=== PATIENT | female | born 1940 | race Caucasian/White ===

== ENCOUNTER → 2016-02-19 | Outpatient (CLI) | payer BC ==
[~2016-02-19] MED LIST: ALBU1AER9 INH; ATEN-173 PO; CYAN10004 PO; LORA10TA51 PO; MULT1CHW18 PO; OMEG1200 PO; PANT40TA PO; VALA500T39 PO
--- NOTE | 2016-02-19 10:09 | DIAGNOSTIC IMAGING REPORT ---
THYROID ULTRASONOGRAPHY CLINICAL HISTORY: SUBCLINICAL HYPOTHYROIDISM COMPARISON STUDY: 02/08/2011 FINDINGS: The right lobe measures 50 x 12 x 12 mm. The left lobe measures 44 x 14 x 19 mm. There is a septated cystic lower pole right lobe nodule measuring 5 mm in long axis. There is a 3 mm cystic lower pole right lobe nodule. There is a mixed echogenicity 7 x 4 x 4 mm upper pole right lobe nodule. On the left, there is a mixed solid and cystic 23 x 12 x 17 mm mid upper pole nodule. There is a 7 mm spongiform lower pole nodule. There is a 7 mm mid pole mixed echogenicity nodule. IMPRESSION: Multinodular thyroid gland demonstrating slight interval enlargement of the dominant left lobe nodule, currently measuring 23 mm in long axis compared to 17 mm in long axis January 2011. Electronically signed by: Shalom Zapata M.D. 02/19/2016 10:07 AM Dictated Date/Time: 02/19/2016 10:04 AM
== END | disposition home or self-care (01) ==
LOC: C.ULTR 09:32
PROVIDERS: ATTEND Internal Medicine Endocrinology, Diabetes & Metabolism
DX: E03.9 Hypothyroidism, unspecified (principal)

== ENCOUNTER → 2016-03-18 | Outpatient (CLI) | payer BC ==
--- NOTE | 2016-03-18 11:16 | DIAGNOSTIC IMAGING REPORT ---
RENAL ULTRASOUND HISTORY: Hematuria. COMPARISON: Abdominal ultrasound 07/17/2009. FINDINGS: Right kidney: 9.3 cm. No hydronephrosis. Normal corticomedullary differentiation. Mild cortical renal lobulation/thinning. This is likely age-related. Left kidney: 9.1 cm. No hydronephrosis. Normal corticomedullary differentiation. Mild cortical renal lobulation/thinning. This is likely age-related. Bladder: No bladder wall thickening. The bilateral ureteral jets were identified. IMPRESSION: Normal renal ultrasound for age. Electronically signed by: Kong Saravia M.D. 03/18/2016 11:14 AM Dictated Date/Time: 03/18/2016 11:12 AM
== END | disposition home or self-care (01) ==
LOC: C.ULTR 10:10
PROVIDERS: ATTEND Family Medicine
DX: R31.9 Hematuria, unspecified (principal); R79.89 Other specified abnormal findings of blood chemistry

== ENCOUNTER → 2016-11-07 | Outpatient (CLI) | payer BC | END | disposition home or self-care (01) | LOC: C.PAPS 11:32 | PROVIDERS: ATTEND Obstetrics & Gynecology | DX: Z01.419 Encounter for gynecological examination (general) (routine) without abnormal findings (principal) ==

== ENCOUNTER → 2017-04-05 | Day surgery (SDC) | payer BC ==
[2017-03-13 08:28] VITALS: Ht 170.2 cm; Wt 82.7 kg
[~2017-04-05] VITALS: Ht 170.2 cm; Wt 82.7 kg
[~2017-04-05] MED LIST changes: +500ML BSS 0.3ML EPI 1:1000PF IRRIG ONE; +ACETAMINOPHEN 325 MG TAB PO PRN; +ALBU18002 INH; -ALBU1AER9 INH; +AMVISC PLUS 0.8ML SYRINGE INT OCU ONE; +ATROPINE SULFATE 0.1 MG/ML 5ML SYR IV PRN; +BSS FLUSH ONE; +CLR10 PO; -CYAN10004 PO; +CYCLOPENTOLATE HCL 1% OP SOLN PER DROP CHARGE OPL SCH; +DICL50TA3 PO; +ENDOCOAT 0.85ML SYRINGE INT OCU ONE; +EpHEDrine SULFATE INJ 50 MG/ML AMP IV PRN; +EpINEphrine INJ 1MG/ML AMP 1 MG/ML AMP ONE; +FENTANYL CITRATE INJ 50 MCG/1 ML 2 ML VIAL ONE; +LABETALOL HCL IV 5 MG/ML 20ML IV ONE; +LACTATED RINGER'S 1000ML 1,000 ML IV SCH; +LACTATED RINGER'S 1000ML 500 ML IV SCH; +LIDOCAINE 4% OP SOLN DROP CHARGE ONE; +LIDOCAINE 4% OP SOLN DROP CHARGE OPL SCH; +LIDOCAINE HCL 1% MPF 2 ML VIAL ONE; -LORA10TA51 PO; +MIDAZOLAM HCL 1 MG/ML 2ML VIAL ONE; +MIX: 4ML BSS 1ML EPI 1:1000 PF TOP ONE; +MOXIFLOXACIN OPH SOLN PER DROP CHARGE ONE; +MOXIFLOXACIN OPH SOLN PER DROP CHARGE OPL SCH; -MULT1CHW18 PO; +PHENYLEPHRINE HCL 2.5% OP SOLN PER DROP CHARGE OPL SCH; +POVIDONE-IODINE OP SOLN 30 ML BTL ONE; +PROPARACAINE 0.5% OP SOLN PER DROP CHARGE OPL SCH; +TOBRAMYCIN/DEXAMETHASONE OPH OINT PER APPLN CHARGE ONE; +TROPICAMIDE 1% OP SOLN PER DROP CHARGE OPL SCH
[2017-04-05] MEDS: PHENYLEPHRINE HCL 2.5% OP SOLN PER DROP CHARGE OPL SCH ×3 (07:21→07:30)
[2017-04-05] MEDS: TROPICAMIDE 1% OP SOLN PER DROP CHARGE OPL SCH ×3 (07:22→07:31)
[2017-04-05] MEDS: CYCLOPENTOLATE HCL 1% OP SOLN PER DROP CHARGE OPL SCH ×3 (07:23→07:32)
[2017-04-05] MEDS: MOXIFLOXACIN OPH SOLN PER DROP CHARGE OPL SCH ×3 (07:24→07:33)
--- NOTE | 2017-04-05 07:24 | History & Physical Bridge - SC ---
H&P Re-Evaluation Bridge Note: I have examined the patient, reviewed the History & Physical and in the interval since the performance of the History & Physical I have noted the following changes of clinical significance: No changes noted
--- NOTE | 2017-04-05 08:31 | [facility] Post Operative Brief Note ---
Immediate Operative Summary Operative Date Apr 05, 2017. Pre-Operative Diagnosis Left Eye Cataract Post-Operative Diagnosis Same Procedure(s) Performed Left Cataract Phacoemulsification With Intraocular Lens Implant Surgeon Dr. Artemio Munroe Team Sports Sales Associate Surgeon(s) None Estimated Blood Loss 0 Findings Consistent with Post-Op Diagnosis Specimens Trace Anesthesia Type MAC Complication(s) none Disposition Accompanied Pt To Recovery: no Disposition:
--- NOTE | 2017-04-05 08:32 | [facility] Operative Report ---
Operative Report Date of Service Apr 05, 2017. Operative Report DATE OF OPERATION: 04/05/17 PREOPERATIVE DIAGNOSIS: Senile nuclear cataract, left eye POSTOPERATIVE DIAGNOSIS: Senile nuclear cataract, left eye PROCEDURE PERFORMED: Phacoemulsification with intraocular lens implantation, left eye SURGEON: Dr. Isai Munroe ANESTHESIA: Topical with 1% intracameral lidocaine and monitored anesthesia care COMPLICATIONS: None DESCRIPTION OF PROCEDURE: After positively identifying the patient both verbally and by wristband in the preoperative area, the left eye was marked as the operative eye. The patient was then brought back to the operating room by the anesthesia and nursing staff where they were given a drop of Lidocaine and betadine into the operative eye. They were then sterilely prepped and draped in the standard fashion typical for ophthalmic surgery. Steri-strips were placed along the upper eyelids to keep the lashes back, and a lid speculum was placed into the operative eye. At this point, a documented time out was performed with members of the ophthalmology, nursing, and anesthesia staffs all agreeing upon the correct patient, correct location for surgery, correct procedure, and correct type and power of intraocular lens to be implanted. The microscope was then swung into position. First, a paracentesis wound was made using a sideport blade. Then, in sequence, 1% preservative-free lidocaine followed by Endocoat viscoelastic was injected into the anterior chamber. Next , the main incision was made with a keratome blade in triplanar fashion. A sharp cystotome was introduced into the eye and used to create a tear in the anterior capsule, which was directed into a continuous curvilinear capsulorrhexis using Utrata forceps. Hydrodissection was then performed with BSS on a flat-tip cannula. Next, the phacoemulsification handpiece was introduced into the eye and used to remove the nucleus in a [id number] fashion. This was done without complication and then the irrigation-aspiration handpiece was introduced into the eye and used to remove all remaining cortical and epinuclear material. Amvisc was then injected into the anterior chamber as well as into the capsular bag and using the lens injector system, an MX60 19.0 D lens, serial number [id number], and expiration date 08/2019 was injected into the capsular bag and rotated into the correct position. Next, the irrigation- aspiration handpiece was used to remove all remaining Amvisc. BSS was used to hydrate the main wound, and then BSS was injected into the paracentesis site to reach physiologic pressure and then the main wound was checked and found to be watertight. The patient was given drops of Vigamox and Tobradex ointment into the operative eye, and then the surrounding area was cleaned and dried. A clear plastic shield was placed over the eye and the patient was then sat up and taken from the operating room by the anesthesia staff having tolerated the procedure well and suffering no complications. DISPOSITION: The patient was returned to the recovery room in stable condition. I attest to the content of the Intraoperative Record and any orders documented therein. Any exceptions are noted below.
--- NOTE | 2017-04-05 08:33 | Discharge Instructions-SurgCtr ---
Discharge Instructions Date of Service Apr 05, 2017. Visit Reason for Visit: Cataract Left Eye Discharge Discharge Diagnosis / Problem: left cataract Discharge Goals Goal(s): Decrease discomfort, Improve function Activity Recommendations Activity Limitations: as noted below Anesthesia . Post Anesthesia Instructions: If you have had General Anesthesia or IV Sedation: * Do not drive today. * Resume driving when surgeon permits. * Do not make important decisions or sign legal documents today. * Call surgeon for: 1. Temperature elevations greater than 101 degrees F. 2. Uncontrollable pain. 3. Excessive bleeding. 4. Persistent nausea and vomiting. 5. Medication intolerance (nausea, vomiting or rash). * For nausea and vomiting use only clear liquids such as: tea, soda, bouillon until nausea subsides, then gradually increase diet as tolerated. * If you have any concerns or questions, call your surgeon's office. If physician is unavailable and it is an emergency, call 911 or go to the nearest emergency room. . Instructions / Follow-Up Instructions / Follow-Up ACTIVITY RECOMMENDATIONS: * Light activities. * You may walk outside, read, watch television. * You may notice redness on the white part of the eye and some blurry vision - this is normal. MEDICATIONS: Resume previous medications unless instructed otherwise by your surgeon. Start all eye drops at 10:30 am today: * Eye drops (today): Prednisone - one drop in operative eye every 2 hours while awake Ofloxacin - one drop in operative eye every 2 hours while awake SPECIAL CARE INSTRUCTIONS: * Tape plastic shield over eye to sleep at night. Call your doctor at with any concerns or problems. FOLLOW UP VISIT: Follow-up with Dr Munroe at [facility] as scheduled. Diet Recommendations Home Diet: no limitations Procedures Procedures Performed: Left Cataract Phacoemulsification With Intraocular Lens Implant Pending Studies Studies pending at discharge: no Medical Emergencies . Who to Call and When: Medical Emergencies: If at any time you feel your situation is an emergency, please call 911 immediately. . Non-Emergent Contact Non-Emergency issues call your: Surgeon . . "Provider Documentation" section prepared by Isai Munroe. .
--- NOTE | 2017-04-05 09:03 | Anesthesia Progress Nt - [facility] ---
Anesthesia Post Op Note Date & Time Apr 05, 2017 at 09:03 Vital Signs Pain Intensity: 0 Vital Signs Past 12 Hours Date Time Temp Pulse Resp B/P (MAP) Pulse Ox O2 Delivery O2 Flow Rate FiO2 04/05/17 08:31 36.4 62 16 188/92 (124) 97 Room Air 04/05/17 07:14 36.5 58 18 181/99 (126) 98 Room Air Notes Mental Status: alert / awake / arousable, participated in evaluation Pt Amnestic to Procedure: Yes Nausea / Vomiting: adequately controlled Pain: adequately controlled Airway Patency, RR, SpO2: stable & adequate BP & HR: stable & adequate Hydration State: stable & adequate Anesthetic Complications: no major complications apparent
[2017-04-05 09:15] VITALS: BP 182/92; PULSE 61; O2SAT 97
== END | disposition home or self-care (01) ==
LOC: X.SURG 06:49
PROVIDERS: ATTEND Ophthalmology
DX: H25.12 Age-related nuclear cataract, left eye (principal); I10 Essential (primary) hypertension; G40.909 Epilepsy, unspecified, not intractable, without status epilepticus; K21.9 Gastro-esophageal reflux disease without esophagitis; F17.210 Nicotine dependence, cigarettes, uncomplicated; Z79.899 Other long term (current) drug therapy; Z88.6 Allergy status to analgesic agent; Z88.8 Allergy status to other drugs, medicaments and biological substances; Z88.5 Allergy status to narcotic agent

== ENCOUNTER → 2017-04-19 | Day surgery (SDC) | payer BC ==
[2017-04-17 08:41] VITALS: Ht 170.2 cm; Wt 82.7 kg
[~2017-04-19] VITALS: Ht 170.2 cm; Wt 82.7 kg
[~2017-04-19] MED LIST changes: -CYCLOPENTOLATE HCL 1% OP SOLN PER DROP CHARGE OPL SCH; -LABETALOL HCL IV 5 MG/ML 20ML IV ONE; -LACTATED RINGER'S 1000ML 1,000 ML IV SCH; -LIDOCAINE 4% OP SOLN DROP CHARGE OPL SCH; +LIDOCAINE 4% OP SOLN DROP CHARGE OPR SCH; -MOXIFLOXACIN OPH SOLN PER DROP CHARGE OPL SCH; -PHENYLEPHRINE HCL 2.5% OP SOLN PER DROP CHARGE OPL SCH; -PROPARACAINE 0.5% OP SOLN PER DROP CHARGE OPL SCH; +PROPARACAINE 0.5% OP SOLN PER DROP CHARGE OPR SCH; -TROPICAMIDE 1% OP SOLN PER DROP CHARGE OPL SCH
[2017-04-19] MEDS: PHENYLEPHRINE HCL 2.5% OP SOLN PER DROP CHARGE OPR SCH ×3 (06:42→06:52)
[2017-04-19] MEDS: TROPICAMIDE 1% OP SOLN PER DROP CHARGE OPR SCH ×3 (06:43→06:53)
[2017-04-19] MEDS: CYCLOPENTOLATE HCL 1% OP SOLN PER DROP CHARGE OPR SCH ×3 (06:44→06:54)
[2017-04-19] MEDS: MOXIFLOXACIN OPH SOLN PER DROP CHARGE OPR SCH ×3 (06:45→07:05)
--- NOTE | 2017-04-19 07:52 | [facility] Post Operative Brief Note ---
Immediate Operative Summary Operative Date Apr 19, 2017. Pre-Operative Diagnosis Right Eye Cataract Post-Operative Diagnosis same Procedure(s) Performed Right Cataract Phacoemulsification With Intraocular Lens Implant Surgeon Dr. Artemio Munroe Supervisor Air Conditioning Installer Surgeon(s) 0 Estimated Blood Loss 0 Findings Consistent with Post-Op Diagnosis Specimens none Anesthesia Type MAC Complication(s) none Disposition Accompanied Pt To Recovery: no Disposition:
[2017-04-19 07:53] VITALS: TEMP 36.7
--- NOTE | 2017-04-19 07:53 | [facility] Operative Report ---
Operative Report Date of Service Apr 19, 2017. Operative Report DATE OF OPERATION: 04/19/17 PREOPERATIVE DIAGNOSIS: Senile nuclear cataract, right eye POSTOPERATIVE DIAGNOSIS: Senile nuclear cataract, right eye PROCEDURE PERFORMED: Phacoemulsification with intraocular lens implantation, right eye SURGEON: Dr. Isai Munroe ANESTHESIA: Topical with 1% intracameral lidocaine and monitored anesthesia care COMPLICATIONS: None DESCRIPTION OF PROCEDURE: After positively identifying the patient both verbally and by wristband in the preoperative area, the right eye was marked as the operative eye. The patient was then brought back to the operating room by the anesthesia and nursing staff where they were given a drop of Lidocaine and betadine into the operative eye. They were then sterilely prepped and draped in the standard fashion typical for ophthalmic surgery. Steri-strips were placed along the upper eyelids to keep the lashes back, and a lid speculum was placed into the operative eye. At this point, a documented time out was performed with members of the ophthalmology, nursing, and anesthesia staffs all agreeing upon the correct patient, correct location for surgery, correct procedure, and correct type and power of intraocular lens to be implanted. The microscope was then swung into position. First, a paracentesis wound was made using a sideport blade. Then, in sequence, 1% preservative-free lidocaine followed by Endocoat viscoelastic was injected into the anterior chamber. Next , the main incision was made with a keratome blade in triplanar fashion. A sharp cystotome was introduced into the eye and used to create a tear in the anterior capsule, which was directed into a continuous curvilinear capsulorrhexis using Utrata forceps. Hydrodissection was then performed with BSS on a flat-tip cannula. Next, the phacoemulsification handpiece was introduced into the eye and used to remove the nucleus in a [id number] fashion. This was done without complication and then the irrigation-aspiration handpiece was introduced into the eye and used to remove all remaining cortical and epinuclear material. Amvisc was then injected into the anterior chamber as well as into the capsular bag and using the lens injector system, an MX60 20.5 D lens, serial number [id number], and expiration date 10/2019 was injected into the capsular bag and rotated into the correct position. Next, the irrigation- aspiration handpiece was used to remove all remaining Amvisc. BSS was used to hydrate the main wound, and then BSS was injected into the paracentesis site to reach physiologic pressure and then the main wound was checked and found to be watertight. The patient was given drops of Vigamox and Tobradex ointment into the operative eye, and then the surrounding area was cleaned and dried. A clear plastic shield was placed over the eye and the patient was then sat up and taken from the operating room by the anesthesia staff having tolerated the procedure well and suffering no complications. DISPOSITION: The patient was returned to the recovery room in stable condition. I attest to the content of the Intraoperative Record and any orders documented therein. Any exceptions are noted below.
--- NOTE | 2017-04-19 07:54 | Discharge Instructions-SurgCtr ---
Discharge Instructions Date of Service Apr 19, 2017. Visit Reason for Visit: Cataract Right Eye Discharge Discharge Diagnosis / Problem: right cataract Discharge Goals Goal(s): Decrease discomfort, Improve function Activity Recommendations Activity Limitations: as noted below Anesthesia . Post Anesthesia Instructions: If you have had General Anesthesia or IV Sedation: * Do not drive today. * Resume driving when surgeon permits. * Do not make important decisions or sign legal documents today. * Call surgeon for: 1. Temperature elevations greater than 101 degrees F. 2. Uncontrollable pain. 3. Excessive bleeding. 4. Persistent nausea and vomiting. 5. Medication intolerance (nausea, vomiting or rash). * For nausea and vomiting use only clear liquids such as: tea, soda, bouillon until nausea subsides, then gradually increase diet as tolerated. * If you have any concerns or questions, call your surgeon's office. If physician is unavailable and it is an emergency, call 911 or go to the nearest emergency room. . Instructions / Follow-Up Instructions / Follow-Up ACTIVITY RECOMMENDATIONS: * Light activities. * You may walk outside, read, watch television. * You may notice redness on the white part of the eye and some blurry vision - this is normal. MEDICATIONS: Resume previous medications unless instructed otherwise by your surgeon. Start all eye drops at 10 am today: * Eye drops (today): Prednisone - one drop in operative eye every 2 hours while awake Ofloxacin - one drop in operative eye every 2 hours while awake SPECIAL CARE INSTRUCTIONS: * Tape plastic shield over eye to sleep at night. Call your doctor at with any concerns or problems. FOLLOW UP VISIT: Follow-up with Dr Munroe at [place] office as scheduled. Diet Recommendations Home Diet: no limitations Procedures Procedures Performed: Right Cataract Phacoemulsification With Intraocular Lens Implant Pending Studies Studies pending at discharge: no Medical Emergencies . Who to Call and When: Medical Emergencies: If at any time you feel your situation is an emergency, please call 911 immediately. . Non-Emergent Contact Non-Emergency issues call your: Surgeon . . "Provider Documentation" section prepared by Isai Munroe. .
--- NOTE | 2017-04-19 08:03 | Anesthesia Progress Nt - [facility] ---
Anesthesia Post Op Note Date & Time Apr 19, 2017 at 08:03 Vital Signs Pain Intensity: 0 Vital Signs Past 12 Hours Date Time Temp Pulse Resp B/P (MAP) Pulse Ox O2 Delivery O2 Flow Rate FiO2 04/19/17 06:31 36.6 57 16 166/101 (122) 96 Room Air Notes Mental Status: alert / awake / arousable, participated in evaluation Pt Amnestic to Procedure: Yes Nausea / Vomiting: adequately controlled Pain: adequately controlled Airway Patency, RR, SpO2: stable & adequate BP & HR: stable & adequate Hydration State: stable & adequate Anesthetic Complications: no major complications apparent
[2017-04-19 08:35] VITALS: BP 179/87; PULSE 53; O2SAT 97
== END | disposition home or self-care (01) ==
LOC: X.SURG 06:11
PROVIDERS: ATTEND Ophthalmology
DX: H25.11 Age-related nuclear cataract, right eye (principal); I10 Essential (primary) hypertension; Z98.49 Cataract extraction status, unspecified eye; G40.909 Epilepsy, unspecified, not intractable, without status epilepticus; F17.210 Nicotine dependence, cigarettes, uncomplicated; Z88.1 Allergy status to other antibiotic agents; Z88.5 Allergy status to narcotic agent; Z88.6 Allergy status to analgesic agent; Z88.8 Allergy status to other drugs, medicaments and biological substances

== ENCOUNTER 2022-08-27 10:58 | Observation (INO) ==
[2022-08-27] MEDS ORDERED: dexAMETHasone**PF** 10 MG/ML VIAL IV ONE (11:52)
[2022-08-27] MEDS ORDERED: ALBUT/IPRATROP 3MG/0.5MG NEB 3 ML VIAL NEB ONE (11:52)
[2022-08-27] MEDS ORDERED: MAGNESIUM SULFATE / D5W 1 GM/100 ML BAG IV STA (11:53)
[2022-08-27] MEDS ORDERED: MAGNESIUM SULFATE 1GM / D5W BAG IV ONE (11:55)
--- NOTE | 2022-08-27 11:57 | Emergency Department Note ---
Impression & Plan COPD exacerbation ED Provider Note Name: ADAL LEYV Age: 81 Sex: F Arrives Via: Walk-In Informant: Patient ED Provider: West Sears MD Chief Complaint: Shortness of breath Impression: As per impressions above Medical Decision Makin-year-old female arrives for evaluation of difficulty breathing. She has had a few days of worsening breathing and has a history of COPD. She is looks a bit short of breath but is not hypoxic. Her lung sounds are quite tight but no significant wheezing appreciated. Given a long DuoNeb and some IV steroids and her breathing is mildly improved but she still pursed lip breathing. Continues to remain good O2 sats and repeat lung exam is relatively clear with just some faint wheezing noted. Given her level of dyspnea CT of the chest was obtained which is fortunately negative. Labs all look good. There is no clear evidence of infectious etiology. This may just be a COPD exacerbation that is not quite hypoxic at this point. At this point though she is far too short of breath to be considering safe for discharge and thus hospitalist was consulted. Of note on patient's arrival she was having a frequent number of PVCs. Given her tight lung sounds and cardiac instability she was given 1 g IV magnesium which resolved further PVCs. Prior Medical Record and Triage/Nursing Notes reviewed by Me External chart reviewed by me Differentials:Pneumonia, COPD, CHF, cardiac ischemia, pulmonary embolism, musculoskeletal, as well as other pathologies. Vital Signs: reviewed and remarkable for no significant abnormalities Interventions: DuoNeb 1 hour, Decadron 10 mg IV, magnesium 1 g IV Labs:Reviewed and remarkable for no significant abnormalities Imagin view chest x-ray as per my interpretation no infiltrate no effusion no enlarged cardiac border. CT of the chest with IV contrast angio for PE as per my informal interpretation there is no evidence of infiltrate, effusion or PE appreciated. This was confirmed by radiologist. EKG:Per My Interpretation: Indication shob: NSR 80 bpm with 1st av block and multiple pvcs, qtc 449. No Ectopy. No Ischemia. Compared to EKG 04/06/21, no significant changes. Cardiac/Tele Monitoring: Cardiac Monitoring: An Order was placed for continuous cardiac monitoring. The monitor shows a rate of 80 with a normal sinus rhythm. Consults:Dr Lety BALBUENA Hospitalist Plan: Disposition:Hospitalization. Condition: Good History of Present Illness:81-year-old female arrives for evaluation of breathing difficulty. Patient notes 2 to 3 days of worsening breathing diff iculty. She states her entire chest feels tight. She states she cannot get her breath. She feels like she was wheezing a lot though she notes she has not actually noticed the wheezing as much now. Associated with fatigue and exhaustion. Symptoms are much worse with any exertion. There is mildly associated epigastric discomfort. No nausea, vomiting, crushing chest pain, tearing pain, syncope, leg swelling beyond baseline, other concerning signs or symptoms. Using ProAir and Trulicity at home without any improvement. Left no recent travel. No history of PE or DVT. Past History:See Below Home Medications:See Below Allergies:See Below Vitals:Blood Pressure: 137/79, Pulse 69, RR 18, T 36.9C, O2 95% on RA Physical Exam: GENERAL: Patient is uncomfortable appearing and in moderate distress. EYES: No scleral icterus, unremarkable pupils. RESPIRATORY: moderate tachypnea and dyspnea with tight lung sounds throughout and mild wheezing CARDIOVASCULAR: Regular rate and rhythm.No murmurs, rubs, gallops appreciated. GASTROINTESTINAL: Abdomen soft, non-tender, no peritonitis. EXTREMITIES: Normal motion all extremities, no cyanosis, mild bilateral lower leg edema NEUROLOGIC: Alert and oriented, no focal neurologic deficit appreciated SKIN: No rash, no jaundice, no diaphoresis. PSYCH: Appropriate GCS: 15 ED Course: Times/Reassessments: Patient lung sounds have improved but she is still quite dyspneic. She is agreeable to hospitalization. Of note PVCs have improved dramatically following magnesium West Sears MD Past Med/Surg History Medical History Asthma Breathing stable and controlled - COPD (chronic obstructive pulmonary disease) inhaler daily/prn Cystocele, midline Pessary in place Dysrhythmia Probable paroxysmal atrial tachycardia (on ZIO patch in 2019)- controlled with low dose BB- follows with Dr. 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 Brother Prostate cancer Daughter Family history of reaction to anesthesia states she did not receive enough anesthesia and could hear everything during surgery Other Cancer Coronary heart disease Thyroid disease Denies family history of Ovarian cancer Breast cancer Colorectal cancer Social History Smoking Status: Current every day smoker Tobacco Type: Pipe Cigarettes Per Day: PER PATIENT 12/19/2019: LESS THAN 8 BOWLS/DAY; Second Hand Exposure: No; Do You Dip or Chew Tobacco: No; Tobacco Cessation Education Requested by Patient: No Hx Alcohol Use: No Hx Substance Use: No Preferred Language: Niuean Communication Ability: Effective Matchbook Maker Required: No Beliefs That Will Affect Care: None Current Living Situation: Family Current Living Situation Comment: Lives with sister and son Other Information That Helps Us Care for You: No Feels Safe at Home: Yes Safety Concerns: Feels Safe At This Time Assistive Devices: None Allergies Allergies Allergy/AdvReac Type Severity Reaction Status Date / Time bupropion Allergy Intermediate EXTREME Verified 06/28/22 15:52 AGITATION buspirone Allergy Intermediate TINNITUS,HO Verified 06/28/22 15:52 STILITY hydroxyzine Allergy Intermediate AGITATION Verified 06/28/22 15:52 ibuprofen Allergy Intermediate AGITATION Verified 06/28/22 15:52 trazodone Allergy Intermediate TINNITUS, Verified 06/28/22 15:52 INSOMNIA ziprasidone Allergy Intermediate VISUAL Verified 06/28/22 15:52 DISTURBANCE,INSOMNIA aripiprazole Allergy Mild RASH Verified 06/28/22 15:52 aspirin Allergy Mild RINGING IN Verified 06/28/22 15:52 EARS lamotrigine Allergy Mild EYE SORES Verified 06/28/22 15:52 latex Allergy Mild RASH Verified 06/28/22 15:52 morphine Allergy Mild AGITATION Verified 06/28/22 15:52 omeprazole Allergy Mild Hiccups Verified 06/28/22 15:52 risperidone Allergy Mild BREATHING Verified 06/28/22 15:52 PROBLEMS sulfamethoxazole Allergy Mild NAUSEA Verified 06/28/22 15:52 trimethoprim Allergy Mild RASH Verified 06/28/22 15:52 aspartame Allergy Verified 08/28/22 09:40 sucralose Allergy Verified 08/28/22 09:40 citalopram AdvReac Intermediate HEADACHE, Verified 06/28/22 15:52 SLEPT 3 DAYS diazepam AdvReac Intermediate INSOMNIA,AG Verified 06/28/22 15:52 ITATION paroxetine AdvReac Intermediate MIND Verified 06/28/22 15:52 RACED,SLEPT 3 DAYS temazepam AdvReac Intermediate INSOMNIA Verified 06/28/22 15:52 venlafaxine AdvReac Intermediate SLEPT FOR Verified 06/28/22 15:52 3 DAYS doxycycline AdvReac Mild VOMITING Verified 06/28/22 15:52 hydrocodone AdvReac Mild NAUSEA Verified 06/28/22 15:52 lithium AdvReac Mild URINATION Verified 06/28/22 15:52 lorazepam AdvReac Mild INSOMNIA, Verified 06/28/22 15:52 ICTHING tetracycline AdvReac Mild NAUSEA Verified 06/28/22 15:52 Home Meds Home Medications Medication Instructions Recorded Confirmed omega 6-wks-hcy-fish oil 1,000 mg 1 cap PO QAM 02/01/18 08/27/22 (120 mg-180 mg) capsule (Fish Oil) valacyclovir 500 mg tablet 500 mg PO QAM 02/01/18 08/27/22 loratadine 10 mg tablet 5 mg PO QAM 11/12/18 08/27/22 nitroglycerin 0.4 mg sublingual 0.4 mg sublingual UD PRN Angina 11/12/18 08/27/22 tablet vitamin E succinate 268 mg (400 400 unit PO DAILY PRN leg cramps 11/12/18 08/27/22 unit) tablet chlorthalidone 25 mg tablet 12.5 mg PO 3XWK 01/09/21 08/27/22 acetaminophen 650 mg 650 mg PO Q8H PRN Pain 04/01/21 08/27/22 tablet,extended release amlodipine 2.5 mg tablet 2.5 mg PO QAM 04/01/21 06/28/22 pantoprazole 40 mg tablet,delayed 40 mg PO QAM 04/01/21 08/27/22 release metoprolol succinate 50 mg 50 mg PO DAILY 08/27/22 08/27/22 tablet,extended release 24 hr Previous Rx's Medication Instructions Recorded nebulizer accessories #1 ea 10/02/19 albuterol sulfate 90 mcg/actuation 1 - 2 puff inhalation QID PRN 06/29/22 aerosol inhaler Wheezing #18 grams fluticasone fur. 100 mcg-umeclid 1 inh inhalation QAM #60 ea 06/29/22 62.5 mcg-vilant 25 mcg inhalat.powder (Trelegy Ellipta) nicotine 10 mg inhalation 1 inh inhalation Q4H PRN nicotine 08/28/22 cartridge (Nicotrol) cravings #168 ea Results & Data (ED) Vital Signs Vital Signs - 24 hr 08/27/22 11:17 Temperature 36.9 C Temperature Source Temporal Artery Scan Pulse Rate 69 Respiratory Rate 18 Respiratory Effort / Characteristics Non-Labored Spontaneous Respiratory Depth Normal Blood Pressure 137/79 Blood Pressure Mean 98 Blood Pressure Position Sitting Pulse Oximetry 95 Oxygen Delivery Method Room Air Sepsis Recent Fever Within 48 Hours No Sepsis New/Unexplained Change in Mental Status N/A Sepsis Action Taken by Nursing No Action Required Laboratory Data 08/28/22 10:22 08/28/22 08:57 Lab Results 08/27/22 08/27/22 08/27/22 Range/Units 12:00 12:00 14:35 WBC 7.14 (4.8-10.8) K/ul RBC 4.43 (4.20-5.40) M/uL Hgb 14.8 (12.0-16.0) g/dl Hct 42.9 (37.0-47.0) % MCV 96.8 (80.0-100.0) fL MCH 33.4 (25.0-34.0) pg MCHC 34.5 (32.0-36.0) g/dL RDW Std Deviation 52.0 H (36.4-46.3) fL RDW Coeff of Analisa 14.7 H (11.5-14.5) % Plt Count 183 (130-400) K/uL MPV 10.8 (9.4-12.4) fL Immature Gran % (Auto) 0.4 % Neut % (Auto) 65.9 % Lymph % (Auto) 19.7 % [place] % (Auto) 9.0 % Eos % (Auto) 4.3 % Baso % (Auto) 0.7 % Neut # (Auto) 4.70 (1.40-6.50) K/uL Lymph # (Auto) 1.41 (1.2-3.4) K/uL [place] # (Auto) 0.64 H (0.11-0.59) K/uL Eos # (Auto) 0.31 (0-0.50) K/uL Baso # (Auto) 0.05 (0-0.2) K/uL Immature Gran # (Auto) 0.03 (0.01-0.20) K/uL Sodium 139 (136-145) mmol/L Potassium 3.6 (3.5-5.1) mmol/L Chloride 104 (98-107) mmol/L Carbon Dioxide 31 (21-32) mmol/L Anion Gap 4 (3-11) BUN 23 (6-23) mg/dl Creatinine 1.34 H (0.6-1.2) mg/dl Est Cr Clr Drug Dosing Not Reportable Est GFR ( Amer) 43.6 ml/min Est GFR (Non-Af Amer) 37.6 ml/min BUN/Creatinine Ratio 17.2 (10-20) Glucose 99 (70-99(Fasting)) mg/dl Calcium 9.3 (8.6-10.3) mg/dl Magnesium 2.1 (1.7-2.4) mg/dl Total Bilirubin 0.5 (0.2-1.0) mg/dl Direct Bilirubin 0.1 (0-0.2) mg/dl AST 15 (13-39) U/L ALT 16 (7-52) U/L Alkaline Phosphatase 85 (34-104) U/L Troponin I High Sens 3.1 (0-14) pg/ml Total Protein 7.2 (6.0-8.3) gm/dl Albumin 4.2 (3.4-5.0) gm/dl Lipase 61 (11-82) U/L Adenovirus (PCR) (NotDetected) B. pertussis DNA (PCR) (NotDetected) B.parapertussis DNA PCR (NotDetected) C. pneumoniae DNA (PCR) (NotDetected) Coronavirus OC43 (PCR) (NotDetected) Coronavirus HKU1 (PCR) (NotDetected) Coronavirus 229E (PCR) (NotDetected) SARS-CoV-2 (PCR) NEGATIVE (Negative) Coronavirus NL63 (PCR) (NotDetected) Human Metapneumovir PCR (NotDetected) Influenza Type A (PCR) Negative (Neg) Influenza Type B (PCR) Negative (Neg) M. pneumoniae (PCR) (NotDetected) Parainfluenza 1 (PCR) (NotDetected) Parainfluenza 2 (PCR) (NotDetected) Parainfluenza 3 (PCR) (NotDetected) Parainfluenza 4 (PCR) (NotDetected) RSV (RT-PCR) Negative (Neg) RSV (PCR) (NotDetected) Entero/Rhino (PCR) (NotDetected) 08/27/22 Range/Units 14:39 WBC (4.8-10.8) K/ul RBC (4.20-5.40) M/uL Hgb (12.0-16.0) g/dl Hct (37.0-47.0) % MCV (80.0-100.0) fL MCH (25.0-34.0) pg MCHC (32.0-36.0) g/dL RDW Std Deviation (36.4-46.3) fL RDW Coeff of Analisa (11.5-14.5) % Plt Count (130-400) K/uL MPV (9.4-12.4) fL Immature Gran % (Auto) % Neut % (Auto) % Lymph % (Auto) % [place] % (Auto) % Eos % (Auto) % Baso % (Auto) % Neut # (Auto) (1.40-6.50) K/uL Lymph # (Auto) (1.2-3.4) K/uL [place] # (Auto) (0.11-0.59) K/uL Eos # (Auto) (0-0.50) K/uL Baso # (Auto) (0-0.2) K/uL Immature Gran # (Auto) (0.01-0.20) K/uL Sodium (136-145) mmol/L Potassium (3.5-5.1) mmol/L Chloride (98-107) mmol/L Carbon Dioxide (21-32) mmol/L Anion Gap (3-11) BUN (6-23) mg/dl Creatinine (0.6-1.2) mg/dl Est Cr Clr Drug Dosing Est GFR ( Amer) ml/min Est GFR (Non-Af Amer) ml/min BUN/Creatinine Ratio (10-20) Glucose (70-99(Fasting)) mg/dl Calcium (8.6-10.3) mg/dl Magnesium (1.7-2.4) mg/dl Total Bilirubin (0.2-1.0) mg/dl Direct Bilirubin (0-0.2) mg/dl AST (13-39) U/L ALT (7-52) U/L Alkaline Phosphatase (34-104) U/L Troponin I High Sens (0-14) pg/ml Total Protein (6.0-8.3) gm/dl Albumin (3.4-5.0) gm/dl Lipase (11-82) U/L Adenovirus (PCR) Not Detected (NotDetected) B. pertussis DNA (PCR) Not Detected (NotDetected) B.parapertussis DNA PCR Not Detected (NotDetected) C. pneumoniae DNA (PCR) Not Detected (NotDetected) Coronavirus OC43 (PCR) Not Detected (NotDetected) Coronavirus HKU1 (PCR) Not Detected (NotDetected) Coronavirus 229E (PCR) Not Detected (NotDetected) SARS-CoV-2 (PCR) Not Detected (Negative) Coronavirus NL63 (PCR) Not Detected (NotDetected) Human Metapneumovir PCR Not Detected (NotDetected) Influenza Type A (PCR) Not Detected (Neg) Influenza Type B (PCR) Not Detected (Neg) M. pneumoniae (PCR) Not Detected (NotDetected) Parainfluenza 1 (PCR) Not Detected (NotDetected) Parainfluenza 2 (PCR) Not Detected (NotDetected) Parainfluenza 3 (PCR) Not Detected (NotDetected) Parainfluenza 4 (PCR) Not Detected (NotDetected) RSV (RT-PCR) (Neg) RSV (PCR) Not Detected (NotDetected) Entero/Rhino (PCR) Not Detected (NotDetected) Administered Medications Discontinued Medications Albuterol (Albut/Ipratrop 3mg/0.5mg Neb 3 Ml Vial) 12 ml NEB ONE ONE; Protocol Stop: 08/27/22 11:53 Last Admin: 08/27/22 11:57 Dose: 12 ml Documented By: CAYLA Albuterol (Albut/Ipratrop 3mg/0.5mg Neb 3 Ml Vial) 3 ml NEB QIDR [facility]; Protocol Stop: 09/26/22 18:59 Last Admin: 08/28/22 11:15 Dose: 3 ml Documented By: Admin: 08/28/22 06:53 Dose: Not Given Documented By: Admin: 08/27/22 19:56 Dose: Not Given Documented By: TENISHA Amlodipine Besylate (Amlodipine Besylate 5 Mg Tab) 2.5 mg PO NOW ONE Stop: 08/28/22 11:41 Last Admin: 08/28/22 12:24 Dose: 2.5 mg Documented By: ILSA Azithromycin (Azithromycin 250 Mg Tab) 500 mg PO NOW STA Stop: 08/27/22 15:04 Last Admin: 08/27/22 16:20 Dose: 500 mg Documented By: KRISS Azithromycin (Azithromycin 250 Mg Tab) [facility] [place]: 09/04/22 08:59 Last Admin: 08/28/22 08:17 Dose: 500 mg Documented By: ILSA Budesonide (Budesonide 0.5 Mg/2 Ml Vial (Pulmicort)) 0.5 mg NEB NOW STA Stop: 08/27/22 15:44 Last Admin: 08/27/22 19:56 Dose: Not Given Documented By: TENISHA Budesonide (Budesonide 0.5 Mg/2 Ml Vial (Pulmicort)) 0.5 mg NEB BIDR [facility] Stop: 09/26/22 18:59 Last Admin: 08/28/22 06:53 Dose: 0.5 mg Documented By: Admin: 08/27/22 19:53 Dose: 0.5 mg Documented By: TENISHA Dexamethasone Sodium Phosphate (DexamethasonePf 10 Mg/Ml Vial) 10 mg IV NOW ONE Stop: 08/27/22 11:53 Last Admin: 08/27/22 11:57 Dose: 10 mg Documented By: CALYA Enoxaparin Sodium (Enoxaparin Inj 40 Mg/0.4 Ml Syr) 40 mg SQ Q24H ANA[facility] Stop: 09/26/22 18:30 Last Admin: 08/27/22 20:25 Dose: Not Given Documented By: CHUNG Famotidine (Famotidine 20 Mg Tab) 20 mg PO NOW ONE Stop: 08/27/22 18:31 Last Admin: 08/27/22 20:26 Dose: 20 mg Documented By: CHUNG Famotidine (Famotidine 20 Mg Tab) 20 mg PO DAILY ANA[facility] Stop: 09/27/22 08:59 Last Admin: 08/28/22 09:14 Dose: 20 mg Documented By: ILSA Formoterol Fumarate (Formoterol 20 Mcg/2 Ml Vial) 20 mcg NEB NOW STA Stop: 08/27/22 15:44 Last Admin: 08/27/22 19:56 Dose: Not Given Documented By: TENISHA Formoterol Fumarate (Formoterol 20 Mcg/2 Ml Vial) 20 mcg NEB BIDR [facility] Stop: 09/26/22 18:44 Last Admin: 08/28/22 06:53 Dose: 20 mcg Documented By: Admin: 08/27/22 20:02 Dose: Not Given Documented By: Admin: 08/27/22 19:53 Dose: 20 mcg Documented By: TENISHA Magnesium Sulfate/Dextrose (Magnesium Sulfate / D5w) 1 gm in 100 mls @ 100 mls/hr IV NOW STA Stop: 08/27/22 12:52 Last Infusion: 08/27/22 14:17 Dose: 0 mls/hr Documented By: Admin: 08/27/22 11:58 Dose: 100 mls/hr Documented By: CAYLA Methylprednisolone 60 mg/ (Syringe) 0.96 mls @ 1.5 mls/min IV DAILY ANANT Stop: 09/27/22 08:59 Last Admin: 08/28/22 08:16 Dose: 1.5 mls/min Documented By: ILSA Ioversol (Optiray 320 125ml) 118 ml IV ONCE ONE Stop: 08/27/22 14:02 Last Admin: 08/27/22 14:01 Dose: 118 ml Documented By: MICHAEL Loratadine (Loratadine 10 Mg Tab) 5 mg PO QAKelsi [facility] Stop: 09/27/22 08:59 Last Admin: 08/28/22 08:17 Dose: 5 mg Documented By: ILSA Magnesium Sulfate/Dextrose (Magnesium Sulfate 1gm / D5w Bag) Confirm Administered Dose 1 gm IV .STK-MED ONE Stop: 08/27/22 11:56 Last Admin: 08/27/22 14:16 Dose: Not Given Documented By: KRISS Metoprolol Succinate (Metoprolol Succ 50mg Ext Rel Tab) 50 mg PO DAILY [facility] Stop: 09/26/22 18:30 Last Admin: 08/28/22 08:17 Dose: 50 mg Documented By: Admin: 08/27/22 20:26 Dose: 50 mg Documented By: CHUNG Metoprolol Tartrate (Metoprolol Tartrate 50 Mg Tab) 50 mg PO NOW STA Stop: 08/27/22 15:43 Last Admin: 08/27/22 20:40 Dose: Not Given Documented By: CHUNG Miscellaneous (Remove Nicoderm Patch) 1 each N/A DAILY@0859 [facility] Stop: 09/27/22 08:58 Last Admin: 08/28/22 08:23 Dose: Not Given Documented By: ILSA Nicotine (Nicotine 14 Mg/24 Hr Patch) 14 mg TD [facility] Stop: 09/26/22 18:44 Last Admin: 08/28/22 08:18 Dose: 14 mg Documented By: Admin: 08/27/22 20:26 Dose: Not Given Documented By: CHUNG Pantoprazole Sodium (Pantoprazole 40 Mg Tab) 40 mg PO NOW STA Stop: 08/27/22 15:43 Last Admin: 08/27/22 16:20 Dose: 40 mg Documented By: KRISS Pantoprazole Sodium (Pantoprazole 40 Mg Tab) 40 [facility] [place] [facility] [place]: 09/27/22 08:59 Last Admin: 08/28/22 08:17 Dose: 40 mg Documented By: ILSA Valacyclovir HCl (Valacyclovir Hcl 500 Mg Tablet) 500 mg [facility] [place] Stop: 09/27/22 08:59 Last Admin: 08/28/22 08:17 Dose: 500 mg Documented By: ILSA Discharge Plan Visit Data Chief Complaint: Shortness of Breath/Dyspnea Stated Complaint: SOB, CHEST PAIN ED Provider: West Sears Discharge Problem: COPD exacerbation Patient Disposition: Admitted As Inpatient Discharge Instructions Interventions: ED Discharge Assessment Last Done: 08/27/22 18:07
[2022-08-27 12:20] LABS: Basophils # (auto) 0.05 K/uL (0-0.2); Basophils % (auto) 0.7 %; Eosinophils # (auto) 0.31 K/uL (0-0.50); Eosinophils % (auto) 4.3 %; Hematocrit (blood only) 42.9 % (37.0-47.0); Hemoglobin 14.8 g/dl (12.0-16.0); Immature Granulocytes # (auto) 0.03 K/uL (0.01-0.20); Immature Granulocytes % (auto) 0.4 %; Lymphocytes # (auto) 1.41 K/uL (1.2-3.4); Lymphocytes % (auto) 19.7 %; Mean Corpuscular Hemoglobin 33.4 pg (25.0-34.0); Mean Corpuscular Hgb Conc 34.5 g/dL (32.0-36.0); Mean Corpuscular Volume 96.8 fL (80.0-100.0); Mean Platelet Volume 10.8 fL (9.4-12.4); Monocytes # (auto) 0.64 K/uL (0.11-0.59); Neutrophils % (auto) 65.9 %; Platelet Count 183 K/uL (130-400); RDW Coefficient of Variation 14.7 % (11.5-14.5); Red Blood Count 4.43 M/uL (4.20-5.40); White Blood Count 7.14 K/ul (4.8-10.8)
[2022-08-27 12:38] LABS: Alanine Aminotransferase 16 U/L (7-52); Albumin Level 4.2 gm/dl (3.4-5.0); Alkaline Phosphatase 85 U/L (34-104); Anion Gap 4 (3-11); Aspartate Aminotransferase 15 U/L (13-39); BUN Creatinine Ratio 17.2 (10-20); Bilirubin Direct 0.1 mg/dl (0-0.2); Bilirubin,Total 0.5 mg/dl (0.2-1.0); Blood Urea Nitrogen 23 mg/dl (6-23); Calcium 9.3 mg/dl (8.6-10.3); Carbon Dioxide 31 mmol/L (21-32); Chloride 104 mmol/L (98-107); Est GFR (African American) 43.6 ml/min; Est GFR (Non-African American) 37.6 ml/min; Glucose 99 mg/dl (70-99(Fasting)); Lipase 61 U/L (11-82); Magnesium 2.1 mg/dl (1.7-2.4); Potassium 3.6 mmol/L (3.5-5.1); Sodium 139 mmol/L (136-145); Total Protein 7.2 gm/dl (6.0-8.3)
--- NOTE | 2022-08-27 12:43 | XRay Report ---
XR chest 1V portable HISTORY: shortness of breath COMPARISON: Chest 06/15/2021. FINDINGS: A few small left basilar linear densities persist and favor subsegmental atelectasis or sca rring. Otherwise, the lungs are clear. No new focal lung consolidations to suggest a pneumonia. No ev idence for pulmonary edema. The heart is normal in size. No acute fractures identified. IMPRESSION: No significant change compared to the prior study. No acute process. ACT 112: Negative or not required by law. Electronically signed by: Kong Saravia M.D. 08/27/2022 12:42 PM
[2022-08-27 12:44] LABS: Troponin I High Sensitivity 3.1 pg/ml (0-14)
[2022-08-27] MEDS ORDERED: OPTIRAY 320 125ml IV ONE (14:01)
--- NOTE | 2022-08-27 14:27 | CT Scan Report ---
CHEST CTA for PULMONARY ARTERIES CT DOSE: 544.07 mGy.cm HISTORY: Shortness of breath. TECHNIQUE: Multiaxial CT images of the chest were performed following the intravenous administration of contrast to evaluate the pulmonary arteries. 3D/Maximal intensity projection images were also obta ined. Sagittal and coronal reformations were also reviewed. A dose lowering technique was utilized a dhering to the principles of ALARA. COMPARISON STUDY: Chest CTA 12/21/2018. FINDINGS: Normal caliber thoracic aorta with no evidence for a dissection. The heart is normal in siz e. No pleural or pericardial effusions. No filling defects within the pulmonary arteries to suggest a pulmonary embolus. Limited views the upper abdomen demonstrate normal liver and spleen. Normal adren al glands. There is a 1.4 cm left thyroid nodule. This does not meet CT criteria for follow-up. No me diastinal or hilar lymphadenopathy. No acute fractures identified. No pneumothorax. Emphysema is agai n noted. Bibasilar linear densities favor subsegmental atelectasis. Small amount of mucoid material w ithin the mainstem bronchi. IMPRESSION: 1. No evidence for a pulmonary embolus. 2. Mild emphysema. 3. Bibasilar linear densities favor subsegmental atelectasis. 4. Small amount of mucoid material within the mainstem bronchi. ACT 112: Negative or not required by law. Electronically signed by: Kong Saravia M.D. 08/27/2022 2:25 PM
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
[2022-08-27] MEDS ORDERED: AZITHROMYCIN 250 MG TAB PO STA (15:03)
[2022-08-27 15:27] LABS: Influenza A virus by PCR Negative (Neg); Influenza B virus by PCR Negative (Neg); RSV by PCR Negative (Neg); SARS CoV2 RNA(COVID-19) Ceph NEGATIVE (Negative)
[2022-08-27] MEDS ORDERED: PANTOprazole 40 MG TAB PO STA (15:42)
[2022-08-27] MEDS ORDERED: METOPROLOL TARTRATE 50 MG TAB PO STA (15:42)
[2022-08-27] MEDS ORDERED: BUDESONIDE 0.5 MG/2 ML VIAL (PULMICORT) NEB STA (15:43)
[2022-08-27] MEDS ORDERED: FORMOTEROL 20 MCG/2 ML VIAL NEB STA (15:43)
[2022-08-27 18:27] LABS: Adenovirus PCR Not Detected (NotDetected); Bordetella parapertussis PCR Not Detected (NotDetected); Bordetella pertussis PCR Not Detected (NotDetected); Chlamydia pneumoniae PCR Not Detected (NotDetected); Coronavirus 229E PCR Not Detected (NotDetected); Coronavirus CoV-2 (COVID19)PCR Not Detected (NotDetected); Coronavirus HKU1 PCR Not Detected (NotDetected); Coronavirus NL63 PCR Not Detected (NotDetected); Coronavirus OC43PCR Not Detected (NotDetected); Human Metapneumovirus PCR Not Detected (NotDetected); Influenza A PCR Not Detected (NotDetected); Influenza B PCR Not Detected (NotDetected); Mycoplasma pneumoniae PCR Not Detected (NotDetected); Parainfluenza Virus 1 PCR Not Detected (NotDetected); Parainfluenza Virus 2 PCR Not Detected (NotDetected); Parainfluenza Virus 3 PCR Not Detected (NotDetected); Parainfluenza Virus 4 PCR Not Detected (NotDetected); Respiratory Syncytial VirusPCR Not Detected (NotDetected); Rhinovirus/Enterovirus PCR Not Detected (NotDetected)
[2022-08-27] MEDS ORDERED: FAMOTIDINE 20 MG TAB PO ONE (18:30)
[2022-08-27] MEDS ORDERED: ACETAMINOPHEN 325 MG TAB PO PRN (18:31)
[2022-08-27] MEDS ORDERED: ENOXAPARIN INJ 40 MG/0.4 ML SYR SQ SCH (18:31)
[2022-08-27] MEDS: FORMOTEROL 20 MCG/2 ML VIAL NEB SCH ×2 (19:53→20:02)
[2022-08-27] MEDS: BUDESONIDE 0.5 MG/2 ML VIAL (PULMICORT) NEB SCH (19:53)
[2022-08-27] MEDS: ALBUT/IPRATROP 3MG/0.5MG NEB 3 ML VIAL NEB SCH (19:56)
[2022-08-27] MEDS: METOPROLOL SUCC 50MG EXT REL TAB PO SCH (20:26)
[2022-08-27] MEDS: NICOTINE 14 MG/24 HR PATCH TD SCH (20:26)
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
[2022-08-28] MEDS: FORMOTEROL 20 MCG/2 ML VIAL NEB SCH (06:53)
[2022-08-28] MEDS: BUDESONIDE 0.5 MG/2 ML VIAL (PULMICORT) NEB SCH (06:53)
[2022-08-28] MEDS: ALBUT/IPRATROP 3MG/0.5MG NEB 3 ML VIAL NEB SCH ×2 (06:53→11:15)
[2022-08-28] MEDS: METOPROLOL SUCC 50MG EXT REL TAB PO SCH (08:17)
[2022-08-28] MEDS: NICOTINE 14 MG/24 HR PATCH TD SCH (08:18)
[2022-08-28] MEDS ORDERED: PANTOprazole 40 MG TAB PO SCH (09:00)
[2022-08-28] MEDS ORDERED: valACYclovir HCL 500 MG TABLET PO SCH (09:00)
[2022-08-28] MEDS ORDERED: AZITHROMYCIN 250 MG TAB PO SCH (09:00)
[2022-08-28] MEDS ORDERED: methylPREDNISolone 125 MG/2 ML VIAL IV SCH (09:00)
[2022-08-28] MEDS ORDERED: LORATADINE 10 MG TAB PO SCH (09:00)
[2022-08-28] MEDS ORDERED: methylPREDNISolone 60 MG in SYRINGE 0 ML IV SCH (09:00)
[2022-08-28] MEDS ORDERED: FAMOTIDINE 20 MG TAB PO SCH (09:00)
[2022-08-28 09:46] LABS: BUN Creatinine Ratio 24.2 (10-20); Calcium 9.5 mg/dl (8.6-10.3); Creatinine Clr Calc Pharmacy 39.7 ml/min; Est GFR (Non-African American) 39.7 ml/min; Magnesium 2.1 mg/dl (1.7-2.4); Potassium 4.1 mmol/L (3.5-5.1)
[2022-08-28 10:51] LABS: Basophils # (auto) 0.02 K/uL (0-0.2); Basophils % (auto) 0.2 %; Hematocrit (blood only) 44.4 % (37.0-47.0); Hemoglobin 15.4 g/dl (12.0-16.0); Immature Granulocytes # (auto) 0.09 K/uL (0.01-0.20); Immature Granulocytes % (auto) 0.7 %; Lymphocytes # (auto) 0.93 K/uL (1.2-3.4); Mean Corpuscular Hemoglobin 33.6 pg (25.0-34.0); Mean Corpuscular Hgb Conc 34.7 g/dL (32.0-36.0); Mean Corpuscular Volume 96.7 fL (80.0-100.0); Mean Platelet Volume 10.7 fL (9.4-12.4); Monocytes # (auto) 0.58 K/uL (0.11-0.59); Monocytes % (auto) 4.4 %; Neutrophils # (auto) 11.68 K/uL (1.40-6.50); Neutrophils % (auto) 87.7 %; Platelet Count 201 K/uL (130-400); RDW Coefficient of Variation 14.6 % (11.5-14.5); RDW Standard Deviation 51.4 fL (36.4-46.3); Red Blood Count 4.59 M/uL (4.20-5.40)
[2022-08-28] MEDS ORDERED: amLODIPine BESYLATE 5 MG TAB PO ONE (11:40)
--- NOTE | 2022-08-28 11:49 | Electrocardiogram Report ---
Test Reason : Blood Pressure : / mmHG Vent. Rate : 080 BPM Atrial Rate : 060 BPM P-R Int : 218 ms QRS Dur : 074 ms QT Int : 390 ms P-R-T Axes : 084 049 063 degrees QTc Int : 449 ms Sinus rhythm with 1st degree A-V block with frequent , and consecutive Premature ventricular complexe s Abnormal ECG When compared with ECG of 06-APR-2021 12:09, Premature ventricular complexes are now Present Confirmed by Allen Sethi ([id number]) on 08/28/2022 11:48:38 AM Referred By: REFERRED SELF Confirmed By:Allen Sethi
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
[2022-08-29] MEDS ORDERED: amLODIPine BESYLATE 5 MG TAB PO SCH (09:00)
[2022-08-29] MEDS ORDERED: CHLORTHALIDONE 25 MG TAB PO SCH (09:00)
== END 2022-08-28 13:13 | disposition home or self-care (01) ==
LOC: ED 10:58 → 2W 10:58 → SUATTDRO 15:10 → 2W 18:07

== ENCOUNTER 2022-09-07 09:54 | Observation (INO) ==
[2022-09-07] MEDS ORDERED: SODIUM CHLORIDE 0.9% 500 ML IV STA (10:01)
--- NOTE | 2022-09-07 10:09 | Emergency Department Note ---
Impression & Plan Vertigo ADMIT ED Provider Note HPI: The patient is a 81-year-old female with history of COPD, hypertension, presents emergency department with chief complaint of nausea and vomiting, abdominal discomfort, and dizziness that has been ongoing for the past day. Patient s tates that yesterday she began to have sensation of dizziness, began have some nausea and vomiting and then abdominal discomfort with her vomiting. Patient states her symptoms persisted through this morning and therefore she presented to the ED via EMS for assessment. Patient denies any chest pain or shortness of breath. On arrival the patient is noted to be hypertensive, she is in mild distress secondary to dizziness and nausea, she is alert, she is able to follow commands appropriately. ROS: - Per HPI Differential Diagnosis: Hypertensive encephalopathy, peripheral vertigo, central vertigo/posterior circulation stroke, small bowel obstruction, viral gastroenteritis, acute dehydration/acute kidney injury, amongst other potential pathologies. *Outpatient medications and allergy history reviewed. *Pertinent external medical records reviewed. PE: General: Alert, moderate distress secondary to nausea and vomiting as well as dizziness HEENT: Normocephalic, trachea midline Eyes: Extraocular eye movement is intact, no scleral erythema Pulmonary: Clear to auscultation bilaterally, no wheezing Cardio: Regular rate and rhythm GI: Abdomen is soft to palpation : No suprapubic tenderness MSK: No evidence of trauma or malformation of the extremities, no edema Skin: No evidence of rash Neuro: Alert, no focal deficits, no ataxia on [id number] testing bilate rally, symmetrical facial movements are appreciated Psychiatric: Cooperative monitoring analyst: (As interpreted by myself): - An order was placed for continuous cardiac monitoring - Patient was noted to be in sinus rhythm with a rate of 65 EKG: (As interpreted by myself): Rate: 59 Rhythm: Sinus rhythm Intervals: TN interval prolonged at 218 ms, otherwise within normal limits ST changes: No ST elevation Time: 1014 Interventions provided in ED: -IV fluid bolus, IV Zofran, meclizine, IV hydralazine Medical Decision Making: Shortly after the patient arrived IV was established and lab work obtained, patient was maintained on bus monitor. Lab work shows no leukocytosis, hemoglobin is normal at 15.8, platelet count is within normal limits, CMP does not show any critical findings, troponin is negative at 4.9, EKG shows sinus rhythm without any acute ischemic changes. In regards to the patient's nausea, CT imaging of the abdomen pelvis was obtained that shows no evidence of bowel obstruction. There is mild dilatation of the right ureter of undetermined significance without any evidence of kidney stone. Urinalysis does not show any evidence of infection. CT imaging of the head does not show any evidence of any acute process. Patient had hypertension here in the ED at times above 230 systolic therefore was given a dose of IV hydralazine with good improvement into the 170s on my reassessment. On my reassessment patient's daughter is at the bedside, patient states that she still feels dizzy at times and feels very nauseous with movements of her head. I suspect that she may be suffering from peripheral vertigo however given her issues with hypertension requiring IV medications here and lack of complete symptomatic improvement I feel that she will need admission for symptomatic care and likely MRI imaging of the brain to rule out a posterior circulation issue. Her physical exam is otherwise reassuring, she does not have any ataxia on [id number] testing on my exam. Patient and her daughter are in agreement for admission. Case was discussed with the on-call hospitalist, Dr. Davidson, and the patient was placed for admission in stable condition. Consultants: Hospitalist, Dr. Davidson Disposition discussion held by myself with: Patient and daughter * CRITICAL CARE TIME: (38) minutes -Management of hypertensive urgency requiring IV antihypertensive medications for improvement in blood pressure greater than 230 systolic in the setting of dizziness as well as nausea and vomiting, time spent at the bedside, interpretations of EKG and diagnostic studies, discussion with other healthcare providers and arrangement of admission Diagnosis: 1. Hypertensive urgency 2. Vertigo, acute 3. Nausea and vomiting, acute Disposition: Admission Anupam Son DO Emergency Medicine Past Med/Surg History Medical History Asthma Breathing stable and controlled - COPD (chronic obstructive pulmonary disease) inhaler daily/prn Cystocele, midline Pessary in place Dysrhythmia Probable paroxysmal atrial tachycardia (on ZIO patch in 2019)- controlled with low dose BB- follows with Dr. 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 Brother Prostate cancer Daughter Family history of reaction to anesthesia states she did not receive enough anesthesia and could hear everything during surgery Other Cancer Coronary heart disease Thyroid disease Denies family history of Ovarian cancer Breast cancer Colorectal cancer Social History (Updated 09/01/22 @ 12:43 by Mavis Sanchez RN) Smoking Status: Current every day smoker Tobacco Type: Pipe Age Started Using Tobacco: 35; Age Quit Using Tobacco: 81; Cigarettes Per Day: PER PATIENT 12/19/2019: LESS THAN 8 BOWLS/DAY; Second Hand Exposure: No; Do You Dip or Chew Tobacco: No; Hx Alcohol Use: No Hx Substance Use: No Preferred Language: Spanish Communication Ability: Effective Medical Staff Assistant Required: No Beliefs That Will Affect Care: None Current Living Situation: Family Current Living Situation Comment: Lives with sister and son Feels Safe at Home: Yes Assistive Devices: None Allergies Allergies Allergy/AdvReac Type Severity Reaction Status Date / Time bupropion Allergy Intermediate EXTREME Verified 09/07/22 13:37 AGITATION buspirone Allergy Intermediate TINNITUS,HO Verified 09/07/22 13:37 STILITY hydroxyzine Allergy Intermediate AGITATION Verified 09/07/22 13:37 ibuprofen Allergy Intermediate AGITATION Verified 09/07/22 13:37 trazodone Allergy Intermediate TINNITUS, Verified 09/07/22 13:37 INSOMNIA ziprasidone Allergy Intermediate VISUAL Verified 09/07/22 13:37 DISTURBANCE,INSOMNIA aripiprazole Allergy Mild RASH Verified 09/07/22 13:37 aspirin Allergy Mild RINGING IN Verified 09/07/22 13:37 EARS lamotrigine Allergy Mild EYE SORES Verified 09/07/22 13:37 latex Allergy Mild RASH Verified 09/07/22 13:37 morphine Allergy Mild AGITATION Verified 09/07/22 13:37 omeprazole Allergy Mild Hiccups Verified 09/07/22 13:37 risperidone Allergy Mild BREATHING Verified 09/07/22 13:37 PROBLEMS sulfamethoxazole Allergy Mild NAUSEA Verified 09/07/22 13:37 trimethoprim Allergy Mild RASH Verified 09/07/22 13:37 aspartame Allergy Verified 09/07/22 13:37 sucralose Allergy Verified 09/07/22 13:37 citalopram AdvReac Intermediate HEADACHE, Verified 09/07/22 13:37 SLEPT 3 DAYS diazepam AdvReac Intermediate INSOMNIA,AG Verified 09/07/22 13:37 ITATION paroxetine AdvReac Intermediate MIND Verified 09/07/22 13:37 RACED,SLEPT 3 DAYS temazepam AdvReac Intermediate INSOMNIA Verified 09/07/22 13:37 venlafaxine AdvReac Intermediate SLEPT FOR Verified 09/07/22 13:37 3 DAYS doxycycline AdvReac Mild VOMITING Verified 09/07/22 13:37 hydrocodone AdvReac Mild NAUSEA Verified 09/07/22 13:37 lithium AdvReac Mild URINATION Verified 09/07/22 13:37 lorazepam AdvReac Mild INSOMNIA, Verified 09/07/22 13:37 ICTHING tetracycline AdvReac Mild NAUSEA Verified 09/07/22 13:37 Home Meds Home Medications Medication Instructions Recorded Confirmed omega 1-vwq-yjk-fish oil 1,000 mg 1 cap PO QAM 02/01/18 09/07/22 (120 mg-180 mg) capsule (Fish Oil) valacyclovir 500 mg tablet 500 mg PO QAM 02/01/18 09/07/22 loratadine 10 mg tablet 5 mg PO QAM 11/12/18 09/07/22 nitroglycerin 0.4 mg sublingual 0.4 mg sublingual UD PRN Angina 11/12/18 09/07/22 tablet vitamin E succinate 268 mg (400 400 unit PO DAILY PRN leg cramps 11/12/18 09/07/22 unit) tablet chlorthalidone 25 mg tablet 12.5 mg PO 3XWK 01/09/21 09/07/22 acetaminophen 650 mg 650 mg PO Q8H PRN Pain 04/01/21 09/07/22 tablet,extended release pantoprazole 40 mg tablet,delayed 40 mg PO QAM 04/01/21 09/07/22 release metoprolol succinate 50 mg 50 mg PO DAILY 08/27/22 09/07/22 tablet,extended release 24 hr nicotine 14 mg/24 hr daily 1 patch transdermal DAILY 09/07/22 09/07/22 transdermal patch Previous Rx's Medication Instructions Recorded albuterol sulfate 90 mcg/actuation 1 - 2 puff inhalation QID PRN 06/29/22 aerosol inhaler Wheezing #18 grams fluticasone fur. 100 mcg-umeclid 1 inh inhalation QAM #60 ea 06/29/22 62.5 mcg-vilant 25 mcg inhalat.powder (Trelegy Ellipta) amlodipine 2.5 mg tablet 2.5 mg PO DAILY #30 tabs 08/29/22 Results & Data (ED) Vital Signs Vital Signs - 24 hr 09/07/22 10:02 09/07/22 10:10 09/07/22 10:08 Temperature 36.6 C Temperature Source Oral Pulse Rate 66 62 Pulse Rate [Apical] Pulse Rhythm [Apical] Respiratory Rate 18 Respiratory Effort / Characteristics Non-Labored Spontaneous Respiratory Depth Normal Blood Pressure 231/136 H Blood Pressure [Left Arm] Blood Pressure Mean 167 Blood Pressure Mean [Left Arm] Pulse Oximetry 98 Oxygen Delivery Method Room Air Room Air Sepsis Recent Fever Within 48 Hours No Sepsis New/Unexplained Change in Mental Status No Sepsis Action Taken by Nursing No Action Required 09/07/22 10:29 09/07/22 11:33 09/07/22 12:24 Temperature Temperature Source Pulse Rate Pulse Rate [Apical] 60 58 L 57 L Pulse Rhythm [Apical] Respiratory Rate 16 18 18 Respiratory Effort / Characteristics Non-Labored Non-Labored Respiratory Depth Normal Normal Blood Pressure Blood Pressure [Left Arm] 164/78 H 173/79 H 219/95 H Blood Pressure Mean Blood Pressure Mean [Left Arm] 106 110 136 Pulse Oximetry 95 98 98 Oxygen Delivery Method Room Air Room Air Room Air Sepsis Recent Fever Within 48 Hours Sepsis New/Unexplained Change in Mental Status Sepsis Action Taken by Nursing 09/07/22 12:30 09/07/22 13:17 09/07/22 13:53 Temperature Temperature Source Pulse Rate Pulse Rate [Apical] 60 63 61 Pulse Rhythm [Apical] Regular Respiratory Rate 18 18 18 Respiratory Effort / Characteristics Non-Labored Non-Labored Respiratory Depth Normal Normal Blood Pressure Blood Pressure [Left Arm] 218/90 H 200/90 H 172/86 H Blood Pressure Mean Blood Pressure Mean [Left Arm] 132 126 114 Pulse Oximetry 95 97 98 Oxygen Delivery Method Room Air Room Air Room Air Sepsis Recent Fever Within 48 Hours Sepsis New/Unexplained Change in Mental Status Sepsis Action Taken by Nursing 09/07/22 14:16 Temperature Temperature Source Pulse Rate 61 Pulse Rate [Apical] Pulse Rhythm [Apical] Respiratory Rate Respiratory Effort / Characteristics Respiratory Depth Blood Pressure Blood Pressure [Left Arm] Blood Pressure Mean Blood Pressure Mean [Left Arm] Pulse Oximetry Oxygen Delivery Method Sepsis Recent Fever Within 48 Hours Sepsis New/Unexplained Change in Mental Status Sepsis Action Taken by Nursing Laboratory Data 09/07/22 10:05 09/07/22 10:05 Lab Results 09/07/22 09/07/22 09/07/22 Range/Units 10:05 10:05 13:16 WBC 10.00 (4.8-10.8) K/ul RBC 4.71 (4.20-5.40) M/uL Hgb 15.8 (12.0-16.0) g/dl Hct 45.7 (37.0-47.0) % MCV 97.0 (80.0-100.0) fL MCH 33.5 (25.0-34.0) pg MCHC 34.6 (32.0-36.0) g/dL RDW Std Deviation 52.9 H (36.4-46.3) fL RDW Coeff of Analisa 14.6 H (11.5-14.5) % Plt Count 165 (130-400) K/uL MPV 10.3 (9.4-12.4) fL Immature Gran % (Auto) 0.5 % Neut % (Auto) 76.5 % Lymph % (Auto) 13.3 % [place] % (Auto) 6.7 % Eos % (Auto) 2.6 % Baso % (Auto) 0.4 % Neut # (Auto) 7.65 H (1.40-6.50) K/uL Lymph # (Auto) 1.33 (1.2-3.4) K/uL [place] # (Auto) 0.67 H (0.11-0.59) K/uL Eos # (Auto) 0.26 (0-0.50) K/uL Baso # (Auto) 0.04 (0-0.2) K/uL Immature Gran # (Auto) 0.05 (0.01-0.20) K/uL Sodium 137 (136-145) mmol/L Potassium 3.8 (3.5-5.1) mmol/L Chloride 99 (98-107) mmol/L Carbon Dioxide 30 (21-32) mmol/L Anion Gap 8 (3-11) BUN 24 H (6-23) mg/dl Creatinine 1.20 (0.6-1.2) mg/dl Est Cr Clr Drug Dosing 42.6 ml/min Est GFR ( Amer) 49.8 ml/min Est GFR (Non-Af Amer) 43.0 ml/min BUN/Creatinine Ratio 20.0 (10-20) Glucose 98 (70-99(Fasting)) mg/dl Calcium 9.4 (8.6-10.3) mg/dl Total Bilirubin 0.8 (0.2-1.0) mg/dl AST 18 (13-39) U/L ALT 24 (7-52) U/L Alkaline Phosphatase 89 (34-104) U/L Troponin I High Sens 4.9 (0-14) pg/ml Total Protein 7.1 (6.0-8.3) gm/dl Albumin 4.2 (3.4-5.0) gm/dl Globulin 2.9 (2.5-4.0) gm/dl Albumin/Globulin Ratio 1.4 (0.9-2) Lipase 63 (11-82) U/L Urine Color Yellow Urine Appearance Clear (Clear) Urine pH 8.5 H (4.5-7.5) Ur Specific [place] 1.017 (1.000-1.030) Urine Protein Negative (Negative) Urine Glucose (UA) Negative (Negative) Urine Ketones Negative (Negative) Urine Blood Negative (Negative) Urine Nitrite Negative (Negative) Urine Bilirubin Negative (Negative) Urine Urobilinogen Negative (Negative) Ur Leukocyte Esterase Negative (Negative) Administered Medications Discontinued Medications Hydralazine HCl (Hydralazine Hcl 20 Mg/Ml Vial) 10 mg IV NOW STA Stop: 09/07/22 12:35 Last Admin: 09/07/22 12:43 Dose: 10 mg Documented By: JULIETH Sodium Chloride (Nss) 500 mls @ 999 mls/hr IV .Q31M STA Stop: 09/07/22 10:31 Last Infusion: 09/07/22 11:11 Dose: 0 mls/hr Documented By: Admin: 09/07/22 10:29 Dose: 999 mls/hr Documented By: JULIETH Ioversol (Optiray 320 100ml) 93 ml IV ONCE ONE Stop: 09/07/22 12:08 Last Admin: 09/07/22 12:07 Dose: 93 ml Documented By: MAGALY Meclizine HCl (Meclizine Hcl 25 Mg Tab) 25 mg PO NOW STA Stop: 09/07/22 11:04 Last Admin: 09/07/22 11:13 Dose: 25 mg Documented By: JULIETH Ondansetron HCl (Ondansetron Inj 2 Mg/Ml 2 Ml Vial) Confirm Administered Dose 4 mg .ROUTE .STK-MED ONE Stop: 09/07/22 12:27 Last Admin: 09/07/22 12:31 Dose: 4 mg Documented By: JULIETH Ondansetron HCl (Ondansetron Inj 2 Mg/Ml 2 Ml Vial) 4 mg IV NOW STA Stop: 09/07/22 12:39 Last Admin: 09/07/22 12:39 Dose: Not Given Documented By: JULIETH Imaging Data Radiologist's Impression: Abdomen/Pelvis CT 09/07/22 10:07 CT OF THE ABDOMEN AND PELVIS WITH CONTRAST CLINICAL HISTORY: Abdominal pain, nausea and vomiting. COMPARISON STUDY: CT of the abdomen and pelvis September 27, 2021. TECHNIQUE: Following IV administration of 93 mL of Optiray, axial images of the abdomen and pelvis were obtained from the lung bases to the proximal femurs. Images were reviewed in the axial, sagittal, and coronal planes. IV contrast was administered without complication. Automated exposure control was utilized for the study. A dose lowering technique was utilized adhering to the principles of ALARA. CT DOSE: 1902.12 mGy.cm FINDINGS: No pneumatosis, free air or portal venous gas is present. A few subcentimeter hepatic lesions are unchanged. These are benign. The liver, spleen, adrenal glands and pancreas are unremarkable. Slight fullness the right collecting system and bilateral ureters is noted. There are no ureteral calculi. Pessary device is in place. The caliber and wall thickness of small and large bowel are normal. There is no evidence for a bowel obstruction. The appendix is normal. There is no lymphadenopathy. No ascites is present. No acute fractures are identified. IMPRESSION: 1. No bowel obstruction. No bowel wall thickening. Normal appendix. 2. Mild dilatation of the ureters and right collecting system. This finding is of questionable significance. No ureteral calculi identified. ACT 112: Negative or not required by law. Electronically signed by: Brayan Mcgarry M.D. 09/07/2022 1:[address] 09/07/22 10:07 CT head/brain wo con CLINICAL HISTORY: 81 years-old Female with Dizziness, nausea and vomiting. Acute dizziness with nausea and vomiting TECHNIQUE: Multiple axial CT images of the head were obtained without contrast. A dose lowering technique was utilized adhering to the principles of ALARA. COMPARISON: 10/27/2008 FINDINGS: No acute intracranial hemorrhage, midline shift, intracranial mass, hydrocephalus, territorial ischemia or abnormal extra-axial collection. Involutional changes with chronic microvascular ischemic disease. 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 Sug gested encephalomalacia of the right frontal lobe anteriorly. The calvarium is intact. Moderate to severe mucosal thickening of the right maxillary sinus. Moderate mucosal thickening of the right ethmoid air cells. Trace right mastoid effusion. Unremarkable soft tissues. Prior bilateral lens repair. IMPRESSION: No acute intracranial abnormality. ACT 112: Negative or not required by law. The above report was generated using voice recognition software. It may contain grammatical, syntax or spelling errors. Electronically signed by: Arthur Burgess M.D. 09/07/2022 1:34 PM Discharge Plan Visit Data Chief Complaint: Illness Stated Complaint: ILLNESS, NAUSEA ED Provider: Anupam Son Discharge Problem: Vertigo Forms Stand Alone Forms: [facility] [employer] Prescriptions Prescriptions: No Action albuterol sulfate 90 mcg/actuation HFA aerosol inhaler 1 - 2 puff inhalation QID PRN (Reason: Wheezing) Qty: 18 3RF Trelegy Ellipta 100-62.5-25 mcg blister with device 1 inh inhalation QAM Qty: 60 12RF vitamin E succinate 400 unit tablet 400 unit PO DAILY PRN (Reason: leg cramps) loratadine 10 mg tablet 5 mg PO QAM nitroglycerin 0.4 mg tablet, sublingual 0.4 mg SL UD PRN (Reason: Angina) valacyclovir 500 mg tablet 500 mg PO QAM omega 0-hay-pcs-fish oil [Fish Oil] 1,000 mg (120 mg-180 mg) Capsule 1 cap PO QAM chlorthalidone 25 mg tablet 12.5 mg PO 3XWK Patient Comments: takes in the am Rx Instructions: monday and monday pantoprazole 40 mg Tablet,Delayed Release (Dr/Ec) 40 mg PO QAM acetaminophen 650 mg Tablet Extended Release 650 mg PO Q8H PRN (Reason: Pain) metoprolol succinate 50 mg tablet extended release 24 hr 50 mg PO DAILY amlodipine 2.5 mg tablet 2.5 mg PO DAILY Qty: 30 0RF nicotine 14 mg/24 hr Patch 24 Hour 1 patch TRANSDERMAL DAILY Referrals Referrals: Heather Haile DO [Primary Care Provider] -
[2022-09-07 10:27] LABS: Basophils # (auto) 0.04 K/uL (0-0.2); Basophils % (auto) 0.4 %; Eosinophils # (auto) 0.26 K/uL (0-0.50); Eosinophils % (auto) 2.6 %; Hematocrit (blood only) 45.7 % (37.0-47.0); Hemoglobin 15.8 g/dl (12.0-16.0); Immature Granulocytes # (auto) 0.05 K/uL (0.01-0.20); Immature Granulocytes % (auto) 0.5 %; Lymphocytes # (auto) 1.33 K/uL (1.2-3.4); Lymphocytes % (auto) 13.3 %; Mean Corpuscular Hemoglobin 33.5 pg (25.0-34.0); Mean Corpuscular Hgb Conc 34.6 g/dL (32.0-36.0); Mean Platelet Volume 10.3 fL (9.4-12.4); Monocytes # (auto) 0.67 K/uL (0.11-0.59); Monocytes % (auto) 6.7 %; Neutrophils # (auto) 7.65 K/uL (1.40-6.50); Neutrophils % (auto) 76.5 %; Platelet Count 165 K/uL (130-400); RDW Coefficient of Variation 14.6 % (11.5-14.5); RDW Standard Deviation 52.9 fL (36.4-46.3); Red Blood Count 4.71 M/uL (4.20-5.40)
[2022-09-07 10:46] LABS: Albumin Globulin Ratio 1.4 (0.9-2); Albumin Level 4.2 gm/dl (3.4-5.0); Bilirubin,Total 0.8 mg/dl (0.2-1.0); Calcium 9.4 mg/dl (8.6-10.3); Creatinine Clr Calc Pharmacy 42.6 ml/min; Est GFR (African American) 49.8 ml/min; Globulin 2.9 gm/dl (2.5-4.0); Potassium 3.8 mmol/L (3.5-5.1); Total Protein 7.1 gm/dl (6.0-8.3)
[2022-09-07 10:50] LABS: Troponin I High Sensitivity 4.9 pg/ml (0-14)
[2022-09-07] MEDS ORDERED: MECLIZINE HCL 25 MG TAB PO STA (11:03)
--- NOTE | 2022-09-07 11:20 | Electrocardiogram Report ---
Test Reason : Blood Pressure : / mmHG Vent. Rate : 059 BPM Atrial Rate : 059 BPM P-R Int : 218 ms QRS Dur : 080 ms QT Int : 430 ms P-R-T Axes : 036 024 039 degrees QTc Int : 425 ms Sinus bradycardia with 1st degree A-V block Otherwise normal ECG When compared with ECG of 27-AUG-2022 11:44, Premature ventricular complexes are no longer Present Confirmed by Marc Lawrence ([id number]) on 09/07/2022 11:20:06 AM Referred By: REFERRED SELF Confirmed By:Marc Lawrence
[2022-09-07] MEDS ORDERED: OPTIRAY 320 100ml IV ONE (12:07)
[2022-09-07] MEDS ORDERED: ONDANSETRON INJ 2 MG/ML 2 ML VIAL ONE (12:26)
[2022-09-07] MEDS ORDERED: hydrALAZINE HCL 20 MG/ML VIAL IV STA (12:34)
[2022-09-07] MEDS ORDERED: ONDANSETRON INJ 2 MG/ML 2 ML VIAL IV STA (12:38)
[2022-09-07] MEDS ORDERED: ONDANSETRON INJ 2 MG/ML 2 ML VIAL IV PRN ×2 (12:38→16:19)
--- NOTE | 2022-09-07 13:35 | CT Scan Report ---
CT head/brain wo con CLINICAL HISTORY: 81 years-old Female with Dizziness, nausea and vomiting. Acute dizziness with naus ea and vomiting TECHNIQUE: Multiple axial CT images of the head were obtained without contrast. A dose lowering tech nique was utilized adhering to the principles of ALARA. COMPARISON: 10/27/2008 FINDINGS: No acute intracranial hemorrhage, midline shift, intracranial mass, hydrocephalus, territorial ischem ia or abnormal extra-axial collection. Involutional changes with chronic microvascular ischemic disea se. 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 Suggested enceph alomalacia of the right frontal lobe anteriorly. The calvarium is intact. Moderate to severe mucosal thickening of the right maxillary sinus. Moderat e mucosal thickening of the right ethmoid air cells. Trace right mastoid effusion. Unremarkable soft tissues. Prior bilateral lens repair. IMPRESSION: No acute intracranial abnormality. ACT 112: Negative or not required by law. The above report was generated using voice recognition software. It may contain grammatical, syntax o r spelling errors. Electronically signed by: Arthur Burgess M.D. 09/07/2022 1:34 PM
--- NOTE | 2022-09-07 13:38 | CT Scan Report ---
CT OF THE ABDOMEN AND PELVIS WITH CONTRAST CLINICAL HISTORY: Abdominal pain, nausea and vomiting. COMPARISON STUDY: CT of the abdomen and pelvis September 27, 2021. TECHNIQUE: Following IV administration of 93 mL of Optiray, axial images of the abdomen and pelvis we re obtained from the lung bases to the proximal femurs. Images were reviewed in the axial, sagittal, and coronal planes. IV contrast was administered without complication. Automated exposure control wa s utilized for the study. A dose lowering technique was utilized adhering to the principles of ALARA . CT DOSE: 1902.12 mGy.cm FINDINGS: No pneumatosis, free air or portal venous gas is present. A few subcentimeter hepatic lesio ns are unchanged. These are benign. The liver, spleen, adrenal glands and pancreas are unremarkable. Slight fullness the right collecting system and bilateral ureters is noted. There are no ureteral hodan culi. Pessary device is in place. The caliber and wall thickness of small and large bowel are normal. There is no evidence for a bowel obstruction. The appendix is normal. There is no lymphadenopathy. N o ascites is present. No acute fractures are identified. IMPRESSION: 1. No bowel obstruction. No bowel wall thickening. Normal appendix. 2. Mild dilatation of the ureters and right collecting system. This finding is of questionable signif icance. No ureteral calculi identified. ACT 112: Negative or not required by law. Electronically signed by: Brayan Mcgarry M.D. 09/07/2022 1:37 PM
[2022-09-07 13:41] LABS: Appearance Urine Clear (Clear); Bilirubin Urine Negative (Negative); Blood Urine Negative (Negative); Color Urine Yellow; Glucose Urine UA Negative (Negative); Ketones Urine Negative (Negative); Leukocyte Esterase Urine Negative (Negative); Nitrite Urine Negative (Negative); Protein Urine Negative (Negative); Specific Gravity Urine 1.017 (1.000-1.030); Urobilinogen Urine Negative (Negative); pH Urine 8.5 (4.5-7.5)
--- NOTE | 2022-09-07 15:42 | History & Physical Report ---
Date of Service September 07, 2022 Assessment & Plan (1) Vertigo: Plan: -Admit to med/tele -Patient is currently hypertensive at 200/89 but otherwise stable -Patient had sudden onset of BL vision changes with associated vertigo, nausea, vomiting, headache, and neck pain yesterday at noon -Denies any recent fevers or chills -Has been unable to keep food or medications down since yesterday -Differential is broad at this time including but not limited to ischemic/emb olic stroke, inner ear dysfunction, hypertensive urgency, meningitis, migraine -Symptoms have improved but not resolved after receiving 10 mg IV hydralazine, 25 mg Meclizine, 500 mL NSS, and 8 mg IV zofran in the ED -Will attempt to get STAT MRI wo/w con shortly for further evaluation, patient is very claustrophobic, will give her IV ativan prior to MRI -Will wait for MRI results before aggressively treating her HTN -Will place routine neurology consult for further assistance with workup and treatment -If patient would develop fever and/or leukocytosis would obtain an LP for fu rther evaluation of meningitis -SQ lovenox for DVT PPX if MRI is negative for stroke -Clear liquid diet, advance as tolerated -AM CBC, BMP (2) Hypertension: Plan: -Currently HTN at 201/98 -Has not had antihypertensives for the past 24 hours due to nausea -Hold antihypertensives until MRI is complete or until significant HTN (3) Headache: Plan: -Differential is broad at this time but includes HTN, migraine, stroke, meningitis, anxiety -CT head negative for acute changes -No leukocytosis, fever, or significant neck pain/stiffness, or AMS to suggest meningitis at this time -Will give 650 mg PO tylenol now prior to MRI -Contiune to monitor (4) Tobacco abuse: Plan: -Had been smoking a pipe daily until last admission -Had been using the level 2 nicotine patches daily -Would hold nicotine patches for now until her current symptoms have resolved (5) Paroxysmal SVT (supraventricular tachycardia): Plan: -Stable -Continue metoprolol (6) GERD (gastroesophageal reflux disease): Plan: -Continue pantoprazole (7) COPD (chronic obstructive pulmonary disease): Plan: -Stable on RA -Continue home breathing treatments -Incentive spirometry Plan The patient was discussed with Dr. Davidson at the time of the admission History of Present Illness Chief Complaint: Nausea, vomiting, dizziness Primary Care Provider: Heather HaileDO Castro is a 81 year old female with a PMH significant for tobacco use (working on cessation) , Gold Class B COPD, hypersomnia, exertional dyspnea, PSVT, and HTN who presented to the [facility] ED on 09/07 due to ongoing nausea, vomiti ng, dizziness, and headache. The patient was initially noted to be hypertensive on arrival at 219/95 but otherwise stable. Labs including CBC, CMP, high sen trop, UA, and covid [address] of the head was read as "No acute intracranial abnormality.". CT of the abd/pelvis with contrast was read as " 1. No bowel obstruction. No bowel wall thickening. Normal appendix. 2. Mild dilatation of the ureters and right collecting system. This finding is of questionable significance. No ureteral calculi identified.". Prior to admission the patient was given 10 mg IV hydralazine, 25 PO meclizine, 8mg IV zofran, and 500 mL NSS. We were asked to admit the patient for continued workup of ongoing vertigo. At the time of the exam the patient was lying in bed in no acute distress with her daughter sitting bedside, history was obtained from both. The patient states that she had been in her normal state of health until around noon yesterday when she started to develop vision changes in her BL eyes. She describes the changes as the same effect when you look through a prism. These changes are intermittent but have been occurring since yesterday. Along with the vision changes she developed vertigo with the room spinning when she moves her head too quickly or changes positions, a frontal/parietal headache, and neck pain. She confirms that her vision changes occurred first. She has not had her usual medications today or yesterday due to her nausea and vomiting. The patient is concerned that she was experiencing nicotine poisoning as she has been using nicotine patches to help with smoking cessation. Her daughter confirmed that she has been using the level 2 patches and has only been using one every 24 hours. The patient did not have a patch on yesterday, she placed one on this am around 0600 but took it off approximately an hour before my exam. Her symptoms have improved but not resolved since the initial treatment in the ED. She was able to ambulate to the bathroom with my assistance without significant dizziness or recurrence of symptoms. She denies recent fever, chills, changes in rearing taste, or smell, chest pain, SOB, cough, abd pain, dysuria, hematuria, melena, diarrhea, LE swelling, and recent trauma. She confirms that she is a DNR/DNI. Please refer to Dr. Davidson's attestation for any changes to the treatment plan Allergies Allergy/AdvReac Type Severity Reaction Status Date / Time bupropion Allergy Intermediate EXTREME Verified 09/07/22 13:37 AGITATION buspirone Allergy Intermediate TINNITUS,HO Verified 09/07/22 13:37 STILITY hydroxyzine Allergy Intermediate AGITATION Verified 09/07/22 13:37 ibuprofen Allergy Intermediate AGITATION Verified 09/07/22 13:37 trazodone Allergy Intermediate TINNITUS, Verified 09/07/22 13:37 INSOMNIA ziprasidone Allergy Intermediate VISUAL Verified 09/07/22 13:37 DISTURBANCE,INSOMNIA aripiprazole Allergy Mild RASH Verified 09/07/22 13:37 aspirin Allergy Mild RINGING IN Verified 09/07/22 13:37 EARS lamotrigine Allergy Mild EYE SORES Verified 09/07/22 13:37 latex Allergy Mild RASH Verified 09/07/22 13:37 morphine Allergy Mild AGITATION Verified 09/07/22 13:37 omeprazole Allergy Mild Hiccups Verified 09/07/22 13:37 risperidone Allergy Mild BREATHING Verified 09/07/22 13:37 PROBLEMS sulfamethoxazole Allergy Mild NAUSEA Verified 09/07/22 13:37 trimethoprim Allergy Mild RASH Verified 09/07/22 13:37 aspartame Allergy Verified 09/07/22 13:37 sucralose Allergy Verified 09/07/22 13:37 citalopram AdvReac Intermediate HEADACHE, Verified 09/07/22 13:37 SLEPT 3 DAYS diazepam AdvReac Intermediate INSOMNIA,AG Verified 09/07/22 13:37 ITATION paroxetine AdvReac Intermediate MIND Verified 09/07/22 13:37 RACED,SLEPT 3 DAYS temazepam AdvReac Intermediate INSOMNIA Verified 09/07/22 13:37 venlafaxine AdvReac Intermediate SLEPT FOR Verified 09/07/22 13:37 3 DAYS doxycycline AdvReac Mild VOMITING Verified 09/07/22 13:37 hydrocodone AdvReac Mild NAUSEA Verified 09/07/22 13:37 lithium AdvReac Mild URINATION Verified 09/07/22 13:37 lorazepam AdvReac Mild INSOMNIA, Verified 09/07/22 13:37 ICTHING tetracycline AdvReac Mild NAUSEA Verified 09/07/22 13:37 Home Medications Medication Instructions Recorded Confirmed Type omega 3-fsz-eth-fish oil 1,000 mg 1 cap PO QAM 02/01/18 09/07/22 History (120 mg-180 mg) capsule (Fish Oil) valacyclovir 500 mg tablet 500 mg PO QAM 02/01/18 09/07/22 History loratadine 10 mg tablet 5 mg PO QAM 11/12/18 09/07/22 History nitroglycerin 0.4 mg sublingual 0.4 mg sublingual UD PRN Angina 11/12/18 History tablet vitamin E succinate 268 mg (400 400 unit PO DAILY PRN leg cramps 11/12/18 09/07/22 History unit) tablet chlorthalidone 25 mg tablet 12.5 mg PO 3XWK 01/09/21 09/07/22 History acetaminophen 650 mg 650 mg PO Q8H PRN Pain 04/01/21 09/07/22 History tablet,extended release pantoprazole 40 mg tablet,delayed 40 mg PO QAM 04/01/21 09/07/22 History release albuterol sulfate 90 mcg/actuation 1 - 2 puff inhalation QID PRN 06/29/22 09/07/22 Rx aerosol inhaler Wheezing #18 grams fluticasone fur. 100 mcg-umeclid 1 inh inhalation QAM #60 ea 06/29/22 09/07/22 Rx 62.5 mcg-vilant 25 mcg inhalat.powder (Trelegy Ellipta) metoprolol succinate 50 mg 50 mg PO DAILY 08/27/22 09/07/22 History tablet,extended release 24 hr amlodipine 2.5 mg tablet 2.5 mg PO DAILY #30 tabs 08/29/22 09/07/22 Rx nicotine 14 mg/24 hr daily 1 patch transdermal DAILY 09/07/22 09/07/22 History transdermal patch Past Med/Surg History Medical History Asthma Breathing stable and controlled - COPD (chronic obstructive pulmonary disease) inhaler daily/prn Cystocele, midline Pessary in place Dysrhythmia Probable paroxysmal atrial tachycardia (on ZIO patch in 2019)- controlled with low dose BB- follows with Dr. 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 Brother Prostate cancer Daughter Family history of reaction to anesthesia states she did not receive enough anesthesia and could hear everything during surgery Other Cancer Coronary heart disease Thyroid disease Denies family history of Ovarian cancer Breast cancer Colorectal cancer Social History (Updated 09/01/22 @ 12:43 by Mavis Sanchez RN) Smoking Status: Current every day smoker Tobacco Type: Pipe Age Started Using Tobacco: 35; Age Quit Using Tobacco: 81; Cigarettes Per Day: PER PATIENT 12/19/2019: LESS THAN 8 BOWLS/DAY; Second Hand Exposure: No; Do You Dip or Chew Tobacco: No; Tobacco Cessation Education Requested by Patient: No Hx Alcohol Use: No Hx Substance Use: No Preferred Language: Dutch Communication Ability: Effective Door Opener Required: No Beliefs That Will Affect Care: None Current Living Situation: Family Current Living Situation Comment: Lives with sister and son Other Information That Helps Us Care for You: No Feels Safe at Home: Yes Safety Concerns: Feels Safe At This Time Assistive Devices: Walker Physical Exam Physical Exam: Physical Exam: General: In no acute distress, stated age, well-nourished, good hygiene, non- toxic appearing HEENT: Normocephalic, atraumatic, no scleral icterus, pupils around round, symmetrical, and reactive to light, dry mucus membranes, trachea midline, no thyromegaly Chest/Pulm: No respiratory distress, symmetrical chest expansion, scattered expiratory wheezing Cardiac: RRR, no murmurs noted Abdomen: Negative for ascites and bruising, normoactive bowel sounds, soft, non-tender to palpation throughout Musculoskeletal: Patient able to flex chin to chest with minimal neck discomfort, slight neck discomfort with BL straight leg raise, no neck pain with flexing of the BL hips and knees, Symmetrical and without signs of acute trauma, upper and lower extremities with full ROM, no atrophy, spasticity, or flaccidity Extremities: Radial, dorsalis pedis, and posterior tibial pulses are intact and symmetrical, no edema noted in the BL LE's Skin: Warm, dry, no rashes , lesions, or scars noted Neuro: Alert and oriented to person, place, month, year, and president, no focal defects, CN II-XII tested patient experienced nausea with EOM testing but otherwise cranial nerves were intact, finger to nose test negative, negative pronator drift BL, no tremors noted Psych: No acute distress, calm and cooperative during the exam Results & Data Results & Data Vital Signs (Past 12 Hours) Vital Signs Temp Pulse Pulse Resp BP BP Pulse Ox 09/07/22 14:16 61 09/07/22 13:53 61 18 172/86 H 98 09/07/22 13:17 63 18 200/90 H 97 09/07/22 12:30 60 18 218/90 H 95 09/07/22 12:24 57 L 18 219/95 H 98 09/07/22 11:33 58 L 18 173/79 H 98 09/07/22 10:29 60 16 164/78 H 95 09/07/22 10:08 62 09/07/22 10:10 09/07/22 10:02 36.6 C 66 18 231/136 H 98 O2 Del Method 09/07/22 14:16 09/07/22 13:53 Room Air 09/07/22 13:17 Room Air 09/07/22 12:30 Room Air 09/07/22 12:24 Room Air 09/07/22 11:33 Room Air 09/07/22 10:29 Room Air 09/07/22 10:08 09/07/22 10:10 Room Air 09/07/22 10:02 Room Air Laboratory Results Abnormal lab results 09/07/22 09/07/22 09/07/22 Range/Units 10:05 10:05 13:16 RDW Std Deviation 52.9 H (36.4-46.3) fL RDW Coeff of Analisa 14.6 H (11.5-14.5) % Neut # (Auto) 7.65 H (1.40-6.50) K/uL Morgan # (Auto) 0.67 H (0.11-0.59) K/uL BUN 24 H (6-23) mg/dl Urine pH 8.5 H (4.5-7.5) Diagnostic Findings Abdomen/Pelvis CT 09/07/22 10:07 CT OF THE ABDOMEN AND PELVIS WITH CONTRAST CLINICAL HISTORY: Abdominal pain, nausea and vomiting. COMPARISON STUDY: CT of the abdomen and pelvis September 27, 2021. TECHNIQUE: Following IV administration of 93 mL of Optiray, axial images of the abdomen and pelvis were obtained from the lung bases to the proximal femurs. Images were reviewed in the axial, sagittal, and coronal planes. IV contrast was administered without complication. Automated exposure control was utilized for the study. A dose lowering technique was utilized adhering to the principles of ALARA. CT DOSE: 1902.12 mGy.cm FINDINGS: No pneumatosis, free air or portal venous gas is present. A few subcentimeter hepatic lesions are unchanged. These are benign. The liver, spleen, adrenal glands and pancreas are unremarkable. Slight fullness the right collecting system and bilateral ureters is noted. There are no ureteral calculi. Pessary device is in place. The caliber and wall thickness of small and large bowel are normal. There is no evidence for a bowel obstruction. The appendix is normal. There is no lymphadenopathy. No ascites is present. No acute fractures are identified. IMPRESSION: 1. No bowel obstruction. No bowel wall thickening. Normal appendix. 2. Mild dilatation of the ureters and right collecting system. This finding is of questionable significance. No ureteral calculi identified. ACT 112: Negative or not required by law. Electronically signed by: Brayan Mcgarry M.D. 09/07/2022 1:[address] 09/07/22 10:07 CT head/brain wo con CLINICAL HISTORY: 81 years-old Female with Dizziness, nausea and vomiting. Acute dizziness with nausea and vomiting TECHNIQUE: Multiple axial CT images of the head were obtained without contrast. A dose lowering technique was utilized adhering to the principles of ALARA. COMPARISON: 10/27/2008 FINDINGS: No acute intracranial hemorrhage, midline shift, intracranial mass, hydrocephalus, territorial ischemia or abnormal extra-axial collection. Involutional changes with chronic microvascular ischemic disease. 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 Suggested encephalomalacia of the right frontal lobe anteriorly. The calvarium is intact. Moderate to severe mucosal thickening of the right maxillary sinus. Moderate mucosal thickening of the right ethmoid air cells. Trace right mastoid effusion. Unremarkable soft tissues. Prior bilateral lens repair. IMPRESSION: No acute intracranial abnormality. ACT 112: Negative or not required by law. The above report was generated using voice recognition software. It may contain grammatical, syntax or spelling errors. Electronically signed by: Arthur Burgess M.D. 09/07/2022 1:34 PM ECG Additional Comments: Sinus bradycardia with 1st degree A-V block Otherwise normal ECG When compared with ECG of 27-AUG-2022 11:44, Premature ventricular complexes are no longer Present Confirmed by Marc Lawrence ([id number]) on 09/07/2022 11:20:06 AM Code Status & VTE Plan Code Status DNR/DNI VTE Prophylaxis Plan VTE Prophylaxis will be ordered: Yes Supervising Physician Co-Signing Physician Notes I personally saw and examined the patient. I verified all alcantara points and agree with Son Alejandro PA-C with the following exceptions and/or additions: 81 year old female presents to the ER with room spinning sensation associated with nausea and vomiting which started after visual symptoms which she previously has had an refers to this as an ocular migraine. Now significantly improved after lorazepam given for MRI. No recent URI symptoms although recent admission for COPD exacerbation August 27 suspected more related to air quality than URI illness. Recent increase stress with arguement with her sister appeared to set this off. Initially with some neck pain although this has also now resolved. No fever or chills. No prior episodes of vertigo. O/E A&Ox3, PERRL, visual acuity 20/20 right side, unable to detect objects ventrally on left side however this is her baseline due to "ocular pit" present ofr many years. No pronator drift, b/l extremities 5/5 without gross sensation loss A/P Vertigo - no stroke on brain MRI. Differential related to ocular migraine vs. BPPV vs. less likely acute vestibular neuritis. Suspect teasing these out will be more a diagnosis over time whether it reoccurs. Use meclizine 12.5mg PO PRN for vertigo. HTN - suspect related to not taking her medications due to N&V. Restart her usual medications now CVA ruled out. PG Care Time/CCT Total # of Minutes Spent Total Time Spent with Patient: Total time spent is greater than 50% in coordination of care (as documented) at patient's floor/unit and/or counseling patient: Coding [place] [address] INT INP/OBS CARE 3/75MIN Patient Type Established Medical Decision Making High Complexity Diagnoses Vertigo R42 Hypertension I10 Headache R51.9 Tobacco abuse Z72.0 Paroxysmal SVT (supraventricular tachycardia) I47.1 GERD (gastroesophageal reflux disease) K21.9 COPD (chronic obstructive pulmonary disease) J44.9
[2022-09-07] MEDS ORDERED: LACTATED RINGER'S 1,000 ML IV ONE (16:18)
[2022-09-07] MEDS ORDERED: diphenhydrAMINE 50 MG/ML VIAL IV STA (16:21)
[2022-09-07] MEDS ORDERED: LORazepam 2 MG/1 ML VIAL IV STA (16:30)
[2022-09-07] MEDS ORDERED: ACETAMINOPHEN 325 MG TAB PO STA (16:47)
[2022-09-07] MEDS ORDERED: GADOBUTROL 65ML VIAL IV ONE (17:51)
[2022-09-07] MEDS ORDERED: ALBUTEROL 0.5% NEB SOLN 2.5 MG/0.5 ML VIAL NEB PRN (18:12)
--- NOTE | 2022-09-07 18:14 | Magnetic Resonance Report ---
MRI OF THE BRAIN WITHOUT AND WITH IV CONTRAST CLINICAL HISTORY: New onset vertigo. COMPARISON STUDY: MRI of the brain June 04, [address] performed earlier today. TECHNIQUE: Utilizing a 1.5 Pat magnet and dedicated coil, multiplanar, multiecho imaging of the br ain was performed pre and postcontrast administration. IV administration of 8.5 mL of Gadavist contr ast was uneventful. FINDINGS: This exam is mildly compromised by motion artifact although is diagnostic. There are no foc i of restricted diffusion to suggest acute infarct. No acute intracranial hemorrhage, midline shift o r mass effect is present. Ventricular system is unremarkable. Basal cisterns are patent. There is mil d atrophy. Suspected old lacunar infarct within left basal ganglia is noted. Numerous white matter T2 hyperintense foci suggest small vessel disease. There is no intracranial mass or pathologic enhancem ent. There is moderate mucosal thickening with air-fluid level within the right maxillary sinus. Ther e is no mastoid fluid. Sensitivity for detection of lesions within the internal auditory canals is di minished on this exam but none are identified. There is no cerebellopontine angle mass. IMPRESSION: 1. No acute intracranial findings. Exam mildly compromised by motion artifact. 2. No intracranial mass or pathologic enhancement. 3. Numerous white matter T2 hyperintense foci suggestive of small vessel disease. ACT 112: Negative or not required by law. Electronically signed by: Brayan Mcgarry M.D. 09/07/2022 6:12 PM
[2022-09-07] MEDS ORDERED: ACETAMINOPHEN 325 MG TAB PO PRN (18:32)
[2022-09-07] MEDS ORDERED: CHLORTHALIDONE 25 MG TAB PO STA (19:57)
[2022-09-07] MEDS ORDERED: amLODIPine BESYLATE 5 MG TAB PO ONE (19:57)
[2022-09-07] MEDS ORDERED: METOPROLOL SUCC 50MG EXT REL TAB PO STA (19:57)
[2022-09-07] MEDS: ENOXAPARIN INJ 40 MG/0.4 ML SYR SQ SCH (20:58)
[2022-09-08 07:42] LABS: Basophils # (auto) 0.03 K/uL (0-0.2); Basophils % (auto) 0.3 %; Eosinophils # (auto) 0.32 K/uL (0-0.50); Eosinophils % (auto) 3.5 %; Hematocrit (blood only) 42.6 % (37.0-47.0); Hemoglobin 14.4 g/dl (12.0-16.0); Immature Granulocytes # (auto) 0.04 K/uL (0.01-0.20); Immature Granulocytes % (auto) 0.4 %; Lymphocytes # (auto) 1.56 K/uL (1.2-3.4); Lymphocytes % (auto) 17.3 %; Mean Corpuscular Hemoglobin 33.3 pg (25.0-34.0); Mean Corpuscular Hgb Conc 33.8 g/dL (32.0-36.0); Mean Corpuscular Volume 98.6 fL (80.0-100.0); Mean Platelet Volume 10.9 fL (9.4-12.4); Monocytes # (auto) 0.76 K/uL (0.11-0.59); Monocytes % (auto) 8.4 %; Neutrophils # (auto) 6.32 K/uL (1.40-6.50); Neutrophils % (auto) 70.1 %; Platelet Count 173 K/uL (130-400); RDW Coefficient of Variation 14.9 % (11.5-14.5); RDW Standard Deviation 54.2 fL (36.4-46.3); Red Blood Count 4.32 M/uL (4.20-5.40); White Blood Count 9.03 K/ul (4.8-10.8)
[2022-09-08 08:02] LABS: BUN Creatinine Ratio 17.7 (10-20); Creatinine Clr Calc Pharmacy 35.9 ml/min; Est GFR (Non-African American) 35.3 ml/min; Potassium 4.3 mmol/L (3.5-5.1)
--- NOTE | 2022-09-08 08:42 | Neurology Consultation ---
Date of Consultation September 08, 2022 Assessment & Plan (1) Vertigo: Vertigo, now improved, whether secondary to BPPV or nicotine is unclear. This is not central vertigo. Recommend ongoing conservative measures per hospital medicine. Meclizine is reasonable, would avoid further nicotine patches. Therapy evals pending. No further neurologic workup, we will sign off. Telehealth Consultation Telehealth Information Telehealth Information: I performed this visit using a real-time telehealth connection between my location and the patients location ([facility]). After connecting through interactive tele-video, patient was identified by name and date of and/or wristband check.Patient (or authorized healthcare payroll representative) was informed that this was a telemedicine visit and it was being conducted confidentially over secure lines. My office door was closed and no one else was present in the room with me.Patient (or authorized healthcare payroll representative) provided consent to proceed with the visit, expressed an understanding of privacy and security of the telemedicine visit, and gave permission to have a hospital payroll representative in the room in order to assist with the visit and to conduct portions of the visit, as needed. I informed the patient (or authorized healthcare payroll representative) that I reviewed their record and presented the opportunity for them to ask any questions regarding the visit today. The patient agreed to participate. History of Present Illness Reason for Consultation: Vertigo and headache Requesting Physician: Dr. Flores Attending Physician: Luis Flores, DO History of Present Illness Gloria Callahan is a 81 yo F presenting with headache, vertigo, nausea and vomiting yesterday. She feels much better today but continues to be unsteady on her feet and needing to use a walker. She was told in the ED that this could be BPPV however, she believes it is nicotine overdose due to misdosing of her nicotine patch. When she pulled off the patch yesterday she felt better. She otherwise has been able to keep food down, no further vomiting or nausea. Denies ever having symptoms like this in the past. Allergies Allergy/AdvReac Type Severity Reaction Status Date / Time bupropion Allergy Intermediate EXTREME Verified 09/07/22 13:37 AGITATION buspirone Allergy Intermediate TINNITUS,HO Verified 09/07/22 13:37 STILITY hydroxyzine Allergy Intermediate AGITATION Verified 09/07/22 13:37 ibuprofen Allergy Intermediate AGITATION Verified 09/07/22 13:37 trazodone Allergy Intermediate TINNITUS, Verified 09/07/22 13:37 INSOMNIA ziprasidone Allergy Intermediate VISUAL Verified 09/07/22 13:37 DISTURBANCE,INSOMNIA aripiprazole Allergy Mild RASH Verified 09/07/22 13:37 aspirin Allergy Mild RINGING IN Verified 09/07/22 13:37 EARS lamotrigine Allergy Mild EYE SORES Verified 09/07/22 13:37 latex Allergy Mild RASH Verified 09/07/22 13:37 morphine Allergy Mild AGITATION Verified 09/07/22 13:37 omeprazole Allergy Mild Hiccups Verified 09/07/22 13:37 risperidone Allergy Mild BREATHING Verified 09/07/22 13:37 PROBLEMS sulfamethoxazole Allergy Mild NAUSEA Verified 09/07/22 13:37 trimethoprim Allergy Mild RASH Verified 09/07/22 13:37 aspartame Allergy Verified 09/07/22 13:37 sucralose Allergy Verified 09/07/22 13:37 citalopram AdvReac Intermediate HEADACHE, Verified 09/07/22 13:37 SLEPT 3 DAYS diazepam AdvReac Intermediate INSOMNIA,AG Verified 09/07/22 13:37 ITATION paroxetine AdvReac Intermediate MIND Verified 09/07/22 13:37 RACED,SLEPT 3 DAYS temazepam AdvReac Intermediate INSOMNIA Verified 09/07/22 13:37 venlafaxine AdvReac Intermediate SLEPT FOR Verified 09/07/22 13:37 3 DAYS doxycycline AdvReac Mild VOMITING Verified 09/07/22 13:37 hydrocodone AdvReac Mild NAUSEA Verified 09/07/22 13:37 lithium AdvReac Mild URINATION Verified 09/07/22 13:37 lorazepam AdvReac Mild INSOMNIA, Verified 09/07/22 13:37 ICTHING tetracycline AdvReac Mild NAUSEA Verified 09/07/22 13:37 Home Medications Medication Instructions Recorded Confirmed Type omega 1-gdj-mjc-fish oil 1,000 mg 1 cap PO QAM 02/01/18 09/07/22 History (120 mg-180 mg) capsule (Fish Oil) valacyclovir 500 mg tablet 500 mg PO QAM 02/01/18 09/07/22 History loratadine 10 mg tablet 5 mg PO QAM 11/12/18 09/07/22 History nitroglycerin 0.4 mg sublingual 0.4 mg sublingual UD PRN Angina 11/12/18 09/07/22 History tablet vitamin E succinate 268 mg (400 400 unit PO DAILY PRN leg cramps 11/12/18 09/07/22 History unit) tablet chlorthalidone 25 mg tablet 12.5 mg PO 3XWK 01/09/21 09/07/22 History acetaminophen 650 mg 650 mg PO Q8H PRN Pain 04/01/21 09/07/22 History tablet,extended release pantoprazole 40 mg tablet,delayed 40 mg PO QAM 04/01/21 09/07/22 History release albuterol sulfate 90 mcg/actuation 1 - 2 puff inhalation QID PRN 06/29/22 09/07/22 Rx aerosol inhaler Wheezing #18 grams fluticasone fur. 100 mcg-umeclid 1 inh inhalation QAM #60 ea 06/29/22 09/07/22 Rx 62.5 mcg-vilant 25 mcg inhalat.powder (Trelegy Ellipta) metoprolol succinate 50 mg 50 mg PO DAILY 08/27/22 09/07/22 History tablet,extended release 24 hr amlodipine 2.5 mg tablet 2.5 mg PO DAILY #30 tabs 08/29/22 09/07/22 Rx nicotine 14 mg/24 hr daily 1 patch transdermal DAILY 09/07/22 09/07/22 History transdermal patch Patient History Medical History Asthma Breathing stable and controlled - COPD (chronic obstructive pulmonary disease) inhaler daily/prn Cystocele, midline Pessary in place Dysrhythmia Probable paroxysmal atrial tachycardia (on ZIO patch in 2019)- controlled with low dose BB- follows with Dr. 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 Brother Prostate cancer Daughter Family history of reaction to anesthesia states she did not receive enough anesthesia and could hear everything during surgery Other Cancer Coronary heart disease Thyroid disease Denies family history of Ovarian cancer Breast cancer Colorectal cancer Social History (Updated 09/01/22 @ 12:43 by Mavis Sanchez RN) Smoking Status: Current every day smoker Tobacco Type: Pipe Age Started Using Tobacco: 35; Age Quit Using Tobacco: 81; Cigarettes Per Day: PER PATIENT 12/19/2019: LESS THAN 8 BOWLS/DAY; Second Hand Exposure: No; Do You Dip or Chew Tobacco: No; Tobacco Cessation Education Requested by Patient: No Hx Alcohol Use: No Hx Substance Use: No Preferred Language: Norwegian Communication Ability: Effective Wind [employer] Service Manager Required: No Beliefs That Will Affect Care: None Current Living Situation: Family Current Living Situation Comment: Lives with sister and son Other Information That Helps Us Care for You: No Feels Safe at Home: Yes Safety Concerns: Feels Safe At This Time Assistive Devices: Walker Review of Systems +Vertigo Physical Exam Neurological Examination: Mental Status: Awake and alert. Oriented to person, place, and time. Fluent. Comprehension intact. Affect appropriate. Cranial Nerves: II: pupils 3/3 to 2/2 III/IV/: Versions intact without nystagmus VII: Facial expression symmetric VIII: Hearing intact to voice IX/X: Palate elevates symmetrically Motor: Strength was symmetric and antigravity. There were no abnormal movements. Coordination: Movements were not dysmetric Results & Data Vital Signs (Past 12 Hours) Vital Signs Temp Pulse Pulse Resp BP Pulse Ox O2 Del Method 09/08/22 08:10 37.1 C 59 L 16 121/74 95 Room Air 09/08/22 06:00 60 09/08/22 04:00 36.6 C 64 18 119/76 96 Room Air 09/08/22 00:18 75 09/07/22 23:26 36.7 C 58 L 18 152/79 H 96 Room Air Laboratory Results Abnormal lab results 09/07/22 09/07/22 09/07/22 Range/Units 10:05 10:05 13:16 RDW Std Deviation 52.9 H (36.4-46.3) fL RDW Coeff of Analisa 14.6 H (11.5-14.5) % Neut # (Auto) 7.65 H (1.40-6.50) K/uL [place] # (Auto) 0.67 H (0.11-0.59) K/uL BUN 24 H (6-23) mg/dl Creatinine (0.6-1.2) mg/dl Glucose (70-99(Fasting)) mg/dl Urine pH 8.5 H (4.5-7.5) 09/08/22 09/08/22 Range/Units 07:04 07:04 RDW Std Deviation 54.2 H (36.4-46.3) fL RDW Coeff of Analisa 14.9 H (11.5-14.5) % Neut # (Auto) (1.40-6.50) K/uL [place] # (Auto) 0.76 H (0.11-0.59) K/uL BUN 25 H (6-23) mg/dl Creatinine 1.41 H (0.6-1.2) mg/dl Glucose 102 H (70-99(Fasting)) mg/dl Urine pH (4.5-7.5) Diagnostic Findings MRI brain - Unremarkable
[2022-09-08] MEDS ORDERED: NON-FORMULARY MEDICATION (Fluticasone-Umeclidin-Vilanter [Trelegy Ellipta] 100-62.5-25 mcg INH SCH (09:00)
[2022-09-08] MEDS: UMECLIDINIUM/VILANTEROL 62.5/25MCG 7 PUFFS/INHALER INH SCH (09:17)
[2022-09-08] MEDS: PANTOprazole 40 MG TAB PO SCH (09:19)
[2022-09-08] MEDS: valACYclovir HCL 500 MG TABLET PO SCH (09:19)
[2022-09-08] MEDS: METOPROLOL SUCC 50MG EXT REL TAB PO SCH (09:19)
[2022-09-08] MEDS: FLUTICASONE FUROATE 100MCG 14 PUFFS/INHALER INH SCH (09:21)
[2022-09-08] MEDS: amLODIPine BESYLATE 5 MG TAB PO SCH (10:26)
[2022-09-08] MEDS ORDERED: CALCIUM CARBONATE 500 MG CHEWABLE TAB PO PRN (12:16)
[2022-09-08] MEDS: ENOXAPARIN INJ 40 MG/0.4 ML SYR SQ SCH (21:58)
[2022-09-08] MEDS: NICOTINE 7 MG/24 HR TDSY TD SCH (22:48)
[2022-09-09] MEDS: amLODIPine BESYLATE 5 MG TAB PO SCH (07:19)
[2022-09-09] MEDS: PANTOprazole 40 MG TAB PO SCH (07:19)
[2022-09-09] MEDS: MECLIZINE 12.5 MG TAB PO PRN ×2 (07:19→15:12)
[2022-09-09] MEDS: METOPROLOL SUCC 50MG EXT REL TAB PO SCH (07:20)
[2022-09-09] MEDS: FLUTICASONE FUROATE 100MCG 14 PUFFS/INHALER INH SCH (07:20)
[2022-09-09] MEDS: valACYclovir HCL 500 MG TABLET PO SCH (07:20)
[2022-09-09] MEDS: NICOTINE 7 MG/24 HR TDSY TD SCH (07:21)
[2022-09-09] MEDS: UMECLIDINIUM/VILANTEROL 62.5/25MCG 7 PUFFS/INHALER INH SCH (07:21)
[2022-09-09 08:42] LABS: BUN Creatinine Ratio 23.1 (10-20); Calcium 8.6 mg/dl (8.6-10.3); Creatinine Clr Calc Pharmacy 34.6 ml/min; Est GFR (African American) 38.9 ml/min; Est GFR (Non-African American) 33.6 ml/min; Potassium 3.8 mmol/L (3.5-5.1)
[2022-09-09] MEDS ORDERED: CHLORTHALIDONE 25 MG TAB PO SCH (09:00)
[2022-09-09 09:23] LABS: Basophils # (auto) 0.05 K/uL (0-0.2); Basophils % (auto) 0.6 %; Eosinophils % (auto) 3.5 %; Hematocrit (blood only) 39.3 % (37.0-47.0); Hemoglobin 13.4 g/dl (12.0-16.0); Immature Granulocytes # (auto) 0.04 K/uL (0.01-0.20); Immature Granulocytes % (auto) 0.5 %; Lymphocytes # (auto) 1.69 K/uL (1.2-3.4); Lymphocytes % (auto) 19.4 %; Mean Corpuscular Hemoglobin 33.8 pg (25.0-34.0); Mean Corpuscular Hgb Conc 34.1 g/dL (32.0-36.0); Mean Corpuscular Volume 99.2 fL (80.0-100.0); Mean Platelet Volume 11.1 fL (9.4-12.4); Monocytes # (auto) 0.78 K/uL (0.11-0.59); Neutrophils # (auto) 5.83 K/uL (1.40-6.50); Platelet Count 155 K/uL (130-400); RDW Coefficient of Variation 14.8 % (11.5-14.5); RDW Standard Deviation 54.3 fL (36.4-46.3); Red Blood Count 3.96 M/uL (4.20-5.40); White Blood Count 8.69 K/ul (4.8-10.8)
== END 2022-09-09 16:02 | disposition home or self-care (01) ==
LOC: ED 09:54 → EDINP 09:54 → SUATTDRO 15:52 → 2N 18:12

== ENCOUNTER 2024-01-15 16:15 | Inpatient (IN) ==
[2024-01-15 16:54] LABS: Appearance Urine Cloudy (Clear); Bacteria Urine Automated 2+ (None Seen); Bilirubin Urine Negative (Negative); Blood Urine Negative (Negative); Cast Urine Automated 0-2 /lpf (0-2); Color Urine Yellow; Glucose Urine UA Negative (Negative); Ketones Urine Trace (Negative); Leukocyte Esterase Urine 2+ (Negative); Nitrite Urine Negative (Negative); Protein Urine Trace (Negative); RBC Urine Automated 0-2 /hpf (0-2); Specific Gravity Urine 1.022 (1.000-1.030); Urobilinogen Urine Negative (Negative); WBC Urine Automated 21-50 /hpf (0-5); pH Urine 5.5 (4.5-7.5)
[2024-01-15 17:02] LABS: Basophils # (auto) 0.04 K/uL (0.00-0.20); Basophils % (auto) 0.6 %; Eosinophils # (auto) 0.58 K/uL (0.00-0.50); Eosinophils % (auto) 8.5 %; Hematocrit (blood only) 42.9 % (37.0-47.0); Hemoglobin 14.3 g/dl (12.0-16.0); Immature Granulocytes # (auto) 0.02 K/uL (0.01-0.20); Immature Granulocytes % (auto) 0.3 %; Lymphocytes # (auto) 1.25 K/uL (1.20-3.40); Lymphocytes % (auto) 18.3 %; Mean Corpuscular Hemoglobin 32.6 pg (25.0-34.0); Mean Corpuscular Hgb Conc 33.3 g/dL (32.0-36.0); Mean Corpuscular Volume 97.7 fL (80.0-100.0); Mean Platelet Volume 10.7 fL (9.4-12.4); Monocytes # (auto) 0.65 K/uL (0.11-0.59); Monocytes % (auto) 9.5 %; Neutrophils % (auto) 62.8 %; Platelet Count 214 K/uL (130-400); RDW Coefficient of Variation 14.8 % (11.5-14.5); RDW Standard Deviation 53.3 fL (36.4-46.3); Red Blood Count 4.39 M/uL (4.20-5.40); White Blood Count 6.84 K/ul (4.8-10.8)
[2024-01-15 17:23] LABS: Albumin Globulin Ratio 1.3 (0.9-2); Albumin Level 4.5 gm/dl (3.4-5.0); BUN Creatinine Ratio 13.3 (10-20); Bilirubin,Total 0.4 mg/dl (0.2-1.0); Calcium 9.8 mg/dl (8.6-10.3); Creatinine Clr Calc Pharmacy 28.8 ml/min; Globulin 3.4 gm/dl (2.5-4.0); Potassium 4.1 mmol/L (3.5-5.1); Total Protein 7.9 gm/dl (6.0-8.3)
[2024-01-15 17:26] LABS: Troponin I High Sensitivity 7.2 pg/ml (0-14)
[2024-01-15 17:29] LABS: INR 0.9 (0.9-1.1); Prothrombin Time 10.3 Seconds (9.0-12.0)
--- NOTE | 2024-01-15 17:40 | XRay Report ---
INDICATION: Difficulty breathing. TECHNIQUE: Frontal radiograph of the chest. COMPARISON: Radiograph from 12/21/2023. FINDINGS: The cardiomediastinal silhouette and pulmonary vasculature appear within normal limits. No infiltrate, pleural effusion or pneumothorax. No acute osseous abnormality evident. IMPRESSION: No acute cardiopulmonary process. Electronically signed by Wilian Quintana 01-15-2024 5:37 PM
[2024-01-15 17:45] LABS: Adenovirus PCR Not Detected (NotDetected); Bordetella parapertussis PCR Not Detected (NotDetected); Bordetella pertussis PCR Not Detected (NotDetected); Chlamydia pneumoniae PCR Not Detected (NotDetected); Coronavirus 229E PCR Not Detected (NotDetected); Coronavirus CoV-2 (COVID19)PCR Not Detected (NotDetected); Coronavirus HKU1 PCR Not Detected (NotDetected); Coronavirus NL63 PCR Not Detected (NotDetected); Coronavirus OC43PCR Not Detected (NotDetected); Human Metapneumovirus PCR Not Detected (NotDetected); Influenza A PCR Not Detected (NotDetected); Influenza B PCR Not Detected (NotDetected); Mycoplasma pneumoniae PCR Not Detected (NotDetected); Parainfluenza Virus 1 PCR Not Detected (NotDetected); Parainfluenza Virus 2 PCR Not Detected (NotDetected); Parainfluenza Virus 3 PCR Not Detected (NotDetected); Parainfluenza Virus 4 PCR Not Detected (NotDetected); Respiratory Syncytial VirusPCR Not Detected (NotDetected); Rhinovirus/Enterovirus PCR Not Detected (NotDetected)
--- NOTE | 2024-01-15 18:29 | Emergency Department Note ---
Impression & Plan Pulmonary embolism on right, WINTER (dyspnea on exertion), CKD (chronic kidney disease), Acute UTI ED Provider Note Provider: Paxton Angelo MD CHIEF COMPLAINT: Shortness of breath, chest pain HISTORY OF PRESENT ILLNESS: Patient is a 83-year-old female past medical history including uterine prolapse, CKD, COPD, GERD, and hypertension presenting here today with daughter. Patient states over the past week she been having issues with some getting dyspneic with exertion particularly. States she is short of breath some at rest but worse with movement and has pain with deep breaths. Denies any falls. States is worse when she exerts herself or does stairs. Denies significant cough or fevers. Did not tell daughter until she got back from the holidays. Did reach out to their cardiology office and referred here today. Did have an episode today where patient came down the stairs and was very winded and pulse ox dropped into the high 80s and blood pressure was low in the 90s systolic. Patient states she has a little bit of chronic lower leg swelling. No recent travel. Denies significant abdominal pain but did have a little bit of recent constipation. No significant urinary frequency or burning reported. Does use a pessary. History of UTI. Patient not normally on oxygen. Has had some workup for abdominal discomfort and last 6 weeks without real findings. PAST MEDICAL HISTORY: As noted above MEDICATIONS: Reviewed home medications SOCIAL HISTORY: Lives with sister PHYSICAL EXAM: GENERAL: alert and oriented in no acute distress on stretcher Head: normocephalic and atraumatic EYES: No injection, discharge or icterus. EOMI. NECK: Trachea midline. ENT: Mucous membranes pink and moist. LUNGS: Airway patent. No retractions. Breath sounds clear with good air entry bilaterally. HEART: Regular rate and rhythm. No chest wall tenderness ABDOMEN: Soft and non-tender, without guarding or rebound. SKIN: Acyanotic, warm, dry, without rashes EXTREMITIES: Without tenderness or deformity with trace to 1+ bilateral edema. NEUROLOGICAL: No focal deficits. No aphasia. No facial droop or slurred speech. Ambulatory. EK bpm. Sinus rhythm first review block occasional PVC. No acute ST segment elevation or depression QTc of 445. CONTINUOUS CARDIAC MONITORING: was ordered and showed a heart rate of 80s to 90s bpm in normal sinus rhythm Patient's laboratory studies and imaging reviewed. Differential includes Reactive airway disease, pneumonia, pneumothorax, COPD, CHF, infections, cardiac ischemia, pulmonary embolism, musculoskeletal, gastrointestinal, as well as other pathologies. IMPRESSION/MEDICAL DECISION MAKING: Patient oxygen levels around 90 to 92% at rest here. Slightly tachypneic. Afebrile. Not singly tachycardic and somewhat hypertensive here. Does have some exertional shortness of breath/dyspnea on exertion with some pain with breathing. Maybe a touch of swelling of the lower extremities but not significantly erythematous. No recent travel. Chest x-ray unremarkable. Respiratory viral panel negative. CBC and chemistries without significant evidence of anemia, leukocytosis, electrolyte abnormality, elevated troponin, or LFT abnormality. EKG reassuring and I doubt ACS. Has some CKD. Creatinine near baseline at 1.8. Given the negative workup regarding her chest pain and respiratory status will complete a CT of the chest to exclude underlying PE given the significant respiratory complaints she is reporting with exertion. Given a small amount of IV fluid. Urinalysis concerning for possible infection and will treat and has a history of UTI in the past. Does have a little discomfort with IV placement here. Did review records and patient has followed with pulmonology in the past with a history of some COPD. Does not sound that appreciably wheezy on exam here. Some nausea after CT and given some Zofran. CTA of the chest per radiology with a large right-sided PE. Patient vitals reassuring without hypoxia, hypotension, elevated troponin, or significant instability. Will heparinize at this time and do believe she is a candidate for thrombolytics. Discussed with patient and family. Will bring in to the hospital given the large clot burden she is having. They were in agreement with the plan to stay. Hypercoagulable panel ordered. Discussed with the hospitalist team. DIAGNOSIS: Right-sided PE, dyspnea on exertion, acute UTI DISPOSITION: Hospitalist will evaluate Patient was agreeable with this plan. Critical Care I have personally spent 34 minutes of critical care time in the direct management of this patient. This includes bedside care, interpretation of diagnostic studies, and testing, discussion with consultants, patient, and family members, and other required patient management activities. These 34 minutes is in excess of all separately billable procedures. Past Med/Surg History Problem List (Updated 01/15/24 @ 20:07 by Paxton Angelo M.D.) Acute UTI (Acute) CKD (chronic kidney disease) (Acute) WINTER (dyspnea on exertion) (Acute) Pulmonary embolism on right (Acute) Pessary maintenance Vitamin D deficiency Insomnia Mild cognitive impairment Vitamin B12 deficiency Chronic venous insufficiency Vitamin D deficiency Stage 3b chronic kidney disease Headache Vertigo (Acute) Tobacco abuse Lethargy Encounter for pre-operative examination Endometrial mass Hypersomnia Postmenopausal bleeding Thickened endometrium Postmenopausal Allergic rhinitis with postnasal drip Alveolar emphysema of lung Exertional shortness of breath Near syncope (Acute) Left sided chest pain (Acute) Vomiting (Acute) Nausea (Acute) Gastroenteritis and colitis, viral (Acute 03/04/14) Diarrhea (Acute) Dehydration (Acute) Dysrhythmia (Acute) Probable paroxysmal atrial tachycardia (on ZIO patch in 2019)- controlled with low dose BB- follows with Dr. Efra STOVER (gastroesophageal reflux disease) Well controlled and stable Cystocele, midline (Acute) Pessary in place Uterine prolapse (Acute) pessary in place Hypertension (Acute 03/05/14) COPD (chronic obstructive pulmonary disease) inhaler daily/prn Medical History History of COVID-19 Paroxysmal SVT (supraventricular tachycardia) Tachy-rosalinda syndrome Asthma Superficial vein thrombosis History of DVT of lower extremity Optic pit, left History of anxiety Surgical History History of liver biopsy History of dilatation and curettage History of colonoscopy History of tooth extraction H/O cataract removal with insertion of prosthetic lens History of tubal ligation History of elbow surgery History of tonsillectomy History of breast biopsy Family History Aunt No problems noted. Brother Prostate cancer Daughter Family history of reaction to anesthesia Other Cancer Coronary heart disease Thyroid disease Denies family history of Ovarian cancer Breast cancer Colorectal cancer Social History Smoking Status: Former smoker Tobacco Type: Cigarettes Age Started Using Tobacco: 35; Age Quit Using Tobacco: 81; Cigarettes Per Day: PER PATIENT 12/19/2019: LESS THAN 8 BOWLS/DAY; Second Hand Exposure: Yes (hx years ago); Do You Dip or Chew Tobacco: No; Hx Alcohol Use: Yes Alcohol type: other Hx Substance Use: No Preferred Language: Faroese Communication Ability: Effective Visual Impairment: Partially Limited Hearing Ability: Normal Adjunct Latin Professor Required: No Beliefs That Will Affect Care: None Current Living Situation: Family Current Living Situation Comment: Lives with sister and son current occupational status: retired Feels Safe at Home: Yes Diet: regular caffeine: Yes (hot tea or iced tea 3-4 cups daily, occasional soda) Seatbelt Use: always Do you think of yourself as: straight/heterosexual Gender Identity: Female Assistive Devices: Denture - Upper, Denture - Lower, Glasses, Walker and Other Allergies Allergies Allergy/AdvReac Type Severity Reaction Status Date / Time bupropion Allergy Intermediate EXTREME Verified 12/18/23 10:37 AGITATION buspirone Allergy Intermediate TINNITUS,HO Verified 12/18/23 10:37 STILITY hydroxyzine Allergy Intermediate AGITATION Verified 12/18/23 10:37 ibuprofen Allergy Intermediate AGITATION Verified 12/18/23 10:37 trazodone Allergy Intermediate TINNITUS, Verified 12/18/23 10:37 INSOMNIA ziprasidone Allergy Intermediate VISUAL Verified 12/18/23 10:37 DISTURBANCE,INSOMNIA aripiprazole Allergy Mild RASH Verified 12/18/23 10:37 aspirin Allergy Mild RINGING IN Verified 12/18/23 10:37 EARS lamotrigine Allergy Mild EYE SORES Verified 12/18/23 10:37 latex Allergy Mild RASH Verified 12/18/23 10:37 morphine Allergy Mild AGITATION Verified 12/18/23 10:37 omeprazole Allergy Mild Hiccups Verified 12/18/23 10:37 risperidone Allergy Mild BREATHING Verified 12/18/23 10:37 PROBLEMS sulfamethoxazole Allergy Mild NAUSEA Verified 12/18/23 10:37 trimethoprim Allergy Mild RASH Verified 12/18/23 10:37 aspartame Allergy Verified 12/18/23 10:37 sucralose Allergy Verified 12/18/23 10:37 citalopram AdvReac Intermediate HEADACHE, Verified 12/18/23 10:37 SLEPT 3 DAYS diazepam AdvReac Intermediate INSOMNIA,AG Verified 12/18/23 10:37 ITATION paroxetine AdvReac Intermediate MIND Verified 12/18/23 10:37 RACED,SLEPT 3 DAYS temazepam AdvReac Intermediate INSOMNIA Verified 12/18/23 10:37 venlafaxine AdvReac Intermediate SLEPT FOR Verified 12/18/23 10:37 3 DAYS doxycycline AdvReac Mild VOMITING Verified 12/18/23 10:37 hydrocodone AdvReac Mild NAUSEA Verified 12/18/23 10:37 lithium AdvReac Mild URINATION Verified 12/18/23 10:37 lorazepam AdvReac Mild INSOMNIA, Verified 12/18/23 10:37 ICTHING tetracycline AdvReac Mild NAUSEA Verified 12/18/23 10:37 baclofen AdvReac Vomiting Unverified 01/15/24 20:25 diphenhydramine AdvReac Agitated Unverified 01/15/24 20:14 estrogens, conjugated AdvReac Vaginal Unverified 01/15/24 20:25 [From Premarin] Bleeding hydrochlorothiazide AdvReac Unknown Unverified 01/15/24 20:25 memantine AdvReac Hallucinati Unverified 01/15/24 20:25 ng quetiapine AdvReac Unknown Unverified 01/15/24 20:23 lansoprazole Allergy Intermediate rash Uncoded 12/18/23 10:37 Home Meds Home Medications Medication Instructions Recorded Confirmed valacyclovir 500 mg tablet 500 mg PO QAM PRN hives 02/01/18 01/15/24 loratadine 10 mg tablet 5 mg PO QAM hives 11/12/18 01/15/24 chlorthalidone 25 mg tablet 25 mg PO .SEE ATTACHED 01/15/24 01/15/24 famotidine 20 mg tablet 20 mg PO BID 01/15/24 01/15/24 metoprolol succinate 50 mg 50 mg PO QAM 01/15/24 01/15/24 tablet,extended release 24 hr omega-3s 720 mg-dha 300 mg-epa 360 1 cap PO DAILY 01/15/24 01/15/24 mg-fish oil 1,200 mg capsule Previous Rx's Medication Instructions Recorded fluticasone fur. 100 mcg-umeclid 1 inh inhalation QAM #60 ea 12/21/23 62.5 mcg-vilant 25 mcg inhalat.powder (Trelegy Ellipta) Results & Data (ED) Vital Signs Vital Signs - 24 hr 01/15/24 16:25 01/15/24 16:41 01/15/24 16:41 Temperature 36.6 C Temperature Source Skin Pulse Rate 87 Pulse Rate [Right Finger] Pulse Rate from SpO2 Sensor Pulse Rhythm [Right Finger] Pulse Strength [Right Finger] Respiratory Rate 20 Respiratory Effort / Characteristics Non-Labored Spontaneous Respiratory Depth Normal Respiratory Pattern Blood Pressure 166/100 H Blood Pressure [Left Arm] Blood Pressure Mean 122 Blood Pressure Mean [Left Arm] Blood Pressure Position [Left Arm] Pulse Oximetry 96 Oxygen Delivery Method Room Air Room Air Sepsis Recent Fever Within 48 Hours No Sepsis New/Unexplained Change in Mental Status No Sepsis Action Taken by Nursing No Action Required 01/15/24 16:41 01/15/24 16:44 01/15/24 16:44 Temperature Temperature Source Pulse Rate 86 Pulse Rate [Right Finger] Pulse Rate from SpO2 Sensor Pulse Rhythm [Right Finger] Pulse Strength [Right Finger] Respiratory Rate Respiratory Effort / Characteristics Respiratory Depth Respiratory Pattern Blood Pressure 173/101 H Blood Pressure [Left Arm] Blood Pressure Mean 131 Blood Pressure Mean [Left Arm] Blood Pressure Position [Left Arm] Pulse Oximetry Oxygen Delivery Method Room Air Sepsis Recent Fever Within 48 Hours Sepsis New/Unexplained Change in Mental Status Sepsis Action Taken by Nursing 01/15/24 16:51 01/15/24 17:00 01/15/24 17:15 Temperature Temperature Source Pulse Rate 88 89 90 Pulse Rate [Right Finger] Pulse Rate from SpO2 Sensor 76 72 87 Pulse Rhythm [Right Finger] Pulse Strength [Right Finger] Respiratory Rate 19 22 20 Respiratory Effort / Characteristics Respiratory Depth Respiratory Pattern Blood Pressure Blood Pressure [Left Arm] Blood Pressure Mean Blood Pressure Mean [Left Arm] Blood Pressure Position [Left Arm] Pulse Oximetry 93 90 93 Oxygen Delivery Method Sepsis Recent Fever Within 48 Hours Sepsis New/Unexplained Change in Mental Status Sepsis Action Taken by Nursing 01/15/24 17:21 01/15/24 17:30 01/15/24 17:30 Temperature Temperature Source Pulse Rate 84 Pulse Rate [Right Finger] Pulse Rate from SpO2 Sensor 79 Pulse Rhythm [Right Finger] Pulse Strength [Right Finger] Respiratory Rate 15 Respiratory Effort / Characteristics Respiratory Depth Respiratory Pattern Blood Pressure 182/100 H 182/100 H Blood Pressure [Left Arm] Blood Pressure Mean 132 132 Blood Pressure Mean [Left Arm] Blood Pressure Position [Left Arm] Pulse Oximetry 93 Oxygen Delivery Method Sepsis Recent Fever Within 48 Hours Sepsis New/Unexplained Change in Mental Status Sepsis Action Taken by Nursing 01/15/24 17:30 01/15/24 17:30 01/15/24 17:42 Temperature Temperature Source Pulse Rate 86 84 Pulse Rate [Right Finger] Pulse Rate from SpO2 Sensor 85 74 Pulse Rhythm [Right Finger] Pulse Strength [Right Finger] Respiratory Rate 22 19 Respiratory Effort / Characteristics Respiratory Depth Respiratory Pattern Blood Pressure 182/100 H Blood Pressure [Left Arm] Blood Pressure Mean 132 Blood Pressure Mean [Left Arm] Blood Pressure Position [Left Arm] Pulse Oximetry 93 91 Oxygen Delivery Method Sepsis Recent Fever Within 48 Hours Sepsis New/Unexplained Change in Mental Status Sepsis Action Taken by Nursing 01/15/24 17:51 01/15/24 17:54 01/15/24 18:00 Temperature Temperature Source Pulse Rate 78 92 H Pulse Rate [Right Finger] Pulse Rate from SpO2 Sensor 81 83 Pulse Rhythm [Right Finger] Pulse Strength [Right Finger] Respiratory Rate 18 18 Respiratory Effort / Characteristics Respiratory Depth Respiratory Pattern Blood Pressure 167/95 H Blood Pressure [Left Arm] Blood Pressure Mean 133 Blood Pressure Mean [Left Arm] Blood Pressure Position [Left Arm] Pulse Oximetry 92 93 Oxygen Delivery Method Sepsis Recent Fever Within 48 Hours Sepsis New/Unexplained Change in Mental Status Sepsis Action Taken by Nursing 01/15/24 18:03 01/15/24 18:15 01/15/24 19:18 Temperature Temperature Source Pulse Rate 86 87 Pulse Rate [Right Finger] 81 Pulse Rate from SpO2 Sensor 84 73 Pulse Rhythm [Right Finger] Regular Pulse Strength [Right Finger] Normal Respiratory Rate 19 23 20 Respiratory Effort / Characteristics Non-Labored Respiratory Depth Normal Respiratory Pattern Regular Blood Pressure Blood Pressure [Left Arm] 189/101 H Blood Pressure Mean Blood Pressure Mean [Left Arm] 130 Blood Pressure Position [Left Arm] Lying Pulse Oximetry 93 90 92 Oxygen Delivery Method Room Air Sepsis Recent Fever Within 48 Hours Sepsis New/Unexplained Change in Mental Status Sepsis Action Taken by Nursing 01/15/24 20:49 Temperature Temperature Source Pulse Rate 96 H Pulse Rate [Right Finger] Pulse Rate from SpO2 Sensor Pulse Rhythm [Right Finger] Pulse Strength [Right Finger] Respiratory Rate Respiratory Effort / Characteristics Respiratory Depth Respiratory Pattern Blood Pressure Blood Pressure [Left Arm] Blood Pressure Mean Blood Pressure Mean [Left Arm] Blood Pressure Position [Left Arm] Pulse Oximetry Oxygen Delivery Method Sepsis Recent Fever Within 48 Hours Sepsis New/Unexplained Change in Mental Status Sepsis Action Taken by Nursing Laboratory Data 01/15/24 16:32 01/15/24 16:32 Lab Results 01/15/24 Range/Units 16:32 WBC 6.84 (4.8-10.8) K/ul RBC 4.39 (4.20-5.40) M/uL Hgb 14.3 (12.0-16.0) g/dl Hct 42.9 (37.0-47.0) % MCV 97.7 (80.0-100.0) fL MCH 32.6 (25.0-34.0) pg MCHC 33.3 (32.0-36.0) g/dL RDW Std Deviation 53.3 H (36.4-46.3) fL RDW Coeff of Analisa 14.8 H (11.5-14.5) % Plt Count 214 (130-400) K/uL MPV 10.7 (9.4-12.4) fL Immature Gran % (Auto) 0.3 % Neut % (Auto) 62.8 % Lymph % (Auto) 18.3 % Gilliam % (Auto) 9.5 % Eos % (Auto) 8.5 % Baso % (Auto) 0.6 % Neut # (Auto) 4.30 (1.40-6.50) K/uL Lymph # (Auto) 1.25 (1.20-3.40) K/uL Gilliam # (Auto) 0.65 H (0.11-0.59) K/uL Eos # (Auto) 0.58 H (0.00-0.50) K/uL Baso # (Auto) 0.04 (0.00-0.20) K/uL Immature Gran # (Auto) 0.02 (0.01-0.20) K/uL PT 10.3 (9.0-12.0) Seconds INR 0.9 (0.9-1.1) APTT 28 (21-31) Seconds PTT Ratio 1.0 Sodium 138 (136-145) mmol/L Potassium 4.1 (3.5-5.1) mmol/L Chloride 102 (98-107) mmol/L Carbon Dioxide 27 (21-32) mmol/L Anion Gap 9 (3-11) BUN 24 H (6-23) mg/dl Creatinine 1.81 H (0.6-1.2) mg/dl Est Cr Clr Drug Dosing 28.8 ml/min eGFR 27.77 BUN/Creatinine Ratio 13.3 (10-20) Glucose 88 (70-99(Fasting)) mg/dl Calcium 9.8 (8.6-10.3) mg/dl Magnesium 2.0 (1.7-2.4) mg/dl Total Bilirubin 0.4 (0.2-1.0) mg/dl AST 18 (13-39) U/L ALT 11 (7-52) U/L Alkaline Phosphatase 98 (34-104) U/L Troponin I High Sens 7.2 (0-14) pg/ml Total Protein 7.9 (6.0-8.3) gm/dl Albumin 4.5 (3.4-5.0) gm/dl Globulin 3.4 (2.5-4.0) gm/dl Albumin/Globulin Ratio 1.3 (0.9-2) Urine Color Yellow Urine Appearance Cloudy A (Clear) Urine pH 5.5 (4.5-7.5) Ur Specific [place] 1.022 (1.000-1.030) Urine Protein Trace H (Negative) Urine Glucose (UA) Negative (Negative) Urine Ketones Trace H (Negative) Urine Blood Negative (Negative) Urine Nitrite Negative (Negative) Urine Bilirubin Negative (Negative) Urine Urobilinogen Negative (Negative) Ur Leukocyte Esterase 2+ H (Negative) Urine WBC (Auto) 21-50 H (0-5) /hpf Urine RBC (Auto) 0-2 (0-2) /hpf U Hyaline Cast (Auto) 0-2 (0-2) /lpf U Epithel Cells (Auto) 11-20 H (0-2) /hpf Urine Bacteria (Auto) 2+ H (None Seen) Adenovirus (PCR) Not Detected (NotDetected) B. pertussis DNA (PCR) Not Detected (NotDetected) B.parapertussis DNA PCR Not Detected (NotDetected) C. pneumoniae DNA (PCR) Not Detected (NotDetected) Coronavirus OC43 (PCR) Not Detected (NotDetected) Coronavirus HKU1 (PCR) Not Detected (NotDetected) Coronavirus 229E (PCR) Not Detected (NotDetected) SARS-CoV-2 (PCR) Not Detected (NotDetected) Coronavirus NL63 (PCR) Not Detected (NotDetected) Human Metapneumovir PCR Not Detected (NotDetected) Influenza Type A (PCR) Not Detected (NotDetected) Influenza Type B (PCR) Not Detected (NotDetected) M. pneumoniae (PCR) Not Detected (NotDetected) Parainfluenza 1 (PCR) Not Detected (NotDetected) Parainfluenza 2 (PCR) Not Detected (NotDetected) Parainfluenza 3 (PCR) Not Detected (NotDetected) Parainfluenza 4 (PCR) Not Detected (NotDetected) RSV (PCR) Not Detected (NotDetected) Entero/Rhino (PCR) Not Detected (NotDetected) Administered Medications Discontinued Medications Sodium Chloride (Nss) 250 mls @ 999 mls/hr IV .Q16M ONE Stop: 01/15/24 19:15 Last Infusion: 01/15/24 20:19 Dose: Infused Documented By: Admin: 01/15/24 19:59 Dose: 999 mls/hr Documented By: TRINIDAD Ceftriaxone Sodium (Rocephin) 2,000 mg in 50 mls @ 100 mls/hr IV NOW STA Stop: 01/15/24 19:29 Last Infusion: 01/15/24 19:51 Dose: Infused Documented By: Admin: 01/15/24 19:19 Dose: 100 mls/hr Documented By: TRINIDAD Ioversol (Optiray 320 125ml) 85 ml IV ONCE ONE Stop: 01/15/24 19:45 Last Admin: 01/15/24 19:45 Dose: 85 ml Documented By: YOHANNES Ondansetron HCl (Ondansetron Inj 2 Mg/Ml 2 Ml Vial) 4 mg IV NOW STA Stop: 01/15/24 19:54 Last Admin: 01/15/24 20:01 Dose: 4 mg Documented By: TRINIDAD Imaging Data Radiologist's Impression: Chest X-Ray 01/15/24 16:31 INDICATION: Difficulty breathing. TECHNIQUE: Frontal radiograph of the chest. COMPARISON: Radiograph from 12/21/2023. FINDINGS: The cardiomediastinal silhouette and pulmonary vasculature appear within normal limits. No infiltrate, pleural effusion or pneumothorax. No acute osseous abnormality evident. IMPRESSION: No acute cardiopulmonary process. Electronically signed by Wilian Quintana 01-15-2024 5:37 PM Chest CTA 01/15/24 17:19 CR Exam(s): CTA CHEST EXAM: CT Angiography Chest With Intravenous Contrast CLINICAL HISTORY: Reason for exam: PE, CP/SOB. TECHNIQUE: Axial computed tomographic angiography images of the chest with intravenous contrast. CTDI is 24.87 mGy and DLP is 846.52 mGy-cm. Automated exposure control was utilized for the study. A dose lowering technique was utilized adhering to the principles of ALARA. MIP reconstructed images were created and reviewed. COMPARISON: No relevant prior studies available. FINDINGS: Pulmonary arteries: Extensive lobar and segmental pulmonary embolism seen in the right upper lobe, right middle lobe and right lower lobe. Aorta: No acute findings. No thoracic aortic aneurysm. Lungs: Discoid atelectasis seen in the lower lobes. No mass. Pleural space: Unremarkable. No significant effusion. No pneumothorax. Heart: Mild cardiomegaly. No significant pericardial effusion. No evidence of right heart strain. Mediastinum: Small hiatus hernia. Bones/joints: No acute fracture. No dislocation. Soft tissues: Unremarkable. Lymph nodes: Unremarkable. No enlarged lymph nodes. IMPRESSION: Lobar and segmental pulmonary embolism in the right upper, right middle and right lower lobes. Communications: Call Doctor Pulmonary Embolism Electronically signed by: Paddy Box MD 01/15/24 20:50 PM Discharge Plan Visit Data Chief Complaint: Shortness of Breath/Dyspnea Stated Complaint: SOB. LOW BP, O2 LEVEL DROPPING ED Provider: Paxton Angelo Discharge Problem: Pulmonary embolism on right, WINTER (dyspnea on exertion), CKD (chronic kidney disease), Acute UTI Patient Disposition: Being Evaluated by Hospitalist Forms Stand Alone Forms: [facility] Prescriptions Prescriptions: No Action Trelegy Ellipta 100-62.5-25 mcg blister with device 1 inh inhalation QAM Qty: 60 12RF loratadine 10 mg tablet 5 mg PO QAM Rx Instructions: Patient normal take 1/2 tablet but she took a whole tab today. 01/15/2024 valacyclovir 500 mg tablet 500 mg PO QAM PRN (Reason: hives) metoprolol succinate 50 mg tablet extended release 24 hr 50 mg PO QAM chlorthalidone 25 mg tablet 25 mg PO .SEE ATTACHED Rx Instructions: Monday, Monday and Monday famotidine 20 mg tablet 20 mg PO BID [id number] oil [Fish Oil] 720-1,200 mg Capsule 1 cap PO DAILY Referrals Referrals: Heather Haile DO [Primary Care Provider] -
[2024-01-15] MEDS: cefTRIAXone SODIUM 2,000 MG/50 ML BAG IV STA (19:19)
[2024-01-15] MEDS: OPTIRAY 320 125ml IV ONE (19:45)
[2024-01-15] MEDS: SODIUM CHLORIDE 0.9% 250 ML IV ONE (19:59)
[2024-01-15] MEDS: ONDANSETRON INJ 2 MG/ML 2 ML VIAL IV STA (20:01)
--- NOTE | 2024-01-15 20:51 | CT Scan Report ---
Exam(s): CTA CHEST EXAM: CT Angiography Chest With Intravenous Contrast CLINICAL HISTORY: Reason for exam: PE, CP/SOB. TECHNIQUE: Axial computed tomographic angiography images of the chest with intravenous contrast. CTDI is 24.87 mGy and DLP is 846.52 mGy-cm. Automated exposure control was utilized for the study. A dose lowering technique was utilized adhering to the principles of ALARA. MIP reconstructed images were created and reviewed. COMPARISON: No relevant prior studies available. FINDINGS: Pulmonary arteries: Extensive lobar and segmental pulmonary embolism seen in the right upper lobe, right middle lobe and right lower lobe. Aorta: No acute findings. No thoracic aortic aneurysm. Lungs: Discoid atelectasis seen in the lower lobes. No mass. Pleural space: Unremarkable. No significant effusion. No pneumothorax. Heart: Mild cardiomegaly. No significant pericardial effusion. No evidence of right heart strain. Mediastinum: Small hiatus hernia. Bones/joints: No acute fracture. No dislocation. Soft tissues: Unremarkable. Lymph nodes: Unremarkable. No enlarged lymph nodes. IMPRESSION: Lobar and segmental pulmonary embolism in the right upper, right middle and right lower lobes. Communications: Call Doctor Pulmonary Embolism Electronically signed by: Paddy Box MD 01/15/24 20:50 PM
[2024-01-15 20:56] LABS: Partial Thromboplastin Time 28 Seconds (21-31)
[2024-01-15] MEDS: PANTOprazole 40 MG/10 ML SYR IV ONE (21:20)
[2024-01-15] MEDS: CALCIUM CARBONATE 500 MG CHEWABLE TAB PO PRN (21:20)
--- NOTE | 2024-01-15 21:21 | History & Physical Report ---
Date of Service January 15, 2024 Assessment & Plan (1) Deep vein thrombosis, lower left extremity: (2) Pulmonary embolism on right: (3) Acute kidney injury superimposed on CKD: (4) Acute UTI: (5) Stage 3b chronic kidney disease: Plan Venous thromboembolic disease/DVT LLE/PE Right- Hypercoagulable workup ordered Heparin drip per protocol with bolus Of note, patient is not up-to-date on breast cancer or colon cancer screenings Urinary tract infection- Follow urine culture sensitivity Ceftriaxone 2 g IV daily Acute kidney injury superimposed on CKD- Creatinine 1.81, with base 1.46 Placed on NSS at 80 mL/h x 1 L Recheck laboratories in the a.m. GERD- Tums every hour as needed Multiple medication sensitivities- Noted History of Present Illness Chief Complaint: The patient presents to the emergency department with complaint of 1 week of progressively worsening chest pain, with shortness of breath at rest and dyspnea on exertion. Primary Care Provider: Heather Haile DO The patient is an 83-year-old female with past medical history including multiple medication sensitivities, presence of pessary, mild cognitive im pairment, insomnia, chronic venous insufficiency, CKD stage IIIb, alveolar emphysema of lung, GERD, uterine prolapse, hypertension, and COPD. Due to the symptoms as noted above, she called her pad extraction tender office today, advised her to come to the ED for assessment. At home she had noted that her pulse ox had dropped into the high 80s, and systolic blood pressure was in the 90s. Her daughter reports that her mother does have a history of DVT, and thinks it was in the left leg, for which she was on anticoagulation, but was stopped at an unknown interval. Allergies Allergy/AdvReac Type Severity Reaction Status Date / Time bupropion Allergy Intermediate EXTREME Verified 12/18/23 10:37 AGITATION buspirone Allergy Intermediate TINNITUS,HO Verified 12/18/23 10:37 STILITY hydroxyzine Allergy Intermediate AGITATION Verified 12/18/23 10:37 ibuprofen Allergy Intermediate AGITATION Verified 12/18/23 10:37 lansoprazole Allergy Intermediate Rash Verified 01/15/24 21:14 trazodone Allergy Intermediate TINNITUS, Verified 12/18/23 10:37 INSOMNIA ziprasidone Allergy Intermediate VISUAL Verified 12/18/23 10:37 DISTURBANCE,INSOMNIA aripiprazole Allergy Mild RASH Verified 12/18/23 10:37 aspirin Allergy Mild RINGING IN Verified 12/18/23 10:37 EARS lamotrigine Allergy Mild EYE SORES Verified 12/18/23 10:37 latex Allergy Mild RASH Verified 12/18/23 10:37 morphine Allergy Mild AGITATION Verified 12/18/23 10:37 omeprazole Allergy Mild Hiccups Verified 12/18/23 10:37 risperidone Allergy Mild BREATHING Verified 12/18/23 10:37 PROBLEMS sulfamethoxazole Allergy Mild NAUSEA Verified 12/18/23 10:37 trimethoprim Allergy Mild RASH Verified 12/18/23 10:37 aspartame Allergy Unknown Verified 01/15/24 21:14 sucralose Allergy Unknown Verified 01/15/24 21:14 citalopram AdvReac Intermediate HEADACHE, Verified 12/18/23 10:37 SLEPT 3 DAYS diazepam AdvReac Intermediate INSOMNIA,AG Verified 12/18/23 10:37 ITATION paroxetine AdvReac Intermediate MIND Verified 12/18/23 10:37 RACED,SLEPT 3 DAYS temazepam AdvReac Intermediate INSOMNIA Verified 12/18/23 10:37 venlafaxine AdvReac Intermediate SLEPT FOR Verified 12/18/23 10:37 3 DAYS doxycycline AdvReac Mild VOMITING Verified 12/18/23 10:37 hydrocodone AdvReac Mild NAUSEA Verified 12/18/23 10:37 lithium AdvReac Mild URINATION Verified 12/18/23 10:37 lorazepam AdvReac Mild INSOMNIA, Verified 12/18/23 10:37 ICTHING tetracycline AdvReac Mild NAUSEA Verified 12/18/23 10:37 baclofen AdvReac Vomiting Unverified 01/15/24 20:25 diphenhydramine AdvReac Agitated Unverified 01/15/24 20:14 estrogens, conjugated AdvReac Vaginal Unverified 01/15/24 20:25 [From Premarin] Bleeding hydrochlorothiazide AdvReac Unknown Unverified 01/15/24 20:25 memantine AdvReac Hallucinati Unverified 01/15/24 20:25 ng quetiapine AdvReac Unknown Unverified 01/15/24 20:23 Home Medications Medication Instructions Recorded Confirmed Type valacyclovir 500 mg tablet 500 mg PO QAM PRN hives 02/01/18 01/15/24 History loratadine 10 mg tablet 5 mg PO QAM hives 11/12/18 01/15/24 History fluticasone fur. 100 mcg-umeclid 1 inh inhalation QAM #60 ea 12/21/23 01/15/24 Rx 62.5 mcg-vilant 25 mcg inhalat.powder (Trelegy Ellipta) chlorthalidone 25 mg tablet 25 mg PO .SEE ATTACHED 01/15/24 01/15/24 History famotidine 20 mg tablet 20 mg PO BID 01/15/24 01/15/24 History metoprolol succinate 50 mg 50 mg PO QAM 01/15/24 01/15/24 History tablet,extended release 24 hr omega-3s 720 mg-dha 300 mg-epa 360 1 cap PO DAILY 01/15/24 01/15/24 History mg-fish oil 1,200 mg capsule Past Med/Surg History Problem List (Updated 01/16/24 @ 05:54 by Cameron Blum MD) Acute kidney injury superimposed on CKD Deep vein thrombosis, lower left extremity Acute UTI (Acute) CKD (chronic kidney disease) (Acute) WINTER (dyspnea on exertion) (Acute) Pulmonary embolism on right (Acute) Pessary maintenance Vitamin D deficiency Insomnia Mild cognitive impairment Vitamin B12 deficiency Chronic venous insufficiency Vitamin D deficiency Stage 3b chronic kidney disease Headache Vertigo (Acute) Tobacco abuse Lethargy Encounter for pre-operative examination Endometrial mass Hypersomnia Postmenopausal bleeding Thickened endometrium Postmenopausal Allergic rhinitis with postnasal drip Alveolar emphysema of lung Exertional shortness of breath Near syncope (Acute) Left sided chest pain (Acute) Vomiting (Acute) Nausea (Acute) Gastroenteritis and colitis, viral (Acute 03/04/14) Diarrhea (Acute) Dehydration (Acute) Dysrhythmia (Acute) Probable paroxysmal atrial tachycardia (on ZIO patch in 2019)- controlled with low dose BB- follows with Dr. Efra STOVER (gastroesophageal reflux disease) Well controlled and stable Cystocele, midline (Acute) Pessary in place Uterine prolapse (Acute) pessary in place Hypertension (Acute 03/05/14) COPD (chronic obstructive pulmonary disease) inhaler daily/prn Medical History History of COVID-19 Paroxysmal SVT (supraventricular tachycardia) Tachy-rosalinda syndrome Asthma Superficial vein thrombosis History of DVT of lower extremity Optic pit, left History of anxiety Surgical History History of liver biopsy History of dilatation and curettage History of colonoscopy History of tooth extraction H/O cataract removal with insertion of prosthetic lens History of tubal ligation History of elbow surgery History of tonsillectomy History of breast biopsy Family History Aunt No problems noted. Brother Prostate cancer Daughter Family history of reaction to anesthesia Other Cancer Coronary heart disease Thyroid disease Denies family history of Ovarian cancer Breast cancer Colorectal cancer Social History Smoking Status: Former smoker Tobacco Type: Cigarettes Age Started Using Tobacco: 35; Age Quit Using Tobacco: 81; Cigarettes Per Day: PER PATIENT 12/19/2019: LESS THAN 8 BOWLS/DAY; Smoking End Date: 2 years ago; Second Hand Exposure: Yes (hx years ago); Do You Dip or Chew Tobacco: No; Hx Alcohol Use: No Hx Substance Use: No Preferred Language: [place] Communication Ability: Effective Visual Impairment: Partially Limited Hearing Ability: Normal Second Butler Required: No Beliefs That Will Affect Care: None Current Living Situation: Family Current Living Situation Comment: Lives with sister and son current occupational status: retired Other Information That Helps Us Care for You: No Feels Safe at Home: Yes Diet: regular caffeine: Yes (hot tea or iced tea 3-4 cups daily, occasional soda) Seatbelt Use: always Do you think of yourself as: straight/heterosexual Gender Identity: Female Assistive Devices: Denture - Upper, Denture - Lower, Glasses and Walker Review of Systems Review of Systems: The patient denies palpitations, cough, sore throat, fevers, chills, sweats, nausea, vomiting, diarrhea , constipation, abdominal pain, pelvic pain, blood in urine or stool, dysuria, urinary frequency or urgency, lightheadedness, dizziness, headache, loss of consciousness, rash, abnormal bruising or bleeding, imbalance, focal weakness, numbness or tingling in arms or legs, generalized arthralgias or myalgias, back or neck pain, or night sweats. The review of systems is otherwise negative other than for that already noted above, and at least 10 systems have been reviewed. Physical Exam Physical Exam: The patient is awake, alert and oriented 3, well developed and well nourished, normocephalic and atraumatic, lying in bed and in no acute distress. HEENT--PERRL, EOMI, mucous membranes and oropharynx normal Neck--supple. No JVD. No bruits. Thyroid normal, trachea midline, no adenopathy. Heart--normal S1 and S2. No murmurs, rubs or gallops. Lungs--clear bilaterally, no respiratory distress, no accessory muscle use. Abdomen--normal bowel sounds and soft. Nontender. Nondistended. Extremities--right lower extremity with trace pitting edema. Left lower extremity 1+ pitting edema with increased circumference compared to the right Dermatologic--normal skin turgor, normal color, no abnormal lymph nodes, no rash. Neurologic--cranial nerves II through XII grossly intact. Rheumatologic--limited lower extremity exam due to concerns regarding potential clot Psychiatric--normal affect. Results & Data Results & Data Vital Signs (Past 12 Hours) Vital Signs Temp Pulse Pulse Resp BP BP Pulse Ox 01/15/24 21:03 92 H 17 165/113 H 96 01/15/24 20:49 96 H 01/15/24 19:18 81 20 189/101 H 92 01/15/24 18:15 87 23 90 01/15/24 18:03 86 19 93 01/15/24 18:00 167/95 H 01/15/24 17:54 92 H 18 93 01/15/24 17:51 78 18 92 01/15/24 17:42 84 19 91 01/15/24 17:30 86 22 93 01/15/24 17:30 182/100 H 01/15/24 17:30 182/100 H 01/15/24 17:30 182/100 H 01/15/24 17:21 84 15 93 01/15/24 17:15 90 20 93 01/15/24 17:00 89 22 90 01/15/24 16:51 88 19 93 01/15/24 16:44 86 01/15/24 16:44 173/101 H 01/15/24 16:41 01/15/24 16:41 01/15/24 16:25 36.6 C 87 20 166/100 H 96 O2 Del Method 01/15/24 21:03 Room Air 01/15/24 20:49 01/15/24 19:18 Room Air 01/15/24 18:15 01/15/24 18:03 01/15/24 18:00 01/15/24 17:54 01/15/24 17:51 01/15/24 17:42 01/15/24 17:30 01/15/24 17:30 01/15/24 17:30 01/15/24 17:30 01/15/24 17:21 01/15/24 17:15 01/15/24 17:00 01/15/24 16:51 01/15/24 16:44 01/15/24 16:44 01/15/24 16:41 Room Air 01/15/24 16:41 Room Air 01/15/24 16:25 Room Air Laboratory Results Laboratory Results WBC 6.84 K/ul (4.8-10.8) 01/15/24 16:32 RBC 4.39 M/uL (4.20-5.40) 01/15/24 16:32 Hgb 14.3 g/dl (12.0-16.0) 01/15/24 16:32 Hct 42.9 % (37.0-47.0) 01/15/24 16:32 MCV 97.7 fL (80.0-100.0) 01/15/24 16:32 MCH 32.6 pg (25.0-34.0) 01/15/24 16:32 MCHC 33.3 g/dL (32.0-36.0) 01/15/24 16:32 RDW Std Deviation 53.3 fL (36.4-46.3) H 01/15/24 16:32 RDW Coeff of Analisa 14.8 % (11.5-14.5) H 01/15/24 16:32 Plt Count 214 K/uL (130-400) 01/15/24 16:32 MPV 10.7 fL (9.4-12.4) 01/15/24 16:32 Immature Gran % (Auto) 0.3 % 01/15/24 16:32 Neut % (Auto) 62.8 % 01/15/24 16:32 Lymph % (Auto) 18.3 % 01/15/24 16:32 Vilas % (Auto) 9.5 % 01/15/24 16:32 Eos % (Auto) 8.5 % 01/15/24 16:32 Baso % (Auto) 0.6 % 01/15/24 16:32 Neut # (Auto) 4.30 K/uL (1.40-6.50) 01/15/24 16:32 Lymph # (Auto) 1.25 K/uL (1.20-3.40) 01/15/24 16:32 Vilas # (Auto) 0.65 K/uL (0.11-0.59) H 01/15/24 16:32 Eos # (Auto) 0.58 K/uL (0.00-0.50) H 01/15/24 16:32 Baso # (Auto) 0.04 K/uL (0.00-0.20) 01/15/24 16:32 Immature Gran # (Auto) 0.02 K/uL (0.01-0.20) 01/15/24 16:32 PT 10.3 Seconds (9.0-12.0) 01/15/24 16:32 INR 0.9 (0.9-1.1) 01/15/24 16:32 APTT 28 Seconds (21-31) 01/15/24 16:32 PTT Ratio 1.0 01/15/24 16:32 Sodium 138 mmol/L (136-145) 01/15/24 16:32 Potassium 4.1 mmol/L (3.5-5.1) 01/15/24 16:32 Chloride 102 mmol/L (98-107) 01/15/24 16:32 Carbon Dioxide 27 mmol/L (21-32) 01/15/24 16:32 Anion Gap 9 (3-11) 01/15/24 16:32 BUN 24 mg/dl (6-23) H 01/15/24 16:32 Creatinine 1.81 mg/dl (0.6-1.2) H 01/15/24 16:32 Est Cr Clr Drug Dosing 28.8 ml/min 01/15/24 16:32 eGFR 27.77 01/15/24 16:32 BUN/Creatinine Ratio 13.3 (10-20) 01/15/24 16:32 Glucose 88 mg/dl (70-99(Fasting)) 01/15/24 16:32 Calcium 9.8 mg/dl (8.6-10.3) 01/15/24 16:32 Magnesium 2.0 mg/dl (1.7-2.4) 01/15/24 16:32 Total Bilirubin 0.4 mg/dl (0.2-1.0) 01/15/24 16:32 AST 18 U/L (13-39) 01/15/24 16:32 ALT 11 U/L (7-52) 01/15/24 16:32 Alkaline Phosphatase 98 U/L (34-104) 01/15/24 16:32 Troponin I High Sens 7.2 pg/ml (0-14) 01/15/24 16:32 Total Protein 7.9 gm/dl (6.0-8.3) 01/15/24 16:32 Albumin 4.5 gm/dl (3.4-5.0) 01/15/24 16:32 Globulin 3.4 gm/dl (2.5-4.0) 01/15/24 16:32 Albumin/Globulin Ratio 1.3 (0.9-2) 01/15/24 16:32 Urine Color Yellow 01/15/24 16:32 Urine Appearance Cloudy (Clear) A 01/15/24 16:32 Urine pH 5.5 (4.5-7.5) 01/15/24 16:32 Ur Specific [place]ma 1.022 (1.000-1.030) 01/15/24 16:32 Urine Protein Trace (Negative) H 01/15/24 16:32 Urine Glucose (UA) Negative (Negative) 01/15/24 16:32 Urine Ketones Trace (Negative) H 01/15/24 16:32 Urine Blood Negative (Negative) 01/15/24 16:32 Urine Nitrite Negative (Negative) 01/15/24 16:32 Urine Bilirubin Negative (Negative) 01/15/24 16:32 Urine Urobilinogen Negative (Negative) 01/15/24 16:32 Ur Leukocyte Esterase 2+ (Negative) H 01/15/24 16:32 Urine WBC (Auto) 21-50 /hpf (0-5) H 01/15/24 16:32 Urine RBC (Auto) 0-2 /hpf (0-2) 01/15/24 16:32 U Hyaline Cast (Auto) 0-2 /lpf (0-2) 01/15/24 16:32 U Epithel Cells (Auto) 11-20 /hpf (0-2) H 01/15/24 16:32 Urine Bacteria (Auto) 2+ (None Seen) H 01/15/24 16:32 Adenovirus (PCR) Not Detected (NotDetected) 01/15/24 16:32 B. pertussis DNA (PCR) Not Detected (NotDetected) 01/15/24 16:32 B.parapertussis DNA PCR Not Detected (NotDetected) 01/15/24 16:32 C. pneumoniae DNA (PCR) Not Detected (NotDetected) 01/15/24 16:32 Coronavirus OC43 (PCR) Not Detected (NotDetected) 01/15/24 16:32 Coronavirus HKU1 (PCR) Not Detected (NotDetected) 01/15/24 16:32 Coronavirus 229E (PCR) Not Detected (NotDetected) 01/15/24 16:32 SARS-CoV-2 (PCR) Not Detected (NotDetected) 01/15/24 16:32 Coronavirus NL63 (PCR) Not Detected (NotDetected) 01/15/24 16:32 Human Metapneumovir PCR Not Detected (NotDetected) 01/15/24 16:32 Influenza Type A (PCR) Not Detected (NotDetected) 01/15/24 16:32 Influenza Type B (PCR) Not Detected (NotDetected) 01/15/24 16:32 M. pneumoniae (PCR) Not Detected (NotDetected) 01/15/24 16:32 Parainfluenza 1 (PCR) Not Detected (NotDetected) 01/15/24 16:32 Parainfluenza 2 (PCR) Not Detected (NotDetected) 01/15/24 16:32 Parainfluenza 3 (PCR) Not Detected (NotDetected) 01/15/24 16:32 Parainfluenza 4 (PCR) Not Detected (NotDetected) 01/15/24 16:32 RSV (PCR) Not Detected (NotDetected) 01/15/24 16:32 Entero/Rhino (PCR) Not Detected (NotDetected) 01/15/24 16:32 Impressions Chest X-Ray 01/15/24 16:31 INDICATION: Difficulty breathing. TECHNIQUE: Frontal radiograph of the chest. COMPARISON: Radiograph from 12/21/2023. FINDINGS: The cardiomediastinal silhouette and pulmonary vasculature appear within normal limits. No infiltrate, pleural effusion or pneumothorax. No acute osseous abnormality evident. IMPRESSION: No acute cardiopulmonary process. Electronically signed by Wilian Quintana 01-15-2024 5:37 PM Chest CTA 01/15/24 17:19 CR Exam(s): CTA CHEST EXAM: CT Angiography Chest With Intravenous Contrast CLINICAL HISTORY: Reason for exam: PE, CP/SOB. TECHNIQUE: Axial computed tomographic angiography images of the chest with intravenous contrast. CTDI is 24.87 mGy and DLP is 846.52 mGy-cm. Automated exposure control was utilized for the study. A dose lowering technique was utilized adhering to the principles of ALARA. MIP reconstructed images were created and reviewed. COMPARISON: No relevant prior studies available. FINDINGS: Pulmonary arteries: Extensive lobar and segmental pulmonary embolism seen in the right upper lobe, right middle lobe and right lower lobe. Aorta: No acute findings. No thoracic aortic aneurysm. Lungs: Discoid atelectasis seen in the lower lobes. No mass. Pleural space: Unremarkable. No significant effusion. No pneumothorax. Heart: Mild cardiomegaly. No significant pericardial effusion. No evidence of right heart strain. Mediastinum: Small hiatus hernia. Bones/joints: No acute fracture. No dislocation. Soft tissues: Unremarkable. Lymph nodes: Unremarkable. No enlarged lymph nodes. IMPRESSION: Lobar and segmental pulmonary embolism in the right upper, right middle and right lower lobes. Communications: Call Doctor Pulmonary Embolism Electronically signed by: Paddy Box MD 01/15/24 20:50 PM Venous Doppler Study 01/15/24 21:08 CR Exam(s): US VENOUS BILATERAL LOWER EXTREMITIES EXAM: US Duplex Bilateral Lower Extremities Veins CLINICAL HISTORY: PE. TECHNIQUE: Real-time duplex ultrasound scan of the bilateral lower extremity veins integrating B-mode two-dimensional vascular structure, Doppler spectral analysis, color flow Doppler imaging and compression. COMPARISON: Left lower extremity venous ultrasound 10/22/2018 FINDINGS: Right deep veins: Unremarkable. No DVT in the right common femoral, femoral, proximal deep femoral or popliteal veins. The veins demonstrate normal color flow, are normally compressible, with normal phasic flow and/or augmentation response. Right superficial veins: Unremarkable. No thrombus in the visualized right great saphenous vein. Left deep veins: Near occlusive thrombus from the mid superficial femoral vein to popliteal vein. Left superficial veins: Echogenic material within the mid and distal greater saphenous vein with compressibility, suggestive of chronic thrombus. Soft tissues: No acute abnormality. No popliteal cyst. IMPRESSION: Near occlusive thrombus from the mid left superficial femoral vein to popliteal vein. Echogenic material within the mid and distal greater saphenous vein with compressibility, suggestive of chronic thrombus. Thrombus was identified as a mobile in the prior ultrasound of 10/22/2018. Communications: Call Doctor DVT acute, progressing Electronically signed by: Jayden Oliver M.D. 01/15/24 23:54 PM Code Status & VTE Plan Code Status Full code VTE Prophylaxis Plan VTE Prophylaxis will be ordered: Yes PG Care Time/CCT Total # of Minutes Spent Total Time Spent with Patient: Total time spent is greater than 50% in coordination of care (as documented) at patient's floor/unit and/or counseling patient: Coding Level of Care Code 49130 INT INP/OBS CARE 3/75MIN Diagnoses Deep vein thrombosis, lower left extremity I82.402 Pulmonary embolism on right I26.99 Acute kidney injury superimposed on CKD N17.9; N18.9 Acute UTI N39.0 Stage 3b chronic kidney disease N18.32
[2024-01-15] MEDS ORDERED: ACETAMINOPHEN 325 MG TAB PO PRN (22:46)
[2024-01-15] MEDS: HEPARIN SODIUM/DEXTROSE 25,000 UNITS/500 ML BAG IV SCH (23:00)
[2024-01-15] MEDS: HEPARIN SOD (PORCINE) 1000 UNIT/ML IV ONE (23:00)
[2024-01-15] MEDS: SODIUM CHLORIDE 0.9% 1,000 ML IV SCH (23:30)
[2024-01-15] MEDS: FAMOTIDINE 20 MG TAB PO SCH (23:41)
--- NOTE | 2024-01-15 23:55 | Ultrasound Report ---
Exam(s): US VENOUS BILATERAL LOWER EXTREMITIES EXAM: US Duplex Bilateral Lower Extremities Veins CLINICAL HISTORY: PE. TECHNIQUE: Real-time duplex ultrasound scan of the bilateral lower extremity veins integrating B-mode two-dimensional vascular structure, Doppler spectral analysis, color flow Doppler imaging and compression. COMPARISON: Left lower extremity venous ultrasound 10/22/2018 FINDINGS: Right deep veins: Unremarkable. No DVT in the right common femoral, femoral, proximal deep femoral or popliteal veins. The veins demonstrate normal color flow, are normally compressible, with normal phasic flow and/or augmentation response. Right superficial veins: Unremarkable. No thrombus in the visualized right great saphenous vein. Left deep veins: Near occlusive thrombus from the mid superficial femoral vein to popliteal vein. Left superficial veins: Echogenic material within the mid and distal greater saphenous vein with compressibility, suggestive of chronic thrombus. Soft tissues: No acute abnormality. No popliteal cyst. IMPRESSION: Near occlusive thrombus from the mid left superficial femoral vein to popliteal vein. Echogenic material within the mid and distal greater saphenous vein with compressibility, suggestive of chronic thrombus. Thrombus was identified as a mobile in the prior ultrasound of 10/22/2018. Communications: Call Doctor DVT acute, progressing Electronically signed by: Jayden Oliver M.D. 01/15/24 23:54 PM
[2024-01-16 06:43] LABS: Basophils # (auto) 0.02 K/uL (0.00-0.20); Basophils % (auto) 0.4 %; Eosinophils # (auto) 0.49 K/uL (0.00-0.50); Eosinophils % (auto) 9.2 %; Hematocrit (blood only) 35.9 % (37.0-47.0); Hemoglobin 11.9 g/dl (12.0-16.0); Immature Granulocytes # (auto) 0.01 K/uL (0.01-0.20); Immature Granulocytes % (auto) 0.2 %; Lymphocytes # (auto) 1.46 K/uL (1.20-3.40); Lymphocytes % (auto) 27.3 %; Mean Corpuscular Hemoglobin 32.1 pg (25.0-34.0); Mean Corpuscular Hgb Conc 33.1 g/dL (32.0-36.0); Mean Corpuscular Volume 96.8 fL (80.0-100.0); Mean Platelet Volume 10.4 fL (9.4-12.4); Monocytes % (auto) 9.4 %; Neutrophils # (auto) 2.86 K/uL (1.40-6.50); Neutrophils % (auto) 53.5 %; Platelet Count 155 K/uL (130-400); RDW Coefficient of Variation 14.7 % (11.5-14.5); RDW Standard Deviation 52.9 fL (36.4-46.3); Red Blood Count 3.71 M/uL (4.20-5.40); White Blood Count 5.34 K/ul (4.8-10.8)
[2024-01-16 07:03] LABS: Albumin Level 3.3 gm/dl (3.4-5.0); BUN Creatinine Ratio 15.3 (10-20); Calcium 8.3 mg/dl (8.6-10.3); Creatinine Clr Calc Pharmacy 35.9 ml/min; Magnesium 1.9 mg/dl (1.7-2.4); Potassium 3.8 mmol/L (3.5-5.1)
[2024-01-16 07:10] LABS: Troponin I High Sensitivity 5.6 pg/ml (0-14)
[2024-01-16 07:24] LABS: ANTI-Xa, UFH(UnfractionatedHep 0.99 IU/ml (0.3-0.7)
[2024-01-16] MEDS: Heparin IV Adult Wt-Based Standard w/ INITIAL Bolus Protocol IV STA (08:21)
[2024-01-16] MEDS: HEPARIN SOD (PORCINE) 1000 UNIT/ML IV ONE ×2 (08:22→08:23)
[2024-01-16] MEDS: LORATADINE 10 MG TAB PO SCH (08:30)
[2024-01-16] MEDS: OMEGA-3 (PURIFIED FISH OIL) 1 GM CAP PO SCH (08:30)
[2024-01-16] MEDS: METOPROLOL SUCC 50MG EXT REL TAB PO SCH (08:30)
[2024-01-16] MEDS: UMECLIDINIUM/VILANTEROL 62.5/25MCG 7 PUFFS/INHALER INH SCH (08:32)
[2024-01-16] MEDS: FLUTICASONE FUROATE 100MCG 14 PUFFS/INHALER INH SCH (08:32)
--- NOTE | 2024-01-16 08:33 | Hospitalist Progress Note ---
Date of Service January 16, 2024 Assessment & Plan (1) Pulmonary embolism on right: Plan: Presented with 1 week of progressively worsening chest pain, with shortness of breath at rest and dyspnea on exertion - Chest CTA revealed lobar and segmental PEs in the right upper, right middle, right lower lobes - Venous Doppler study reveals near occlusive thrombus from the mid left superficial femoral vein to popliteal vein. Also, findings suggestive of chronic thrombus within the mid and distal greater saphenous vein - Per daughter, patient has history of DVT for which she was on anticoagulation, but this was stopped at an unknown time - Hypercoagulable workup ordered, pending - Heparin drip per protocol with bolus - Plan to transition to Eliquis 10 mg PO BID x 7 days, then 5 mg BID (2) Acute UTI: Plan: UA positive on admission - Urine culture sensitivity pending - Continue Ceftriaxone 2 g IV daily (3) Acute kidney injury superimposed on CKD: Plan: ALVINA superimposed on CKD with creatinine of 1.81 on admission. Baseline Cr 1.46 - Provided IV fluid x 1 L - Creatinine improved 1.44 - Avoid nephrotoxic agents and encourage PO fluid intake (4) Deep vein thrombosis, lower left extremity: Plan Updated daughter at bedside Ordered PT/OT Transition from heparin to Eliquis Chronic Stable Issues - GERD: Tums every hour as needed - Multiple medication sensitivities: Noted Of note, patient is not up-to-date on breast cancer or colon cancer screenings VTE PPx: Heparin CODE STATUS: Full code Admission and Anticipated Discharge Date Admission Date: January 15, 2024 Subjective Patient seen and evaluated at bedside with daughter present. She reports her biggest complaint is her heart burn. She states she has WINTER, but cannot tell if this is pulmonary-related or due to her GERD symptoms. She reports pain with deep inspiration. Denies pain or dyspnea at rest. Daughter reports patient had DVT about 3 years ago and was on anticoagulation for 2 weeks but nothing further. Patient reports her WINTER is about the same today compared to yesterday. She denies any urinary symptoms. We discussed transitioning from heparin to Eliquis and monitoring urine culture. No additional complaints or concerns at this time. Physical Exam Physical Exam: General: No acute distress, nondiaphoretic, well-developed, well-nourished. Skin: Warm, dry. Without rashes, erythema, or bruising. Chronic lymphedema to lower extremities bilaterally. Cardiac: Regular rate and rhythm without murmurs gallops or rubs. Pulm: Clear to auscultation bilaterally without wheezes, rales or rhonchi. No respiratory distress. 92% on room air. Abdominal: Soft, nontender, nondistended. Bowel sounds present. Neuro: A&O x3. No focal neurological deficits. Results & Data Results & Data Vital Signs (Past 12 Hours) Vital Signs Temp Pulse Pulse Resp BP BP Pulse Ox 01/16/24 08:16 97.3 F L 88 18 167/80 H 95 01/16/24 03:21 98.2 F 69 18 176/77 H 93 01/16/24 00:15 93 H 01/16/24 00:00 01/16/24 00:00 98.2 F 88 22 197/96 H 95 01/15/24 21:03 92 H 17 165/113 H 96 01/15/24 20:49 96 H O2 Del Method 01/16/24 08:16 Room Air 01/16/24 03:21 Room Air 01/16/24 00:15 01/16/24 00:00 Room Air 01/16/24 00:00 Room Air 01/15/24 21:03 Room Air 01/15/24 20:49 Laboratory Results Reviewed CBC Reviewed coags Reviewed chemistries Reviewed UA and urine culture Diagnostic Findings Reviewed CXR Reviewed Chest CTA Reviewed Venous Doppler Reviewed EKG PG Care Time/CCT Total # of Minutes Spent Total Time Spent with Patient: Total time spent is greater than 50% in coordination of care (as documented) at patient's floor/unit and/or counseling patient: Coding Level of Care Code 43301 SUB INP/OBS CARE 3/50MIN Diagnoses Pulmonary embolism on right I26.99 Acute UTI N39.0 Acute kidney injury superimposed on CKD N17.9; N18.9 Deep vein thrombosis, lower left extremity I82.402
[2024-01-16] MEDS ORDERED: PANTOprazole 40 MG/10 ML SYR IV SCH (09:00)
--- NOTE | 2024-01-16 13:25 | XCELERA ---
[id number] \\[id number]
--- NOTE | 2024-01-16 13:51 | Electrocardiogram Report ---
Test Reason : Blood Pressure : */* mmHG Vent. Rate : 92 BPM Atrial Rate : 92 BPM P-R Int : 222 ms QRS Dur : 72 ms QT Int : 360 ms P-R-T Axes : 48 40 33 degrees QTcB Int : 445 ms Sinus rhythm with 1st degree A-V block with frequent Premature ventricular complexes Otherwise normal ECG When compared with ECG of 07-Sep-2022 10:14, Premature ventricular complexes are now Present Vent. rate has increased by 33 bpm Confirmed by Allen Sethi ([id number]) on 01/16/2024 1:50:49 PM Referred By: REFERRED SELF Confirmed By: Allen Sethi
[2024-01-16 15:32] LABS: ANTI-Xa, UFH(UnfractionatedHep 0.69 IU/ml (0.3-0.7)
[2024-01-16] MEDS: APIXABAN 5 MG TABLET PO SCH (20:38)
[2024-01-16] MEDS: cefTRIAXone SODIUM 2,000 MG/50 ML BAG IV SCH (20:44)
--- OUTSIDE RECORDS SUMMARY | 2024-01-16 23:15 | External Medical Summary | Summary of Care ---
Author Name Unknown Organization [facility] Address [address] [facility] [place] [address] Phone [phone] Care Team Providers Care Wet Primer Powder Blender Name Role Phone Heather Hailena Primary Care Provider Reason for Visit * Reason Comments Procedure Phlebotomy Encounter Details Date Type Department Care Team (Latest Contact Info) Description 01/09/2024 10:00 AM EST Hem/Onc Treatment Hematology/Oncolog y Treatment, [place] [address] [place] [address] Liv, Chair 10 Hem Onc Scenery [address] [place] [address] Hereditary hemochromatosis (HCC)* Allergies Active Allergy Reactions Criticality Noted Date Comments Aripiprazole 02/07/2018 Ibuprofen 02/07/2018 Aspirin 11/12/2003 ringing ears Hydroxyzine 02/07/2018 Baclofen Nausea/vomiting 01/03/2024 Diphenhydramine Nausea/vomiting 01/03/2024 Buspirone 02/07/2018 Citalopram Hydrobromide 02/07/2018 Citalopram 01/03/2024 Divalproex Sodium 02/07/2018 Doxycycline 02/07/2018 Venlafaxine 02/07/2018 Ziprasidone Hcl 02/07/2018 Hydrochlorothiazide 02/07/2018 Hydrocodone Nausea/vomiting 01/03/2024 Lamotrigine 02/07/2018 Lansoprazole Rash 01/03/2024 Latex Rash 01/03/2024 Alexander 02/07/2018 Lorazepam 02/07/2018 Eszopiclone 02/07/2018 Memantine Psych complications 01/03/2024 Morphine 02/07/2018 Esomeprazole Magnesium 02/07/2018 Paroxetine Psych complications 01/03/2024 Nirmatrelvir-Ritonavir 12/16/2022 Conjugated Estrogens 02/07/2018 Vaginal cream Omeprazole 02/07/2018 Risperidone 02/07/2018 Quetiapine Fumarate 02/07/2018 Temazepam 02/07/2018 Tetracycline 02/07/2018 Trazodone And Nefazodone 02/07/2018 Diazepam 02/07/2018 Hydrocodone-Acetaminophen 02/07/2018 Bupropion Hcl 02/07/2018 Ziprasidone Other (Please comment) 01/03/2024 Insomnia documented as of this encounter (statuses as of 01/09/2024) Medications valACYclovir (VALTREX) 500 MG Tablet Take 1 Tablet by mouth in the morning. 01/29/2018 Active PROAIR HFA 108 (90 Base) MCG/ACT inhaler Inhale by mouth 2 Puffs every 4 hours as needed . 01/11/2018 Active Loratadine 10 MG Cap Take 1 Capsule by mouth in the morning. Active [place]-3 Fatty Acids (FISH OIL) 1000 MG Capsule Take 1 Capsule by mouth in the morning. Active Chlorthalidone 25 MG Oral Tablet (Hygroton) Take by mouth 0.5 Tablets once a day on Monday, Monday, and Monday only . 15 Tablet 5 12/17/2021 Active amLODIPine Besylate 2.5 MG Oral Tablet (Norvasc) Take 1 Tablet by mouth in the morning. Active Nitroglycerin 0.4 MG Sublingual Tablet Sublingual (Nitrostat) Place 1 Tablet under the tongue every 5 minutes as needed for Pain, Chest. Active Vitamin E 400 UNIT Oral Capsule (Aquasol E) Take 1 tablet as needed 12/16/2022 Active Trelegy Ellipta 100-62.5-25 MCG/ACT Aerosol Powder Breath Activated INHALE 1 PUFF BY MOUTH ONCE DAILY 12/16/2022 Active Metoprolol Succinate ER 50 MG Oral Tablet Extended Release 24 Hour (toPROL XL)Indications: PAT (paroxysmal atrial tachycardia) (HCC) TAKE 1 TABLET BY MOUTH IN THE MORNING 90 Tablet 3 01/16/2023 Active Align Dualbiotic Oral Tablet ChewableIndicat ions:as needed Take 1 Tablet by mouth once. Active Famotidine 20 MG Oral Tablet (Pepcid) Take 1 Tablet by mouth in the morning and 1 Tablet before bedtime. 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 Advanced directives, counseling/discussion 02/08 PAT (paroxysmal atrial tachycardia) 06/08/2018 Tachy-rosalinda syndrome 06/08/2018 Benign neoplasm of colon 01/23/2007 Overview (01/29/2007): adenomatous polyps--repeat in 3 yrs Chronic sinusitis 11/12/2003 Asthma with severity to be determined 11/12/2003 Overview (05/25/2015): ICD-10 update of inactive term Other adverse food reactions, not elsewhere clas sified 11/12/2003 ALLERGIC RHINITIS - MIXED TYPE 11/12/2003 Tobacco use disorder 11/12/2003 documented as of this encounter (statuses as of 01/09/2024) Social History Tobacco Use Types Packs/Day Years Used Date Smoking Tobacco: Every Day Pipe Smokeless Tobacco: Never Alcohol Use Standard Drinks/Week Comments Not Currently 0 (1 standard drink = 0.6 oz pur e alcohol) Comments No Sex and Gender Information Value Date Recorded Sex Assigned at Not on file Legal Sex Female 7:04 AM EST Gender Identity Not on file Sexual Orientation Not on file documented as of this encounter Last Filed Vital Signs Vital Sign Reading Time Taken Comments Blood Pressure 120/84 01/09/2024 11:15 AM EST Pulse 79 01/09/2024 11:15 AM EST Temperature 36.6 C (97.9 F) 01/09/2024 10:[address] Respiratory Rate 16 01/09/2024 11:15 AM EST Oxygen Saturation 93% 01/09/2024 11:15 AM EST Inhaled Oxygen Concentration - - Weight 90.3 kg (199 lb) 01/09/2024 10:35 AM EST Height - - Body Mass Index 32.12 01/03/2024 12:50 PM EST documented in this encounter Nursing Notes * Anabella Bonilla RN - 01/09/2024 10:59 AM EST Pt here for phlebotomy; consented prior. #18g aphoresis needle placed in L-AC without difficulty. Therapeutic phlebotomy performed per order for 300cc total volume. Patient tolerated procedure well. Drank cup of fluid post procedure. Encouraged to increase fluid intake. IV discontinued intact and patient discharged in stable condition. documented in this encounter Plan of Treatment Upcoming Encounters Date Type Department Care Team (Late st Contact Info) Description 02/08/2024 11:00 AM EST [facility] [address] [facility] [place] [phone] Catalino Cerda 9 [place] [address] 02/09/2024 11:30 AM EST Hem/Onc Treatment Hematology/Oncology Treatment, [place] [address] [facility] [address] [address] [place] [phone] Liv, Chair 8 Hem Onc Scenery [address] [facility] [address] 04/17/2024 8:15 AM EST Imaging Radiology [facility] 2nd Floor, [place] 132 [facility] [place] [address] 04/24/2024 10:00 AM EDT [facility] 132 [facility] [place] [phone] Sayda Sanabria [address] [place] [address] 04/24/2024 10:30 AM EDT Office Visit Gastroenterology, [facility] [address] [place] [address] Marcus Smith CRNP [address] [place] [address] 05/01/2024 10:30 AM EDT Office Visit Hematology/Oncology [facility] 200 [facility] [place] [address] Stephany Luna MD 200 [facility] [place] [address] 05/22/2024 9:00 AM EDT Office Visit Gastroenterology, [facility] [address] [place] [address] Marcus Smith CRNP 132 [facility] [place] [address] Health Maintenance Due Date Last Done Comments DISCUSS TOBACCO CESSATION (REFER TO SMARTSET #1104) 1942 DXA Scan 1942 Depression Screening 1954 Albumin/Creatinine Ratio 1960 Zoster Vaccines (2 of 3) 10/16/2009 08/21/2009 Colonoscopy 01/23/2010 01/23/2007 DTap/Tdap Vaccines (2 - Td or Tdap) 10/16/2017 10/17/2007 COVID-19 Vaccine ( season) 2023 12/13/2022, 03/08/2022, 12/07/2021, Additional history exists Influenza Vaccine (FLU shot) (#1) 2023 12/13/2022, 11/17/2020, 12/23/2019, Additional history exists GFR 10/16/2024 10/17/2023, 04/2021, 01/12/2021, Additional history exists Pneumococcal Vaccine: 65+ Years Completed 06/18/2015, 11/19/2007 HPV (Gardasil) Vaccine Aged Out No lo nger eligible based on patient's age to complete this topic Hepatitis B Vaccine Aged Out No longe r eligible based on patient's age to complete this topic MENINGOCOCCAL (MENACTRA/MENVEO) Aged Out No longer eligible based on patient's age to complete this topic documented as of this encounter Medical Devices Not on filedocumented as of this encounter Visit Diagnoses Diagnosis Hereditary hemochromatosis (HCC)- Primary Hereditary hemochromatosis documented in this encounter Administered Medications Active Administered Medications - up to 3 most recent administrations Medication Order MAR Action Action Date Dose Rate Site NSS infusion 500 mL, Intravenous, at 1,000 mL/hr Administer over 30 Minutes, PRN, Starting on Mon01/09/24 at 1114, Until Discontinued, HypotensionIndications:Hereditary hemochromatosis (HCC) documented in this encounter Care Teams Wet Primer Powder Blender Relationship Specialty Start Date End Date Heather Haile DO [address] [facility] [address] Ramos [address] [place] [address], [place] [address] PCP - General Family Medicine 09/15/20 documented as of this encounter
--- OUTSIDE RECORDS SUMMARY | 2024-01-16 23:16 | External Medical Summary ---
Author Name Unknown Address Unknown Organization K01:LABORATORY [address] [facility] [address] Laboratory Report Ordering Provider Test Date Status MICHAEL ALVARADO 01/08/2024 12:00:17 Final Observation Date Value Abnormality Reference (Units ) Status WBC, Total 01/08/2024 12:00:17 6.06 4.00-10.80 (K/uL) Final RBC 01/08/2024 12:00:17 4.12 3.85-5.15 (M/uL) Final Hemoglobin 01/08/2024 12:00:17 13.7 12.0-15.3 (g/dL) Final HCT 01/08/2024 12:00:17 42.1 36.0-45.2 (%) Final MCV 01/08/2024 12:00:17 102.2 81.5-97.5 (fL) Final MCH 01/08/2024 12:00:17 33.3 27.0-34.0 (pg) Final MCHC 01/08/2024 12:00:17 32.5 32.0-36.0 (g/dL) Final RDW 01/08/2024 12:00:17 14.4 11.5-15.5 (%) Final Platelets 01/08/2024 12:00:17 194 140-400 (K/uL) Final MPV 01/08/2024 12:00:17 11.0 6.6-11.1 (fL) Final Nucleated erythrocytes/100 leukocytes [Ratio] in Blood by Automated count 01/08/2024 12:00:17 0 <=0 (/100 WBCs) Final Performing Location LABORATORY [facility] - [address] [facility] [address]
--- OUTSIDE RECORDS SUMMARY | 2024-01-16 23:16 | External Medical Summary | Summary of Care ---
Author Name Unknown Organization [facility] Address [address] [facility] [address] Phone [phone] Care Team Providers Care Sign Erector And Repairer Name Role Phone Heather Haile Primary Care Provider Reason for Visit * Reason Comments Outpatient Testing Encounter Details Date Type Department Care Team (Latest Contact Info) Description 01/08/2024 12:00 PM EST Laboratory Laboratory, [facility] [address] [place] [phone] [facility] [address] [place] [address] Hereditary hemochromatosis (HCC) Allergies Active Allergy Reactions Criticality Noted Date Comments Aripiprazole 02/07/2018 Ibuprofen 02/07/2018 Aspirin 11/12/2003 ringing ears Hydroxyzine 02/07/2018 Baclofen Nausea/vomiting 01/03/2024 Diphenhydramine Nausea/vomiting 01/03/2024 Buspirone 02/07/2018 Citalopram Hydrobromide 02/07/2018 Citalopram 01/03/2024 Divalproex Sodium 02/07/2018 Doxycycline 02/07/2018 Venlafaxine 02/07/2018 Ziprasidone Hcl 02/07/2018 Hydrochlorothiazide 02/07/2018 Hydrocodone Nausea/vomiting 01/03/2024 Lamotrigine 02/07/2018 Lansoprazole Rash 01/03/2024 Latex Rash 01/03/2024 [place] 02/07/2018 Lorazepam 02/07/2018 Eszopiclone 02/07/2018 Memantine Psych complications 01/03/2024 Morphine 02/07/2018 Esomeprazole Magnesium 02/07/2018 Paroxetine Psych complications 01/03/2024 Nirmatrelvir-Ritonavir 12/16/2022 Conjugated Estrogens 02/07/2018 Vaginal cream Omeprazole 02/07/2018 Risperidone 02/07/2018 Quetiapine Fumarate 02/07/2018 Temazepam 02/07/2018 Tetracycline 02/07/2018 Trazodone And Nefazodone 02/07/2018 Diazepam 02/07/2018 Hydrocodone-Acetaminophen 02/07/2018 Bupropion Hcl 02/07/2018 Ziprasidone Other (Please comment) 01/03/2024 Insomnia documented as of this encounter (statuses as of 01/08/2024) Medications valACYclovir (VALTREX) 500 MG Tablet Take 1 Tablet by mouth in the morning. 01/29/2018 Active PROAIR HFA 108 (90 Base) MCG/ACT inhaler Inhale by mouth 2 Puffs every 4 hours as needed . 01/11/2018 Active Loratadine 10 MG Cap Take 1 Capsule by mouth in the morning. Active [place]-3 Fatty Acids (FISH OIL) 1000 MG Capsule [...] as of this encounter (statuses as of 01/08/2024) Active Problems Problem Noted Date Diagnosed Date [...] as of this encounter (statuses as of 01/08/2024) Social History Tobacco Use Types Packs/Day Years [...] on file documented as of this encounter Plan of Treatment Upcoming Encounters Date Type Department Care Team (Late st Contact Info) Description 01/09/2024 9:45 AM EST Nurse Only Hematology/Oncology [facility] [address] [place] [phone] [place] Nurse Hem Onc Scenery [address] [place] [address] 01/09/2024 10:00 AM EST Hem/Onc Treatment Hematology/Oncology Treatment, [place] [address] [place], [place] [phone] Liv, Chair 10 Hem Onc [facility] 200 [facility] [address] 04/17/2024 8:15 AM EST Imaging Radiology [facility] 2nd [facility] [address] [place] [address] 04/24/2024 10:00 AM EDT Laboratory Laboratory, [facility] [address] [facility] [place] [phone] [address] [facility] [address] [facility] [place] [address] 04/24/2024 10:30 AM EDT Office Visit Gastroenterology, [facility] [address] [place] [address] Marcus Smith CRNP 132 [facility] [place] [address] 05/01/2024 10:30 AM EDT Office Visit Hematology/Oncology [facility] [address] [place] [address] Stephany Luna MD 200 [facility] [place] [address] 05/22/2024 9:00 AM EDT Office Visit Gastroenterology, [facility] [address] [place] [address] Marcus Smith CRNP [address] [place] [address] Pending Results Name Type Priority Associated Diagnoses Date /Time CBC WITH WBC DIFFERENTIAL Lab STAT Hereditary hemochromatosis (HCC) 01/08/2024 12:00 PM EST FERRITIN Lab STAT Hereditary hemochromatosis (HCC) 01/08/2024 12:00 PM EST CBC Lab STAT Hereditary hemochromatosis (HCC) 01/08/2024 12:00 PM EST DIFFERENTIAL, AUTOMATED Lab STAT Hereditary hemochromatosis (HCC) 01/08/2024 12:00 PM EST Health Maintenance Due Date Last Done Comments DISCUSS TOBACCO CESSATION (REFER TO SMARTSET #0187) 1942 DXA Scan 1942 Depression Screening 1954 [...] this encounter Visit Diagnoses Diagnosis Hereditary hemochromatosis (HCC) Hereditary hemochromatosis documented in this encounter Care Teams Sign Erector And Repairer Relationship Specialty Start Date End Date Heather Haile DO 6 Kamilla [address] [place] [address], [place] [address] PCP - General Family Medicine 09/15/20 documented as of this encounter
--- OUTSIDE RECORDS SUMMARY | 2024-01-16 23:16 | External Medical Summary ---
Author Name Unknown Address Unknown Organization [id number]:LABORATORY [facility] - [address] [facility] [place] [address] Laboratory Report Ordering Provider Test Date Status MICHAEL ALVARADO 01/08/2024 12:00:17 Final Observation Date Value Abnormality Reference (Units ) Status SYNC LEUKOCYTES IN BLOOD BY AUTOMATED COUNT 01/08/2024 12:00:17 6.06 4.00-10.80 (K/uL) Final Segs 01/08/2024 12:00:17 63.5 40.0-75.0 (%) Final Lymphs % 01/08/2024 12:00:17 21.1 18.0-42.0 (%) Final Monos 01/08/2024 12:00:17 8.7 1.0-11.0 (%) Final Eosinophils 01/08/2024 12:00:17 5.6 0.0-6.0 (%) Final Basos 01/08/2024 12:00:17 0.8 0.0-2.0 (%) Final Immature Granulocyte, Percent 01/08/2024 12:00:17 0.3 0.0-2.0 (%) Final Absolute Segs 01/08/2024 12:00:17 3.84 1.80-7.70 (K/uL) Final Lymphs, absolute 01/08/2024 12:00:17 1.28 1.00-4.80 (K/ul) Final Monos, Abs 01/08/2024 12:00:17 0.53 0.00-1.10 (K/uL) Final Eos, Abs 01/08/2024 12:00:17 0.34 0.00-0.70 (K/uL) Final Basos, Abs 01/08/2024 12:00:17 0.05 0.00-0.20 (K/uL) Final Immature Granulocytes, Number 01/08/2024 12:00:17 0.02 0.00-0.20 (K/uL) Final Performing Location LABORATORY [facility] - [facility] [address] [facility] [address]
--- OUTSIDE RECORDS SUMMARY | 2024-01-16 23:16 | External Medical Summary | Summary of Care ---
Author Name Unknown Organization [facility] Address [address] [facility] [place] [address] Phone [phone] Care Team Providers Care Systems Tester Name Role Phone LazaraHeather Primary Care Provider Reason for Visit * Reason Comments Nurse Documentation Therapeutic Phleboto my Consent Encounter Details Date Type Department Care Team (Late st Contact Info) Description 01/09/2024 9:45 AM EST Nurse Only Hematology/Oncology [place] [address] [place] [phone] Liv Nurse Hem Onc Scenery [address] [place] [address] Nurse Documentation (Therapeutic Phlebotom... Allergies Active Allergy Reactions Criticality Noted Date Comments Aripiprazole 02/07/2018 Ibuprofen 02/07/2018 Aspirin 11/12/2003 ringing ears Hydroxyzine 02/07/2018 Baclofen Nausea/vomiting 01/03/2024 Diphenhydramine Nausea/vomiting 01/03/2024 Buspirone 02/07/2018 Citalopram Hydrobromide 02/07/2018 Citalopram 01/03/2024 Divalproex Sodium 02/07/2018 Doxycycline 02/07/2018 Venlafaxine 02/07/2018 Ziprasidone Hcl 02/07/2018 Hydrochlorothiazide 02/07/2018 Hydrocodone Nausea/vomiting 01/03/2024 Lamotrigine 02/07/2018 Lansoprazole Rash 01/03/2024 Latex Rash 01/03/2024 [place] 02/07/2018 Lorazepam 02/07/2018 Eszopiclone 02/07/2018 Memantine Psych [...] Capsule by mouth in the morning. Active [place]-3 Fatty Acids (FISH OIL) 1000 MG Capsule [...] on file documented as of this encounter Nursing Notes * Marleni Finley RN - 01/09/2024 10:[address] Luna signed consent with patient. documented in this encounter Plan of Treatment Upcoming Encounters Date Type Department Care Team (Late st Contact Info) Description 04/17/2024 8:15 AM EST Imaging Radiology [facility] 2nd [facility] [address] [place] [address] 04/24/2024 10:00 AM EDT Laboratory Laboratory, [facility] [address] [place] [phone] [facility] [place] [address] 04/24/2024 10:30 AM EDT Office Visit Gastroenterology, [facility] [address] [place] [address] Marcus Smith CRNP [address] [place] [address] 05/01/2024 10:30 AM EDT Office Visit Hematology/Oncology [facility] [place] [address] Stephany Luna MD 200 [facility] [place] [address] 05/22/2024 9:00 AM EDT Office Visit Gastroenterology, [facility] [address] [place] [address] Marcus Smith CRNP 132 [facility] [place] [address] Health Maintenance Due Date Last Done Comments DISCUSS TOBACCO CESSATION (REFER TO SMARTSET #3291) 1942 DXA Scan 1942 Depression Screening 1954 [...] Not on filedocumented as of this encounter Care Teams Systems Tester Relationship Specialty Start Date End Date Heather Haile DO [address] [place] [address] Malachi Ramos [address] [place] [address], [place] [address] PCP - General Family Medicine 09/15/20 documented as of this encounter
--- OUTSIDE RECORDS SUMMARY | 2024-01-16 23:16 | External Medical Summary ---
Author Name Unknown Address Unknown Organization K01:LABORATORY [facility] - [address] [place] [address] Laboratory Report Ordering Provider Test Date Status MICHAEL ALVARADO 01/08/2024 12:00:17 Final Observation Date Value Abnormality Reference (Units ) Status Ferritin 01/08/2024 12:00:17 695 Above high normal 13 -150 (ng/mL) Final Postmenopausal women have hi gher ferritin levels than pre-menopausal women. The above reference interval is based on pre-menopausal women. Performing Location LABORATORY [facility] - [address] [place] [address]
--- OUTSIDE RECORDS SUMMARY | 2024-01-16 23:16 | External Medical Summary | Summary of Care ---
Author Name Unknown Organization [facility] Address [address] [facility] [address] Phone [phone] Care Team Providers Care Insurance Healthcare Representative Name Role Phone LazaraBeHeather Xena Primary Care Provider Encounter Details Date Type Department Care Team (Late st Contact Info) Description 01/09/2024 Orders Only Hematology/Oncology, [facility] 400 [facility] [place] [address] Stephany Luna MD 200 [place] [address] Allergies Active Allergy Reactions Criticality Noted Date Comments Aripiprazole 02/07/2018 Ibuprofen 02/07/2018 Aspirin 11/12/2003 ringing ears Hydroxyzine 02/07/2018 Baclofen Nausea/vomiting 01/03/2024 Diphenhydramine Nausea/vomiting 01/03/2024 Buspirone 02/07/2018 Citalopram Hydrobromide 02/07/2018 Citalopram 01/03/2024 Divalproex Sodium 02/07/2018 Doxycycline 02/07/2018 Venlafaxine 02/07/2018 Ziprasidone Hcl 02/07/2018 Hydrochlorothiazide 02/07/2018 Hydrocodone Nausea/vomiting 01/03/2024 Lamotrigine 02/07/2018 Lansoprazole Rash 01/03/2024 Latex Rash 01/03/2024 [place] 02/07/2018 Lorazepam 02/07/2018 Eszopiclone 02/07/2018 Memantine Psych [...] Capsule by mouth in the morning. Active [place]-3 Fatty Acids (FISH OIL) 1000 MG Capsule [...] Description 04/17/2024 8:15 AM EST Imaging Radiology [facility] 2nd [facility] 132 [facility] [place] [address] 04/24/2024 10:00 AM EDT Laboratory Laboratory, [address] [place] [phone] [address] [place] [address] 04/24/2024 10:30 AM EDT Office Visit Gastroenterology, [facility] 132 [place] [address] Marcus Smith CRNP [address] [place] [address] 05/01/2024 10:30 AM EDT Office Visit Hematology/Oncology [facility] 200 [facility] [place] [phone] Stephany Luna MD 200 [facility] [place] [address] 05/22/2024 9:00 AM EDT Office Visit Gastroenterology, [facility] [address] [place] [address] Marcus Smith CRNP 132 [facility] [place] [address] Health Maintenance Due Date Last Done Comments DISCUSS TOBACCO CESSATION (REFER TO SMARTSET #5473) 1942 DXA Scan 1942 Depression Screening 1954 [...] filedocumented as of this encounter Care Teams Insurance Healthcare Representative Relationship Specialty Start Date End Date Heather Haile DO 6 [facility] [address], [place] [address] PCP - General Family Medicine 09/15/20 documented as of this encounter
--- OUTSIDE RECORDS SUMMARY | 2024-01-16 23:16 | External Medical Summary | Summary of Care ---
Author Name Unknown Organization [facility] Address [address] [facility] [place] [address] Phone [phone] Care Team Providers Care Sandwich And Drink Cart Operator Name Role Phone LazaraFabrizioen Xena Primary Care Provider Reason for Visit * Reason Onset Date Comments Other 01/05/2024 TP Consent Encounter Details Date Type Department Care Team (Late st Contact Info) Description 01/05/2024 Telephone Hematology/Oncology [facility] [place] [address] [place] [phone] Stephany Luna MD [address] [place] [address] Other (TP Consent) Allergies Active Allergy Reactions Criticality Noted Date Comments Aripiprazole 02/07/2018 Ibuprofen 02/07/2018 Aspirin 11/12/2003 ringing ears Hydroxyzine 02/07/2018 Baclofen Nausea/vomiting 01/03/2024 Diphenhydramine Nausea/vomiting 01/03/2024 Buspirone 02/07/2018 Citalopram Hydrobromide 02/07/2018 Citalopram 01/03/2024 Divalproex Sodium 02/07/2018 Doxycycline 02/07/2018 Venlafaxine 02/07/2018 Ziprasidone Hcl 02/07/2018 Hydrochlorothiazide 02/07/2018 Hydrocodone Nausea/vomiting 01/03/2024 Lamotrigine 02/07/2018 Lansoprazole Rash 01/03/2024 Latex Rash 01/03/2024 [place] 02/07/2018 Lorazepam 02/07/2018 Eszopiclone 02/07/2018 Memantine Psych complications 01/03/2024 Morphine 02/07/2018 Esomeprazole Magnesium 02/07/2018 Paroxetine Psych complications 01/03/2024 Nirmatrelvir-Ritonavir 12/16/2022 Conjugated Estrogens 02/07/2018 Vaginal cream Omeprazole 02/07/2018 Risperidone 02/07/2018 Quetiapine Fumarate 02/07/2018 Temazepam 02/07/2018 Tetracycline 02/07/2018 Trazodone And Nefazodone 02/07/2018 Diazepam 02/07/2018 Hydrocodone-Acetaminophen 02/07/2018 Bupropion Hcl 02/07/2018 Ziprasidone Other (Please comment) 01/03/2024 Insomnia documented as of this encounter (statuses as of 01/05/2024) Medications valACYclovir (VALTREX) 500 MG Tablet Take 1 Tablet by mouth in the morning. 01/29/2018 Active PROAIR HFA 108 (90 Base) MCG/ACT inhaler Inhale by mouth 2 Puffs every 4 hours as needed . 01/11/2018 Active Loratadine 10 MG Cap Take 1 Capsule by mouth in the morning. Active [place]-3 Fatty Acids (FISH OIL) 1000 MG Capsule [...] as of this encounter (statuses as of 01/05/2024) Active Problems Problem Noted Date Diagnosed Date [...] as of this encounter (statuses as of 01/05/2024) Social History Tobacco Use Types Packs/Day Years [...] on file documented as of this encounter Miscellaneous Notes * Telephone Encounter - Rut Lilly LPN - 01/05/2024 1:31 PM EST Patient is scheduled for Therapeutic Phlebotomy on Monday01/09/2024. No updated consent on file. Left message on patients voicemail, return phone number provided. Patient will need to come to the office on Monday 15-20 minutes early to sign her consent. My G sent. documented in this encounter Plan of Treatment Upcoming Encounters Date Type Department Care Team (Late st Contact Info) Description 01/08/2024 12:00 PM EST Laboratory Laboratory, [facility] [address] [facility] [phone] Prashant, [address] [facility] [place] [address] 01/09/2024 9:45 AM EST Nurse Only Hematology/Oncology [place] [address] [place] [phone] Liv, Nurse Hem Onc Scenery [address] [place] [address] 01/09/2024 10:00 AM EST Hem/Onc Treatment Hematology/Oncology Treatment, [place] [address] [place], [place] [phone] Liv, Chair 10 Hem Onc Scenery [address] [place] [address] 04/17/2024 8:15 AM EST Imaging Radiology [facility] 2nd [facility], [place] [address] [facility] [place] [address] 04/24/2024 10:00 AM EDT Laboratory Laboratory, [facility] [address] [facility] [place] [phone] [facility] 132 [facility] [place] [address] 04/24/2024 10:30 AM EDT Office Visit Gastroenterology, [facility] 132 [facility] [place] [address] Marcus Smith CRNP [address] [place] [address] 05/01/2024 10:30 AM EDT Office Visit Hematology/Oncology [facility] 200 [facility] [place] [address] Stephany Luna MD [address] [place] [address] 05/22/2024 9:00 AM EDT Office Visit Gastroenterology, [facility] [address] [place] [address] Marcus Smith CRNP [address] [place] [address] Health Maintenance Due Date Last Done Comments DISCUSS TOBACCO CESSATION (REFER TO SMARTSET #0424) 1942 DXA Scan 1942 Depression Screening 1954 [...] filedocumented as of this encounter Care Teams Sandwich And Drink Cart Operator Relationship Specialty Start Date End Date Heather Haile DO [facility] Kamilla Ramos [address] [place] [address], [place] [address] PCP - General Family Medicine 09/15/20 documented as of this encounter
--- OUTSIDE RECORDS SUMMARY | 2024-01-16 23:17 | External Medical Summary | Summary of Care ---
Author Name Unknown Organization [facility] Address [address] [facility] [place] [address] Phone [phone] Care Team Providers Care Adjunct Spanish Instructor Name Role Phone Lazara Heather Xena Primary Care Provider Reason for Visit * Reason Onset Date Comments Appointment 01/03/2024 Encounter Details Date Type Department Care Team (Late st Contact Info) Description 01/03/2024 Telephone Hematology/Oncology [facility] [place] [address] [place] [phone] Stephany Luna MD [address] [place] [address] Appointment Allergies Active Allergy Reactions Criticality Noted Date Comments Aripiprazole 02/07/2018 Ibuprofen 02/07/2018 Aspirin 11/12/2003 ringing ears Hydroxyzine 02/07/2018 Baclofen Nausea/vomiting 01/03/2024 Diphenhydramine Nausea/vomiting 01/03/2024 Buspirone 02/07/2018 Citalopram Hydrobromide 02/07/2018 Citalopram 01/03/2024 Divalproex Sodium 02/07/2018 Doxycycline 02/07/2018 Venlafaxine 02/07/2018 Ziprasidone Hcl 02/07/2018 Hydrochlorothiazide 02/07/2018 Hydrocodone Nausea/vomiting 01/03/2024 Lamotrigine 02/07/2018 Lansoprazole Rash 01/03/2024 Latex Rash 01/03/2024 [place] 02/07/2018 Lorazepam 02/07/2018 Eszopiclone 02/07/2018 Memantine Psych [...] Capsule by mouth in the morning. Active [place]-3 Fatty Acids (FISH OIL) 1000 MG Capsule [...] encounter Miscellaneous Notes * Telephone Encounter - Andrés Hameed OSA - 01/05/2024 8:57 AM EST Per cx note * Telephone Encounter - Andrés Hameed OSA - 01/04/2024 9:48 AM EST Patient scheduled and aware * Telephone Encounter - Anabelle Littlejohn OSA - 01/03/2024 3:23 PM EST Patient returning phone call regarding scheduling phleb. Please advise and contact. Thank you * Telephone Encounter - Lety Yarbrough OSA - 01/03/2024 2:38 PM EST Left message * Telephone Encounter - Kong Pina RN - 01/03/2024 2:06 PM EST Monthly phlebotomy ordered by Dr. Lnua. No auth required. Standing labs for CBCD,Ferritin to be completed prior to phlebotomy. Scheduling- please call patient to schedule 1 hour treatment "phlebotomy" (ellie). She will also need labs 1-2 days prior "CBCD,Ferritin" documented in this encounter Plan of Treatment Upcoming Encounters Date Type Department Care Team (Late st Contact Info) Description 01/09/2024 10:00 AM EST Hem/Onc Treatment Hematology/Oncology Treatment, [place] [address] [place] [address] Liv, Chair 10 Hem Onc Scenery [address] [facility] [place] [address] 04/17/2024 8:15 AM EST Imaging Radiology [facility] 2nd [facility], [place] 132 [facility] [place] [address] 04/24/2024 10:00 AM EDT Laboratory Laboratory, [facility] [address] [place] [phone] Sayda Sanabria [address] [place] [address] 04/24/2024 10:30 AM EDT Office Visit Gastroenterology, [facility] [address] [place] [address] Marcus Smith CRNP [address] [place] [address] 05/01/2024 10:30 AM EDT Office Visit Hematology/Oncology [facility] 200 [facility] [place] [phone] Stephany Luna MD 200 [facility] [place] [address] 05/22/2024 9:00 AM EDT Office Visit Gastroenterology, [facility] [address] [place] [address] Marcus Smith CRNP [address] [place] [address] Scheduled Orders Name Type Priority Associated Diagnoses Orde r Schedule CBC WITH WBC DIFFERENTIAL Lab STAT Hereditary hemochromatosis (HCC) Every Month for 12 Occurrences starting 01/03/2024 until 01/02/2025 FERRITIN Lab STAT Hereditary hemochromatosis (HCC) Every Month for 12 Occurrences starting 01/03/2024 until 01/02/2025 Health Maintenance Due Date Last Done Comments DISCUSS TOBACCO CESSATION (REFER TO SMARTSET #8478) 1942 DXA Scan 1942 Depression Screening 1954 [...] Primary Hereditary hemochromatosis documented in this encounter Care Teams Adjunct Spanish Instructor Relationship Specialty Start Date End Date Heather Haile DO [address] [place] [address] Dr Ramos [address] [place] [address], [place] [address] PCP - General Family Medicine 09/15/20 documented as of this encounter
--- OUTSIDE RECORDS SUMMARY | 2024-01-16 23:17 | External Medical Summary | Summary of Care ---
Author Name Unknown Organization [facility] Address [address] [facility] [place] [address] Phone [phone] Care Team Providers Care Immigration Coordinator Name Role Phone Lazara Heather Xena Primary Care Provider Reason for Visit * Reason Onset Date Comments Appointment 01/03/2024 Encounter Details Date Type Department Care Team (Late st Contact Info) Description 01/03/2024 Telephone Hematology/Oncology [facility] [place] [address] [place] [phone] Stephany Luna MD [address] [place] [address] Appointment Allergies Active Allergy Reactions Criticality Noted Date Comments Aripiprazole 02/07/2018 Ibuprofen 02/07/2018 Aspirin 11/12/2003 ringing ears Hydroxyzine 02/07/2018 Baclofen Nausea/vomiting 01/03/2024 Diphenhydramine Nausea/vomiting 01/03/2024 Buspirone 02/07/2018 Citalopram Hydrobromide 02/07/2018 Citalopram 01/03/2024 Divalproex Sodium 02/07/2018 Doxycycline 02/07/2018 Venlafaxine 02/07/2018 Ziprasidone Hcl 02/07/2018 Hydrochlorothiazide 02/07/2018 Hydrocodone Nausea/vomiting 01/03/2024 Lamotrigine 02/07/2018 Lansoprazole Rash 01/03/2024 Latex Rash 01/03/2024 [place] 02/07/2018 Lorazepam 02/07/2018 Eszopiclone 02/07/2018 Memantine Psych [...] Capsule by mouth in the morning. Active [place]-3 Fatty Acids (FISH OIL) 1000 MG Capsule [...] 01/05/2024 8:57 AM EST Per cx note for lab appt, Clinic not open until 12. Patient returning as a walk in. Will call patient to make sure she's aware of this. * Telephone Encounter - Andrés Hameed OSA [...] PM EST Monthly phlebotomy ordered by Dr. Luna. No auth required. Standing labs for CBCD,Ferritin to be completed prior to phlebotomy. Scheduling- please call patient to schedule 1 hour treatment "phlebotomy" (ellie). She will also need labs 1-2 days prior "CBCD,Ferritin" documented in this encounter Plan of Treatment Upcoming Encounters Date Type Department Care Team (Late st Contact Info) Description 01/09/2024 10:00 AM EST Hem/Onc Treatment Hematology/Oncology Treatment, [place] [address] [place] [phone] Liv, Chair 10 Hem Onc Scenery 200 [facility] [address] 04/17/2024 8:15 AM EST Imaging Radiology [facility] 2nd [facility] 132 [facility] [place] [address] 04/24/2024 10:00 AM EDT Laboratory Laboratory, [address] [place] [phone] SanabriaSayda lou [facility] 132 [facility] [place] [address] 04/24/2024 10:30 AM EDT Office Visit Gastroenterology, [facility] [address] [place] [address] Marcus Smith CRNP [address] [place] [address] 05/01/2024 10:30 AM EDT Office Visit Hematology/Oncology [facility] 200 [facility] [place] [address] Stephany Luna MD 200 [facility] [place] [address] 05/22/2024 9:00 AM EDT Office Visit Gastroenterology, [facility] 132 [facility] [place] [address] Marcus Smith CRNP 132 [facility] [place] [address] Scheduled Orders Name Type Priority Associated Diagnoses Orde r Schedule CBC WITH WBC DIFFERENTIAL Lab STAT Hereditary hemochromatosis (HCC) Every Month for 12 Occurrences starting 01/03/2024 until 01/02/2025 FERRITIN Lab STAT Hereditary hemochromatosis (HCC) Every Month for 12 Occurrences starting 01/03/2024 until 01/02/2025 Health Maintenance Due Date Last Done Comments DISCUSS TOBACCO CESSATION (REFER TO SMARTSET #6756) 1942 DXA Scan 1942 Depression Screening 1954 [...] hemochromatosis documented in this encounter Care Teams Immigration Coordinator Relationship Specialty Start Date End Date Heather Haile DO [address] [facility] [address] Ramos [address] [place] [address], [place] [address] PCP - General Family Medicine 09/15/20 documented as of this encounter
--- OUTSIDE RECORDS SUMMARY | 2024-01-16 23:17 | External Medical Summary | Summary of Care ---
Author Name Unknown Organization [facility] Address [address] [facility] [place] [address] Phone [phone] Care Team Providers Care Fish Cutter Name Role Phone Lazara Heather Xena Primary Care Provider Reason for Visit * Reason Onset Date Comments Appointment 01/03/2024 Encounter Details Date Type Department Care Team (Late st Contact Info) Description 01/03/2024 Telephone Hematology/Oncology [facility] [place] [address] [place] [phone] Stephany Luna MD [address] [place] [address] Appointment Allergies Active Allergy Reactions Criticality Noted Date Comments Aripiprazole 02/07/2018 Ibuprofen 02/07/2018 Aspirin 11/12/2003 ringing ears Hydroxyzine 02/07/2018 Baclofen Nausea/vomiting 01/03/2024 Diphenhydramine Nausea/vomiting 01/03/2024 Buspirone 02/07/2018 Citalopram Hydrobromide 02/07/2018 Citalopram 01/03/2024 Divalproex Sodium 02/07/2018 Doxycycline 02/07/2018 Venlafaxine 02/07/2018 Ziprasidone Hcl 02/07/2018 Hydrochlorothiazide 02/07/2018 Hydrocodone Nausea/vomiting 01/03/2024 Lamotrigine 02/07/2018 Lansoprazole Rash 01/03/2024 Latex Rash 01/03/2024 [place] 02/07/2018 Lorazepam 02/07/2018 Eszopiclone 02/07/2018 Memantine Psych [...] Capsule by mouth in the morning. Active [place]-3 Fatty Acids (FISH OIL) 1000 MG Capsule [...] Encounter - Andrés Hameed OSA - 01/05/2024 9:45 AM EST Spoke with patient. She's aware. Placed her on schedule at 12:00 * Telephone Encounter - Andrés Hameed OSA [...] Description 01/08/2024 12:00 PM EST Laboratory Laboratory, [place] 226 [facility] [place] [phone] Prashant Laboratory [address] [place] [address] 01/09/2024 10:00 AM EST Hem/Onc Treatment Hematology/Oncology Treatment, [place] [address] [place] [phone] Liv, Chair 10 Hem Onc [facility] 200 [facility] [place] [address] 04/17/2024 8:15 AM EST Imaging Radiology [facility] 2nd [facility], [place] 132 [facility] [place] [address] 04/24/2024 10:00 AM EDT Laboratory Laboratory, [facility] 132 [facility] [place] [phone] [facility] 132 [facility] [place] [address] 04/24/2024 10:30 AM EDT Office Visit Gastroenterology, [facility] 132 [facility] [place] [address] Marcus Smith CRNP 132 [facility] [place] [address] 05/01/2024 10:30 AM EDT Office Visit Hematology/Oncology [facility] [place] [address] [place] [phone] Stephany Luna MD [address] [place] [address] 05/22/2024 9:00 AM EDT Office Visit Gastroenterology, [facility] [address] [place] [address] Marcus Smith CRNP [address] [place] [address] Scheduled Orders Name Type Priority Associated Diagnoses Orde r Schedule CBC WITH WBC DIFFERENTIAL Lab STAT Hereditary hemochromatosis (HCC) Every Month for 12 Occurrences starting 01/03/2024 until 01/02/2025 FERRITIN Lab STAT Hereditary hemochromatosis (HCC) Every Month for 12 Occurrences starting 01/03/2024 until 01/02/2025 Health Maintenance Due Date Last Done Comments DISCUSS TOBACCO CESSATION (REFER TO SMARTSET #3295) 1942 DXA Scan 1942 Depression Screening 1954 [...] hemochromatosis documented in this encounter Care Teams Fish Cutter Relationship Specialty Start Date End Date Heather Haile DO 6 Kamilla Ramos [address] [place] [address], [place] [address] PCP - General Family Medicine 09/15/20 documented as of this encounter
--- OUTSIDE RECORDS SUMMARY | 2024-01-16 23:18 | External Medical Summary | Summary of Care ---
Author Name Unknown Organization [facility] Address [address] [facility] [place] [address] Phone [phone] Care Team Providers Care Air Tucker Name Role Phone LazaraeBHeather Xena Primary Care Provider Reason for Visit * Reason Onset Date Comments Appointment 01/03/2024 Encounter Details Date Type Department Care Team (Late st Contact Info) Description 01/03/2024 Telephone Hematology/Oncology [facility] [place] [address] [place] [phone] Stephany Luna MD [address] [place] [address] Appointment Allergies Active Allergy Reactions Criticality Noted Date Comments Aripiprazole 02/07/2018 Ibuprofen 02/07/2018 Aspirin 11/12/2003 ringing ears Hydroxyzine 02/07/2018 Baclofen Nausea/vomiting 01/03/2024 Diphenhydramine Nausea/vomiting 01/03/2024 Buspirone 02/07/2018 Citalopram Hydrobromide 02/07/2018 Citalopram 01/03/2024 Divalproex Sodium 02/07/2018 Doxycycline 02/07/2018 Venlafaxine 02/07/2018 Ziprasidone Hcl 02/07/2018 Hydrochlorothiazide 02/07/2018 Hydrocodone Nausea/vomiting 01/03/2024 Lamotrigine 02/07/2018 Lansoprazole Rash 01/03/2024 Latex Rash 01/03/2024 [place] 02/07/2018 Lorazepam 02/07/2018 Eszopiclone 02/07/2018 Memantine Psych complications 01/03/2024 Morphine 02/07/2018 Esomeprazole Magnesium 02/07/2018 Paroxetine Psych complications 01/03/2024 Nirmatrelvir-Ritonavir 12/16/2022 Conjugated Estrogens 02/07/2018 Vaginal cream Omeprazole 02/07/2018 Risperidone 02/07/2018 Quetiapine Fumarate 02/07/2018 Temazepam 02/07/2018 Tetracycline 02/07/2018 Trazodone And Nefazodone 02/07/2018 Diazepam 02/07/2018 Hydrocodone-Acetaminophen 02/07/2018 Bupropion Hcl 02/07/2018 Ziprasidone Other (Please comment) 01/03/2024 Insomnia documented as of this encounter (statuses as of 01/04/2024) Medications valACYclovir (VALTREX) 500 MG Tablet Take 1 Tablet by mouth in the morning. 01/29/2018 Active PROAIR HFA 108 (90 Base) MCG/ACT inhaler Inhale by mouth 2 Puffs every 4 hours as needed . 01/11/2018 Active Loratadine 10 MG Cap Take 1 Capsule by mouth in the morning. Active [place]-3 Fatty Acids (FISH OIL) 1000 MG Capsule [...] as of this encounter (statuses as of 01/04/2024) Active Problems Problem Noted Date Diagnosed Date [...] as of this encounter (statuses as of 01/04/2024) Social History Tobacco Use Types Packs/Day Years [...] encounter Miscellaneous Notes * Telephone Encounter - Anabelle Littlejohn OSA [...] Description 04/17/2024 8:15 AM EST Imaging Radiology [facility] 2nd [facility] 132 [facility] [place] [address] 04/24/2024 10:00 AM EDT Laboratory Laboratory, [facility] 132 [facility] [place] [address] [facility] 132 [facility] [place] [address] 04/24/2024 10:30 AM EDT Office Visit Gastroenterology, [facility] [address] [place] [address] Marcus Smith CRNP [address] [place] [address] 05/01/2024 10:30 AM EDT Office Visit Hematology/Oncology [facility] [place] [address] [place] [address] Stephany Luna MD 200 [facility] [place], [place] [address] 05/22/2024 9:00 AM EDT Office Visit Gastroenterology, [facility] [address] [place] [address] Marcus Smith CRNP [address] [place] [address] Scheduled Orders Name Type Priority Associated Diagnoses Orde r Schedule CBC WITH WBC DIFFERENTIAL Lab STAT Hereditary hemochromatosis (HCC) Every Month for 12 Occurrences starting 01/03/2024 until 01/02/2025 FERRITIN Lab STAT Hereditary hemochromatosis (HCC) Every Month for 12 Occurrences starting 01/03/2024 until 01/02/2025 Health Maintenance Due Date Last Done Comments DISCUSS TOBACCO CESSATION (REFER TO SMARTSET #7951) 1940 DXA Scan 1940 Depression Screening 1954 Albumin/Creatinine Ratio 1960 Zoster Vaccines (2 of 3) 10/16/2009 08/21/2009 Colonoscopy 01/23/2010 01/23/2007 DTap/Tdap Vaccines (2 - Td or Tdap) 10/16/2017 10/17/2007 COVID-19 Vaccine ( season) 2023 12/13/2022, 03/08/2022, 12/07/2021, Additional history exists Influenza Vaccine (FLU shot) (#1) 2023 12/13/2022, 11/17/2020, 12/23/2019, Additional history exists GFR 10/16/2024 10/17/2023, 1104/2021, 01/12/2021, Additional history exists Pneumococcal Vaccine: 65+ [...] hemochromatosis documented in this encounter Care Teams Air Tucker Relationship Specialty Start Date End Date Heather Haile DO [address] [facility] [address] Ramos [address] [place] [address], [place] [address] PCP - General Family Medicine 09/15/20 documented as of this encounter
--- OUTSIDE RECORDS SUMMARY | 2024-01-16 23:18 | External Medical Summary | Summary of Care ---
Author Name Unknown Organization [facility] Address [address] [facility] [place] [address] Phone [phone] Care Team Providers Care Rn Urology Name Role Phone LazaraBeHeather Xena Primary Care Provider Reason for Visit * Reason Onset Date Comments Appointment 01/03/2024 Encounter Details Date Type Department Care Team (Late st Contact Info) Description 01/03/2024 Telephone Hematology/Oncology [facility] [place] [address] [place] [phone] Stephany Luna MD [address] [place] [address] Appointment Allergies Active Allergy Reactions Criticality Noted Date Comments Aripiprazole 02/07/2018 Ibuprofen 02/07/2018 Aspirin 11/12/2003 ringing ears Hydroxyzine 02/07/2018 Baclofen Nausea/vomiting 01/03/2024 Diphenhydramine Nausea/vomiting 01/03/2024 Buspirone 02/07/2018 Citalopram Hydrobromide 02/07/2018 Citalopram 01/03/2024 Divalproex Sodium 02/07/2018 Doxycycline 02/07/2018 Venlafaxine 02/07/2018 Ziprasidone Hcl 02/07/2018 Hydrochlorothiazide 02/07/2018 Hydrocodone Nausea/vomiting 01/03/2024 Lamotrigine 02/07/2018 Lansoprazole Rash 01/03/2024 Latex Rash 01/03/2024 [place] 02/07/2018 Lorazepam 02/07/2018 Eszopiclone 02/07/2018 Memantine Psych [...] Capsule by mouth in the morning. Active [place]-3 Fatty Acids (FISH OIL) 1000 MG Capsule [...] Team (Late st Contact Info) Description 01/08/2024 11:00 AM EST Laboratory Laboratory, [facility] [address] [place] [phone] [place], [address] [address] 01/09/2024 10:00 AM EST Hem/Onc Treatment Hematology/Oncology Treatment, [place] [address] [place] [phone] Liv, Chair 10 Hem Onc Scenery 200 [facility] [address] 04/17/2024 8:15 AM EST Imaging Radiology [address] 132 [facility] [place] [address] 04/24/2024 10:00 AM EDT Laboratory Laboratory, [facility] 132 [facility] [place] [phone] [facility] 132 [facility] [place] [address] 04/24/2024 10:30 AM EDT Office Visit Gastroenterology, [facility] 132 [facility] [place] [address] Marcus Smith CRNP [facility] [place] [address] 05/01/2024 10:30 AM EDT Office Visit Hematology/Oncology [facility] 200 [facility] [place] [phone] Stephany Luna MD 200 [facility] [place] [address] 05/22/2024 9:00 AM EDT Office Visit Gastroenterology, [facility] [place] [address] Marcus Smith CRNP [facility] [place] [address] Scheduled Orders Name Type Priority Associated Diagnoses Orde r Schedule CBC WITH WBC DIFFERENTIAL Lab STAT Hereditary hemochromatosis (HCC) Every Month for 12 Occurrences starting 01/03/2024 until 01/02/2025 FERRITIN Lab STAT Hereditary hemochromatosis (HCC) Every Month for 12 Occurrences starting 01/03/2024 until 01/02/2025 Health Maintenance Due Date Last Done Comments DISCUSS TOBACCO CESSATION (REFER TO SMARTSET #2561) 1942 DXA Scan 1942 Depression Screening 1954 Albumin/Creatinine Ratio 1960 Zoster Vaccines (2 of 3) 10/16/2009 08/21/2009 Colonoscopy 01/23/2010 01/23/2007 DTap/Tdap Vaccines (2 - Td or Tdap) 10/16/2017 10/17/2007 COVID-19 Vaccine (8 season) 2023 12/13/2022, 03/08/2022, 12/07/2021, Additional history [...] hemochromatosis documented in this encounter Care Teams Rn Urology Relationship Specialty Start Date End Date Heather Haile DO [address] [facility] [address] [place] [address], [place] [address] PCP - General Family Medicine 09/15/20 documented as of this encounter
--- OUTSIDE RECORDS SUMMARY | 2024-01-16 23:18 | External Medical Summary | Summary of Care ---
Author Name Unknown Organization [facility] Address [address] [facility] [place] [address] Phone [phone] Care Team Providers Care Relocation Specialist Name Role Phone Lazara Heather Xena Primary Care Provider Reason for Visit * Reason Onset Date Comments Appointment 01/03/2024 Encounter Details Date Type Department Care Team (Late st Contact Info) Description 01/03/2024 Telephone Hematology/Oncology [facility] [place] [address] [place] [phone] Stephany Luna MD [address] [place] [address] Appointment Allergies Active Allergy Reactions Criticality Noted Date Comments Aripiprazole 02/07/2018 Ibuprofen 02/07/2018 Aspirin 11/12/2003 ringing ears Hydroxyzine 02/07/2018 Baclofen Nausea/vomiting 01/03/2024 Diphenhydramine Nausea/vomiting 01/03/2024 Buspirone 02/07/2018 Citalopram Hydrobromide 02/07/2018 Citalopram 01/03/2024 Divalproex Sodium 02/07/2018 Doxycycline 02/07/2018 Venlafaxine 02/07/2018 Ziprasidone Hcl 02/07/2018 Hydrochlorothiazide 02/07/2018 Hydrocodone Nausea/vomiting 01/03/2024 Lamotrigine 02/07/2018 Lansoprazole Rash 01/03/2024 Latex Rash 01/03/2024 [place] 02/07/2018 Lorazepam 02/07/2018 Eszopiclone 02/07/2018 Memantine Psych [...] Capsule by mouth in the morning. Active [place]-3 Fatty Acids (FISH OIL) 1000 MG Capsule [...] 10:00 AM EST Hem/Onc Treatment Hematology/Oncology Treatment, [place] 200 [facility] [phone] Liv, Chair 10 Hem Onc Scenery 200 [facility] [address] 04/17/2024 8:15 AM EST Imaging Radiology [facility] 2nd [facility] 132 [facility] [place] [address] 04/24/2024 10:00 AM EDT Laboratory Laboratory, [address] [place] [phone] SanabriaSayda lou Loni 132 [place] [address] 04/24/2024 10:30 AM EDT Office Visit Gastroenterology, [facility] 132 [place] [address] Marcus Smith CRNP [address] [place] [address] 05/01/2024 10:30 AM EDT Office Visit Hematology/Oncology [facility] 200 [facility] [place] [phone] Stephany Luna MD 200 [facility] [place] [address] 05/22/2024 9:00 AM EDT Office Visit Gastroenterology, [facility] [address] [place] [address] Marcus Smith CRNP [address] [place] [address] Scheduled Orders Name Type Priority Associated Diagnoses [...] hemochromatosis documented in this encounter Care Teams Relocation Specialist Relationship Specialty Start Date End Date Heather Haile DO [address] [facility] [address] Ramos [address] [place] [address], [place] [address] PCP - General Family Medicine 09/15/20 documented as of this encounter
--- OUTSIDE RECORDS SUMMARY | 2024-01-16 23:18 | External Medical Summary | Summary of Care ---
Author Name Unknown Organization [facility] Address [address] [facility] [place] [address] Phone [phone] Care Team Providers Care Drug Abuse Program Coordinator Name Role Phone LazaraBeHeather Xena Primary Care Provider Reason for Visit * Reason Onset Date Comments Appointment 01/03/2024 Encounter Details Date Type Department Care Team (Late st Contact Info) Description 01/03/2024 Telephone Hematology/Oncology [facility] [place] [address] [place] [phone] Stephany Luna MD [address] [place] [address] Appointment Allergies Active Allergy Reactions Criticality Noted Date Comments Aripiprazole 02/07/2018 Ibuprofen 02/07/2018 Aspirin 11/12/2003 ringing ears Hydroxyzine 02/07/2018 Baclofen Nausea/vomiting 01/03/2024 Diphenhydramine Nausea/vomiting 01/03/2024 Buspirone 02/07/2018 Citalopram Hydrobromide 02/07/2018 Citalopram 01/03/2024 Divalproex Sodium 02/07/2018 Doxycycline 02/07/2018 Venlafaxine 02/07/2018 Ziprasidone Hcl 02/07/2018 Hydrochlorothiazide 02/07/2018 Hydrocodone Nausea/vomiting 01/03/2024 Lamotrigine 02/07/2018 Lansoprazole Rash 01/03/2024 Latex Rash 01/03/2024 [place] 02/07/2018 Lorazepam 02/07/2018 Eszopiclone 02/07/2018 Memantine Psych [...] Capsule by mouth in the morning. Active [place]-3 Fatty Acids (FISH OIL) 1000 MG Capsule [...] 04/17/2024 8:15 AM EST Imaging Radiology [facility] 2nd [facility] 132 [facility] [place] [address] 04/24/2024 10:00 AM EDT Laboratory Laboratory, [facility] 132 [facility] [place] [phone] SanabriaSayda lou [facility] 132 [facility] [place] [address] 04/24/2024 10:30 AM EDT Office Visit Gastroenterology, [facility] [address] [facility] [place] [address] Marcus Smith CRNP [address] [place] [address] 05/01/2024 10:30 AM EDT Office Visit Hematology/Oncology [facility] [address] [facility] [address] [place] [phone] Stephany Luna MD [address] [place] [address] 05/22/2024 9:00 AM EDT Office Visit Gastroenterology, [facility] [address] [place] [address] Marcus Smith CRNP [address] [place] [address] Scheduled Orders Name Type Priority Associated Diagnoses [...] hemochromatosis documented in this encounter Care Teams Drug Abuse Program Coordinator Relationship Specialty Start Date End Date Heather Haile DO [address] [place] [address] [place] [address] PCP - General Family Medicine 09/15/20 documented as of this encounter
--- OUTSIDE RECORDS SUMMARY | 2024-01-16 23:18 | External Medical Summary | Summary of Care ---
Author Name Unknown Organization [facility] Address [address] [facility] [place] [address] Phone [phone] Care Team Providers Care Blast Furnace Helper Name Role Phone Lazara Heather Xena Primary Care Provider Encounter Details Date Type Department Care Team (Late st Contact Info) Description 01/05/2024 Orders Only Hematology/Oncology [facility] [place] [address] [place] [phone] Stephany Luna MD [address] [place] [address] Allergies Active Allergy Reactions Criticality Noted Date Comments Aripiprazole 02/07/2018 Ibuprofen 02/07/2018 Aspirin 11/12/2003 ringing ears Hydroxyzine 02/07/2018 Baclofen Nausea/vomiting 01/03/2024 Diphenhydramine Nausea/vomiting 01/03/2024 Buspirone 02/07/2018 Citalopram Hydrobromide 02/07/2018 Citalopram 01/03/2024 Divalproex Sodium 02/07/2018 Doxycycline 02/07/2018 Venlafaxine 02/07/2018 Ziprasidone Hcl 02/07/2018 Hydrochlorothiazide 02/07/2018 Hydrocodone Nausea/vomiting 01/03/2024 Lamotrigine 02/07/2018 Lansoprazole Rash 01/03/2024 Latex Rash 01/03/2024 [place] 02/07/2018 Lorazepam 02/07/2018 Eszopiclone 02/07/2018 Memantine Psych [...] Capsule by mouth in the morning. Active [place]-3 Fatty Acids (FISH OIL) 1000 MG Capsule [...] 10:00 AM EST Hem/Onc Treatment Hematology/Oncology Treatment, [place] [address] [place] [phone] Liv, Chair 10 Hem Onc Scenery [address] [place] [address] 04/17/2024 8:15 AM EST Imaging Radiology [facility] 2nd Floor, [place] 132 [facility] [place] [address] 04/24/2024 10:00 AM EDT Laboratory Laboratory, [facility] [address] [place] [phone] SanabriaSayda olu [facility] [place] [address] 04/24/2024 10:30 AM EDT Office Visit Gastroenterology, [facility] [address] [place] [address] Marcus Smith CRNP [address] [place] [address] 05/01/2024 10:30 AM EDT Office Visit Hematology/Oncology [facility] 200 [facility] [place] [address] Stephany Luna MD 200 [facility] [place] [address] 05/22/2024 9:00 AM EDT Office Visit Gastroenterology, [facility] [address] [place] [address] Marcus Smith CRNP 132 [facility] [place] [address] Health Maintenance Due Date Last Done Comments [...] filedocumented as of this encounter Care Teams Blast Furnace Helper Relationship Specialty Start Date End Date Heather Haile DO [facility] [address] [place] [address] PCP - General Family Medicine 09/15/20 documented as of this encounter
--- OUTSIDE RECORDS SUMMARY | 2024-01-16 23:19 | External Medical Summary | Summary of Care ---
Author Name Unknown Organization [facility] Address [address] [facility] [place] [address] Phone [phone] Care Team Providers Care Mechanical Striper Name Role Phone LazaraBeHeather Xena Primary Care Provider Reason for Visit * Reason Onset Date Comments Appointment 01/03/2024 Encounter Details Date Type Department Care Team (Late st Contact Info) Description 01/03/2024 Telephone Hematology/Oncology [facility] [place] [address] [place] [phone] Stephany Luna MD [address] [place] [address] Appointment Allergies Active Allergy Reactions Criticality Noted Date Comments Aripiprazole 02/07/2018 Ibuprofen 02/07/2018 Aspirin 11/12/2003 ringing ears Hydroxyzine 02/07/2018 Baclofen Nausea/vomiting 01/03/2024 Diphenhydramine Nausea/vomiting 01/03/2024 Buspirone 02/07/2018 Citalopram Hydrobromide 02/07/2018 Citalopram 01/03/2024 Divalproex Sodium 02/07/2018 Doxycycline 02/07/2018 Venlafaxine 02/07/2018 Ziprasidone Hcl 02/07/2018 Hydrochlorothiazide 02/07/2018 Hydrocodone Nausea/vomiting 01/03/2024 Lamotrigine 02/07/2018 Lansoprazole Rash 01/03/2024 Latex Rash 01/03/2024 [place] 02/07/2018 Lorazepam 02/07/2018 Eszopiclone 02/07/2018 Memantine Psych [...] Capsule by mouth in the morning. Active [place]-3 Fatty Acids (FISH OIL) 1000 MG Capsule [...] "phlebotomy" (ellie). She will also need labs either the day before or 1 hour prior "CBCD,Ferritin" documented in this encounter Plan of Treatment Upcoming Encounters Date Type Department Care Team (Late st Contact Info) Description 04/17/2024 8:15 AM EST Imaging Radiology [facility] 2nd [facility] 132 [facility] [place] [address] 04/24/2024 10:00 AM EDT Laboratory Laboratory, [address] [place] [address] SanabriaSayda lou [facility] 132 [facility] [address] 04/24/2024 10:30 AM EDT Office Visit Gastroenterology, [facility] 132 [facility] [place] [address] Marcus Smith CRNP 132 [facility] [place] [address] 05/01/2024 10:30 AM EDT Office Visit Hematology/Oncology [facility] 200 [facility] [place] [phone] Stephany Luna MD 200 [facility] [place] [address] 05/22/2024 9:00 AM EDT Office Visit Gastroenterology, [facility] [address] [place] [address] Marcus Smith CRNP [address] [place] [address] Scheduled Orders Name Type Priority Associated Diagnoses Orde r Schedule CBC WITH WBC DIFFERENTIAL Lab STAT Hereditary hemochromatosis (HCC) Every Month for 12 Occurrences starting 01/03/2024 until 01/02/2025 FERRITIN Lab STAT Hereditary hemochromatosis (HCC) Every Month for 12 Occurrences starting 01/03/2024 until 01/02/2025 Health Maintenance Due Date Last Done Comments DISCUSS TOBACCO CESSATION (REFER TO SMARTSET #0280) 1942 DXA Scan 1942 Depression Screening 1954 Albumin/Creatinine Ratio 1960 Zoster Vaccines (2 of 3) 10/16/2009 08/21/2009 Colonoscopy 01/23/2010 01/23/2007 DTap/Tdap Vaccines (2 - Td or Tdap) 10/16/2017 10/17/2007 COVID-19 Vaccine ( - season) 2023 12/13/2022, 03/08/2022, 12/07/2021, Additional history [...] hemochromatosis documented in this encounter Care Teams Mechanical Striper Relationship Specialty Start Date End Date Heather Haile DO [address] [place] [address] [place] [address] PCP - General Family Medicine 09/15/20 documented as of this encounter
--- OUTSIDE RECORDS SUMMARY | 2024-01-16 23:19 | External Medical Summary | Summary of Care ---
Author Name Unknown Organization [facility] Address [address] [facility] [place] [address] Phone [phone] Care Team Providers Care Tire Fixer Name Role Phone Lazara Heather Xena Primary Care Provider Encounter Details Date Type Department Care Team (Late st Contact Info) Description 01/03/2024 Orders Only Hematology/Oncology [facility] [place] [address] [place] [phone] Stephany Luna MD [address] [place] [address] Allergies Active Allergy Reactions Criticality Noted Date Comments Aripiprazole 02/07/2018 Ibuprofen 02/07/2018 Aspirin 11/12/2003 ringing ears Hydroxyzine 02/07/2018 Baclofen Nausea/vomiting 01/03/2024 Diphenhydramine Nausea/vomiting 01/03/2024 Buspirone 02/07/2018 Citalopram Hydrobromide 02/07/2018 Citalopram 01/03/2024 Divalproex Sodium 02/07/2018 Doxycycline 02/07/2018 Venlafaxine 02/07/2018 Ziprasidone Hcl 02/07/2018 Hydrochlorothiazide 02/07/2018 Hydrocodone Nausea/vomiting 01/03/2024 Lamotrigine 02/07/2018 Lansoprazole Rash 01/03/2024 Latex Rash 01/03/2024 [place] 02/07/2018 Lorazepam 02/07/2018 Eszopiclone 02/07/2018 Memantine Psych complications 01/03/2024 Morphine 02/07/2018 Esomeprazole Magnesium 02/07/2018 Paroxetine Psych complications 01/03/2024 Nirmatrelvir-Ritonavir 12/16/2022 Conjugated Estrogens 02/07/2018 Vaginal cream Omeprazole 02/07/2018 Risperidone 02/07/2018 Quetiapine Fumarate 02/07/2018 Temazepam 02/07/2018 Tetracycline 02/07/2018 Trazodone And Nefazodone 02/07/2018 Diazepam 02/07/2018 Hydrocodone-Acetaminophen 02/07/2018 Bupropion Hcl 02/07/2018 Ziprasidone Other (Please comment) 01/03/2024 Insomnia documented as of this encounter (statuses as of 01/03/2024) Medications valACYclovir (VALTREX) 500 MG Tablet Take 1 Tablet by mouth in the morning. 01/29/2018 Active PROAIR HFA 108 (90 Base) MCG/ACT inhaler Inhale by mouth 2 Puffs every 4 hours as needed . 01/11/2018 Active Loratadine 10 MG Cap Take 1 Capsule by mouth in the morning. Active [place]-3 Fatty Acids (FISH OIL) 1000 MG Capsule [...] as of this encounter (statuses as of 01/03/2024) Active Problems Problem Noted Date Diagnosed Date [...] as of this encounter (statuses as of 01/03/2024) Social History Tobacco Use Types Packs/Day Years [...] Description 04/17/2024 8:15 AM EST Imaging Radiology [facility] 2nd [facility] 132 [facility] [place] [address] 04/24/2024 10:00 AM EDT Laboratory Laboratory, [address] [place] [phone] [address] [place] [address] 04/24/2024 10:30 AM EDT Office Visit Gastroenterology, [facility] [address] [place] [address] Marcus Smith CRNP [address] [place] [address] 05/01/2024 10:30 AM EDT Office Visit Hematology/Oncology [facility] 200 [facility] [place], [place] [address] Stephany Luna MD 200 [facility] [place] [address] 05/22/2024 9:00 AM EDT Office Visit Gastroenterology, [facility] [address] [place] [address] Marcus Smith CRNP 132 [facility] [place] [address] Health Maintenance Due Date Last Done Comments DISCUSS TOBACCO CESSATION (REFER TO SMARTSET #6579) 1942 DXA Scan 1942 Depression Screening 1954 [...] filedocumented as of this encounter Care Teams Tire Fixer Relationship Specialty Start Date End Date Heather Haile DO 6 [address] [place] [address], [place] [address] PCP - General Family Medicine 09/15/20 documented as of this encounter
--- OUTSIDE RECORDS SUMMARY | 2024-01-16 23:19 | External Medical Summary | Summary of Care ---
Author Name Unknown Organization [facility] Address [address] [facility] [place] [address] Phone [phone] Care Team Providers Care Threading Machine Setter Name Role Phone LazaraBeHeather Xena Primary Care Provider Reason for Visit * Reason Onset Date Comments Appointment 01/03/2024 Encounter Details Date Type Department Care Team (Late st Contact Info) Description 01/03/2024 Telephone Hematology/Oncology [facility] [place] [address] [place] [phone] Stephany Luna MD [address] [place] [address] Appointment Allergies Active Allergy Reactions Criticality Noted Date Comments Aripiprazole 02/07/2018 Ibuprofen 02/07/2018 Aspirin 11/12/2003 ringing ears Hydroxyzine 02/07/2018 Baclofen Nausea/vomiting 01/03/2024 Diphenhydramine Nausea/vomiting 01/03/2024 Buspirone 02/07/2018 Citalopram Hydrobromide 02/07/2018 Citalopram 01/03/2024 Divalproex Sodium 02/07/2018 Doxycycline 02/07/2018 Venlafaxine 02/07/2018 Ziprasidone Hcl 02/07/2018 Hydrochlorothiazide 02/07/2018 Hydrocodone Nausea/vomiting 01/03/2024 Lamotrigine 02/07/2018 Lansoprazole Rash 01/03/2024 Latex Rash 01/03/2024 [place] 02/07/2018 Lorazepam 02/07/2018 Eszopiclone 02/07/2018 Memantine Psych [...] Capsule by mouth in the morning. Active [place]-3 Fatty Acids (FISH OIL) 1000 MG Capsule [...] Description 04/17/2024 8:15 AM EST Imaging Radiology [facility] 2nd [facility] 132 [facility] [place] [address] 04/24/2024 10:00 AM EDT Laboratory Laboratory, [address] [place] [phone] SanabriaSayda lou [facility] 132 [facility] [address] 04/24/2024 10:30 AM EDT Office Visit Gastroenterology, [facility] 132 [facility] [place] [address] Marcus Smith CRNP 132 [facility] [place] [address] 05/01/2024 10:30 AM EDT Office Visit Hematology/Oncology [facility] 200 [facility] [place] [address] Stephany Luna MD 200 [facility] [place] [address] 05/22/2024 9:00 AM EDT Office Visit Gastroenterology, [facility] [address] [place] [address] Marcus Smith CRNP [address] [place] [address] Scheduled Orders Name Type Priority Associated Diagnoses Orde r Schedule CBC WITH WBC DIFFERENTIAL Lab STAT Hereditary hemochromatosis (HCC) Every Month for 12 Occurrences starting 01/03/2024 until 01/02/2025 FERRITIN Lab STAT Hereditary hemochromatosis (HCC) Every Month for 12 Occurrences starting 01/03/2024 until 01/02/2025 Health Maintenance Due Date Last Done Comments DISCUSS TOBACCO CESSATION (REFER TO SMARTSET #8613) 1942 DXA Scan 1942 Depression Screening 1954 [...] hemochromatosis documented in this encounter Care Teams Threading Machine Setter Relationship Specialty Start Date End Date Heather Haile DO [address] [place] [address] [place] [address] PCP - General Family Medicine 09/15/20 documented as of this encounter
--- OUTSIDE RECORDS SUMMARY | 2024-01-16 23:20 | External Medical Summary | Summary of Care ---
Author Name Unknown Organization [facility] Address [address] 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 * Evaluate & Treat - Unlimited Visits (Within 30 days (routine)) - Authorized Specialty Diagnoses / Procedures Referred By Abi carrion Referred To Contact Hematology/Oncology / Hematology Oncology Diagnoses Hereditary hemochromatosis (HCC) Marcus Smith CRNP [address] [place] [address] Phone: tel: fax: Referral ID Status Reason Start Date Expiration Date Visits Requested Visits Authorized [id number] Authorized Specialty Services Required [id number] [phone] Encounter Details Date Type Department Care Team (Late st Contact Info) Description 01/03/2024 1:00 PM EST Office Visit Hematology/Oncology [facility] [address] [place] [phone] Stephany Luna MD [address] [place] [address] Hereditary hemochromatosis (HCC)* Allergies Active Allergy Reactions Criticality Noted Date Comments Aripiprazole 02/07/2018 Ibuprofen 02/07/2018 Aspirin 11/12/2003 ringing ears Hydroxyzine 02/07/2018 Baclofen Nausea/vomiting 01/03/2024 Diphenhydramine Nausea/vomiting 01/03/2024 Buspirone 02/07/2018 Citalopram Hydrobromide 02/07/2018 Citalopram 01/03/2024 Divalproex Sodium 02/07/2018 Doxycycline 02/07/2018 Venlafaxine 02/07/2018 Ziprasidone Hcl 02/07/2018 Hydrochlorothiazide 02/07/2018 Hydrocodone Nausea/vomiting 01/03/2024 Lamotrigine 02/07/2018 Lansoprazole Rash 01/03/2024 Latex Rash 01/03/2024 [place] 02/07/2018 Lorazepam 02/07/2018 Eszopiclone 02/07/2018 Memantine Psych [...] 1 Tablet by mouth in the morning. 8 Active PROAIR HFA 108 (90 Base) MCG/ACT inhaler Inhale by mouth 2 Puffs every 4 hours as needed . 8 Active Loratadine 10 MG Cap Take 1 Capsule by mouth in the morning. Active [place]-3 Fatty Acids (FISH OIL) 1000 MG Capsule Take 1 Capsule by mouth in the morning. Active Chlorthalidone 25 MG Oral Tablet (Hygroton) Take by mouth 0.5 Tablets once a day on Monday, Monday, and Monday only . 15 Tablet 5 2 Active amLODIPine Besylate 2.5 MG Oral Tablet (Norvasc) Take 1 Tablet by mouth in the morning. Active Nitroglycerin 0.4 MG Sublingual Tablet Sublingual (Nitrostat) Place 1 Tablet under the tongue every 5 minutes as needed for Pain, Chest. Active Vitamin E 400 UNIT Oral Capsule (Aquasol E) Take 1 tablet as needed 3 Active Trelegy Ellipta 100-62.5-25 MCG/ACT Aerosol Powder Breath Activated INHALE 1 PUFF BY MOUTH ONCE DAILY 3 Active Metoprolol Succinate ER 50 MG Oral Tablet Extended Release 24 Hour (toPROL XL)Indications:P AT (paroxysmal atrial tachycardia) (HCC) TAKE 1 TABLET BY MOUTH IN THE MORNING 90 Tablet 3 3 Active Align Dualbiotic Oral Tablet ChewableIndicati ons:as needed Take 1 Tablet by mouth once. Active Famotidine 20 MG Oral Tablet (Pepcid) Take 1 Tablet by mouth in the morning and 1 Tablet before bedtime. 60 Tablet 12 4 Active Chlorthalidone 25 MG Oral Tablet (Hygroton)Indica tions:Hypertensi on goal BP (blood pressure) < 130/80,PVC (premature ventricular contraction),PAT (paroxysmal atrial tachycardia) (HCC),Tachy-milly y syndrome (HCC) TAKE 1/2 (ONE-HALF) TABLET BY MOUTH ON MONDAY, MONDAY, AND MONDAY 30 Tablet 3 4 01/03/20 24 Discontinu ed(Medicat ion List Clean Up) Pantoprazole Sodium 20 MG Oral Tablet Delayed Release (Protonix) Take 1 Tablet by mouth in the morning. 01/03/20 Discontinu ed(Medicat ion List Clean Up) Meclizine HCl 25 MG Oral Tablet Chewable Take 1 Tablet by mouth 3 times a day as needed. 01/03/20 Discontinu ed(Medicat ion List Clean Up) Omeprazole 40 MG Oral Capsule Delayed Release (PriLOSEC) Take 1 Capsule by mouth in the morning. 90 Capsule 4 01/03/20 Discontinu ed(Medicat ion List Clean Up) documented as of this encounter (statuses as [...] Sign Reading Time Taken Comments Blood Pressure 160/91 01/03/2024 12:50 PM EST Pulse 76 01/03/2024 12:50 PM EST Temperature 36.3 C (97.4 F) 01/03/2024 12:[address] Respiratory Rate - - Oxygen Saturation 93% 01/03/2024 12:50 PM EST Inhaled Oxygen Concentration - - Weight 89.4 kg (197 lb) 01/03/2024 12:50 PM EST Height 167.6 cm (5' 6") 01/03/2024 12:50 PM EST Body Mass Index 31.8 01/03/2024 12:50 PM EST documented in this encounter Progress Notes * Stephany Luna MD - 01/03/2024 1:12 PM EST Outpatient Consult Note Data Source: Patient, Epic record. 01/03/2024 1:12 PM Gloria Callahan [id number] 83 year old DO Marcus San Patient Encounter: HEMATOLOGY/ONCOLOGY [facility] Reason for consult: Hereditary hemochromatosis HPI: 83-year-old female with a past medical history significant for chronic kidney disease, COPD, depression, hypertension referred with the above diagnosis. She was also complaining of abdominal pain anddiscomfort and had upper Endoscopy and endoscopic ultrasound done on 11/15/2023 which revealed normal upper 3rd of esophagus and middle 3rd of the esophagus were tortuous esophagus with a mild Schatzki ring. Endoscopic ultrasound revealed abnormal echogenicity in the portion of liver suggestive of fatty infiltration. Biopsy from the liver revealed benign liver with mild steatosis and moderate granular iron deposition in the hepatocytes and no significant increase in fibrosis. Final Diagnosis A. Stomach, biopsy for HP: Gastric antral mucosa with hyperemia and mild chronic inflammation feature consistent with a mild chemical gastritis immunostain for H.pylori is negative with appropriate control. B. Stomach, gastric polyps, biopsy: Fundic gland polyps. C. Esophagus, GE junction, biopsy: Squamocolumnar mucosa with intestinal metaplasia; negative for dysplasia. Reflux esophagitis with reactive epithelial changes. D. Liver, Left lobe, biopsy: Benign liver with mild steatosis; see note. Moderate (grade 2-3 of 4) granular iron deposition in hepatocytes. No significant increase in fibrosis. She had ultrasound of the liver done on 09/21/2023 which revealed diffusely coarsened in echotexture, with a nodular contour, the liver appears shrunken in appearance, these findings are suggestive of cirrhosis. She had blood test done including ferritin 10/17/2023 which revealed ferritin level of 949. Transferrin saturation was 25% with normal iron and iron binding capacity. She had HFE gene mutation test done which was positive for homozygous HFE H63D mutation. 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 Abnormal Her hepatitis-B core antibody for IgG and IgM were also positive. She denies any headache, dizziness, chest pain palpitation, abdominal pain or distention, nausea, vomiting, fever, night sweats, bleeding, bruising. She also has issues with joint pain and back pain. She quit smoking about 1 and half years ago. She used to smoke pipe for 40 years. Denies drinking. Family history significant for maternal grandmother father was diagnosed of cancer of unknown type.Her 1 sister and 2 brothers were also diagnosed of hemochromatosis in the were treated with phlebotomy. Past Medical History: Diagnosis Date Allergic rhinitis Asthma, severity to be determined Benign neoplasm of colon 01/23/2007 adenomatous polyps--repeat in 3 yrs Chronic kidney disease Chronic sinusitis COPD (chronic obstructive pulmonary disease) (HCC) Depression GERD (gastroesophageal reflux disease) Hepatitis HTN (hypertension) Other adverse food reactions, not elsewhere classified Current Outpatient Medications Medication Sig Dispense Refill valACYclovir (VALTREX) 500 MG Tablet Take 1 Tablet by mouth in the morning. PROAIR HFA 108 (90 Base) MCG/ACT inhaler Inhale by mouth 2 Puffs every 4 hours as needed . (Patient not taking: Reported on 12/16/2022) Loratadine 10 MG Cap Take 1 Capsule by mouth in the morning. [place]-3 Fatty Acids (FISH OIL) 1000 MG Capsule Take 1 Capsule by mouth in the morning. Chlorthalidone 25 MG Oral Tablet (Hygroton) Take by mouth 0.5 Tablets once a day on Monday, Monday, and Monday only . 15 Tablet 5 amLODIPine Besylate 2.5 MG Oral Tablet (Norvasc) Take 1 Tablet by mouth in the morning. (Patient not taking: Reported on 12/29/2023) Nitroglycerin 0.4 MG Sublingual Tablet Sublingual (Nitrostat) Place 1 Tablet under the tongue every5 minutes as needed for Pain, Chest. Vitamin E 400 UNIT Oral Capsule (Aquasol E) Take 1 tablet as needed Trelegy Ellipta 100-62.5-25 MCG/ACT Aerosol Powder Breath Activated INHALE 1 PUFF BY MOUTH ONCE DAILY Metoprolol Succinate ER 50 MG Oral Tablet Extended Release 24 Hour (toPROL XL) TAKE 1 TABLET BY MOUTH IN THE MORNING 90 Tablet 3 Align Dualbiotic Oral Tablet Chewable Take 1 Tablet by mouth once. Famotidine 20 MG Oral Tablet (Pepcid) Take 1 Tablet by mouth in the morning and 1 Tablet before bedtime. 60 Tablet 12 No current facility-administered medications for this visit. Social History Socioeconomic History Marital status: Spouse name: Not on file Number of children: Not on file Years of education: Not on file Highest education level: Not on file Occupational History Not on file Tobacco Use Smoking status: Every Day Types: Pipe Smokeless tobacco: Never Vaping Use Vaping status: Never Used Substance and Sexual Activity Alcohol use: Not Currently Drug use: Never Sexual activity: Not on file Other Topics Concern Not on file Social History Narrative [facility] INFORMATION ENIVIRONMENTAL HISTORY: House: Two Story Type of Heating System: Oil and Hot water radiator and baseboard Air Conditioning: Yes Room, LR, bedroom Basement: Unfinished, Dampness, Dehumidifier and No evidence mold, mildew Home have cockroaches: No Irritants in the home: None Patient's bedroom: FLOOR: second TYPE OF ELIZABETH: Carpeting Beds: AMOUNT : 1 TYPE OF BEDS: Mattress and Box spring Pillows: AMOUNT: 2 TYPE OF PILLOWS: Foam Bedroom contains: Minimal items Pets: 2 dog(s) Lives on a farm: No Retired. Entered By: Adam Balbuena MD 11/12/2003 Social Needs Financial Resource Strain: Not on file Food Insecurity: Not on file Transportation Needs: Not on file Social Connections: Not on file Housing Stability: Not on file No family history on file. REVIEW OF SYSTEMS: General: No Fever, chills, night sweats, or weight loss. HEENT: No change in visual acuity, blurred or double vision. No epistaxis, facial pain, nasal discharge or change in hearing. Denies dysphagia, no muscosal ulceration, or sores noted. Cardiovascular: No chest pain, WINTER, or palpitations Respiratory: No shortness of breath, cough, hemoptysis, or pleuritic chest pain Gastrointestinal: No abdominal pain, nausea, vomiting, diarrhea, rectal pain or bleeding Genitourinary: Denies Hematuria or dysuria Musculoskeletal: Back pain and joint pain Psychiatric: No vegetative signs of depression Endocrine: No symptoms of hypothyroidism or hyperglycemia Hematologic: No bleeding or lymph nodes noted As mentioned above, all other systems were reviewed in full and are unremarkable. Review of patient's allergies indicates: Allergen Reactions Abilify [Aripiprazole] Advil [Ibuprofen] Aspirin ringing ears Atarax [Hydroxyzine] Baclofen Nausea/vomiting Benadryl [Diphenhydramine] Nausea/vomiting Buspar [Buspirone] Celexa [Citalopram Hydrobromide] Citalopram Depakote [Divalproex Sodium] Doxycycline Effexor [Venlafaxine] Geodon [Ziprasidone Hcl] Hctz [Hydrochlorothiazide] Hydrocodone Nausea/vomiting Lamictal [Lamotrigine] Lansoprazole Rash Latex Rash [place] Lorazepam Lunesta [Eszopiclone] Memantine Psych complications Morphine Nexium [Esomeprazole Magnesium] Paroxetine Psych complications Paxlovid [Nirmatrelvir-Ritonavir] Premarin [Conjugated Estrogens] Vaginal cream Prilosec [Omeprazole] Risperdal [Risperidone] Seroquel [Quetiapine Fumarate] Temazepam Tetracycline Trazodone And Nefazodone Valium [Diazepam] Vicodin [Hydrocodone-Acetaminophen] Wellbutrin [Bupropion Hcl] Ziprasidone Other (Please comment) Insomnia PHYSICAL EXAMINATION: General Appearance: Healthy appearing patient in no acute distress BP 160/91 (BP Site: Left Arm, BP Position: Sitting, BP Cuff Size: Large) | Pulse 76 | Temp 36.3 C(97.4 F) (Tympanic) | Ht 1.676 m (5' 6") | Wt 89.4 kg (197 lb) | SpO2 93% | BMI 31.80 kg/m | BSA 2.04 m Vitals were reviewed. HEENT: No oral or pharyngeal masses, ulceration or thrush noted, no sinus tenderness. Neck is supple with no thyromegaly or JVD noted. Lymph Nodes: No lymphadenopathy noted in the occipital, pre and post auricular, cervical, supra andinfraclavicular, axillary, epitrochlear, inguinal, and popliteal region. Lungs/Thorax: Clear to auscultation, no accessory muscles of respiration being used. Heart: Regular rate and rhythm, normal S1, S2. Abdomen: Soft, nontender, bowel sounds present, no appreciable hepatosplenomegaly, no palpable masses Extremeties: Good pulses bilaterally, no peripheral edema. ASSESSMENT: 83-year-old female with a past medical history significant for chronic kidney disease, COPD, depression, hypertension referred because of the elevated ferritin level and blood test positive for HFE H63D homozygous mutation. She is also complaining of abdominal pain and discomfort and had endoscopy and endoscopic ultrasound done which revealed abnormal echogenicity in the portion of liver suggestive of fatty infiltration. Biopsy from the liver revealed moderate (grade 2-3 of 4) granular iron deposition in hepatocytes. No significant increase in fibrosis. Ultrasound of the liver was done on 09/21/2023 which revealed cirrhotic contour. Hepatitis-B core antibody IgG and IgM were also positive. She has appointment with Dr. Plasencia on 03/12/2024. Overall clinically she is stable without any new symptoms complain. Because of elevated ferritin and liver deposit of iron, she will be treated with the phlebotomy and will benefit to minimize the further damage to the liver and other. Because of other comorbid condition and liver cirrhosis, she will be treated gradually to minimize the symptoms from phlebotomy and maintain normal hemoglobin level. She will be treated with monthly phlebotomy and remote 300 mL of blood to maintain her normal hemoglobin and hematocrit level and bring down the ferritin under 100. Discussed with the patient and daughter in detail about diagnosis reviewed all the available blood test result with her. After detailed discussion she agreed to proceed with the treatment. I also recommended daughter and other family members to be tested for the gene mutation. PLAN: As above. She will return to clinic for follow-up in 4 months with CBC, ferritin, CMP, iron screen. The patient voiced understanding of all of the above. All questions and concerns were addressed in an apparently satisfactory manner. Stephany Luna MD (This note was completed using the dictation program Fluency Direct. As such, there may be misspellings, word substitutions, or other variations that should not change the essence of the clinical content of this encounter note. If there is need for further clarification, please direct questions to me.) documented in this encounter Nursing Notes * HarrisJessica, HEAT TREAT OPERATOR - 01/03/2024 12:53 PM EST Patient identifed by name and birthdate Do you have any concerns about pain management for today's visit? No Living Will or Advance Directive for Health Care as noted on the problem list. [facility] is a way you can talk to your provider on line through e-mail. Would you like to sign up? I can activate it for you? ALREADY ACTIVE Filed Vitals: 01/03/24 1250 BP: 160/91 Pulse: 76 Temp: 36.3 C (97.4 F) TempSrc: Tympanic SpO2: 93% Weight: 89.4 kg (197 lb) Height: 1.676 m (5' 6") Patient was instructed to not get up on the exam table/exam chair until directed and assisted by their provider; patient is to remain seated in the chair/ wheelchair/ exam table/ exam chair for fall prevention and safety reasons. Patient is aware to have assistance to step down off exam table/exam chair with personnel. Patient voiced full comprehension of instructions. documented in this encounter Plan of Treatment Upcoming Encounters Date Type Department Care Team (Late st Contact Info) Description 04/17/2024 8:15 AM EST Imaging Radiology [facility] 2nd Floor, [place] [address] [facility] [place] [address] 04/24/2024 10:00 AM EDT Laboratory Laboratory, Health system [address] [facility] [place] [address] [facility] [place] [facility] [place] [address] 04/24/2024 10:30 AM EDT Office Visit Gastroenterology, Health system [address] [facility] [place] [address] Marcus Smith CRNP [address] [place] [address] 05/01/2024 10:30 AM EDT Office Visit Hematology/Oncology [facility] 200 [facility] [place] [phone] Stephany Luna MD 200 [facility] [place] [address] 05/22/2024 9:00 AM EDT Office Visit Gastroenterology, Health system [address] [place] [address] Marcus Smith CRNP [address] [place] [address] Scheduled Orders Name Type Priority Associated Diagnoses Orde r Schedule COMPREHENSIVE METABOLIC PANEL Lab Routine Hereditary hemochromatosis (HCC) Expected: 04/30/2024, Expires: 10/02/2024 IRON SCREEN, INCLUDING TIBC Lab Routine Hereditary hemochromatosis (HCC) Expected: 04/30/2024, Expires: 10/02/2024 Health Maintenance Due Date Last Done Comments DISCUSS TOBACCO CESSATION (REFER TO SMARTSET #2059) 1940 DXA Scan 1940 Depression Screening 1954 [...] hemochromatosis documented in this encounter Care Teams Sample Grader Relationship Specialty Start Date End Date Heather Haile DO [address] [place] [address] Dr Ramos [address] [place] [address], [place] [address] PCP - General Family Medicine 09/15/20 documented as of this encounter
--- OUTSIDE RECORDS SUMMARY | 2024-01-16 23:20 | External Medical Summary | Summary of Care ---
Author Name Unknown Organization [facility] Address [address] [facility] [place] [address] Phone [phone] Care Team Providers Care Rn Family Name Role Phone LazaraBeHeather Xena Primary Care Provider Reason for Visit * Reason Onset Date Comments Appointment 01/03/2024 Encounter Details Date Type Department Care Team (Late st Contact Info) Description 01/03/2024 Telephone Hematology/Oncology [facility] [place] [address] [place] [phone] Stephany Luna MD [address] [place] [address] Appointment Allergies Active Allergy Reactions Criticality Noted Date Comments Aripiprazole 02/07/2018 Ibuprofen 02/07/2018 Aspirin 11/12/2003 ringing ears Hydroxyzine 02/07/2018 Baclofen Nausea/vomiting 01/03/2024 Diphenhydramine Nausea/vomiting 01/03/2024 Buspirone 02/07/2018 Citalopram Hydrobromide 02/07/2018 Citalopram 01/03/2024 Divalproex Sodium 02/07/2018 Doxycycline 02/07/2018 Venlafaxine 02/07/2018 Ziprasidone Hcl 02/07/2018 Hydrochlorothiazide 02/07/2018 Hydrocodone Nausea/vomiting 01/03/2024 Lamotrigine 02/07/2018 Lansoprazole Rash 01/03/2024 Latex Rash 01/03/2024 [place] 02/07/2018 Lorazepam 02/07/2018 Eszopiclone 02/07/2018 Memantine Psych [...] Capsule by mouth in the morning. Active [place]-3 Fatty Acids (FISH OIL) 1000 MG Capsule [...] encounter Miscellaneous Notes * Telephone Encounter - Lety Yarbrough OSA [...] EST Imaging Radiology [facility] 2nd [facility] [address] [place] [address] 04/24/2024 10:00 AM EDT Laboratory Laboratory, [facility] [place] [facility] [place] [phone] [facility] [address] [facility] [place] [address] 04/24/2024 10:30 AM EDT Office Visit Gastroenterology, [facility] [address] [place] [address] Marcus Smith CRNP [address] [place] [address] 05/01/2024 10:30 AM EDT Office Visit Hematology/Oncology [facility] [place] [address] [facility] [place] [address] Stephany Luna MD 200 [facility] [place] [address] 05/22/2024 9:00 AM EDT Office Visit Gastroenterology, [facility] [address] [place] [address] Marcus Smith CRNP [address] [place] [address] Scheduled Orders Name Type Priority Associated Diagnoses [...] documented in this encounter Care Teams Rn Family Relationship Specialty Start Date End Date Heather Haile DO [address] [facility] [address] [place] [place], [place] [address] PCP - General Family Medicine 09/15/20 documented as of this encounter
--- OUTSIDE RECORDS SUMMARY | 2024-01-16 23:20 | External Medical Summary | Summary of Care ---
Author Name Unknown Organization [facility] Address [address] [facility] [place] [address] Phone [phone] Care Team Providers Care Clinical Program Coordinator Name Role Phone Lazara Heather Xena Primary Care Provider Encounter Details Date Type Department Care Team (Late st Contact Info) Description 01/03/2024 Orders Only Hematology/Oncology [facility] [place] [address] [place] [address] Stephany Luna MD [address] [place] [address] Allergies Active Allergy Reactions Criticality Noted Date Comments Aripiprazole 02/07/2018 Ibuprofen 02/07/2018 Aspirin 11/12/2003 ringing ears Hydroxyzine 02/07/2018 Baclofen Nausea/vomiting 01/03/2024 Diphenhydramine Nausea/vomiting 01/03/2024 Buspirone 02/07/2018 Citalopram Hydrobromide 02/07/2018 Citalopram 01/03/2024 Divalproex Sodium 02/07/2018 Doxycycline 02/07/2018 Venlafaxine 02/07/2018 Ziprasidone Hcl 02/07/2018 Hydrochlorothiazide 02/07/2018 Hydrocodone Nausea/vomiting 01/03/2024 Lamotrigine 02/07/2018 Lansoprazole Rash 01/03/2024 Latex Rash 01/03/2024 [place] 02/07/2018 Lorazepam 02/07/2018 Eszopiclone 02/07/2018 Memantine Psych [...] Capsule by mouth in the morning. Active [place]-3 Fatty Acids (FISH OIL) 1000 MG Capsule [...] Description 04/17/2024 8:15 AM EST Imaging Radiology [facility] 2nd [facility] 132 [facility] [place] [address] 04/24/2024 10:00 AM EDT Laboratory Laboratory, [address] [place] [id number] [address] [place] [address] 04/24/2024 10:30 AM EDT Office Visit Gastroenterology, [facility] [address] [place] [address] Marcus Smith CRNP [address] [place] [address] 05/01/2024 10:30 AM EDT Office Visit Hematology/Oncology [facility] 200 [facility] [place], [place] [address] Stephany Luna MD 200 [facility] [place] [address] 05/22/2024 9:00 AM EDT Office Visit Gastroenterology, [facility] [address] [place] [address] Marcus Smith CRNP [address] [facility] [place] [address] Health Maintenance Due Date Last Done Comments DISCUSS TOBACCO CESSATION (REFER TO SMARTSET #2121) 1942 DXA Scan 1940 Depression Screening 1954 [...] filedocumented as of this encounter Care Teams Clinical Program Coordinator Relationship Specialty Start Date End Date Heather Haile DO [address] [place] [address], [place] [address] PCP - General Family Medicine 09/15/20 documented as of this encounter
--- OUTSIDE RECORDS SUMMARY | 2024-01-16 23:20 | External Medical Summary | Summary of Care ---
Author Name Unknown Organization [facility] Address [address] [facility] [place] [address] Phone [phone] Care Team Providers Care Loom Control Chain Builder Name Role Phone LazaraBeHeather Xena Primary Care Provider Reason for Visit * Reason Onset Date Comments Appointment 01/03/2024 Encounter Details Date Type Department Care Team (Late st Contact Info) Description 01/03/2024 Telephone Hematology/Oncology [facility] [place] [address] [place] [phone] Stephany Luna MD [address] [place] [address] Appointment Allergies Active Allergy Reactions Criticality Noted Date Comments Aripiprazole 02/07/2018 Ibuprofen 02/07/2018 Aspirin 11/12/2003 ringing ears Hydroxyzine 02/07/2018 Baclofen Nausea/vomiting 01/03/2024 Diphenhydramine Nausea/vomiting 01/03/2024 Buspirone 02/07/2018 Citalopram Hydrobromide 02/07/2018 Citalopram 01/03/2024 Divalproex Sodium 02/07/2018 Doxycycline 02/07/2018 Venlafaxine 02/07/2018 Ziprasidone Hcl 02/07/2018 Hydrochlorothiazide 02/07/2018 Hydrocodone Nausea/vomiting 01/03/2024 Lamotrigine 02/07/2018 Lansoprazole Rash 01/03/2024 Latex Rash 01/03/2024 [place] 02/07/2018 Lorazepam 02/07/2018 Eszopiclone 02/07/2018 Memantine Psych [...] Capsule by mouth in the morning. Active [place]-3 Fatty Acids (FISH OIL) 1000 MG Capsule [...] encounter Miscellaneous Notes * Telephone Encounter - Kong Pina RN [...] Description 04/17/2024 8:15 AM EST Imaging Radiology [facility] 2nd [facility] [address] [facility] [place] [address] 04/24/2024 10:00 AM EDT Laboratory Laboratory, [facility] [address] [facility] [place] [phone] [facility] [address] [facility] [place] [address] 04/24/2024 10:30 AM EDT Office Visit Gastroenterology, [facility] [address] [place] [address] Marcus Smith CRNP [address] [place] [address] 05/01/2024 10:30 AM EDT Office Visit Hematology/Oncology [facility] [address] [facility] [place] [phone] Stephany Luna MD [address] [facility] [place] [address] 05/22/2024 9:00 AM EDT Office Visit Gastroenterology, [facility] [address] [place] [address] Marcus Smith CRNP [address] [place] [address] Scheduled Orders Name Type Priority Associated Diagnoses [...] hemochromatosis documented in this encounter Care Teams Loom Control Chain Builder Relationship Specialty Start Date End Date Heather Haile DO 6 [facility] [address] [place] [address] PCP - General Family Medicine 09/15/20 documented as of this encounter
--- OUTSIDE RECORDS SUMMARY | 2024-01-16 23:21 | External Medical Summary | Summary of Care ---
Author Name Unknown Organization [facility] Address [address] [facility] [place] [address] Phone [phone] Care Team Providers Care Cvt Tech Name Role Phone LazaraHeather Primary Care Provider Reason for Visit * Reason Comments NEW PATIENT Cirrhosis Encounter Details Date Type Department Care Team (Latest Contact Info) Description 12/29/2023 12:40 PM EST Office Visit Hepatology, [facility] [address] [place] [address] Lety Clemens DO [address] [place] [address] Hereditary hemochromatosis (HCC)* Allergies Active Allergy Reactions Criticality Noted Date Comments Aripiprazole 02/07/2018 Ibuprofen 02/07/2018 Aspirin 11/12/2003 ringing ears Hydroxyzine 02/07/2018 Buspirone 02/07/2018 Citalopram Hydrobromide 02/07/2018 Divalproex Sodium 02/07/2018 Doxycycline 02/07/2018 Venlafaxine 02/07/2018 Ziprasidone Hcl 02/07/2018 Hydrochlorothiazide 02/07/2018 Lamotrigine 02/07/2018 [place] 02/07/2018 Lorazepam 02/07/2018 Eszopiclone 02/07/2018 Morphine 02/07/2018 Esomeprazole Magnesium 02/07/2018 Nirmatrelvir-Ritonavir 12/16/2022 Conjugated Estrogens 02/07/2018 Vaginal cream Omeprazole 02/07/2018 Risperidone 02/07/2018 Quetiapine Fumarate 02/07/2018 Temazepam 02/07/2018 Tetracycline 02/07/2018 Trazodone And Nefazodone 02/07/2018 Diazepam 02/07/2018 Hydrocodone-Acetaminophen 02/07/2018 Bupropion Hcl 02/07/2018 documented as of this encounter (statuses as of 12/29/2023) Medications valACYclovir (VALTREX) 500 MG Tablet Take 1 Tablet by mouth in the morning. 8 Active PROAIR HFA 108 (90 Base) MCG/ACT inhaler Inhale by mouth 2 Puffs every 4 hours as needed . 8 Active Loratadine 10 MG Cap Take 1 Capsule by mouth in the morning. Active [place]-3 Fatty Acids (FISH OIL) 1000 MG Capsule [...] Hour (toPROL XL)Indications:P AT (paroxysmal atrial tachycardia) ([facility]) TAKE 1 TABLET BY MOUTH IN THE MORNING 90 Tablet 3 3 Active Chlorthalidone 25 MG Oral Tablet (Hygroton)Indica tions:Hypertensi on goal BP (blood pressure) < 130/80,PVC (premature ventricular contraction),PAT (paroxysmal atrial tachycardia) ([facility]),Tachy-milly y syndrome (HCC) TAKE 1/2 (ONE-HALF) TABLET BY MOUTH ON MONDAY, MONDAY, AND MONDAY 30 Tablet 3 4 Active Pantoprazole Sodium 20 MG Oral Tablet Delayed Release (Protonix) Take 1 Tablet by mouth in the morning. Active Align Dualbiotic Oral Tablet ChewableIndicati ons:as needed Take 1 Tablet by mouth once. Active Meclizine HCl 25 MG Oral Tablet Chewable Take 1 Tablet by mouth 3 times a day as needed. Active Famotidine 20 MG Oral Tablet (Pepcid) Take 1 Tablet by mouth in the morning and 1 Tablet before bedtime. 60 Tablet 12 4 Active Omeprazole 40 MG Oral Capsule Delayed Release (PriLOSEC) Take 1 Capsule by mouth in the morning. 90 Capsule 4 Active Additional Information Patient not taking.Reported on 12/29/2023 documented as of this encounter (statuses as of 12/29/2023) Active Problems Problem Noted Date Diagnosed Date PVC (premature ventricular contraction) 12/22/19 23 Hypertension [...] as of this encounter (statuses as of 12/29/2023) Social History Tobacco Use Types Packs/Day Years [...] Sign Reading Time Taken Comments Blood Pressure 170/100 12/29/2023 12:40 PM EST Pulse 88 12/29/2023 12:40 PM EST Temperature 35.7 C (96.3 F) 12/29/2023 12:[address] Respiratory Rate 18 12/29/2023 12:40 PM EST Oxygen Saturation 96% 12/29/2023 12:40 PM EST Inhaled Oxygen Concentration - - Weight 88.9 kg (196 lb) 12/29/2023 12:40 PM EST Height - - Body Mass Index 31.64 11/15/2023 10:20 AM EDT documented in this encounter Progress Notes * Jayleen Lety Coughlin, DO - 12/29/2023 12:36 PM EST Images from the original note were not included. CC: iron overload HPI: Gloria Callahan is a 83 year old female referred by SARAVANAN Jones for iron overload. Shehas been following with Marcus Smith. She has PMH notable for HTN, gastroparesis, asthma, COPD, CKD, depression, GERD. She was found to have an elevated ferritin to 949 with normal iron saturation of 25%. 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 Abdominal ultrasound at [facility] in September was concerning for cirrhosis so then she underwent an EUS guided liver biopsy last month which showed no fibrosis, mild steatosis, and moderate iron deposition 2-3+. There was also hickman's noted without evidence of dysplasia. LFTs are all normal. INR normal. Remainder of serological work up for liver disease negative. She does not drink any alcohol and never . She smoked a pipe but she quit 1.5 years ago. Denieshistory of drug abuse. No family history of hemochromatosis or any liver disease that she is aware of. She does not take any vitamin C supplements. Does not take any iron or a multivitamin. Past Medical History: Diagnosis Date Allergic rhinitis [...] 1 Tablet by mouth in the morning. Loratadine 10 MG Cap Take 1 Capsule by mouth in the morning. [place]-3 Fatty Acids (FISH OIL) 1000 MG Capsule Take 1 Capsule by mouth in the morning. Chlorthalidone 25 MG Oral Tablet (Hygroton) Take by mouth 0.5 Tablets once a day on Monday, Monday, and Monday only . 15 Tablet 5 Vitamin E 400 UNIT Oral Capsule (Aquasol [...] 1 Tablet before bedtime. 60 Tablet 12 PROAIR HFA 108 (90 Base) MCG/ACT inhaler Inhale by mouth 2 Puffs every 4 hours as needed . (Patient not taking: Reported on 12/16/2022) amLODIPine Besylate 2.5 MG Oral Tablet (Norvasc) Take 1 Tablet by mouth in the morning. (Patient not taking: Reported on 12/29/2023) Nitroglycerin 0.4 MG Sublingual Tablet Sublingual (Nitrostat) Place 1 Tablet under the tongue every5 minutes as needed for Pain, Chest. Chlorthalidone 25 MG Oral Tablet (Hygroton) TAKE 1/2 (ONE-HALF) TABLET BY MOUTH ON MONDAY, MONDAY, AND MONDAY 30 Tablet 3 Pantoprazole Sodium 20 MG Oral Tablet Delayed Release (Protonix) Take 1 Tablet by mouth in the morning. (Patient not taking: Reported on 11/09/2023) Meclizine HCl 25 MG Oral Tablet Chewable Take 1 Tablet by mouth 3 times a day as needed. Omeprazole 40 MG Oral Capsule Delayed Release (PriLOSEC) Take 1 Capsule by mouth in the morning. (Patient not taking: Reported on 12/29/2023) 90 Capsule 0 No current facility-administered medications for this visit. Review of patient's allergies indicates: Allergen Reactions Abilify [Aripiprazole] Advil [Ibuprofen] Aspirin ringing ears Atarax [Hydroxyzine] Buspar [Buspirone] Celexa [Citalopram Hydrobromide] Depakote [Divalproex Sodium] Doxycycline Effexor [Venlafaxine] Geodon [Ziprasidone Hcl] Hctz [Hydrochlorothiazide] Lamictal [Lamotrigine] [place] Lorazepam Lunesta [Eszopiclone] Morphine Nexium [Esomeprazole Magnesium] Paxlovid [Nirmatrelvir-Ritonavir] Premarin [Conjugated Estrogens] Vaginal cream Prilosec [Omeprazole] Risperdal [Risperidone] Seroquel [Quetiapine Fumarate] Temazepam Tetracycline Trazodone And Nefazodone Valium [Diazepam] Vicodin [Hydrocodone-Acetaminophen] Wellbutrin [Bupropion Hcl] Social History Socioeconomic History Marital status: Spouse [...] Not on file Social History Narrative [employer] [place] INFORMATION ENIVIRONMENTAL HISTORY: House: Two Story Type [...] on file No family history on file. Review of Systems: Constitutional: No report of fever, chills, night sweats. There have been no non-intentional weightchanges. Eyes: No recent changes in visual acuity or blurring of vision. ENT: No change in auditory acuity, sense of smell or taste. CV: No chest pain, palpitations, dyspnea on exertion. Respiratory: No wheezing, cough, sputum production. : No dysuria, polyuria, change in urinary frequency. GI: Per HPI, otherwise negative. Psychiatric: No chronic changes in mood, affect or sensorium. Musculoskeletal: No myalgias, arthralgias, or joint pains. Neurological: No change in gait, change in maintenance of balance, neurologic injuries. Physical Exam Constitutional: BP 170/100 | Pulse 88 | Temp 35.7 C (96.3 F) | Resp 18 | Wt 88.9 kg (196 lb) | SpO2 96% | BMI 31.64 kg/m | BSA 2.03 m Well developed, well nourished female in no apparent distress. Eyes: Conjunctivae and sclerae are clear and non-icteric. CV: Heart is regular without murmur, rub or juani. Pulm: Clear to percussion and auscultation. GI: Abdomen is soft, non-tender, with normo-active bowel sounds in all four quadrants. No hepatosplenoegaly is appreciated. No masses are palpated. No guarding or rebound is noted. Psychiatric: The patient is alert and oriented in all four spheres. Mood is euthymic. Affect is appropriate for the situation. Skin: No rashes were noted. Musculoskeletal: Gait is normal. Patient is able to transfer from sitting position to exam table without assistance. 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 Abnormal Interpretation The homozygous HFE H63D mutation was detected by real-time PCR. Homozygosity for H63D is found in 1to 4% of patients with hereditary hemochromatosis (HH) with a [place] ethnic background. However, this genotype is also found in 3 to 5% of clinically unaffected individuals. The percentages of HH patients with this genotype may differ for other ethnic or racial groups. Also, this r esult does not rule out the presence of disease-causing mutations in other regions of the HFE gene or in other genes associated with HH. Therefore, this result should be interpreted in the context ofthe clinical presentation and results of the other laboratory tests (e.g., serum transferrin-iron saturation and serum ferritin). The above interpretation assumes that this molecular testing is beingperformed for a possible diagnosis of HH. For carrier testing, the interpretation of this result depends on the family history and the genotype of the affected individuals. A genetic consultation maybe of benefit. Mutations covered in this assay include C282Y, H63D and S65C in the HFE gene. Component Ref Range & Units 2 mo ago BUN 6 - 20 mg/dL 30 High CREATININE 0.5 - 1.0 mg/dL 1.5 High EGFR >=60 mL/min 34 Low Comment: eGFR is calculated based on the CKD-EPI 2020 equation. SODIUM 135 - 146 mmol/L 140 POTASSIUM 3.5 - 5.1 mmol/L 4.0 CHLORIDE 98 - 107 mmol/L 99 CO2 22 - 32 mmol/L 28 ANION GAP 7 - 15 mmol/L 13 GLUCOSE 70 - 120 mg/dL 100 Albumin 3.8 - 5.0 g/dL 4.5 AST 10 - 35 U/L 19 Alkaline Phosphatase 35 - 130 U/L 121 Bilirubin, Total <=1.2 mg/dL 0.5 CALCIUM 8.4 - 10.2 mg/dL 10.1 Protein 6.0 - 8.3 g/dL 7.7 ALT 10 - 35 U/L 19 Component Ref Range & Units 2 mo ago WBC 4.00 - 10.80 K/uL 6.19 RBC 3.85 - 5.15 M/uL 4.25 HGB 12.0 - 15.3 g/dL 13.9 HCT 36.0 - 45.2 % 42.6 MCV 81.5 - 97.5 fL 100.2 MCH 27.0 - 34.0 pg 32.7 MCHC 32.0 - 36.0 g/dL 32.6 RDW 11.5 - 15.5 % 14.2 PLT 140 - 400 K/uL 193 MPV 6.6 - 11.1 fL 10.2 Imaging: Reviewed US at [facility] September 2023: Cirrhotic contour is seen in the liver. Normal gallbladder and bile ducts. Procedures: Reviewed EGD 11/15/2023: Impression: - Normal upper third of esophagus and middle third of esophagus. - Tortuous esophagus. - Mild Schatzki ring. Dilated to 54 Fr today. - Z-line irregular, 35 cm from the incisors. Biopsied. - 5 cm hiatal hernia. - Multiple gastric polyps. Biopsied. - Gastritis. Biopsied. - Normal examined duodenum. EUS guided liver biopsy 11/15/2023: Component Final Diagnosis A. Stomach, biopsy for HP: [...] in hepatocytes. No significant increase in fibrosis. Note: Tissue section of the liver reveals benign liver parenchyma, in which there is mild steatosisabout 15% fat, mixed macro and microvesicular patterns. There is minimal to focal mild portal inflammation consisting predominately of lymphocytes without significant plasma cells, or lymphoid follicles and no interface inflammation. The portal arteriole/bile duct pairings are present in normal pattern without specific feature of bile duct injury. The lobules reveals rare foci of mild spotty lobular inflammation. Trichrome and reticulin stains show no significant fibrosis. PAS with diastase demonstrates no globules associated with alpha-1 antitrypsin disease. Iron stain reveals at least moderate granular deposition in hepatocytes; clinical correlation. ASSESSMENT: Gloria Callahan is a 83 year old female referred by SARAVANAN Jones for iron overload. She has been following with Marcus Smith. She has PMH notable for HTN, asthma, gastroparesis, COPD, CKD, depression, GERD. Plan: 1. She was found to have an elevated ferritin to 949 with normal iron saturation of 25%. HFE genetic mutation with H63D detected. She underwent an EUS guided liver biopsy last month which showed no fibrosis, mild steatosis, and moderate iron deposition 2-3+. There was also hickman's noted without evidence of dysplasia. LFTs are all normal. INR normal. Given her elevated ferritin, HFE genetic testing, and iron overload on liver biopsy she would benefit from phlebotomy. It looks like she will be seeing Dr. Luna 01/02. I am also happy to arrange phlebotomy if needed. Needs to avoid vitamin C and iron supplements. All first degree relatives should be screened. Avoid iron rich foods. Recommend p hlebotomy to maintain ferritin goal between 50-100. 2. Follow back up with SARAVANAN Jones DO Gastroenterology and Hepatology I spent a total of 45 minutes on the date of service in review of patient's record, and previously obtained information in person and appropriate medical visit, discussion and education of plan, withpatient and/or caregiver, placing orders for tests/referral/procedures as medically necessary and documentation of pertinent clinical information in patient's medical records for their visit today. documented in this encounter Nursing Notes * Anais Ogden RN - 12/29/2023 12:43 PM EST New patient today referred by PCP. Will also follow with Dr Luna. Recent labs done.. Niece presentwith pt today. documented in this encounter Plan of Treatment Upcoming Encounters Date Type Department Care Team (Late st Contact Info) Description 01/03/2024 1:00 PM EST Office Visit Hematology/Oncology [facility] [place] [address] [facility] [place] [address] Stephany Luna MD 200 [facility] [place] [address] 04/17/2024 8:15 AM EST Imaging Radiology [facility] 2nd Floor, [place] [address] [facility] [place] [address] 04/24/2024 10:30 AM EDT Office Visit Gastroenterology, [facility] [address] [facility] [place] [address] Marcus Smith CRNP [address] [facility] [place] [address] 05/22/2024 9:00 AM EDT Office Visit [facility]astroenterology, [facility] [address] [place] [address] Marcus Smith CRNP [address] [place] [address] Health Maintenance Due Date Last Done Comments [...] hemochromatosis documented in this encounter Care Teams Cvt Tech Relationship Specialty Start Date End Date Heather Haile DO 6 [address] [place] [address] PCP - General Family Medicine 09/15/20 documented as of this encounter"
--- OUTSIDE RECORDS SUMMARY | 2024-01-16 23:21 | External Medical Summary | Summary of Care ---
Author Name Unknown Organization [facility] Address [address] [facility] [place] [address] Phone [phone] Care Team Providers Care Bowling Ball Grader And Marker Name Role Phone LazaraBeHeather Xena Primary Care Provider Reason for Visit * Reason Onset Date Comments Appointment 01/03/2024 Encounter Details Date Type Department Care Team (Late st Contact Info) Description 01/03/2024 Telephone Hematology/Oncology [facility] [place] [address] [place] [phone] Stephany Luna MD [address] [place] [address] Appointment Allergies Active Allergy Reactions Criticality Noted Date Comments Aripiprazole 02/07/2018 Ibuprofen 02/07/2018 Aspirin 11/12/2003 ringing ears Hydroxyzine 02/07/2018 Baclofen Nausea/vomiting 01/03/2024 Diphenhydramine Nausea/vomiting 01/03/2024 Buspirone 02/07/2018 Citalopram Hydrobromide 02/07/2018 Citalopram 01/03/2024 Divalproex Sodium 02/07/2018 Doxycycline 02/07/2018 Venlafaxine 02/07/2018 Ziprasidone Hcl 02/07/2018 Hydrochlorothiazide 02/07/2018 Hydrocodone Nausea/vomiting 01/03/2024 Lamotrigine 02/07/2018 Lansoprazole Rash 01/03/2024 Latex Rash 01/03/2024 [place] 02/07/2018 Lorazepam 02/07/2018 Eszopiclone 02/07/2018 Memantine Psych [...] Capsule by mouth in the morning. Active [place]-3 Fatty Acids (FISH OIL) 1000 MG Capsule [...] Description 04/17/2024 8:15 AM EST Imaging Radiology [facility] [address] [facility] 132 [facility] [place] [address] 04/24/2024 10:00 AM EDT Laboratory Laboratory, [facility] [address] [facility] [place] [phone] [facility] [address] [facility] [place] [address] 04/24/2024 10:30 AM EDT Office Visit Gastroenterology, [facility] [address] [place] [address] Marcus Smith CRNP [address] [place] [address] 05/01/2024 10:30 AM EDT Office Visit Hematology/Oncology [facility] 200 [facility] [place] [phone] Stephany Luna MD 200 [facility] [place] [address] 05/22/2024 9:00 AM EDT Office Visit Gastroenterology, [facility] [address] [place] [address] Marcus Smith CRNP [address] [place] [address] Scheduled Orders Name Type Priority Associated Diagnoses [...] hemochromatosis documented in this encounter Care Teams Bowling Ball Grader And Marker Relationship Specialty Start Date End Date Heather Haile DO 6 [facility] [address] [place] [address] PCP - General Family Medicine 09/15/20 documented as of this encounter
--- OUTSIDE RECORDS SUMMARY | 2024-01-16 23:21 | External Medical Summary | Summary of Care ---
Author Name Unknown Organization [facility] Address [address] [facility] [place] [address] Phone [phone] Care Team Providers Care Integration Aide Name Role Phone LazaraBeHeather Xena Primary Care Provider Reason for Visit * Reason Onset Date Comments Appointment 01/03/2024 Encounter Details Date Type Department Care Team (Late st Contact Info) Description 01/03/2024 Telephone Hematology/Oncology [facility] [place] [address] [place] [phone] Stephany Luna MD [address] [place] [address] Appointment Allergies Active Allergy Reactions Criticality Noted Date Comments Aripiprazole 02/07/2018 Ibuprofen 02/07/2018 Aspirin 11/12/2003 ringing ears Hydroxyzine 02/07/2018 Baclofen Nausea/vomiting 01/03/2024 Diphenhydramine Nausea/vomiting 01/03/2024 Buspirone 02/07/2018 Citalopram Hydrobromide 02/07/2018 Citalopram 01/03/2024 Divalproex Sodium 02/07/2018 Doxycycline 02/07/2018 Venlafaxine 02/07/2018 Ziprasidone Hcl 02/07/2018 Hydrochlorothiazide 02/07/2018 Hydrocodone Nausea/vomiting 01/03/2024 Lamotrigine 02/07/2018 Lansoprazole Rash 01/03/2024 Latex Rash 01/03/2024 [place] 02/07/2018 Lorazepam 02/07/2018 Eszopiclone 02/07/2018 Memantine Psych [...] Capsule by mouth in the morning. Active [place]-3 Fatty Acids (FISH OIL) 1000 MG Capsule [...] 8:15 AM EST Imaging Radiology [facility] [address] [facility] [address] [facility] [place] [address] 04/24/2024 10:00 AM EDT Laboratory Laboratory, [facility] [address] [facility] [place] [phone] [facility] [address] [facility] [place] [address] 04/24/2024 10:30 AM EDT Office Visit Gastroenterology, [facility] [address] [place] [address] Marcus Smith CRNP [address] [place] [address] 05/01/2024 10:30 AM EDT Office Visit Hematology/Oncology [facility] 200 [facility] [place] [phone] Stephany Luna MD 200 [facility] [place] [address] 05/22/2024 9:00 AM EDT Office Visit Gastroenterology, [facility] [address] [place] [address] Marcus Smith CRNP [address] [place] [address] Scheduled Orders Name Type Priority Associated Diagnoses [...] hemochromatosis documented in this encounter Care Teams Integration Aide Relationship Specialty Start Date End Date Heather Haile DO 6 [facility] [address] [place] [address] PCP - General Family Medicine 09/15/20 documented as of this encounter
--- OUTSIDE RECORDS SUMMARY | 2024-01-16 23:22 | External Medical Summary | Summary of Care ---
Author Name Unknown Organization [facility] Address [address] [facility] [place] [address] Phone [phone] Care Team Providers Care Die Trimmer Name Role Phone AndraeHeather torres Primary Care Provider Reason for Visit * Reason Comments Follow Up Pt here to f/u from [facility] and to discuss phlebotomy for hemochromatosis. Encounter Details Date Type Department Care Team (Latest Contact Info) Description 12/20/2023 2:30 PM EST Office Visit Gastroenterology, [facility] [address] [facility] [place] [address] Marcus Smith CRNP [address] [facility] [place] [address] Other cirrhosis of liver (HCC)*; Hereditary hemochromatosis (HCC); Hiatal hernia; Heartburn Allergies Active Allergy Reactions Criticality Noted Date Comments Aripiprazole 02/07/2018 Ibuprofen 02/07/2018 Aspirin 11/12/2003 ringing ears Hydroxyzine 02/07/2018 Buspirone 02/07/2018 Citalopram Hydrobromide 02/07/2018 Divalproex Sodium 02/07/2018 Doxycycline 02/07/2018 Venlafaxine 02/07/2018 Ziprasidone Hcl 02/07/2018 Hydrochlorothiazide 02/07/2018 Lamotrigine 02/07/2018 [place] 02/07/2018 Lorazepam 02/07/2018 Eszopiclone 02/07/2018 Morphine 02/07/2018 Esomeprazole Magnesium 02/07/2018 Nirmatrelvir-Ritonavir 12/16/2022 Conjugated Estrogens 02/07/2018 Vaginal cream Omeprazole 02/07/2018 Risperidone 02/07/2018 Quetiapine Fumarate 02/07/2018 Temazepam 02/07/2018 Tetracycline 02/07/2018 Trazodone And Nefazodone 02/07/2018 Diazepam 02/07/2018 Hydrocodone-Acetaminophen 02/07/2018 Bupropion Hcl 02/07/2018 documented as of this encounter (statuses as of 12/22/2023) Medications valACYclovir (VALTREX) 500 MG Tablet Take 1 Tablet by mouth in the morning. 8 Active PROAIR HFA 108 (90 Base) MCG/ACT inhaler Inhale by mouth 2 Puffs every 4 hours as needed . 8 Active Loratadine 10 MG Cap Take 1 Capsule by mouth in the morning. Active [place]-3 Fatty Acids (FISH OIL) 1000 MG Capsule [...] Hour (toPROL XL)Indications:P AT (paroxysmal atrial tachycardia) ([facility]) TAKE 1 TABLET BY MOUTH IN THE MORNING 90 Tablet 3 3 Active Chlorthalidone 25 MG Oral Tablet ([place])Indica tions:Hypertensi on goal BP (blood pressure) < 130/80,PVC (premature ventricular contraction),PAT (paroxysmal atrial tachycardia) ([facility]),Tachy-milly y syndrome (HCC) TAKE 1/2 (ONE-HALF) [...] Active Additional Information Patient not taking.Reported on 12/20/2023 documented as of this encounter (statuses as of 12/22/2023) Active Problems Problem Noted Date Diagnosed Date [...] as of this encounter (statuses as of 12/22/2023) Social History Tobacco Use Types Packs/Day Years Used Date Smoking Tobacco: Every Day Pipe Smokeless Tobacco: Never Alcohol Use Standard Drinks/Week Comments Not Currently 0 (1 standard drink = 0.6 oz pur e alcohol) Utilities Answer Date Recorded Do you have trouble paying y our heating, water, or electric bill? (Adult - for ages 18 years and over) Not on file 08/01/2023 Is your family able to pay t he heat, water, or electric bill? (Household - for ages 0-17 years) Not on file 08/01/2023 Does your family have access to good internet? (Household - for ages 0-17 years) Not on file 08/01/2023 Social Connections Answer Date Recorded How often do you feel lonely or isolated from those around you? (Adult - for ages 18 years and over) Not on file 08/01/2023 Comments No Sex and Gender Information Value Date Recorded Sex Assigned at Not on file Legal Sex Female 7:04 AM EST Gender Identity Not on file Sexual Orientation Not on file documented as of this encounter Last Filed Vital Signs Vital Sign Reading Time Taken Comments Blood Pressure 142/78 12/20/2023 1:46 PM EST Pulse - - Temperature 36.6 C (97.9 F) 12/20/2023 1:46 PM ES T Respiratory Rate - - Oxygen Saturation - - Inhaled Oxygen Concentration - - Weight 88.9 kg (196 lb) 12/20/2023 1:46 PM EST Height - - Body Mass Index 31.64 11/15/2023 10:20 AM EDT documented in this encounter Progress Notes * Marcus Smith CRNP - 12/22/2023 2:08 PM EST No response from hematology as of yet regarding ? Need for phlebotomy. W US suggesting cirrhosis but liver bx w/o cirrhosis or significant fibrosis, perhaps US is inaccurate. If no cirrhosis, then phlebotomy would be indicated. Pt is referred to hepatology for opinion on cirrhosis and possible need for phlebotomy. She has appt in February w hepatology. Left message on Ele (daughter's) home phone w above thoughts and offer to order HFE testing for daughter Ele. * Marcus Smith CRNP - 12/20/2023 1:55 PM EST Images from the original note were not included. CC: New dx Hemachromatosis, recheck dysphagia, heartburn HPI: 83 year old female pt of Heather M Grine, DO with a hx of allergies/asthma, COPD, HTN, GERD/dysphagia, mild gastroparesis, cirrhosis who presents today for a new hx of hemachromatosis. Her CC at her prior visit was dysphagia and heartburn, - better since starting Famotidine 20mg BID.PPI previously not effective. Denies dysphagia. A moderately large (5cm HH) was noted on EGD. She is feeling well. Her daughter Ele Lenz is with her today. 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 EGD Nov 2023: - Normal upper third of esophagus and middle third of esophagus. - Tortuous esophagus. - Mild Schatzki ring. Dilated to 54 Fr today. - Z-line irregular, 35 cm from the incisors. Biopsied. - 5 cm hiatal hernia. - Multiple gastric polyps. Biopsied. - Gastritis. Biopsied. - Normal examined duodenum. EUS Nov 2023: - There was no sign of significant pathology in the common bile duct. - There was no sign of significant pathology in the gallbladder. - There was no sign of significant pathology in the entire pancreas. - Endosonographic images of the left adrenal gland were unremarkable. - There was abnormal echogenicity in the visualized portion of the liver. This was hyperechoic and has an endosonographic appearance that is suggestive of fatty infiltration. Fine needle biopsy performed. A. Stomach, biopsy for HP: Gastric antral [...] in hepatocytes. No significant increase in fibrosis. NM [facility] Nov 2023: mild delay - At 1 hour, 77% remains. (Normal 30 - 90%) - At 2 hours, 56% remains. (Normal < 60%) - At 4 hours, 13% remains. (Normal 0 - 10%) Stool studies Nov 2023: C-diff (-), GI path (-) EGD 02/01/23: multiple gastric polyps, normal esophagus and duodenum. US at [facility] September 2023: Cirrhotic contour is seen in the liver. Normal gallbladder and bile ducts. Video Swallow 2023: No evidence of aspiration. Esophageal retention was noted. CTAP 2 IV Juy 2022 for pain, N/V 1. No bowel obstruction. No bowel wall thickening. Normal appendix. 2. Mild dilatation of the ureters and right collecting system. This finding is of questionable significance. No ureteral calculi identified. Colonoscopy 2006 polpys, no cause of abdominal pian EXAM: BP 142/78 | Temp 36.6 C (97.9 F) | Wt 88.9 kg (196 lb) | BMI 31.64 kg/m | BSA 2.03 m GENERAL: 83 year old female well developed and well nourished in no acute distress SKIN: no rashes, ulcers, or spider angiomata HEENT: normocephalic, sclera clear, pharynx normal NECK: supple, no lymphadenopathy, no masses or thyroid enlargement LUNGS: clear to auscultation anterior and posterior HEART: regular rate & rhythm, no murmurs and no gallops ABDOMEN: normo-active bowel sounds, soft, non-tender, non-distended no masses, no hepatosplenomegaly, no rebound or guarding, no bruits EXTREMITIES: no palmar erythema, no edema, no skin discoloration, no clubbing, no cyanosis NEURO: no lateralizing findings, Sensory/Motor grossly normal IMPRESSION/RECOMMENDATIONS: 83 year old female with Other cirrhosis of liver (HCC) (Primary)/Hereditary hemochromatosis (HCC) - regarding liver bx that does not mention fibrosis or cirrhosis; suspect cirrhosis is present because seen on imaging. Liver bx is a very small area of the liver. - her liver synthetic function is preserved (normal albumin, bilirubin, INR); - discussed possible complications of cirrhosis: fluid overload, Esophageal/gastric varices and blood in BMs, yellow eyes/skin, and hepatocellular cancer. Pt to call if any symptoms. - US ABDOMEN LIMITED; Future; Expected date: 04/15/2024; needs US Q 6m for screening for HCC. - Plan for repeat EGD in approx 2 yrs for screening for EV At this point, I don't believe that she would benefit from phlebotomy as liver cirrhosis is alreadypresent. However, iron overload may have effect on other organs. Will send a hematology "ask a doc"to ask if any further action/hematology referral is necessary and will contact the pt's daughter Ele prasad hematology opinion. Hiatal hernia/Heartburn/torturous esophagus on EGD - continue famotidine BID, may use a liquid antacid for breakthrough - chew thoroughly, gagan w a sip of water - Suspect intermittent severe heartburn is a HH symptom. Offered referral to minimally invasive surgery to consider repair, pt declines. Gastroparesis (mild) - eat small meals consisting of soft/liquid foods Message to Dr. Luna, hematology: Should this pt begin phlebotomy? Genetic testing w 2 copies of H63D. Ferritin 900's, transferrin sat 25. She is 83 yrs old and some comorbidities - CKD 3-4, CAD. Though liver bx did not show cirrhosis, imaging says cirrhosis and if present then no benefit from phlebotomy? Family/pt willing to see you in consult if that would be helpful. Family advised to undergo screening for hemochromatosis. Thank you Recheck in 6m and as needed. Call if new symptoms. I spent a total of 30 minutes on the date of service in review of patient's record, and previously obtained information in person and appropriate medical visit, discussion and education of plan, withpatient and/or caregiver, placing orders for tests/referral/procedures as medically necessary and documentation of pertinent clinical information in patient's medical records for their visit today. Thank you for the opportunity to be involved in the care of this patient. SARAVANAN Montgomery documented in this encounter Nursing Notes * Shelia Crawford CMA - 12/20/2023 1:46 PM EST Chief Complaint Patient presents with Follow Up Pt here to f/u from [facility] and to discuss phlebotomy for hemochromatosis. documented in this encounter Plan of Treatment Upcoming Encounters Date Type Department Care Team (Late st Contact Info) Description 03/12/2024 3:00 PM EST Office Visit Hepatology, [address] [place] [address] Isabelle Plasencia MD [address] [place] [address] 04/17/2024 8:15 AM EST Imaging Radiology [facility] [address] [facility] [address] [facility] [place] [address] 04/24/2024 10:30 AM EDT Office Visit Gastroenterology, [facility] [address] [facility] [place] [address] Marcus Smith CRNP [address] [facility] [place] [address] 05/22/2024 9:00 AM EDT Office Visit Gastroenterology, [facility] [address] [facility] [place] [address] Marcus Smith CRNP [address] [facility] [place] [address] Scheduled Orders Name Type Priority Associated Diagnoses Orde r Schedule US ABDOMEN LIMITED Medical Imaging Routine Other cirrhosis of liver (HCC) Hereditary hemochromatosis (HCC) Expected: 04/15/2024, Expires: 01/18/2025 Health Maintenance Due Date Last Done Comments [...] 12/23/2019, Additional history exists GFR 10/16/2024 10/17/2023, 110 04/2021, 01/12/2021, Additional history exists Pneumococcal Vaccine: [...] as of this encounter Visit Diagnoses Diagnosis Other cirrhosis of liver (HCC)- Primary Hereditary hemochromatosis (HCC) Hereditary hemochromatosis Hiatal hernia Diaphragmatic hernia without mention of obstruction or gangrene Heartburn documented in this encounter Care Teams Die Trimmer Relationship Specialty Start Date End Date Heather Haile DO [address] [place] [address] Dr Ramos [address] [place] [address], [place] [address] PCP - General Family Medicine 09/15/20 documented as of this encounter
[2024-01-17 07:42] VITALS: RESP 18; TEMP 97.7
--- NOTE | 2024-01-17 08:04 | Hospitalist Progress Note ---
Date of Service January 17, 2024 Assessment & Plan (1) Pulmonary embolism on right: Plan: Presented with 1 week of progressively worsening chest pain, with shortness of breath at rest and dyspnea on exertion - Chest CTA revealed lobar and segmental PEs in the right upper, right middle, right lower lobes - Venous Doppler study reveals near occlusive thrombus from the mid left superficial femoral vein to popliteal vein. 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 Compared with study from 01/2018, no significant change - Per daughter, patient has history of DVT about 3 years ago for which she was on anticoagulation, but this was stopped after ~2 weeks - Hypercoagulable workup ordered, pending - Initially given heparin drip per protocol with bolus - Transitioned to Eliquis 10 mg PO BID x 7 days, then 5 mg BID after (2) Acute UTI: Plan: UA positive on admission - Urine culture sensitivity pending; pin-point growth reincubating - Continue Ceftriaxone 2 g IV daily (3) Acute kidney injury superimposed on CKD: Plan: ALVINA superimposed on CKD with creatinine of 1.81 on admission. Baseline Cr 1.46 - Provided IV fluid x 1 L - Creatinine improved 1.44 - Avoid nephrotoxic agents and encourage PO fluid intake (4) Deep vein thrombosis, lower left extremity: Plan: As noted above Plan Updated daughter at bedside Ordered PT/OT Transition from heparin to Eliquis Chronic Stable Issues - GERD: Tums every hour as needed - Multiple medication sensitivities: Noted Of note, patient is not up-to-date on breast cancer or colon cancer screenings VTE PPx: Heparin CODE STATUS: Full code Admission and Anticipated Discharge Date Admission Date: January 15, 2024 Physical Exam Physical Exam: General: No acute distress, nondiaphoretic, well-developed, well-nourished. Skin: Warm, dry. Without rashes, erythema, or bruising. Chronic lymphedema to lower extremities bilaterally. Cardiac: Regular rate and rhythm without murmurs gallops or rubs. Pulm: Clear to auscultation bilaterally without wheezes, rales or rhonchi. No respiratory distress. 90% on room air. Abdominal: Soft, nontender, nondistended. Bowel sounds present. Neuro: A&O x3. No focal neurological deficits. Results & Data Results & Data Vital Signs (Past 12 Hours) Vital Signs Temp Pulse Pulse Resp BP Pulse Ox O2 Del Method 01/17/24 07:41 97.7 F 75 18 163/88 H 90 Room Air 01/17/24 03:14 98.2 F 91 H 20 168/93 H 91 Room Air 01/16/24 22:59 97.9 F 80 20 161/107 H 95 Room Air 01/16/24 22:02 79 01/16/24 20:36 98.2 F 79 18 164/80 H 94 Room Air 01/16/24 20:35 Room Air Laboratory Results Reviewed CBC Reviewed BMP PG Care Time/CCT Total # of Minutes Spent Total Time Spent with Patient: Total time spent is greater than 50% in coordination of care (as documented) at patient's floor/unit and/or counseling patient: Coding Diagnoses Pulmonary embolism on right I26.99 Acute UTI N39.0 Acute kidney injury superimposed on CKD N17.9; N18.9 Deep vein thrombosis, lower left extremity I82.402
[2024-01-17 08:10] LABS: Basophils # (auto) 0.02 K/uL (0.00-0.20); Basophils % (auto) 0.5 %; Eosinophils # (auto) 0.38 K/uL (0.00-0.50); Eosinophils % (auto) 8.6 %; Hematocrit (blood only) 36.2 % (37.0-47.0); Immature Granulocytes # (auto) 0.01 K/uL (0.01-0.20); Immature Granulocytes % (auto) 0.2 %; Lymphocytes # (auto) 0.85 K/uL (1.20-3.40); Lymphocytes % (auto) 19.1 %; Mean Corpuscular Hemoglobin 32.4 pg (25.0-34.0); Mean Corpuscular Hgb Conc 33.1 g/dL (32.0-36.0); Mean Corpuscular Volume 97.8 fL (80.0-100.0); Mean Platelet Volume 10.2 fL (9.4-12.4); Monocytes # (auto) 0.45 K/uL (0.11-0.59); Monocytes % (auto) 10.1 %; Neutrophils # (auto) 2.73 K/uL (1.40-6.50); Neutrophils % (auto) 61.5 %; Platelet Count 150 K/uL (130-400); RDW Coefficient of Variation 14.7 % (11.5-14.5); RDW Standard Deviation 53.2 fL (36.4-46.3); White Blood Count 4.44 K/ul (4.8-10.8)
[2024-01-17 08:18] LABS: Albumin Level 3.3 gm/dl (3.4-5.0); Calcium 8.7 mg/dl (8.6-10.3); Creatinine Clr Calc Pharmacy 40.7 ml/min; Magnesium 1.9 mg/dl (1.7-2.4); Phosphorus 3.3 mg/dl (2.5-4.9)
[2024-01-17 12:00] VITALS: PULSE 77
--- NOTE | 2024-01-17 12:46 | Discharge Summary ---
Discharge Summary Date of Service January 17, 2024 Principal Dx & Hospital Course #1 = Principal Diagnosis (1) Pulmonary embolism on right: Presented with 1 week of progressively worsening chest pain, with shortness of breath at rest and dyspnea on exertion - Chest CTA revealed lobar and segmental PEs in the right upper, right middle, right lower lobes - Venous Doppler study reveals near occlusive thrombus from the mid left superficial femoral vein to popliteal vein. 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 Compared with study from 01/2018, no significant change - Per daughter, patient has history of DVT about 3 years ago for which she was on anticoagulation, but this was stopped after ~2 weeks - Hypercoagulable workup ordered, pending - Initially given heparin drip per protocol with bolus - Transitioned to Eliquis 10 mg PO BID x 7 days, then 5 mg BID after (2) Acute UTI: UA positive on admission, given Ceftriaxone x 2 doses - Urine culture showed mixed skin susana; no further antibiotics needed (3) Acute kidney injury superimposed on CKD: ALVINA superimposed on CKD with creatinine of 1.81 on admission. Baseline Cr 1.46 - Provided IV fluid x 1 L - Creatinine improved 1.27 - Avoid nephrotoxic agents and encourage PO fluid intake (4) Deep vein thrombosis, lower left extremity: As noted above Plan Chronic Stable Issues - GERD: Tums every hour as needed - Multiple medication sensitivities: Noted Of note, patient is not up-to-date on breast cancer or colon cancer screenings VTE PPx: Heparin CODE STATUS: Full code Notes For Next Care Provider Presented with PEs/DVT. History of DVT previously - per daughter "about 3 years ago and had anticoagulant medication for 2 week then nothing further." Discharged on Eliquis. Of note, patient is not up-to-date on breast cancer or colon cancer screenings Medication Changes From Visit Started Eliquis - 10 mg BID x 7 days, then 5 mg BID after Admission HPI Per Admitting Provider The patient is an 83-year-old female with past medical history including multiple medication sensitivities, presence of pessary, mild cognitive impairment, insomnia, chronic venous insufficiency, CKD stage IIIb, alveolar emphysema of lung, GERD, uterine prolapse, hypertension, and COPD. Due to the symptoms as noted above, she called her software programmer office today, advised her to come to the ED for assessment. At home she had noted that her pulse ox had dropped into the high 80s, and systolic blood pressure was in the 90s. Her daughter reports that her mother does have a history of DVT, and thinks it was in the left leg, for which she was on anticoagulation, but was stopped at an unknown interval. Discharge Exam General: No acute distress, nondiaphoretic, well-developed, well-nourished. Skin: Warm, dry. Without rashes, erythema, or bruising. Chronic lymphedema to lower extremities bilaterally. Cardiac: Regular rate and rhythm without murmurs gallops or rubs. Pulm: Clear to auscultation bilaterally without wheezes, rales or rhonchi. No respiratory distress. 93% on room air. Abdominal: Soft, nontender, nondistended. Bowel sounds present. Neuro: A&O x3. No focal neurological deficits. Discharge Plan Discharge Items Patient Disposition: Home - Self-Care Reason For Visit: SOB. LOW BP, O2 LEVEL DROPPING Discharge Diagnosis: Pulmonary embolism, DVT Activity: Resume your previous activity Non-emergency contact: Primary Care Provider Call non-emergency contact if: you have any medication questions and your symptoms worsen Follow-up/Referrals: Heather Haile, [Primary Care Provider] - (Follow-up in 1 week) Diet: Heart Healthy Addtl Attending Provider Instructions: Mrs. Callahan, Kwaku were admitted to the hospital with pulmonary embolisms (PEs) in your right lung, as well as DVTs in your left leg. This is what caused your symptoms of shortness of breath and chest pain. You were treated with IV heparin while in the hospital, then transition to oral Eliquis (blood thinner) which she will continue taking at home. You had an echocardiogram (ultrasound of your heart) which was overall unremarkable and showed no significant change from your last study in January 2018. Your urine culture was negative, so no further antibiotics are needed. Upon discharge from the hospital: * Take Eliquis 10 mg twice daily until 01/23/2024 AM dose. Your prescription is written for 5 mg tablets, so while taking the 10 mg dosing, please take TWO 5 mg tablets in the AM and PM (to equal 10 mg per dose). * Then take Eliquis 5 mg twice daily starting 01/23/2024 with your evening dose. * Continue your other home medications as prescribed. * Follow-up with your PCP in 1 week. Please return to the hospital if you experience any of the following: Chest pain, trouble breathing, fast heartbeat, sweating, fainting, heavy or uncontrolled bleeding, pain/swelling/redness in your leg/arm/other body area, confusion, or any other symptoms concerning for you. It was a pleasure taking care of you while you were in the hospital, Jennifer Saavedra PA-C Pending Studies at Discharge: Yes Studies:: Hypercoagulable workup Stand-Alone Forms: My [facility], Smoking Cessation Medications and DC Order Prescriptions: New Eliquis 5 mg Tablet 5 mg PO BID Qty: 70 0RF Rx Instructions: 10mg BID x 7 days (dispense 28, 5 mg tabs), followed by 5mg BID x 21 days (dispense 42, 5 mg tabs) Continued Trelegy Ellipta 100-62.5-25 mcg blister with device 1 inh inhalation QAM Qty: 60 12RF loratadine 10 mg tablet 5 mg PO QAM Rx Instructions: Patient normal take 1/2 tablet but she took a whole tab today. 01/15/2024 valacyclovir 500 mg tablet 500 mg PO QAM PRN (Reason: hives) metoprolol succinate 50 mg tablet extended release 24 hr 50 mg PO QAM chlorthalidone 25 mg tablet 25 mg PO .SEE ATTACHED Rx Instructions: Monday, Monday and Monday famotidine 20 mg tablet 20 mg PO BID [id number]-[id number] oil [Fish Oil] 720-1,200 mg Capsule 1 cap PO DAILY Discharge Orders: Discharge Order (Routine); Ordered 01/17/24 Ordered By: Jennifer Alarcon/Other Patient Handouts: DVT Dc, Pulmonary Embolism Dc Admission Data Admit Date/Time: 01/15/24 21:19 Attending Provider: Luis López Admit Provider: Cameron Blum Primary Care Provider: Heather Haile Other Providers: Cameron Blum Hospital Stay Data Consultations 01/15/24 20:20 ED Decision to Admit Stat Diagnostic Imagining Performed Chest X-Ray 01/15/24 16:31 INDICATION: Difficulty breathing. TECHNIQUE: Frontal radiograph of the chest. COMPARISON: Radiograph from 12/21/2023. FINDINGS: The cardiomediastinal silhouette and pulmonary vasculature appear within normal limits. No infiltrate, pleural effusion or pneumothorax. No acute osseous abnormality evident. IMPRESSION: No acute cardiopulmonary process. Electronically signed by Mariano Wilian 01-15-2024 5:37 PM Chest CTA 01/15/24 17:19 CR Exam(s): CTA CHEST EXAM: CT Angiography Chest With Intravenous Contrast CLINICAL HISTORY: Reason for exam: PE, CP/SOB. TECHNIQUE: Axial computed tomographic angiography images of the chest with intravenous contrast. CTDI is 24.87 mGy and DLP is 846.52 mGy-cm. Automated exposure control was utilized for the study. A dose lowering technique was utilized adhering to the principles of ALARA. MIP reconstructed images were created and reviewed. COMPARISON: No relevant prior studies available. FINDINGS: Pulmonary arteries: Extensive lobar and segmental pulmonary embolism seen in the right upper lobe, right middle lobe and right lower lobe. Aorta: No acute findings. No thoracic aortic aneurysm. Lungs: Discoid atelectasis seen in the lower lobes. No mass. Pleural space: Unremarkable. No significant effusion. No pneumothorax. Heart: Mild cardiomegaly. No significant pericardial effusion. No evidence of right heart strain. Mediastinum: Small hiatus hernia. Bones/joints: No acute fracture. No dislocation. Soft tissues: Unremarkable. Lymph nodes: Unremarkable. No enlarged lymph nodes. IMPRESSION: Lobar and segmental pulmonary embolism in the right upper, right middle and right lower lobes. Communications: Call Doctor Pulmonary Embolism Electronically signed by: Paddy Box MD 01/15/24 20:50 PM Venous Doppler Study 01/15/24 21:08 CR Exam(s): US VENOUS BILATERAL LOWER EXTREMITIES EXAM: US Duplex Bilateral Lower Extremities Veins CLINICAL HISTORY: PE. TECHNIQUE: Real-time duplex ultrasound scan of the bilateral lower extremity veins integrating B-mode two-dimensional vascular structure, Doppler spectral analysis, color flow Doppler imaging and compression. COMPARISON: Left lower extremity venous ultrasound 10/22/2018 FINDINGS: Right deep veins: Unremarkable. No DVT in the right common femoral, femoral, proximal deep femoral or popliteal veins. The veins demonstrate normal color flow, are normally compressible, with normal phasic flow and/or augmentation response. Right superficial veins: Unremarkable. No thrombus in the visualized right great saphenous vein. Left deep veins: Near occlusive thrombus from the mid superficial femoral vein to popliteal vein. Left superficial veins: Echogenic material within the mid and distal greater saphenous vein with compressibility, suggestive of chronic thrombus. Soft tissues: No acute abnormality. No popliteal cyst. IMPRESSION: Near occlusive thrombus from the mid left superficial femoral vein to popliteal vein. Echogenic material within the mid and distal greater saphenous vein with compressibility, suggestive of chronic thrombus. Thrombus was identified as a mobile in the prior ultrasound of 10/22/2018. Communications: Call Doctor DVT acute, progressing Electronically signed by: Jayden Oliver M.D. 01/15/24 23:54 PM Pending Results Patient Have Any Pending Studies at Discharge: Yes Discharge Instructions Given to Patient (Per Discharging Provider) Mrs. Callahan, You were admitted to the hospital with pulmonary embolisms (PEs) in your right lung, as well as DVTs in your left leg. This is what caused your symptoms of shortness of breath and chest pain. You were treated with IV heparin while in the hospital, then transition to oral Eliquis (blood thinner) which she will continue taking at home. You had an echocardiogram (ultrasound of your heart) which was overall unremarkable and showed no significant change from your last study in January 2018. Your urine culture was negative, so no further antibiot ics are needed. Upon discharge from the hospital: * Take Eliquis 10 mg twice daily until 01/23/2024 AM dose. Your prescription is written for 5 mg tablets, so while taking the 10 mg dosing, please take TWO 5 mg tablets in the AM and PM (to equal 10 mg per dose). * Then take Eliquis 5 mg twice daily starting 01/23/2024 with your evening dose. * Continue your other home medications as prescribed. * Follow-up with your PCP in 1 week. Please return to the hospital if you experience any of the following: Chest pain, trouble breathing, fast heartbeat, sweating, fainting, heavy or uncontrolled bleeding, pain/swelling/redness in your leg/arm/other body area, confusion, or any other symptoms concerning for you. It was a pleasure taking care of you while you were in the hospital, Jennifer Saavedra PA-C Total Time Total Time Spent Total Time Spent (In Minutes): Greater than 30 minutes spent completing this discharge process including direct patient care, medication reconciliation, documentation, review of labs and images, and coordination of care. Coding Level of Care Code 86118 INP/OBS DISCH >30 MIN Diagnoses Pulmonary embolism on right I26.99 Acute UTI N39.0 Acute kidney injury superimposed on CKD N17.9; N18.9 Deep vein thrombosis, lower left extremity I82.402
[2024-01-17 13:00] VITALS: O2SAT 95
[2024-01-17 13:25] VITALS: BP 165/113
[2024-01-19 09:27] LABS: PTT LA Screen 33 sec (<=40)
[2024-01-23] MEDS ORDERED: APIXABAN 5 MG TABLET PO SCH (21:00)
== END 2024-01-17 16:02 | disposition home or self-care (01) | DRG 176 ==
LOC: SUATTDRO → ED 16:15 → 2E 21:19 → SUATTDRO 21:19 → 2E 22:37

== ENCOUNTER 2024-12-04 06:46 | Observation (INO) ==
--- NOTE | 2024-12-04 07:21 | Pre Anesthesia Assessment ---
Date of Service December 04, 2024 Pre Sedation Assessment Vital Signs Pulse Resp BP Pulse Ox O2 Del Method 12/04/24 06:59 59 L 17 207/103 H 96 Room Air Cardiovascular + regular rate Respiratory + respiratory effort normal Pre-Sedation Airway Assessment Smoking Status: Former smoker Short, Thick Neck: No Thyromental Distance: < 3.5 Finger Breadths Oral Cavity: + Dentures Mallampati Class: II ASA: ASA2 NPO Status Date of Last Intake of Fluids: 12/03/24 Time of Last Intake of Fluids: 20:00 Date of Last Intake of Solid Food: 12/03/24 Time of Last Intake of Solid Foods: 20:00 Procedure Planning Contraindications for Sedation: none Current Medications Reviewed: Yes Notes The planned sedation has been discussed with the patient. Informed Consent was obtained. I have identified the patient, determined the appropriateness of sedation and have assessed the patient immediately prior to the procedure. All medicine(s) and interventions are by my order.
--- NOTE | 2024-12-04 07:21 | History & Physical Bridge Note ---
Date of Service December 04, 2024 History & Physical Bridge Note I have examined the patient, reviewed the History & Physical and in the interval since the performance of the History & Physical I have noted the following changes of clinical significance: no changes noted
[2024-12-04] MEDS: niCARdipine 2,000 MCG/20 ML SYR ONE (08:33)
[2024-12-04] MEDS: NITROGLYCERIN/D5W 100MCG/ML 20ML SYR ONE (08:33)
[2024-12-04 09:15] LABS: iSTAT Art Bld Gas Base Excess 0.0 mmol/L (-9-1.8)
[2024-12-04 09:20] LABS: iSTAT Art Bld Gas Base Excess 1.0 mmol/L (-9-1.8)
[2024-12-04] MEDS: MIDAZOLAM HCL 1 MG/ML 2ML VIAL ONE ×3 (09:59→10:00)
[2024-12-04] MEDS: IODIXANOL (VISIPAQUE) 320 MG/ML 100ML IV ONE (10:00)
[2024-12-04] MEDS: HEPARIN (PORCINE) 1000 UNIT/ML 10 ML (CATH LAB USE ONLY) ONE (10:00)
[2024-12-04] MEDS: CLOPIDOGREL BISULFATE 300 MG TAB ONE (10:00)
--- NOTE | 2024-12-04 10:02 | Post Anesthesia Assessment ---
Date of Service December 04, 2024 Post Sedation Assessment Vital Signs Pulse Resp BP Pulse Ox O2 Del Method 12/04/24 06:59 59 L 17 207/103 H 96 Room Air Recovery Score Activity: Moves 4 extremities Respiration: Deep Breath/Cough Circulation: +/-20% PreAnes Value Consciousness: Fully Awake Oxygen Saturation: O2 needed for >90% Discharge Sedation Level of Care: Fast Track Phase II
--- NOTE | 2024-12-04 10:09 | Cardiac Catheterization ---
[facility] Data: Paramedic Cardiac Status Clinical evaluation leading to the procedure CAD Presenation: Positive Stress Test and Sx unlikely to be ischemic Diagnostic Physicians Name: Ankit Price MD Closure Device Recommendations: PCI without planned CABG Cardiac Cath Procedure Full Procedure Date December 04, 2024 Pre-Procedure Diagnosis Pre-Procedure Diagnosis: Positive Stress Test, Arrhythmia and Cardiothoracic Symptom (dyspnea on exertion) AUC Score AUC Score: 7 Post-Procedure Diagnosis Post-Procedure Diagnosis: Severe CAD, Successful PCI and Normal Intracardiac Pressures Procedure(s) Performed Procedure(s) Performed: Coronary Angiography, Left Heart Cath, Right Heart Cath, Drug Eluting Stent, Ultrasound Guided Vascular Access and IVUS Residential Aide Ankit Price MD Plant Wrapper(s) Mario Estimated Blood Loss Estimated Blood Loss: 20 Medication(s) Medication(s): Clopidogrel, Fentanyl, Heparin, Lidocaine 1%, Nicardipine, Nitroglycerin and Versed Summary of Findings Indication: Abnormal stress test, exertional dyspnea, ventricular tachycardia on ambulatory monitoring Access: 6 Fr slender right radial artery under ultrasound guidance, 7 Fr slender right IJ under ultrasound guidance Catheters: Reading, diagnostic JL 4, JL 3.5 guide, 7 Fr latex free [place] Findings: LM -normal caliber, no significant disease LAD -medium caliber, 30% proximal disease, mid segment luminal irregularities, distal vessel extends to apex. Small diagonals without significant disease per Circumflex -medium caliber, 70% proximal stenosis, mid segment luminal irregularities. Tortuous, medium caliber OM 2 without significant disease. RCAdominant, medium caliber, 60-70% ostial stenosis with waveform dampening with catheter engagement. 30% mid segment disease. Distal vessel and PDA/RPAV without significant disease. RA 2 RV 33/5 PA 31/11 (19) PAWP 10 LV 10 PaSat 69% AoSat 95% [place] CO/CI 6.4/3.2 Thermo CO/CI 3.3/1.7 -- PCI of circumflex-- Antithrombotic therapy: Heparin, clopidogrel Procedure: Left main cannulated with EBU 3.5 guide Pre-procedure flow KARAN 3 [place] Omniwire normalized and navigated across proximal circumflex stenosis. IFR 0.96 Repeat angiography stenosis appeared more severe and with abnormal stress test and lateral wall distribution further assessment with IVUS Omni wire removed and replaced with developmental mathematics instructor 50 wire IVUS showed minimally calcified, heterogeneous proximal atherosclerotic plaque in proximal segment extending just back to ostium. No significant left main disease. Decision to proceed with PCI. After vessel sizing with IVUS proximal circumflex directly stented with 3.0 x 15 mm Xience drug-eluting stent Stent post-dilated with 3.5 noncompliant balloon Repeat IVUS showed well apposed, well-expanded stent with no apparent edge complications. IC vasodilators administered for spasm Post procedure KARAN 3 flow, stent well expanded with minimal residual stenosis and no apparent cardiac complications. Arterial Closure: TR band Summary: 1. Multivessel coronary artery disease - 70% proximal circumflex (75 to 85% heterogeneous plaque by IVUS). 60% ostial RCA with waveform dampening with catheter engagement 2. Normal left and right sided filling pressures 3. Normal pulmonary artery pressure. 4. Preserved cardiac output 5. Successful PCI of proximal circumflex with single drug-eluting stent (3.0 x 50 mm Xience; postdilated with 3.5 NC). Recommendations: Reloaded with clopidogrel 300 mg in Paramedic Continue dual-antiplatelet therapy for 6 months people tolerate (reported allergy to aspirinringing in ears) Continue statin, and ASCVD risk factor modification If continued exertional symptoms or recurrent VT consider PCI of ostial RCA Hemodynamics Rest Ao:: 178/75/117 Final Ao: 182/69/115 LV: 161/9 Recommendations Recommendations: PCI without planned CABG Radiation Exposure (mGy) 1690 Contrast (mls) 75 Anesthesia Moderate [id number] Procedural Complication(s) None Disposition Paramedic Holding/Recovery I attest to the content of the Intraoperative Record and any orders documented therein. Any exceptions are noted below. [employer] Card Cath Procedure Codes Cardiac Catheterization Procedure 1: Cardiovascular Cath Procedures: 14462 Coronaries & LHC (+/-LV) & RHC Procedure 2: Cardiovascular Cath Procedures: 82960 (Doppler) Pressure Wire Therapeutic Services & Ancillary Procedure 1: Cardiovascular Tx and Anc Procedures: 94289 Ultrasonic Guidance Vascular Access Procedure 2: Cardiovascular Tx and Anc Procedures: 17294 IV Ultrasound (Coronary or Graft) Procedure 3: Cardiovascular Tx and Anc Procedures: 12318 Ultrasonic Guidance Vascular Access Moderate Sedation Procedure 1: Sedation/Anesthesia: 02645 Mod Sedation by the same physician;Init15 Min Child Age 5 & Up Procedure 2: Sedation/Anesthesia: 78782 Mod Sedation by the same physician; Ea [id number] Minutes Stenting Procedure 1: Cardiovascular Stent Procedures: 87846 Perc transcatheter placement of intracoronary stent(s), with ang PG Care Time/CCT Total # of Minutes Spent Total Time Spent with Patient: Total time spent is greater than 50% in coordination of care (as documented) at patient's floor/unit and/or counseling patient:
[2024-12-04] MEDS ORDERED: NITROGLYCERIN SL 0.4 MG/TAB TAB SL PRN (13:50)
[2024-12-04] MEDS ORDERED: ACETAMINOPHEN 325 MG TAB PO PRN (13:50)
[2024-12-04] MEDS ORDERED: ONDANSETRON INJ 2 MG/ML 2 ML VIAL IV PRN (13:50)
[2024-12-04] MEDS ORDERED: MECLIZINE HCL 25 MG TAB PO PRN (13:52)
[2024-12-04] MEDS: METOPROLOL SUCC 50MG EXT REL TAB PO SCH (14:21)
[2024-12-04] MEDS: ASPIRIN 81 MG CHEW ONE (14:21)
[2024-12-04] MEDS: FAMOTIDINE 20 MG TAB PO SCH (20:09)
--- NOTE | 2024-12-04 21:19 | Electrocardiogram Report ---
Test Reason : Blood Pressure : */* mmHG Vent. Rate : 52 BPM Atrial Rate : 52 BPM P-R Int : 244 ms QRS Dur : 80 ms QT Int : 476 ms P-R-T Axes : 43 4 20 degrees QTcB Int : 442 ms Sinus bradycardia with 1st degree A-V block Possible Anterior infarct (cited on or before 09-Feb-2024) Abnormal ECG When compared with ECG of 09-Feb-2024 12:14, No significant change was found Confirmed by Zeferino Valdivia ([id number]) on 12/04/2024 9:19:26 PM Referred By: Ling Alvarado Confirmed By: Zeferino Valdivia
--- NOTE | 2024-12-04 21:20 | Electrocardiogram Report ---
Test Reason : Blood Pressure : */* mmHG Vent. Rate : 54 BPM Atrial Rate : 54 BPM P-R Int : 232 ms QRS Dur : 74 ms QT Int : 454 ms P-R-T Axes : 79 25 41 degrees QTcB Int : 430 ms Sinus bradycardia with 1st degree A-V block When compared with ECG of 04-Dec-2024 10:43, No significant change was found Confirmed by Zeferino Valdivia ([id number]) on 12/04/2024 9:19:56 PM Referred By: Ling Alvarado Confirmed By: Zeferino Valdivia
[2024-12-05 05:11] LABS: Hematocrit (blood only) 34.8 % (37.0-47.0); Hemoglobin 11.8 g/dl (12.0-16.0); Immature Granulocytes # (auto) 0.02 K/uL (0.01-0.20); Immature Granulocytes % (auto) 0.4 %; Mean Corpuscular Hemoglobin 31.9 pg (25.0-34.0); Mean Corpuscular Volume 94.1 fL (80.0-100.0); Platelet Count 183 K/uL (130-400); RDW Standard Deviation 51.0 fL (36.4-46.3); Red Blood Count 3.70 M/uL (4.20-5.40); White Blood Count 5.42 K/ul (4.8-10.8)
[2024-12-05 05:23] LABS: Anion Gap 8.0 (3-11); Blood Urea Nitrogen 26.0 mg/dl (6-23); Calcium 8.7 mg/dl (8.6-10.3); Carbon Dioxide 27.0 mmol/L (21-32); Chloride 103.0 mmol/L (98-107); Creatinine Clr Calc Pharmacy 32.9 ml/min; Glucose 102.0 mg/dl (70-99(Fasting)); Potassium 3.8 mmol/L (3.5-5.1); Sodium 138.0 mmol/L (136-145)
[2024-12-05] MEDS: ASPIRIN 81 MG ECTAB PO SCH (08:23)
[2024-12-05] MEDS: CHLORTHALIDONE 25 MG TAB PO SCH (08:23)
[2024-12-05] MEDS: UMECLIDINIUM/VILANTEROL 62.5/25MCG 7 PUFFS/INHALER INH SCH (08:24)
[2024-12-05] MEDS: PRAVASTATIN SOD 20 MG TAB PO SCH (08:24)
[2024-12-05] MEDS: FLUTICASONE FUROATE 100MCG 14 PUFFS/INHALER INH SCH (08:24)
[2024-12-05] MEDS: CLOPIDOGREL BISULFATE 75 MG TAB PO SCH (08:24)
[2024-12-05] MEDS: CYANOCOBALAMIN (B-12) 500 MCG TABLET PO SCH (08:24)
[2024-12-05] MEDS ORDERED: NON-FORMULARY MEDICATION (Fluticasone-Umeclidin-Vilanter [Trelegy Ellipta] 100-62.5-25 mcg INH SCH (09:00)
--- NOTE | 2024-12-05 10:12 | Cardiology Progress Note ---
Date of Service December 05, 2024 Assessment & Plan (1) Coronary artery disease: (2) Ventricular tachycardia: (3) WINTER (dyspnea on exertion): (4) Pulmonary embolus: Plan: History of (5) Deep vein thrombosis, lower left extremity: Plan: History of (6) ALEJANDRINA (obstructive sleep apnea): (7) Hemochromatosis: (8) Hypercholesterolemia: Plan Because of the ventricular tachycardia which was actually a sustained, the longest episode on her M cot was for 18 seconds I am recommending that Dr. Price proceed with doing the ostial RCA lesion. Hopefully that will not presented with too many problems or difficulties. She will be maintained on antiplatelet therapy with clopidogrel at this time. At the time of her discharge she will need to be restarted on the Eliquis. She is also getting aspirin while she is here in the hospital. I reviewed her case with Dr. Abdalla we will await his further evaluation. She does have normal ejection fraction on her last echo done at the office. Consideration could be given to medical therapy for the arrhythmias versus implantation of a loop recorder for surveillance. I will follow-up with her after her procedure today. Admission and Anticipated Discharge Date Admission Date: December 04, 2024 Subjective Pt was seen after her [facility] yesterday with Dr. Price-her outpatient information was reviewed and is on the chart. She has had increasing shortness of breath which her family in particular has noticed has gotten worse and she also appreciates this. She does have some baseline dementia but is very pleasant. She was actually seen in pulmonary evaluation by Dr. Meier and he referred her to us for cardiac evaluation. She had a Lexiscan nuclear stress test which was mild only abnormal with lateral ischemia with some perhaps infarct. We discussed medical therapy at that time but she was also complaining of some palpitations and given her prior history of DVT and pulmonary embolus I was concerned that maybe she was having some A-fib. We had her wear an M cot monito r she did not have any A-fib or SVT but she did have sustained episodes of ventricular tachycardia. Because of the ventricular arrhythmias I recommended that we proceed with catheterization. In addition the CAT scan that was done by pulmonary showed a very ostial area of heavy calcification in the area of the RCA. She underwent the cath yesterday with Dr. Price and she was found to have an ostial RCA lesion which dampen the pressure. There was also a proximal circumflex lesion which most likely goes along with the ischemia seen on her stress test. Dr. Price was able to stent her circumflex without issue. Afterwards she was noted to have nonsustained ventricular tachycardia. I reviewed the VT with her daughter in the office and she has been on beta- art we did increase her dose to 100 mg when I saw her earlier this summer. I discussed the arrhythmia with her and I put in the consultation to Dr. Lindsey to see her from an EP standpoint. Review of Systems Review of Systems: All systems reviewed & are unremarkable except as noted in HPI & below Physical Exam Physical Exam: Pleasant awake alert oriented in no distress Respiratory: normal respiratory effort, lungs clear to auscultation Cardiovascular: RRR, no murmur, no edema Results & Data Vital Signs (Past 12 Hours) Vital Signs Temp Pulse Pulse Resp BP Pulse Ox O2 Del Method 12/05/24 07:22 36.7 C 56 L 16 146/80 H 96 Room Air 12/05/24 07:12 54 L 12/05/24 02:59 36.6 C 54 L 18 131/63 94 Room Air 12/04/24 22:51 36.6 C 85 18 130/68 91 Room Air 12/04/24 22:16 56 L Laboratory Results Abnormal lab results 12/04/24 12/05/24 Range/Units 09:41 04:21 RBC 3.70 L (4.20-5.40) M/uL Hgb 11.8 L (12.0-16.0) g/dl Hct 34.8 L (37.0-47.0) % RDW Std Deviation 51.0 H (36.4-46.3) fL RDW Coeff of Analisa 14.7 H (11.5-14.5) % Lymph # (Auto) 1.05 L (1.20-3.40) K/uL Activ Coag Time Kaolin 256 H (94-140) SECONDS BUN 26 H (6-23) mg/dl Creatinine 1.41 H (0.6-1.2) mg/dl Glucose 102 H (70-99(Fasting)) mg/dl Medications Administered Current Inpatient Medications Acetaminophen (Acetaminophen 325 Mg Tab) 650 mg PO Q4H PRN PRN Reason: MILD Pain (Scale 1,2,3) Stop: 01/03/25 13:49 Aspirin (Aspirin 81 Mg Ectab) 81 mg PO QAM [facility] Stop: 01/04/25 08:59 Last Admin: 12/05/24 08:23 Dose: 81 mg Chlorthalidone (Chlorthalidone 25 Mg Tab) 12.5 mg PO DAILY [facility] Stop: 01/04/25 08:59 Last Admin: 12/05/24 08:23 Dose: 12.5 mg Clopidogrel Bisulfate (Clopidogrel Bisulfate 75 Mg Tab) 75 mg PO QAM [facility] Stop: 01/04/25 08:59 Last Admin: 12/05/24 08:24 Dose: 75 mg Cyanocobalamin (Cyanocobalamin (B-12) 500 Mcg Tablet) 1,000 mcg PO DAILY [facility] Stop: 01/04/25 08:59 Last Admin: 12/05/24 08:24 Dose: 1,000 mcg Famotidine (Famotidine 20 Mg Tab) 20 mg PO BID [facility] Stop: 01/03/25 20:59 Last Admin: 12/05/24 08:24 Dose: 20 mg Fluticasone Furoate (Fluticasone Furoate 100mcg 14 Puffs/Inhaler) 1 puffs INH DAILY [facility] Stop: 01/04/25 08:59 Last Admin: 12/05/24 08:24 Dose: 1 puffs Meclizine HCl (Meclizine Hcl 25 Mg Tab) 25 mg PO BID PRN PRN Reason: Dizzy/Vertigo Stop: 01/03/25 13:51 Metoprolol Succinate (Metoprolol Succ 50mg Ext Rel Tab) [facility] Stop: 01/03/25 13:59 Last Admin: 12/05/24 08:23 Dose: 100 mg Nitroglycerin (Nitroglycerin Sl 0.4 Mg/Tab Tab) 0.4 mg SL Q5M PRN PRN Reason: Chest Pain Stop: 01/03/25 13:49 Ondansetron HCl (Ondansetron Inj 2 Mg/Ml 2 Ml Vial) 4 mg IV Q6H PRN PRN Reason: Nausea And Vomiting Stop: 01/03/25 13:49 Pravastatin Sodium (Pravastatin Sod 20 Mg Tab) 20 mg PO DAILY [facility] Stop: 01/04/25 08:59 Last Admin: 12/05/24 08:24 Dose: 20 mg Umeclidinium/Vilanterol (Umeclidinium/Vilanterol 62.5/25mcg 7 Puffs/Inhaler) 1 puffs INH DAILY [facility] Stop: 01/04/25 08:59 Last Admin: 12/05/24 08:24 Dose: 1 puffs ECG Additional Comments: Normal sinus rhythm sinus bradycardia nonspecific ST-T wave changes
--- NOTE | 2024-12-05 13:10 | Pre Anesthesia Assessment ---
Date of Service December 05, 2024 Pre Sedation Assessment Vital Signs Temp Pulse Pulse Resp BP Pulse Ox O2 Del Method 12/05/24 12:27 61 14 167/87 H 97 Room Air 12/05/24 10:30 98.1 F 76 18 146/80 H 96 Room Air 12/05/24 07:22 98.1 F 56 L 16 146/80 H 96 Room Air 12/05/24 07:12 54 L 12/05/24 02:59 97.9 F 54 L 18 131/63 94 Room Air 12/04/24 22:51 97.9 F 85 18 130/68 91 Room Air 12/04/24 22:16 56 L 12/04/24 19:29 97.3 F L 57 L 20 126/73 97 Room Air 12/04/24 17:28 97.7 F 53 L 18 130/80 93 Room Air 12/04/24 16:00 51 L 12/04/24 15:00 97.9 F 52 L 18 154/111 H 95 Room Air 12/04/24 14:30 52 L 18 160/78 H 97 Room Air 12/04/24 14:15 52 L 18 141/70 H 97 Room Air 12/04/24 14:00 52 L 16 148/76 H 96 Room Air 12/04/24 13:45 51 L 16 151/65 H 97 Room Air 12/04/24 13:30 54 L 18 176/74 H 97 Room Air 12/04/24 13:15 53 L 18 167/92 H 96 Room Air Cardiovascular + regular rate Respiratory + respiratory effort normal Pre-Sedation Airway Assessment Smoking Status: Former smoker Hx Sleep Apnea: No Hx Difficult Intubation: No Short, Thick Neck: No Thyromental Distance: > or= 3.5 Finger Breadths Oral Cavity: + Dentures Mallampati Class: III ASA: ASA3 NPO Status Date of Last Intake of Fluids: 12/04/24 Time of Last Intake of Fluids: 20:00 Date of Last Intake of Solid Food: 12/04/24 Time of Last Intake of Solid Foods: 22:00 Procedure Planning Contraindications for Sedation: none Current Medications Reviewed: Yes Notes The planned sedation has been discussed with the patient. Informed Consent was obtained. I have identified the patient, determined the appropriateness of sedation and have assessed the patient immediately prior to the procedure. All medicine(s) and interventions are by my order.
[2024-12-05] MEDS: HEPARIN (PORCINE) 1000 UNIT/ML 10 ML (CATH LAB USE ONLY) ONE (14:11)
[2024-12-05] MEDS: niCARdipine 2,000 MCG/20 ML SYR ONE (14:12)
[2024-12-05] MEDS: NITROGLYCERIN/D5W 100MCG/ML 20ML SYR ONE (14:12)
[2024-12-05] MEDS: ADENOSINE IV SOLN 3 MG/ML 20 ML VIAL IV ONE (14:12)
[2024-12-05] MEDS: MIDAZOLAM HCL 1 MG/ML 2ML VIAL ONE (14:12)
[2024-12-05] MEDS: OPTIRAY 350 ONE (14:13)
[2024-12-05] MEDS: IODIXANOL (VISIPAQUE) 320 MG/ML 100ML IV ONE (14:14)
--- NOTE | 2024-12-05 14:48 | Post Anesthesia Assessment ---
Date of Service December 05, 2024 Post Sedation Assessment Vital Signs Temp Pulse Pulse Resp BP Pulse Ox O2 Del Method 12/05/24 14:28 77 14 178/92 H 96 Room Air 12/05/24 12:27 61 14 167/87 H 97 Room Air 12/05/24 10:30 98.1 F 76 18 146/80 H 96 Room Air 12/05/24 07:22 98.1 F 56 L 16 146/80 H 96 Room Air 12/05/24 07:12 54 L 12/05/24 02:59 97.9 F 54 L 18 131/63 94 Room Air 12/04/24 22:51 97.9 F 85 18 130/68 91 Room Air 12/04/24 22:16 56 L 12/04/24 19:29 97.3 F L 57 L 20 126/73 97 Room Air 12/04/24 17:28 97.7 F 53 L 18 130/80 93 Room Air 12/04/24 16:00 51 L 12/04/24 15:00 97.9 F 52 L 18 154/111 H 95 Room Air Recovery Score Activity: Moves 4 extremities Respiration: Deep Breath/Cough Circulation: +/-20% PreAnes Value Consciousness: Fully Awake Oxygen Saturation: > 92% On Room Air Post Anesthesia Score: 10 Discharge Sedation Level of Care: Fast Track Phase II
--- NOTE | 2024-12-05 17:10 | Cardiac Catheterization ---
[facility] Data: Production Floater Cardiac Status Clinical evaluation leading to the procedure CAD Presenation: Unstable angina Diagnostic Physicians Name: Ankit Price MD Closure Device Recommendations: PCI without planned CABG Cardiac Cath Procedure Full Procedure Date December 05, 2024 Pre-Procedure Diagnosis Pre-Procedure Diagnosis: CAD, Arrhythmia and Cardiothoracic Symptom (dyspnea on exertion) AUC Score AUC Score: 7 Post-Procedure Diagnosis Post-Procedure Diagnosis: Moderate CAD Procedure(s) Performed Procedure(s) Performed: Coronary Angiography, IVUS and Fractional Flow [place] Watch Crystal Cutter Ankit Price MD Barrel And Receiver Aligner(s) Mario Estimated Blood Loss Estimated Blood Loss: 20 Medication(s) Medication(s): Fentanyl, Heparin, Lidocaine 1%, Nicardipine, Nitroglycerin and Versed Summary of Findings Indication: Residual moderate to severe ostial RCA disease. Post PCI to proximal circumflex yesterday. Access: 6 Fr slender right radial artery Catheters: JR4 guide Findings: For details of patient's coronary angiography please see cath report from 12/04/2024. RCAdominant, medium caliber, 60% ostial stenosis. 30% mid segment disease. Distal vessel and PDA/RPAV without significant disease. IVUS of ostial RCA RCA cannulated with JR4 guide (no waveform dampening with guide engagement today). Recruiting Administrator 50 wire navigated into distal RCA Child[place] IVUS catheter placed into proximal RCA IVUS pullback revealed minimal proximal disease until ostium where was noted to have very focal mildly calcified, moderate stenosis (57% by IVUS, MLA 5.1 mm). IVUS catheter removed Ascist FFR catheter normalized and passed across ostial stenosis into mid RCA Pd/Pa 0.97 FFR 0.92 Catheter and wire removed. Repeat angiography revealed no apparent complications. Arterial Closure: TR band Summary: 1. Moderate 50-60% ostial RCA disease 55 to 60% by IVUS (MLA 5.1 mm) Nonobstructive by FFR (0.92). Recommendations: No need for PCI of ostial RCA at this time. Recommend continued medical management and ASCVD risk factor modification post PCI to circumflex yesterday. Hemodynamics Rest Ao:: 149/68/100 Final Ao: 181/68/122 LV: -- Recommendations Recommendations: PCI without planned CABG Radiation Exposure (mGy) 269 Contrast (mls) 25 Anesthesia Moderate 2535-4960 Procedural Complication(s) None Disposition PCU I attest to the content of the Intraoperative Record and any orders documented therein. Any exceptions are noted below. [facility] Card Cath Procedure Codes Cardiac Catheterization Procedure 1: Cardiovascular Cath Procedures: 69498 (Doppler) Pressure Wire Therapeutic Services & Ancillary Procedure 1: Cardiovascular Tx and Anc Procedures: 69467 IV Ultrasound (Coronary or Graft) Moderate Sedation Procedure 1: Sedation/Anesthesia: 82938 Mod Sedation by the same physician;Init15 Min Child Age 5 & Up Procedure 2: Sedation/Anesthesia: 23806 Mod Sedation by the same physician; Ea [id number] Minutes PG Care Time/CCT Total # of Minutes Spent Total Time Spent with Patient: Total time spent is greater than 50% in coordination of care (as documented) at patient's floor/unit and/or counseling patient:
--- NOTE | 2024-12-05 17:35 | Cardiology Consultation ---
Date of Consultation December 05, 2024 Assessment & Plan (1) Ventricular tachycardia: Plan 1. Ventricular tachycardia: While there is no recording of yesterday's episode of ventricular tachycardia, prior episodes do not appear to be sustained either by duration or symptom. She does have a history of coronary disease, she has preserved LV systolic function without structural abnormalities. Reportedly her diagnosis of hemochromatosis and possibly associated first-degree AV block. However, unlikely to be associated with more malignant arrhythmias at this stage. Unclear if her symptoms of dizziness are associated with ventricular tachycardia. They do not sound classic for involvement of an arrhythmia. Perhaps with revascularization we will see less ventricular ectopy and ventricular tachycardia. This point I think would be reasonable continue on her current dose of beta-blockade and perform additional outpatient monitoring with an attempt to correlate any symptoms of dizziness with ventricular tachycardia. I do not believe she currently meets criteria for an ICD as either primary or secondary prevention of sudden cardiac . Unless she has an episode of sustained VT involving syncope significant hemodynamic derangement or lasting over a minute, I do not think she requires device therapy. However, for brief episodes of symptomatic VT we could intensify her medical therapy to include amiodarone. History of Present Illness Reason for Consultation: Ventricular tachycardia Requesting Physician: Jenny Attending Physician: Ankit Price MD History of Present Illness Patient is an 84-year-old woman with a prior cardiac history to include PVCs, SVT, possible atrial fibrillation, coronary calcification (now discovered to have obstructive coronary disease), pulmonary embolus and hemochromatosis. It seems the patient was being evaluated for exertional dyspnea on an outpatient basis. Her evaluation included both cardiac perfusion imaging as well as outpatient rhythm monitoring. She was noted to have a perfusion defect on her cardiac testing and underwent coronary angiography yesterday revealing a circumflex lesion requiring intervention. She was also noted to have ostial right coronary disease, the significance of which will be evaluated later today with repeat catheterization. The patient's outpatient monitoring also revealed an episode of ventricular tachycardia lasting 18 seconds. No atrial fibrillation. During her recovery from catheterization yesterday she was reported to have an episode of ventricular tachycardia that was nonsustained. No symptoms associated with that episode. Some SVT on her monitoring overnight but no recurrent episodes of ventricular tachycardia. The patient is known to suffer from some cognitive decline. She may be an unreliable historian but did not report any specific symptoms of dizziness or palpitation to me today. Her primary concern was some breathing difficulty which appears occur with very limited exertion. She states that with taking only a few steps she will be quite short of breath. She has taken to ambulating with assistive devices such as a walker. She is able to do some shopping through [employer] when she uses a cart as a walker. However, she gets quite fatigued and short of breath. No exertional chest pain. Her daughter was present for the interview today and does report some episodes of dizziness at times. Some of this appears to occur after she has been up and active. Neither the mother or the daughter report any episodes of true syncope. Allergies Allergy/AdvReac Type Severity Reaction Status Date / Time bupropion Allergy Intermediate EXTREME Verified 12/04/24 07:19 AGITATION buspirone Allergy Intermediate TINNITUS,HO Verified 12/04/24 07:19 STILITY hydroxyzine Allergy Intermediate AGITATION Verified 12/04/24 07:19 ibuprofen Allergy Intermediate AGITATION Verified 12/04/24 07:19 lansoprazole Allergy Intermediate Rash Verified 12/04/24 07:19 trazodone Allergy Intermediate TINNITUS, Verified 12/04/24 07:19 INSOMNIA ziprasidone Allergy Intermediate VISUAL Verified 12/04/24 07:19 DISTURBANCE,INSOMNIA aripiprazole Allergy Mild RASH Verified 12/04/24 07:19 aspirin Allergy Mild RINGING IN Verified 12/04/24 07:19 EARS lamotrigine Allergy Mild EYE SORES Verified 12/04/24 07:19 latex Allergy Mild RASH Verified 12/04/24 07:19 morphine Allergy Mild AGITATION Verified 12/04/24 07:19 omeprazole Allergy Mild Hiccups Verified 12/04/24 07:19 risperidone Allergy Mild BREATHING Verified 12/04/24 07:19 PROBLEMS sulfamethoxazole Allergy Mild NAUSEA Verified 12/04/24 07:19 trimethoprim Allergy Mild RASH Verified 12/04/24 07:19 aspartame Allergy Unknown Verified 12/04/24 07:19 sucralose Allergy Unknown Verified 12/04/24 07:19 citalopram AdvReac Intermediate HEADACHE, Verified 12/04/24 07:19 SLEPT 3 DAYS diazepam AdvReac Intermediate INSOMNIA,AG Verified 12/04/24 07:19 ITATION paroxetine AdvReac Intermediate MIND Verified 12/04/24 07:19 RACED,SLEPT 3 DAYS temazepam AdvReac Intermediate INSOMNIA Verified 12/04/24 07:19 venlafaxine AdvReac Intermediate SLEPT FOR Verified 12/04/24 07:19 3 DAYS doxycycline AdvReac Mild VOMITING Verified 12/04/24 07:19 hydrocodone AdvReac Mild NAUSEA Verified 12/04/24 07:19 lithium AdvReac Mild URINATION Verified 12/04/24 07:19 lorazepam AdvReac Mild INSOMNIA, Verified 12/04/24 07:19 ICTHING tetracycline AdvReac Mild NAUSEA Verified 12/04/24 07:19 baclofen AdvReac Vomiting Unverified 12/04/24 07:19 diphenhydramine AdvReac Agitated Unverified 12/04/24 07:19 estrogens, conjugated AdvReac Vaginal Unverified 12/04/24 07:19 [From Premarin] Bleeding hydralazine AdvReac Chills Unverified 12/04/24 07:39 hydrochlorothiazide AdvReac Unknown Unverified 12/04/24 07:19 memantine AdvReac Hallucinati Unverified 12/04/24 07:19 ng monosodium glutamate AdvReac Unknown Verified 12/05/24 14:11 quetiapine AdvReac Unknown Unverified 12/04/24 07:19 Home Medications Medication Instructions Recorded Confirmed Type valacyclovir 500 mg tablet 500 mg PO QAM hives 02/01/18 12/04/24 History omega-3s 720 mg-dha 300 mg-epa 360 1 cap PO DAILY 01/15/24 12/04/24 History mg-fish oil 1,200 mg capsule apixaban 5 mg tablet (Eliquis) 5 mg PO BID #70 tabs 01/17/24 12/04/24 Rx meclizine 25 mg tablet 25 mg PO BID PRN Dizzy/Vertigo 01/30/24 12/04/24 History loratadine 5 mg disintegrating 5 mg PO DAILY 05/29/24 12/04/24 History tablet (Claritin RediTabs) mecobalamin (vitamin B12) 1,000 1,000 mcg PO DAILY 05/29/24 12/04/24 History mcg chewable tablet Auto Titrating CPAP #1 ea 08/14/24 12/04/24 Rx fluticasone fur. 100 mcg-umeclid 1 inh inhalation QAM #60 ea 08/14/24 12/04/24 Rx 62.5 mcg-vilant 25 mcg inhalat.powder (Trelegy Ellipta) CPAP Supplies #1 ea 11/15/24 12/04/24 Rx chlorthalidone 12.5 mg tablet 12.5 mg PO DAILY 11/25/24 12/04/24 History clopidogrel 75 mg tablet (Plavix) 75 mg PO DAILY 11/25/24 12/04/24 History famotidine 20 mg tablet 20 mg PO BID 11/25/24 12/04/24 History metoprolol succinate 50 mg 100 mg PO QAM 11/25/24 12/04/24 History tablet,extended release 24 hr pravastatin 20 mg tablet 20 mg PO DAILY 11/25/24 12/04/24 History Patient History Medical History Postmenopausal bleeding Thickened endometrium Acute kidney injury superimposed on CKD History of COVID-19 Paroxysmal SVT (supraventricular tachycardia) Tachy-rosalinda syndrome Asthma Superficial vein thrombosis History of DVT of lower extremity Optic pit, left History of anxiety Surgical History History of liver biopsy History of dilatation and curettage History of colonoscopy History of tooth extraction H/O cataract removal with insertion of prosthetic lens History of tubal ligation History of elbow surgery History of tonsillectomy History of breast biopsy Family History Aunt No problems noted. Brother Prostate cancer Daughter Family history of reaction to anesthesia Other Cancer Coronary heart disease Thyroid disease Denies family history of Ovarian cancer Breast cancer Colorectal cancer Social History Smoking Status: Former smoker Tobacco Type: Pipe Age Started Using Tobacco: 35; Age Quit Using Tobacco: 81; Cigarettes Per Day: PER PATIENT 12/19/2019: LESS THAN 8 BOWLS/DAY; Second Hand Exposure: Yes (hx years ago); Do You Dip or Chew Tobacco: No; Hx Alcohol Use: No Hx Substance Use: No Preferred Language: French Communication Ability: Effective Visual Impairment: Partially Limited Hearing Ability: Normal Motion Picture Set Worker Required: No Beliefs That Will Affect Care: None Current Living Situation: Family Current Living Situation Comment: sister and son current occupational status: retired Feels Safe at Home: Yes Diet: regular caffeine: Yes (hot tea or iced tea 3-4 cups daily, occasional soda) Seatbelt Use: always Do you think of yourself as: straight/heterosexual Gender Identity: Female Assistive Devices: CPAP and Walker Review of Systems Review of Systems: Per HPI Physical Exam Physical Exam: She is alert and oriented x3. Mood affect appear normal. She answered all questions appropriately. HEENT: Sclerae are anicteric. Pupils are equal and reactive to light and accommodation. Extraocular movements were intact. Neuro: Cranial nerves intact Lungs: Lungs are clear to auscultation bilaterally. There are no rales wheezes or rhonchi. She has normal respiratory effort without use of accessory muscles. There is normal pulmonary excursion. Cardiac: The rhythm was regular. S1 and S2 were normal. There are no murmurs on examination. The PMI was not markedly displaced on palpation. Abdomen: The abdomen was soft and nontender. Extremities: Patient has bilateral radial pulses that are equal in intensity. Bandage on the right radial artery. Good perfusion of the right hand. There is no evidence cyanosis or clubbing. Moderate lower extremity edema bilaterally Skin: There are no rashes noted on examination today. Results & Data Vital Signs (Past 12 Hours) Vital Signs Temp Pulse Pulse Resp BP Pulse Ox O2 Del Method 12/05/24 17:02 64 18 127/80 93 Room Air 12/05/24 14:50 77 14 166/85 H 96 Room Air 12/05/24 14:45 77 14 195/79 H 96 Room Air 12/05/24 14:28 77 14 178/92 H 96 Room Air 12/05/24 14:00 55 L 12/05/24 12:27 61 14 167/87 H 97 Room Air 12/05/24 10:30 36.7 C 76 18 146/80 H 96 Room Air 12/05/24 07:22 36.7 C 56 L 16 146/80 H 96 Room Air 12/05/24 07:12 54 L Laboratory Results Abnormal Lab Results 12/05/24 04:21 WBC 5.42 RBC 3.70 L Hgb 11.8 L Hct 34.8 L MCV 94.1 MCH 31.9 MCHC 33.9 RDW Std Deviation 51.0 H RDW Coeff of Analisa 14.7 H Plt Count 183 MPV 10.8 Immature Gran % (Auto) 0.4 Neut % (Auto) 65.8 Lymph % (Auto) 19.4 [place] % (Auto) 10.3 Eos % (Auto) 3.5 Baso % (Auto) 0.6 Neut # (Auto) 3.57 Lymph # (Auto) 1.05 L [place] # (Auto) 0.56 Eos # (Auto) 0.19 Baso # (Auto) 0.03 Immature Gran # (Auto) 0.02 Sodium 138 Potassium 3.8 Chloride 103 Carbon Dioxide 27 Anion Gap 8 BUN 26 H Creatinine 1.41 H Est Cr Clr Drug Dosing 32.9 eGFR 37.24 BUN/Creatinine Ratio 18.4 Glucose 102 H Calcium 8.7 Diagnostic Findings Echocardiogram 09/02/2024: Essentially normal with ejection fraction of 60 to 65%. No regional wall motion abnormalities. Mild LVH. No significant valvular heart disease. Event monitor dated 11/16/2024: Frequent episodes of nonsustained VT and 1 episode of VT lasting 18 seconds. ECG Additional Comments: EKG obtained today revealed normal sinus rhythm with first-degree AV block. No other significant abnormalities. PG Care Time/CCT Total # of Minutes Spent Total Time Spent with Patient: Total time spent is greater than 50% in coordination of care (as documented) at patient's floor/unit and/or counseling patient: Coding Level of Care Code 71309 INT INP/OBS CARE 3/75MIN Diagnoses Ventricular tachycardia I47.20
--- NOTE | 2024-12-05 21:01 | Electrocardiogram Report ---
Test Reason : Blood Pressure : */* mmHG Vent. Rate : 60 BPM Atrial Rate : 60 BPM P-R Int : 236 ms QRS Dur : 84 ms QT Int : 444 ms P-R-T Axes : 40 24 33 degrees QTcB Int : 444 ms Sinus rhythm with 1st degree A-V block When compared with ECG of 04-Dec-2024 13:33, No significant change Confirmed by Zeferino Valdivia ([id number]) on 12/05/2024 9:01:08 PM Referred By: Ling Alvarado Confirmed By: Zeferino Valdivia
[2024-12-06 06:37] LABS: Hematocrit (blood only) 35.5 % (37.0-47.0); Hemoglobin 12.1 g/dl (12.0-16.0); Immature Granulocytes # (auto) 0.01 K/uL (0.01-0.20); Immature Granulocytes % (auto) 0.2 %; Mean Corpuscular Hemoglobin 31.9 pg (25.0-34.0); Mean Corpuscular Volume 93.7 fL (80.0-100.0); Platelet Count 186 K/uL (130-400); RDW Standard Deviation 51.2 fL (36.4-46.3); Red Blood Count 3.79 M/uL (4.20-5.40); White Blood Count 4.35 K/ul (4.8-10.8)
[2024-12-06 06:57] LABS: Anion Gap 8.0 (3-11); Blood Urea Nitrogen 25.0 mg/dl (6-23); Calcium 8.9 mg/dl (8.6-10.3); Carbon Dioxide 27.0 mmol/L (21-32); Chloride 103.0 mmol/L (98-107); Creatinine Clr Calc Pharmacy 34.6 ml/min; Glucose 99.0 mg/dl (70-99(Fasting)); Potassium 3.8 mmol/L (3.5-5.1); Sodium 138.0 mmol/L (136-145)
[2024-12-06 07:32] VITALS: PULSE 59; RESP 18; TEMP 97.9; O2SAT 95
[2024-12-06 09:36] VITALS: BP 183/89
--- NOTE | 2024-12-07 12:15 | Discharge Summary ---
Date of Service December 07, 2024 Admission HPI Per Admitting Provider Mrs. Callahan is a very pleasant 84 year old woman who was referred for cardiac catheterization in the setting of abnormal stress test and prolonged runs of NSVT on prior ambulatory monitoring. Discharge Data Consultations 12/05/24 08:37 Consult Cardiac Electrophysiology Routine Procedures Performed Operation Date: 12/05/24 13:30 Actual Procedures p Cineradiography w/Routine Exam - Ankit Price MD p Cath, Coronaries ONLY (no LV) - Ankit Price MD s Fraction Flow Sparks SGL Ves - Ankit Price MD s IVUS Coronary Single Vessel - Ankit Price MD Hospital Course (1) Coronary artery disease: Plan Underwent cardiac catheterization via right radial artery. Findings: 1. Multivessel coronary artery disease - 70% proximal circumflex (75 to 85% heterogeneous plaque by IVUS). 60% ostial RCA with waveform dampening with catheter engagement 2. Normal left and right sided filling pressures 3. Normal pulmonary artery pressure. 4. Preserved cardiac output 5. Successful PCI of proximal circumflex with single drug-eluting stent (3.0 x 50 mm Xience; postdilated with 3.5 NC). Following procedure again was noted to have prolonged runs of asymptomatic monomorphic NSVT in recovery. She was admitted for further monitoring and evaluation of residual RCA stenosis. On hospital day 2 underwent repeat cardiac catheterization. IVUS/FFR of ostial RCA was non-obstructive (IVUS 55%, FFR 0.92). She was evaluated by EP, Dr. Abdalla, who did not feel additional meds/device therapy needed at this time for NSVT. Recommended continuation of prior home metoprolol and additional ambulatory monitoring as outpatient. During remainder of hospitalization had no further significant ventricular ectopy. Remained chest pain free. No apparent access site complications. She was discharged to home on hospital day 3 on dual therapy with eliquis and clopidogrel. Follow-up with Dr. Alvarado as scheduled. Will be referred for cardiac rehab. Discharge Instructions Home Medications valacyclovir 500 mg tablet 500 mg PO QAM hives 02/01/18 [History Confirmed 12/04/24] omega-3s 720 mg-dha 300 mg-epa 360 mg-fish oil 1,200 mg capsule 1 cap PO DAILY 01/15/24 [History Confirmed 12/04/24] apixaban 5 mg tablet (Eliquis) 5 mg PO BID #70 tabs 01/17/24 [Rx Confirmed 12/04/24] meclizine 25 mg tablet 25 mg PO BID PRN Dizzy/Vertigo 01/30/24 [History Confirmed 12/04/24] loratadine 5 mg disintegrating tablet (Claritin RediTabs) 5 mg PO DAILY 05/29/24 [History Confirmed 12/04/24] mecobalamin (vitamin B12) 1,000 mcg chewable tablet 1,000 mcg PO DAILY 05/29/24 [History Confirmed 12/04/24] Auto Titrating CPAP #1 ea 08/14/24 [Rx Confirmed 12/04/24] fluticasone fur. 100 mcg-umeclid 62.5 mcg-vilant 25 mcg inhalat.powder (Trelegy Ellipta) 1 inh inhalation QAM #60 ea 08/14/24 [Rx Confirmed 12/04/24] CPAP Supplies #1 ea 11/15/24 [Rx Confirmed 12/04/24] chlorthalidone 12.5 mg tablet 12.5 mg PO DAILY 11/25/24 [History Confirmed 12/04/24] clopidogrel 75 mg tablet (Plavix) 75 mg PO DAILY 11/25/24 [History Confirmed 12/04/24] famotidine 20 mg tablet 20 mg PO BID 11/25/24 [History Confirmed 12/04/24] metoprolol succinate 50 mg tablet,extended release 24 hr 100 mg PO QAM 11/25/24 [History Confirmed 12/04/24] pravastatin 20 mg tablet 20 mg PO DAILY 11/25/24 [History Confirmed 12/04/24] Coding Level of Care Code 33568 IN/OBS DISCH 30 MIN/LESS Diagnoses Coronary artery disease I25.10
== END 2024-12-06 09:45 | disposition home or self-care (01) ==
LOC: CC 06:46 → INTOOBSV 13:48 → 2S 13:48
PROC: CLB.CCO (2024-12-05 13:30)

== ENCOUNTER 2024-12-12 12:40 | Observation (INO) ==
[2024-12-12 13:27] LABS: Hematocrit (blood only) 39.8 % (37.0-47.0); Hemoglobin 13.1 g/dl (12.0-16.0); Immature Granulocytes # (auto) 0.04 K/uL (0.01-0.20); Immature Granulocytes % (auto) 0.5 %; Mean Corpuscular Hemoglobin 30.9 pg (25.0-34.0); Mean Corpuscular Volume 93.9 fL (80.0-100.0); Platelet Count 201 K/uL (130-400); RDW Standard Deviation 51.5 fL (36.4-46.3); Red Blood Count 4.24 M/uL (4.20-5.40); White Blood Count 8.07 K/ul (4.8-10.8)
[2024-12-12 13:50] LABS: Albumin Level 3.8 gm/dl (3.4-5.0); Anion Gap 10.0 (3-11); Bilirubin,Total 0.7 mg/dl (0.2-1.0); Calcium 9.2 mg/dl (8.6-10.3); Carbon Dioxide 28.0 mmol/L (21-32); Chloride 99.0 mmol/L (98-107); INR 1.1 (0.9-1.1); Potassium 3.2 mmol/L (3.5-5.1); Prothrombin Time 11.7 Seconds (9.0-12.0); Sodium 137.0 mmol/L (136-145)
[2024-12-12 13:56] LABS: Alanine Aminotransferase 11.0 U/L (7-52); Albumin Globulin Ratio 1.0 (0.9-2); Alkaline Phosphatase 81.0 U/L (34-104); Blood Urea Nitrogen 31.0 mg/dl (6-23); Creatinine Clr Calc Pharmacy 25.0 ml/min; Globulin 3.7 gm/dl (2.5-4.0); Glucose 101.0 mg/dl (70-99(Fasting)); Lipase 54.0 U/L (11-82); Total Protein 7.5 gm/dl (6.0-8.3)
--- NOTE | 2024-12-12 13:59 | XRay Report ---
XR chest 1V portable CLINICAL HISTORY: Chest pain, nonspecific COMPARISON STUDY: Chest CT January 30, 2024. Chest radiograph August 14, 2024. FINDINGS: Lung volumes are normal. Lungs are clear. There is no pneumothorax or pleural effusion. Car diac size is normal. Mediastinal contours are normal. There is no evidence for pulmonary edema. IMPRESSION: No acute cardiopulmonary findings. No change in appearance of the chest. ACT 112: Negative or not required by law. Electronically signed by: Brayan Mcgarry M.D. 12/12/2024 1:58 PM
--- NOTE | 2024-12-12 15:39 | Emergency Department Note ---
Impression & Plan Chest pain, ALVINA (acute kidney injury) ED Provider Note HISTORY OF PRESENT ILLNESS: Patient is an 84-year-old female presenting with 2 episodes of chest pain today. Patient reports that she had some chest pressure this morning when she was getting around for breakfast. It only lasted for a few minutes. Reports that she went to her cardiology appointment today and had some chest heaviness while in the clinic. Patient was in the hospital a week ago after having a cardiac catheterization and a stent placed. She reports she was doing well up until this morning. She is chest pain-free on arrival to the emergency department. Denies any recent fevers. Denies any cough. Denies any significant shortness of breath. She does report she felt nauseous with the chest pressure and heaviness. She is on Eliquis and Plavix. ROS: as above PHYSICAL EXAM: Constitutional: Patient appears in no acute distress. HENT: Head: Normocephalic and atraumatic. Eyes: EOMI, PERRL Mouth/Throat: Mucous membranes moist. Neck: Trachea midline. Neck supple. Cardiovascular: RRR, No murmurs, rubs or gallops. Intact distal pulses. Pulmonary/Chest: No respiratory distress. Breath sounds clear and equal bilaterally. No wheezes or rales. Abdominal: Abdomen soft, no tenderness, rebound or guarding. Musculoskeletal: No edema, tenderness or deformity noted. Skin: Warm and dry. No rash, erythema, pallor or cyanosis Psychiatric: Appropriate mood and affect for situation. Neurological: Alert and keenly responsive. CN II-XII grossly intact, moving all extremities equally and fully. MDM: - Vitals signs stable. - History obtained via patient. History as above. - Chronic conditions affecting care: HTN; COPD; GERD; CAD (s/p PCI); HLD - Differential diagnoses include, but are not limited to: Acute coronary syndrome; pulmonary embolism; dissection; tension pneumothorax; esophageal rupture; pneumonia - Order placed for continuous cardiac monitoring. At this time, monitor showed rate of 72 bpm with normal sinus rhythm, per my interpretation. - External medical records reviewed. Discharge summary dated 12/02/2024 was reviewed. Patient was admitted for cardiac cath. She was found to have multivessel coronary disease with 70% stenosis of her proximal circumflex and 60% stenosis of her ostial RCA. She had a stent placed to her proximal circumflex. - EKG image interpreted by myself showed normal sinus rhythm. Rate 89 bpm. QT 354. No acute ischemic changes. - Laboratory workup interpreted by myself showed normal WBC; PT/INR; slight hypokalemia (K 3.2); normal troponin; ALVINA (Cr 1.95) - CXR image reviewed and interpreted by myself is any for pneumonia, per my interpretation. - Repeat troponin still within normal limits. - Discussed results with patient and her family at bedside. Family members do report that the patient has reportedly had chills for the last week. They report that she has a history of frequent UTIs and requesting a urinalysis be performed. UA was ordered. - Discussion was had with top case assembler about patient's case and need for admission - Hospitalist consulted for admission - Patient admitted to [facility] service for further evaluation and management. ASSESSMENT AND PLAN: Diagnosis: Chest pain; ALVINA Plan: admit Past Med/Surg History Problem List (Updated 12/12/24 @ 17:21 by Bia Carney MD) ALVINA (acute kidney injury) (Acute) Chest pain (Acute) Hypercholesterolemia Pulmonary embolus Ventricular tachycardia Coronary artery disease Cognitive impairment Anemia Hemochromatosis Pulmonary nodule ALEJANDRINA (obstructive sleep apnea) Deep vein thrombosis, lower left extremity WINTER (dyspnea on exertion) (Acute) Pulmonary embolism on right (Acute) Pessary maintenance Vitamin D deficiency Insomnia Mild cognitive impairment Vitamin B12 deficiency Chronic venous insufficiency Vitamin D deficiency Stage 3b chronic kidney disease Headache Vertigo (Acute) Tobacco abuse Lethargy Encounter for pre-operative examination Endometrial mass Hypersomnia Postmenopausal Allergic rhinitis with postnasal drip Alveolar emphysema of lung Exertional shortness of breath Near syncope (Acute) Left sided chest pain (Acute) Vomiting (Acute) Nausea (Acute) Gastroenteritis and colitis, viral (Acute 03/04/14) Diarrhea (Acute) Dehydration (Acute) Dysrhythmia (Acute) Probable paroxysmal atrial tachycardia (on ZIO patch in 2019)- controlled with low dose BB- follows with Dr. Efra STOVER (gastroesophageal reflux disease) Well controlled and stable Cystocele, midline (Acute) Pessary in place Uterine prolapse (Acute) pessary in place Hypertension (Acute 03/05/14) COPD (chronic obstructive pulmonary disease) inhaler daily/prn Medical History Postmenopausal bleeding Thickened endometrium Acute kidney injury superimposed on CKD History of COVID-19 Paroxysmal SVT (supraventricular tachycardia) Tachy-rosalinda syndrome Asthma Superficial vein thrombosis History of DVT of lower extremity Optic pit, left History of anxiety Surgical History History of liver biopsy History of dilatation and curettage History of colonoscopy History of tooth extraction H/O cataract removal with insertion of prosthetic lens History of tubal ligation History of elbow surgery History of tonsillectomy History of breast biopsy Family History Aunt No problems noted. Brother Prostate cancer Daughter Family history of reaction to anesthesia Other Cancer Coronary heart disease Thyroid disease Denies family history of Ovarian cancer Breast cancer Colorectal cancer Social History Smoking Status: Former smoker Tobacco Type: Pipe Age Started Using Tobacco: 35; Age Quit Using Tobacco: 81; Cigarettes Per Day: PER PATIENT 12/19/2019: LESS THAN 8 BOWLS/DAY; Second Hand Exposure: Yes (hx years ago); Do You Dip or Chew Tobacco: No; Hx Alcohol Use: No Hx Substance Use: No Preferred Language: Nepali Communication Ability: Effective Visual Impairment: Partially Limited Hearing Ability: Normal Deputy Commonwealth'S Attorney Required: No Beliefs That Will Affect Care: None Current Living Situation: Family Current Living Situation Comment: sister and son current occupational status: retired Feels Safe at Home: Yes Diet: regular caffeine: Yes (hot tea or iced tea 3-4 cups daily, occasional soda) Seatbelt Use: always Do you think of yourself as: straight/heterosexual Gender Identity: Female Assistive Devices: CPAP and Walker Allergies Allergies Allergy/AdvReac Type Severity Reaction Status Date / Time risperidone Allergy Severe BREATHING Verified 12/12/24 17:05 PROBLEMS lansoprazole Allergy Intermediate Rash Verified 12/12/24 17:05 sulfamethoxazole Allergy Intermediate RASH/NAUSEA Verified 12/12/24 17:05 aripiprazole Allergy Mild RASH Verified 12/12/24 17:05 latex Allergy Mild RASH Verified 12/12/24 17:05 trimethoprim Allergy Mild RASH/NAUSEA Verified 12/12/24 17:05 aspartame AdvReac Intermediate VOMITING/ROUSE Verified 12/12/24 17:05 /SOB baclofen AdvReac Intermediate Vomiting Verified 12/12/24 17:05 bupropion AdvReac Intermediate EXTREME Verified 12/12/24 17:05 AGITATION buspirone AdvReac Intermediate TINNITUS,HO Verified 12/12/24 17:05 STILITY citalopram AdvReac Intermediate HEADACHE, Verified 12/12/24 17:05 SLEPT 3 DAYS diazepam AdvReac Intermediate INSOMNIA,AG Verified 12/12/24 17:05 ITATION diphenhydramine AdvReac Intermediate Agitated Verified 12/12/24 17:05 doxycycline AdvReac Intermediate VOMITING Verified 12/12/24 17:05 estrogens, conjugated AdvReac Intermediate Vaginal Verified 12/12/24 17:05 [From Premarin] Bleeding hydroxyzine AdvReac Intermediate AGITATION Verified 12/12/24 17:05 ibuprofen AdvReac Intermediate AGITATION Verified 12/12/24 17:05 lorazepam AdvReac Intermediate INSOMNIA, Verified 12/12/24 17:05 ICTHING memantine AdvReac Intermediate Hallucinati Verified 12/12/24 17:05 ng paroxetine AdvReac Intermediate MIND Verified 12/12/24 17:05 RACED,SLEPT 3 DAYS sucralose AdvReac Intermediate VOMITING/ROUSE Verified 12/12/24 17:05 /SOB temazepam AdvReac Intermediate INSOMNIA Verified 12/12/24 17:05 trazodone AdvReac Intermediate TINNITUS, Verified 12/12/24 17:05 INSOMNIA venlafaxine AdvReac Intermediate SLEPT FOR Verified 12/12/24 17:05 3 DAYS ziprasidone AdvReac Intermediate VISUAL Verified 12/12/24 17:05 DISTURBANCE,INSOMNIA aspirin AdvReac Mild RINGING IN Verified 12/12/24 17:05 EARS hydralazine AdvReac Mild Chills Verified 12/12/24 17:05 hydrocodone AdvReac Mild NAUSEA Verified 12/12/24 17:05 lamotrigine AdvReac Mild EYE SORES Verified 12/12/24 17:05 lithium AdvReac Mild URINATION Verified 12/12/24 17:05 morphine AdvReac Mild AGITATION Verified 12/12/24 17:05 omeprazole AdvReac Mild Hiccups Verified 12/12/24 17:05 tetracycline AdvReac Mild NAUSEA Verified 12/12/24 17:05 hydrochlorothiazide AdvReac Unknown Unknown Verified 12/12/24 17:05 monosodium glutamate AdvReac Unknown Unknown Verified 12/12/24 17:05 quetiapine AdvReac Unknown Unknown Verified 12/12/24 17:05 Home Meds Home Medications Medication Instructions Recorded Confirmed valacyclovir 500 mg tablet 500 mg PO QAM hives 02/01/18 12/12/24 omega-3s 720 mg-dha 300 mg-epa 360 1 cap PO DAILY 01/15/24 12/12/24 mg-fish oil 1,200 mg capsule mecobalamin (vitamin B12) 1,000 1,000 mcg PO DAILY 05/29/24 12/12/24 mcg chewable tablet clopidogrel 75 mg tablet (Plavix) 75 mg PO DAILY 11/25/24 12/12/24 famotidine 20 mg tablet 20 mg PO BID 11/25/24 12/12/24 pravastatin 20 mg tablet 20 mg PO HS 11/25/24 12/12/24 acetaminophen 650 mg 650 mg PO Q8H PRN Pain 12/12/24 12/12/24 tablet,extended release (Tylenol Arthritis Pain) albuterol sulfate 90 mcg/actuation 2 puff inhalation QID PRN 12/12/24 12/12/24 aerosol inhaler Shortness Of Breath Or Wheezing apixaban 2.5 mg tablet (Eliquis) 2.5 mg PO BID 12/12/24 12/12/24 chlorthalidone 25 mg tablet 12.5 mg PO DAILY 12/12/24 12/12/24 clobetasol 0.05 % scalp solution 1 applic topical BID PRN NEEDED 12/12/24 12/12/24 diclofenac sodium 1 % topical gel 2 g topical QID PRN Pain 12/12/24 12/12/24 ketoconazole 2 % shampoo 1 ea topical DIRECTED PRN 12/12/24 12/12/24 DIRECTED loratadine 10 mg tablet (Claritin) 10 mg PO DAILY PRN Congestion 12/12/24 12/12/24 metoprolol succinate 100 mg 100 mg PO HS 12/12/24 12/12/24 tablet,extended release 24 hr multivitamin with minerals-folic 1 tab PO DAILY 12/12/24 12/12/24 acid 80 mcg chewable tablet (Centrum MultiGummies Women) nitroglycerin 0.4 mg sublingual 0.4 mg sublingual DIRECTED PRN 12/12/24 12/12/24 tablet (Nitrostat) Chest Pain polyethylene glycol 3350 17 17 g PO DAILY PRN Constipation 12/12/24 12/12/24 gram/dose oral powder (Miralax) tramadol 50 mg tablet 50 mg PO Q4H PRN Pain 12/12/24 12/12/24 vitamin E 268 mg (400 unit) capsule 268 mg PO DAILY 12/12/24 12/12/24 Previous Rx's Medication Instructions Recorded Auto Titrating CPAP #1 ea 08/14/24 fluticasone fur. 100 mcg-umeclid 1 inh inhalation QAM #60 ea 08/14/24 62.5 mcg-vilant 25 mcg inhalat.powder (Trelegy Ellipta) CPAP Supplies #1 ea 11/15/24 Results & Data (ED) Vital Signs Vital Signs - 24 hr 12/12/24 12:46 12/12/24 12:49 12/12/24 12:53 Temperature 37 C Temperature Source Oral Pulse Rate 90 88 Pulse Rate [Apical] Respiratory Rate 16 16 Respiratory Effort / Characteristics Non-Labored Spontaneous Respiratory Depth Normal Respiratory Pattern Blood Pressure 151/87 H Blood Pressure [Right Arm] Blood Pressure Mean 108 Blood Pressure Mean [Right Arm] Blood Pressure Position [Right Arm] Pulse Oximetry 97 97 94 Oxygen Delivery Method Room Air Room Air Room Air Sepsis Recent Fever Within 48 Hours No Sepsis New/Unexplained Change in Mental Status No Sepsis Action Taken by Nursing No Action Required 12/12/24 14:26 12/12/24 14:30 12/12/24 17:00 Temperature Temperature Source Pulse Rate 84 Pulse Rate [Apical] 72 65 Respiratory Rate 16 20 Respiratory Effort / Characteristics Non-Labored Spontaneous Respiratory Depth Normal Respiratory Pattern Regular Blood Pressure Blood Pressure [Right Arm] 141/80 H 138/84 Blood Pressure Mean Blood Pressure Mean [Right Arm] 100 102 Blood Pressure Position [Right Arm] Sitting Pulse Oximetry 94 93 Oxygen Delivery Method Room Air Room Air Sepsis Recent Fever Within 48 Hours Sepsis New/Unexplained Change in Mental Status Sepsis Action Taken by Nursing Laboratory Data 12/12/24 12:45 12/12/24 12:45 Lab Results 12/12/24 12/12/24 Range/Units 12:45 14:50 WBC 8.07 (4.8-10.8) K/ul RBC 4.24 (4.20-5.40) M/uL Hgb 13.1 (12.0-16.0) g/dl Hct 39.8 (37.0-47.0) % MCV 93.9 (80.0-100.0) fL MCH 30.9 (25.0-34.0) pg MCHC 32.9 (32.0-36.0) g/dL RDW Std Deviation 51.5 H (36.4-46.3) fL RDW Coeff of Analisa 14.9 H (11.5-14.5) % Plt Count 201 (130-400) K/uL MPV 10.3 (9.4-12.4) fL Immature Gran % (Auto) 0.5 % Neut % (Auto) 76.9 % Lymph % (Auto) 9.5 % [place] % (Auto) 10.0 % Eos % (Auto) 2.6 % Baso % (Auto) 0.5 % Neut # (Auto) 6.20 (1.40-6.50) K/uL Lymph # (Auto) 0.77 L (1.20-3.40) K/uL [place] # (Auto) 0.81 H (0.11-0.59) K/uL Eos # (Auto) 0.21 (0.00-0.50) K/uL Baso # (Auto) 0.04 (0.00-0.20) K/uL Immature Gran # (Auto) 0.04 (0.01-0.20) K/uL PT 11.7 (9.0-12.0) Seconds INR 1.1 (0.9-1.1) Sodium 137 (136-145) mmol/L Potassium 3.2 L (3.5-5.1) mmol/L Chloride 99 (98-107) mmol/L Carbon Dioxide 28 (21-32) mmol/L Anion Gap 10 (3-11) BUN 31 H (6-23) mg/dl Creatinine 1.95 H (0.6-1.2) mg/dl Est Cr Clr Drug Dosing 25.0 ml/min eGFR 25.24 BUN/Creatinine Ratio 15.9 (10-20) Glucose 101 H (70-99(Fasting)) mg/dl Calcium 9.2 (8.6-10.3) mg/dl Total Bilirubin 0.7 (0.2-1.0) mg/dl AST 16 (13-39) U/L ALT 11 (7-52) U/L Alkaline Phosphatase 81 (34-104) U/L Troponin I High Sens 12.2 10.6 (0-14) pg/ml Total Protein 7.5 (6.0-8.3) gm/dl Albumin 3.8 (3.4-5.0) gm/dl Globulin 3.7 (2.5-4.0) gm/dl Albumin/Globulin Ratio 1.0 (0.9-2) Lipase 54 (11-82) U/L Imaging Data Radiologist's Impression: Chest X-Ray 12/12/24 12:53 XR chest 1V portable CLINICAL HISTORY: Chest pain, nonspecific COMPARISON STUDY: Chest CT January 30, 2024. Chest radiograph August 14, 2024. FINDINGS: Lung volumes are normal. Lungs are clear. There is no pneumothorax or pleural effusion. Cardiac size is normal. Mediastinal contours are normal. There is no evidence for pulmonary edema. IMPRESSION: No acute cardiopulmonary findings. No change in appearance of the chest. ACT 112: Negative or not required by law. Electronically signed by: Brayan Mcgarry M.D. 12/12/2024 1:58 PM Discharge Plan Visit Data Chief Complaint: Chest Pain Stated Complaint: chest pain ED Provider: Bia Carney Discharge Problem: Chest pain, ALVINA (acute kidney injury) Patient Disposition: Admitted As Inpatient Condition: Fair Forms Stand Alone Forms: [facility], Important Visit Information Prescriptions Prescriptions: No Action (DME) CPAP Supplies Misc See Rx Instructions .MEDSUPPLY Qty: 1 0RF Rx Instructions: CPAP supplies, mask, headgear, filters, tubing, water chamber. G47.33 (DME) Auto Titrating CPAP Misc See Rx Instructions .MEDSUPPLY Qty: 1 0RF Rx Instructions: Auto PAP with 5-15 cm H20. Lifetime usage. G47.33 Trelegy Ellipta 100-62.5-25 mcg blister with device 1 inh inhalation QAM Qty: 60 6RF mecobalamin (vitamin B12) 1,000 mcg tablet,chewable 1,000 mcg PO DAILY famotidine 20 mg tablet 20 mg PO BID clopidogrel [Plavix] 75 mg tablet 75 mg PO DAILY pravastatin 20 mg tablet 20 mg PO HS valacyclovir 500 mg tablet 500 mg PO QAM [id number]-fish oil 720-1,200 mg Capsule 1 cap PO DAILY ketoconazole 2 % Shampoo 1 ea TOPICAL DIRECTED PRN (Reason: DIRECTED) metoprolol succinate 100 mg tablet extended release 24 hr 100 mg PO HS chlorthalidone 25 mg tablet 12.5 mg PO DAILY tramadol 50 mg Tablet 50 mg PO Q4H PRN (Reason: Pain) acetaminophen [Tylenol Arthritis Pain] 650 mg Tablet Extended Release 650 mg PO Q8H PRN (Reason: Pain) nitroglycerin [Nitrostat] 0.4 mg Tablet, Sublingual 0.4 mg sublingual DIRECTED PRN (Reason: Chest Pain) polyethylene glycol 3350 [Miralax] 17 gram/dose Powder 17 g PO DAILY PRN (Reason: Constipation) albuterol sulfate 90 mcg/actuation HFA aerosol inhaler 2 puff INHALATION QID PRN (Reason: Shortness Of Breath Or Wheezing) clobetasol 0.05 % Solution 1 applic TOPICAL BID PRN (Reason: NEEDED) vitamin E 268 mg (400 unit) Capsule 268 mg PO DAILY loratadine [Claritin] 10 mg Tablet 10 mg PO DAILY PRN (Reason: Congestion) diclofenac sodium [Voltaren] 1 % Gel 2 g TOPICAL QID PRN (Reason: Pain) Eliquis 2.5 mg Tablet 2.5 mg PO BID Centrum MultiGummies Women 80 mcg Tablet,Chewable 1 tab PO DAILY Referrals Referrals: Heather Haile DO [Primary Care Provider] -
--- NOTE | 2024-12-12 15:57 | Electrocardiogram Report ---
Test Reason : Blood Pressure : */* mmHG Vent. Rate : 89 BPM Atrial Rate : 89 BPM P-R Int : 220 ms QRS Dur : 86 ms QT Int : 354 ms P-R-T Axes : 67 14 22 degrees QTcB Int : 430 ms Sinus rhythm with 1st degree A-V block Abnormal ECG When compared with ECG of 05-Dec-2024 10:20, Vent. rate has increased by [address] no longer depressed in Anterior leads Confirmed by Ankit Abdalla ([id number]) on 12/12/2024 3:56:55 PM Referred By: Confirmed By: Ankit Abdalla
[2024-12-12 18:55] LABS: Appearance Urine Cloudy (Clear); Bacteria Urine Automated 4+ (None Seen); Epithelial Cell Urine Auto 0-2 /hpf (0-2); Glucose Urine UA Negative (Negative); RBC Urine Automated 0-2 /hpf (0-2); WBC Urine Automated >50 /hpf (0-5)
--- NOTE | 2024-12-12 19:08 | History & Physical Report ---
Date of Service December 12, 2024 Assessment & Plan (1) ALVINA (acute kidney injury): (2) Chest pain: (3) Status post cardiac catheterization: (4) Hypercholesterolemia: (5) Pulmonary embolus: (6) Ventricular tachycardia: (7) Coronary artery disease: (8) Cognitive impairment: (9) Anemia: (10) Hemochromatosis: (11) ALEJANDRINA (obstructive sleep apnea): (12) Deep vein thrombosis, lower left extremity: (13) Vertigo: Plan 84 yrs old female presents to the ED with chest pressure post cardiac catheterization with stenting and is admitted for observation..PMH of post cardiac catheterization with stenting 1 week back,CAD, Ventricular tachycardia, DVT, Pulmonary Embolus,Stage 3b CKD, Hypercholesterolemia, Mild cognitive impairment, Hemochromatosis, Anemia. #Chest pressure/ Atypical Chest pain/ Post cardiac catheterization with stenting status/ Multivessel coronary artery disease: - Chest pressure with atypical chest pain post cardiac catheterization with stenting 1 week back because of which is kept under observation for her sensitive status. - Troponin WNL with EKG showing no St elevation, depression, T wave inversion, with PT and PTT WNL. Less likely post stent thrombosis or Acute Coronary syndrome.No pericardial friction rub either suggesting pericarditis. - CXR shows no cardiomegaly, pulmonary edema, or pneumonia, so less likely pulmonary findings. - Possible musculoskeletal pain but no pain on palpation either. -Underwent successful PCI of proximal circumflex with single drug-eluting stent but following procedure again was noted to have prolonged runs of asymptomatic monomorphic NSVT in recovery. She was admitted for further monitoring and evaluation of residual RCA stenosis. On hospital day 2 underwent repeat cardiac catheterization on ostial RCA. - Will monitor the chest pain and keep under observation on Telemetry for now. Will trend troponin and do EKG if any symptoms occur. - Continue Apixaban and Clopidogrel. # Asymptomatic bacteriuria: -Urinalysis showing positive nitrite and wbc>50 with no urinary symptoms other than chills. Urine culture sent, will follow. #Hypokalemia: -Kcl 40meq given. #Hypertension: -Continue Chlorthalidone 12.5 mg Daily. #Stage 3b CKD: -not on any medication. #ALEJANDRINA - Continue CPAP HS. #COPD withemphysema: -Gold class E Copd with smoking history. Continue fluticasone home inhalar. #Hypercholesterolemia: -Continue pravastatin. #VTE prophylaxis: Continue Abixaban History of Present Illness Chief Complaint: 84 yrs old female presents to the ED with chest pressure. PMH of post cardiac catheterization with stenting 1 week back,CAD, Ventricular tachycardia, DVT, Pulmonary Embolus,Stage 3b CKD, Hypercholesterolemia, Mild cognitive impairment, Hemochromatosis, Anemia. She reports 2 episode of chest pressure one episode today morning just before she went to see her PCP, towards the centre of her chest, felt like "someone's sitting on my chest" like pressure rather than the pain and migration of pain towards the upper neck. She had 1 prior episode of chest pressure similar to it few days ago. She also reports feeling chills since few days. She does have buring sensation on her belly which is usual for her and reflux symptoms for which she takes pepcid as needed. She is taking her Clopidogrel and Apixaban post stenting regularly. No H/o positional pain, hematuria, blood in stool, urinary frequency, hematemesis, bleeding from any sites. She had her Cardiac catheterization with stenting on 12/05. Primary Care Provider: Heather Haile, Allergies Allergy/AdvReac Type Severity Reaction Status Date / Time risperidone Allergy Severe BREATHING Verified 12/12/24 17:05 PROBLEMS lansoprazole Allergy Intermediate Rash Verified 12/12/24 17:05 sulfamethoxazole Allergy Intermediate RASH/NAUSEA Verified 12/12/24 17:05 aripiprazole Allergy Mild RASH Verified 12/12/24 17:05 latex Allergy Mild RASH Verified 12/12/24 17:05 trimethoprim Allergy Mild RASH/NAUSEA Verified 12/12/24 17:05 aspartame AdvReac Intermediate VOMITING/ROUSE Verified 12/12/24 17:05 /SOB baclofen AdvReac Intermediate Vomiting Verified 12/12/24 17:05 bupropion AdvReac Intermediate EXTREME Verified 12/12/24 17:05 AGITATION buspirone AdvReac Intermediate TINNITUS,HO Verified 12/12/24 17:05 STILITY citalopram AdvReac Intermediate HEADACHE, Verified 12/12/24 17:05 SLEPT 3 DAYS diazepam AdvReac Intermediate INSOMNIA,AG Verified 12/12/24 17:05 ITATION diphenhydramine AdvReac Intermediate Agitated Verified 12/12/24 17:05 doxycycline AdvReac Intermediate VOMITING Verified 12/12/24 17:05 estrogens, conjugated AdvReac Intermediate Vaginal Verified 12/12/24 17:05 [From Premarin] Bleeding hydroxyzine AdvReac Intermediate AGITATION Verified 12/12/24 17:05 ibuprofen AdvReac Intermediate AGITATION Verified 12/12/24 17:05 lorazepam AdvReac Intermediate INSOMNIA, Verified 12/12/24 17:05 ICTHING memantine AdvReac Intermediate Hallucinati Verified 12/12/24 17:05 ng paroxetine AdvReac Intermediate MIND Verified 12/12/24 17:05 RACED,SLEPT 3 DAYS sucralose AdvReac Intermediate VOMITING/ROUSE Verified 12/12/24 17:05 /SOB temazepam AdvReac Intermediate INSOMNIA Verified 12/12/24 17:05 trazodone AdvReac Intermediate TINNITUS, Verified 12/12/24 17:05 INSOMNIA venlafaxine AdvReac Intermediate SLEPT FOR Verified 12/12/24 17:05 3 DAYS ziprasidone AdvReac Intermediate VISUAL Verified 12/12/24 17:05 DISTURBANCE,INSOMNIA aspirin AdvReac Mild RINGING IN Verified 12/12/24 17:05 EARS hydralazine AdvReac Mild Chills Verified 12/12/24 17:05 hydrocodone AdvReac Mild NAUSEA Verified 12/12/24 17:05 lamotrigine AdvReac Mild EYE SORES Verified 12/12/24 17:05 lithium AdvReac Mild URINATION Verified 12/12/24 17:05 morphine AdvReac Mild AGITATION Verified 12/12/24 17:05 omeprazole AdvReac Mild Hiccups Verified 12/12/24 17:05 tetracycline AdvReac Mild NAUSEA Verified 12/12/24 17:05 hydrochlorothiazide AdvReac Unknown Unknown Verified 12/12/24 17:05 monosodium glutamate AdvReac Unknown Unknown Verified 12/12/24 17:05 quetiapine AdvReac Unknown Unknown Verified 12/12/24 17:05 Home Medications Medication Instructions Recorded Confirmed Type valacyclovir 500 mg tablet 500 mg PO QAM hives 02/01/18 12/12/24 History omega-3s 720 mg-dha 300 mg-epa 360 1 cap PO DAILY 01/15/24 12/12/24 History mg-fish oil 1,200 mg capsule mecobalamin (vitamin B12) 1,000 1,000 mcg PO DAILY 05/29/24 12/12/24 History mcg chewable tablet Auto Titrating CPAP #1 ea 08/14/24 12/04/24 Rx fluticasone fur. 100 mcg-umeclid 1 inh inhalation QAM #60 ea 08/14/24 12/12/24 Rx 62.5 mcg-vilant 25 mcg inhalat.powder (Trelegy Ellipta) CPAP Supplies #1 ea 11/15/24 12/04/24 Rx clopidogrel 75 mg tablet (Plavix) 75 mg PO DAILY 11/25/24 12/12/24 History famotidine 20 mg tablet 20 mg PO BID 11/25/24 12/12/24 History pravastatin 20 mg tablet 20 mg PO HS 11/25/24 12/12/24 History acetaminophen 650 mg 650 mg PO Q8H PRN Pain 12/12/24 12/12/24 History tablet,extended release (Tylenol Arthritis Pain) albuterol sulfate 90 mcg/actuation 2 puff inhalation QID PRN 12/12/24 12/12/24 History aerosol inhaler Shortness Of Breath Or Wheezing apixaban 2.5 mg tablet (Eliquis) 2.5 mg PO BID 12/12/24 12/12/24 History chlorthalidone 25 mg tablet 12.5 mg PO DAILY 12/12/24 12/12/24 History clobetasol 0.05 % scalp solution 1 applic topical BID PRN NEEDED 12/12/24 12/12/24 History diclofenac sodium 1 % topical gel 2 g topical QID PRN Pain 12/12/24 12/12/24 History ketoconazole 2 % shampoo 1 ea topical DIRECTED PRN 12/12/24 12/12/24 History DIRECTED loratadine 10 mg tablet (Claritin) 10 mg PO DAILY PRN Congestion 12/12/24 12/12/24 History metoprolol succinate 100 mg 100 mg PO HS 12/12/24 12/12/24 History tablet,extended release 24 hr multivitamin with minerals-folic 1 tab PO DAILY 12/12/24 12/12/24 History acid 80 mcg chewable tablet (Centrum MultiGummies Women) nitroglycerin 0.4 mg sublingual 0.4 mg sublingual DIRECTED PRN 12/12/24 12/12/24 History tablet (Nitrostat) Chest Pain polyethylene glycol 3350 17 17 g PO DAILY PRN Constipation 12/12/24 12/12/24 History gram/dose oral powder (Miralax) tramadol 50 mg tablet 50 mg PO Q4H PRN Pain 12/12/24 12/12/24 History vitamin E 268 mg (400 unit) capsule 268 mg PO DAILY 12/12/24 12/12/24 History Past Med/Surg History Problem List (Updated 12/12/24 @ 17:21 by Bia Carney MD) Status post cardiac catheterization ALVINA (acute kidney injury) (Acute) Chest pain (Acute) Hypercholesterolemia Pulmonary embolus Ventricular tachycardia Coronary artery disease Cognitive impairment Anemia Hemochromatosis Pulmonary nodule ALEJANDRINA (obstructive sleep apnea) Deep vein thrombosis, lower left extremity WINTER (dyspnea on exertion) (Acute) Pulmonary embolism on right (Acute) Pessary maintenance Vitamin D deficiency Insomnia Mild cognitive impairment Vitamin B12 deficiency Chronic venous insufficiency Vitamin D deficiency Stage 3b chronic kidney disease Headache Vertigo (Acute) Tobacco abuse Lethargy Encounter for pre-operative examination Endometrial mass Hypersomnia Postmenopausal Allergic rhinitis with postnasal drip Alveolar emphysema of lung Exertional shortness of breath Near syncope (Acute) Left sided chest pain (Acute) Vomiting (Acute) Nausea (Acute) Gastroenteritis and colitis, viral (Acute 03/04/14) Diarrhea (Acute) Dehydration (Acute) Dysrhythmia (Acute) Probable paroxysmal atrial tachycardia (on ZIO patch in 2019)- controlled with low dose BB- follows with Dr. Efra STOVER (gastroesophageal reflux disease) Well controlled and stable Cystocele, midline (Acute) Pessary in place Uterine prolapse (Acute) pessary in place Hypertension (Acute 03/05/14) COPD (chronic obstructive pulmonary disease) inhaler daily/prn Medical History Postmenopausal bleeding Thickened endometrium Acute kidney injury superimposed on CKD History of COVID-19 Paroxysmal SVT (supraventricular tachycardia) Tachy-rosalinda syndrome Asthma Superficial vein thrombosis History of DVT of lower extremity Optic pit, left History of anxiety Surgical History History of liver biopsy History of dilatation and curettage History of colonoscopy History of tooth extraction H/O cataract removal with insertion of prosthetic lens History of tubal ligation History of elbow surgery History of tonsillectomy History of breast biopsy Family History Aunt No problems noted. Brother Prostate cancer Daughter Family history of reaction to anesthesia Other Cancer Coronary heart disease Thyroid disease Denies family history of Ovarian cancer Breast cancer Colorectal cancer Social History Smoking Status: Former smoker Tobacco Type: Pipe Age Started Using Tobacco: 35; Age Quit Using Tobacco: 81; Cigarettes Per Day: PER PATIENT 12/19/2019: LESS THAN 8 BOWLS/DAY; Second Hand Exposure: Yes (hx years ago); Do You Dip or Chew Tobacco: No; Hx Alcohol Use: No Hx Substance Use: No Preferred Language: Cook Islander Communication Ability: Effective Visual Impairment: Partially Limited Hearing Ability: Normal Job Analyst Required: No Beliefs That Will Affect Care: None Current Living Situation: Family Current Living Situation Comment: sister and son current occupational status: retired Feels Safe at Home: Yes Diet: regular caffeine: Yes (hot tea or iced tea 3-4 cups daily, occasional soda) Seatbelt Use: always Do you think of yourself as: straight/heterosexual Gender Identity: Female Assistive Devices: CPAP and Walker Review of Systems Review of Systems: As per HPI. Physical Exam Physical Exam: She is alert and oriented x3. Mood affect appear normal. She answered all questions appropriately. HEENT: Sclerae are anicteric. Pupils are equal and reactive to light and accommodation. Extraocular movements were intact. Neuro: Cranial nerves intact Lungs: Lungs are clear to auscultation bilaterally. There are no rales wheezes or rhonchi. She has normal respiratory effort without use of accessory muscles. There is normal pulmonary excursion. Cardiac: The rhythm was regular. S1 and S2 were normal. There are no murmurs on examination. The PMI was not markedly displaced on palpation. Abdomen: The abdomen was soft and nontender. Extremities: Patient has bilateral radial pulses that are equal in intensity. Bandage on the right radial artery. Good perfusion of the right hand. There is no evidence cyanosis or clubbing. Skin: There are no rashes noted on examination today. Results & Data Results & Data Vital Signs (Past 12 Hours) Vital Signs Temp Pulse Pulse Resp BP BP Pulse Ox 12/12/24 17:00 65 20 138/84 93 12/12/24 14:30 72 16 141/80 H 94 12/12/24 14:26 84 12/12/24 12:53 88 16 94 12/12/24 12:49 97 12/12/24 12:46 37 C 90 16 151/87 H 97 O2 Del Method 12/12/24 17:00 Room Air 12/12/24 14:30 Room Air 12/12/24 14:26 12/12/24 12:53 Room Air 12/12/24 12:49 Room Air 12/12/24 12:46 Room Air Code Status & VTE Plan VTE Prophylaxis Plan VTE Prophylaxis will be ordered: Yes Supervising Physician Co-Signing Physician Notes I personally examined the patient and verified alcantara points of history and exam, discussed case, and agree with decision making and plan documented by Dr. Nicole. Patient is a 84-year-old female with past medical history of CAD and recent cardiac catheterization and stenting on 12/05/2024 presenting with episodic chest pressure. In addition, additional past medical history includes ventricular tachycardia, pulmonary emboli, DVT, ALEJANDRINA, CKD, hematochromatosis, GERD, and hyperlipidemia. Patient reports she was in her PCPs office today and experienced nonexertional left-sided chest pressure that radiated up the left side of her neck with associated nausea. She had a ECG performed that showed no acute changes. Patient was advised to come to ED for further workup to rule out ACS. ECG was without acute ST segment changes, troponin was in normal range, chest x-ray without acute cardiopulmonary findings. On exam patient appears comfortable, non diaphoretic, conjunctiva clear, mucosa moist, non-labored breathing, lungs clear to auscultation bilaterally, no rales/rhonchi/wheezing, heart with regular rate and rhythm, no murmur appreciated, bowel sounds present and no tenderness in the abdomen, lower extremities without edema. Vitals stable. Patient has obstructive sleep apnea, CPAP ordered. Patient is a former corn pipe smoker but thankfully she quit 3 years ago. Replete potassium and monitor renal function. Monitor on telemetry. Resident Activity Tracking Resident Involvement: Resident Care Provided Care Provided: Adult [facility]
[2024-12-12] MEDS: ACETAMINOPHEN 325 MG TAB PO PRN (21:15)
[2024-12-12] MEDS ORDERED: MELATONIN 3 MG TAB PO PRN (21:56)
[2024-12-12] MEDS ORDERED: ALBUTEROL HFA 8 GM INHALER INH PRN (21:56)
[2024-12-12] MEDS ORDERED: ONDANSETRON INJ 2 MG/ML 2 ML VIAL IV PRN (21:56)
[2024-12-12] MEDS ORDERED: NITROGLYCERIN SL 0.4 MG/TAB TAB SL PRN (21:56)
[2024-12-12] MEDS ORDERED: ALUMINUM/MAGNESIUM SUSP 30 ML UDC PO PRN (21:56)
[2024-12-12] MEDS ORDERED: POLYETHYLENE (MIRALAX) 17 GM PACK PO PRN (21:56)
[2024-12-12] MEDS: FAMOTIDINE 20MG IV PUSH 20 MG/5 ML SYR IV STA (22:16)
[2024-12-12] MEDS: ALUMINUM/MAGNESIUM SUSP 30 ML UDC PO STA (22:16)
[2024-12-12] MEDS: ACETAMINOPHEN 325 MG TAB ONE (22:22)
[2024-12-12] MEDS: FAMOTIDINE 20 MG TAB PO SCH (22:23)
[2024-12-12] MEDS: APIXABAN 2.5 MG TAB PO SCH (23:11)
[2024-12-12] MEDS: POTASSIUM CHLORIDE CRTAB 20 MEQ TABCR PO SCH (23:11)
[2024-12-12] MEDS: METOPROLOL SUCC 50MG EXT REL TAB PO SCH (23:11)
[2024-12-12] MEDS: PRAVASTATIN SOD 20 MG TAB PO SCH (23:12)
[2024-12-13 03:05] VITALS: RESP 18
[2024-12-13 06:23] LABS: Hematocrit (blood only) 37.0 % (37.0-47.0); Hemoglobin 12.7 g/dl (12.0-16.0); Mean Corpuscular Hemoglobin 32.0 pg (25.0-34.0); Mean Corpuscular Volume 93.2 fL (80.0-100.0); Platelet Count 183 K/uL (130-400); RDW Standard Deviation 51.1 fL (36.4-46.3); Red Blood Count 3.97 M/uL (4.20-5.40); White Blood Count 6.77 K/ul (4.8-10.8)
[2024-12-13 06:54] LABS: Thyroid Stimulating Hormone 1.406 uIu/ml (0.300-4.500)
[2024-12-13] MEDS: CLOPIDOGREL BISULFATE 75 MG TAB PO SCH (08:33)
[2024-12-13] MEDS: UMECLIDINIUM/VILANTEROL 62.5/25MCG 7 PUFFS/INHALER INH SCH (08:34)
[2024-12-13] MEDS: FLUTICASONE FUROATE 100MCG 14 PUFFS/INHALER INH SCH (08:34)
[2024-12-13] MEDS: FAMOTIDINE 20 MG TAB PO SCH (08:36)
[2024-12-13] MEDS ORDERED: NON-FORMULARY MEDICATION (Fluticasone-Umeclidin-Vilanter [Trelegy Ellipta] 100-62.5-25 mcg INH SCH (09:00)
[2024-12-13 10:49] VITALS: O2SAT 96
[2024-12-13 12:01] LABS: Anion Gap 12.0 (3-11); Blood Urea Nitrogen 38.0 mg/dl (6-23); Carbon Dioxide 26.0 mmol/L (21-32); Chloride 100.0 mmol/L (98-107); Creatinine Clr Calc Pharmacy 23.7 ml/min; Potassium 3.7 mmol/L (3.5-5.1); Sodium 138.0 mmol/L (136-145)
[2024-12-13 12:02] LABS: Glucose 114.0 mg/dl (70-99(Fasting))
[2024-12-13 12:03] LABS: Calcium 9.1 mg/dl (8.6-10.3)
[2024-12-13] MEDS: CIPROFLOXACIN 250 MG TAB PO SCH (14:05)
--- NOTE | 2024-12-13 14:55 | CT Scan Report ---
CT head/brain wo con CLINICAL HISTORY: 84 years-old Female with Mild cognitive impairment. Acute altered mental status TECHNIQUE: Multiple axial CT images of the head were obtained without contrast. A dose lowering tech nique was utilized adhering to the principles of ALARA. CT DOSE: 547.75 mGy.cm COMPARISON: 09/07/2022 FINDINGS: No acute intracranial hemorrhage, midline shift, intracranial mass, hydrocephalus, territorial ischem ia or abnormal extra-axial collection. Involutional changes with probable underlying chronic microvas cular ischemic disease. 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 The calvarium is intact. Prior bilateral lens repair. Paranasal sinus disease includes moderate to se hilda mucosal thickening of the right maxillary sinus. Mastoid air cells are clear. IMPRESSION: No acute intracranial abnormality. ACT 112: Negative or not required by law. The above report was generated using voice recognition software. It may contain grammatical, syntax o r spelling errors. Electronically signed by: Arthur Burgess M.D. 12/13/2024 2:54 PM
[2024-12-13 15:14] VITALS: BP 135/90; PULSE 66; TEMP 98.1
--- NOTE | 2024-12-13 15:52 | Discharge Summary ---
Date of Service December 13, 2024 Admission HPI Per Admitting Provider 84 yrs old female presents to the ED with chest pressure. PMH of post cardiac catheterization with stenting 1 week back,CAD, Ventricular tachycardia, DVT, Pulmonary Embolus,Stage 3b CKD, Hypercholesterolemia, Mild cognitive impairment, Hemochromatosis, Anemia. She reports 2 episode of chest pressure one episode today morning just before she went to see her PCP, towards the centre of her chest, felt like "someone's sitting on my chest" like pressure rather than the pain and migration of pain towards the upper neck. She had 1 prior episode of chest pressure similar to it few days ago. She also reports feeling chills since few days. She does have buring sensation on her belly which is usual for her and reflux symptoms for which she takes pepcid as needed. She is taking her Clopidogrel and Apixaban post stenting regularly. No H/o positional pain, hematuria, blood in stool, urinary frequency, hematemesis, bleeding from any sites. She had her Cardiac catheterization with stenting on 12/05. Admission Exam Per Admitting Provider She is alert and oriented x3. Mood affect appear normal. She answered all questions appropriately. HEENT: Sclerae are anicteric. Pupils are equal and reactive to light and accommodation. Extraocular movements were intact. Neuro: Cranial nerves intact Lungs: Lungs are clear to auscultation bilaterally. There are no rales wheezes or rhonchi. She has normal respiratory effort without use of accessory muscles. There is normal pulmonary excursion. Cardiac: The rhythm was regular. S1 and S2 were normal. There are no murmurs on examination. The PMI was not markedly displaced on palpation. Abdomen: The abdomen was soft and nontender. Extremities: Patient has bilateral radial pulses that are equal in intensity. Bandage on the right radial artery. Good perfusion of the right hand. There is no evidence cyanosis or clubbing. Skin: There are no rashes noted on examination today. Principal Diagnosis Chest pressure S/p cardiac catheterization with stenting Discharge Exam She is alert and oriented x3. Mood affect appear normal. She answered all questions appropriately. HEENT: Sclerae are anicteric. Pupils are equal and reactive to light and accommodation. Extraocular movements were intact. Neuro: Cranial nerves intact Lungs: Lungs are clear to auscultation bilaterally. There are no rales wheezes or rhonchi. She has normal respiratory effort without use of accessory muscles. There is normal pulmonary excursion. Cardiac: The rhythm was regular. S1 and S2 were normal. There are no murmurs on examination. The PMI was not markedly displaced on palpation. Abdomen: The abdomen was soft and nontender. Extremities: Patient has bilateral radial pulses that are equal in intensity. Bandage on the right radial artery. Good perfusion of the right hand. There is no evidence cyanosis or clubbing. Skin: There are no rashes noted on examination today. Discharge Data Allergies Allergy/AdvReac Type Severity Reaction Status Date / Time risperidone Allergy Severe BREATHING Verified 12/12/24 17:05 PROBLEMS lansoprazole Allergy Intermediate Rash Verified 12/12/24 17:05 sulfamethoxazole Allergy Intermediate RASH/NAUSEA Verified 12/12/24 17:05 aripiprazole Allergy Mild RASH Verified 12/12/24 17:05 latex Allergy Mild RASH Verified 12/12/24 17:05 trimethoprim Allergy Mild RASH/NAUSEA Verified 12/12/24 17:05 aspartame AdvReac Intermediate VOMITING/ROUSE Verified 12/12/24 17:05 /SOB baclofen AdvReac Intermediate Vomiting Verified 12/12/24 17:05 bupropion AdvReac Intermediate EXTREME Verified 12/12/24 17:05 AGITATION buspirone AdvReac Intermediate TINNITUS,HO Verified 12/12/24 17:05 STILITY citalopram AdvReac Intermediate HEADACHE, Verified 12/12/24 17:05 SLEPT 3 DAYS diazepam AdvReac Intermediate INSOMNIA,AG Verified 12/12/24 17:05 ITATION diphenhydramine AdvReac Intermediate Agitated Verified 12/12/24 17:05 doxycycline AdvReac Intermediate VOMITING Verified 12/12/24 17:05 estrogens, conjugated AdvReac Intermediate Vaginal Verified 12/12/24 17:05 [From Premarin] Bleeding hydroxyzine AdvReac Intermediate AGITATION Verified 12/12/24 17:05 ibuprofen AdvReac Intermediate AGITATION Verified 12/12/24 17:05 lorazepam AdvReac Intermediate INSOMNIA, Verified 12/12/24 17:05 ICTHING memantine AdvReac Intermediate Hallucinati Verified 12/12/24 17:05 ng paroxetine AdvReac Intermediate MIND Verified 12/12/24 17:05 RACED,SLEPT 3 DAYS sucralose AdvReac Intermediate VOMITING/ROUSE Verified 12/12/24 17:05 /SOB temazepam AdvReac Intermediate INSOMNIA Verified 12/12/24 17:05 trazodone AdvReac Intermediate TINNITUS, Verified 12/12/24 17:05 INSOMNIA venlafaxine AdvReac Intermediate SLEPT FOR Verified 12/12/24 17:05 3 DAYS ziprasidone AdvReac Intermediate VISUAL Verified 12/12/24 17:05 DISTURBANCE,INSOMNIA aspirin AdvReac Mild RINGING IN Verified 12/12/24 17:05 EARS hydralazine AdvReac Mild Chills Verified 12/12/24 17:05 hydrocodone AdvReac Mild NAUSEA Verified 12/12/24 17:05 lamotrigine AdvReac Mild EYE SORES Verified 12/12/24 17:05 lithium AdvReac Mild URINATION Verified 12/12/24 17:05 morphine AdvReac Mild AGITATION Verified 12/12/24 17:05 omeprazole AdvReac Mild Hiccups Verified 12/12/24 17:05 tetracycline AdvReac Mild NAUSEA Verified 12/12/24 17:05 hydrochlorothiazide AdvReac Unknown Unknown Verified 12/12/24 17:05 monosodium glutamate AdvReac Unknown Unknown Verified 12/12/24 17:05 quetiapine AdvReac Unknown Unknown Verified 12/12/24 17:05 Consultations 12/12/24 16:45 ED Decision to Admit Stat Ordered Studies 12/13/24 13:39 CT Brain [CT head/brain wo con] Routine Hospital Course (1) ALVINA (acute kidney injury): (2) Chest pain: (3) Status post cardiac catheterization: (4) Hypercholesterolemia: (5) Ventricular tachycardia: (6) Coronary artery disease: (7) Anemia: (8) Hemochromatosis: (9) ALEJANDRINA (obstructive sleep apnea): (10) Deep vein thrombosis, lower left extremity: (11) Vertigo: (12) Pulmonary embolus: (13) Cognitive impairment: Plan 84 yrs old female presents to the ED with chest pressure post cardiac catheterization with stenting and is admitted for observation..PMH of post cardiac catheterization with stenting 1 week back,CAD, Ventricular tachycardia, DVT, Pulmonary Embolus,Stage 3b CKD, Hypercholesterolemia, Mild cognitive impairment, Hemochromatosis, Anemia. #Chest pressure/ Atypical Chest pain/ Post cardiac catheterization with stenting status/ Multivessel coronary artery disease: - Chest pressure with atypical chest pain post cardiac catheterization with stenting 1 week back because of which is kept under observation for her sensitive status. - Troponin WNL with EKG showing no St elevation, depression, T wave inversion, with PT and PTT WNL. Less likely post stent thrombosis or Acute Coronary syndrome.No pericardial friction rub either suggesting pericarditis. - CXR shows no cardiomegaly, pulmonary edema, or pneumonia, so less likely pulmonary findings. - Possible musculoskeletal pain but no pain on palpation either. -Underwent successful PCI of proximal circumflex with single drug-eluting stent but following procedure again was noted to have prolonged runs of asymptomatic monomorphic NSVT in recovery. She was admitted for further monitoring and evaluation of residual RCA stenosis. On hospital day 2 underwent repeat cardiac catheterization on ostial RCA. - Monitor the chest pain and kept under observation on Telemetr. Planeed to trend troponin and do EKG if any symptoms occur. - Continue Apixaban and Clopidogrel. # Asymptomatic bacteriuria: -Urinalysis showing positive nitrite and wbc>50 with no urinary symptoms other than chills. Continue Ciprofloxacin 250mg for 3 days #Hypokalemia: -Kcl 40meq given. #Hypertension: -Continue Chlorthalidone 12.5 mg Daily. #Stage 3b CKD: -not on any medication. #ALEJANDRINA - Continue CPAP HS. #COPD withemphysema: -Gold class E Copd with smoking history. Continue fluticasone home inhalar. #Hypercholesterolemia: -Continue pravastatin. #VTE prophylaxis: Continue Abixaban Total Time Total Time Spent Total Time Spent (In Minutes): See attending attestation Discharge Plan Discharge Items Patient Disposition: Home - Self-Care Reason For Visit: ATYPICAL CHEST PAIN POST CARDIAC CATHETERIZATION Discharge Diagnosis: Chest pressure and UTI s/p Cardiac catheterization with stenting Condition on Discharge: Fair Activity: Per Instructions section Non-emergency contact: Primary Care Provider and Senior Group Manager Call non-emergency contact if: your symptoms worsen and your temperature is above 101 Follow-up/Referrals: Heather Haile DO [Primary Care Provider] - 12/16/24 2:05 pm Diet: Regular Addtl Attending Provider Instructions: You were admitted to [facility] because ofChest pressure and urinary symptoms. With regard to your urinary symptoms and labs suggesting urine infection we put you on antibiotics and because of your confusion you had, we did a CT scan of your head which showed no abnormalities. We did other labs to see if there's any clotting on your stenting and ischemia but the labs were not concerning for those condition. You wee deemed safe to discharge when your condition looked improved. You will continue your home medications as noted below. I have mentioned the medications we prescribed from the hospital: 1)We prescribed you antibiotics called Ciprofloxacin 250mg, twice daily for total of 3 days which was started from the hospital. (a new script has been sent for this medication) Please make sure you follow up with your PCP and heart doctor " acid blower" to make sure your condition continues to be stable. Thank you for choosing [facility] as your healthcare provider Pending Studies at Discharge: No Stand-Alone Forms: [facility], Smoking Cessation Medications and DC Order Prescriptions: New ciprofloxacin HCl 250 mg tablet 250 mg PO Q12H Qty: 5 0RF Continued (DME) CPAP Supplies Misc See Rx Instructions .MEDSUPPLY Qty: 1 0RF Rx Instructions: CPAP supplies, mask, headgear, filters, tubing, water chamber. G47.33 (DME) Auto Titrating CPAP Misc See Rx Instructions .MEDSUPPLY Qty: 1 0RF Rx Instructions: Auto PAP with 5-15 cm H20. Lifetime usage. G47.33 Trelegy Ellipta 100-62.5-25 mcg blister with device 1 inh inhalation QAM Qty: 60 6RF mecobalamin (vitamin B12) 1,000 mcg tablet,chewable 1,000 mcg PO DAILY famotidine 20 mg tablet 20 mg PO BID clopidogrel [Plavix] 75 mg tablet 75 mg PO DAILY pravastatin 20 mg tablet 20 mg PO HS valacyclovir 500 mg tablet 500 mg PO QAM [id number] oil 720-1,200 mg Capsule 1 cap PO DAILY ketoconazole 2 % Shampoo 1 ea TOPICAL DIRECTED PRN (Reason: DIRECTED) metoprolol succinate 100 mg tablet extended release 24 hr 100 mg PO HS chlorthalidone 25 mg tablet 12.5 mg PO DAILY tramadol 50 mg Tablet 50 mg PO Q4H PRN (Reason: Pain) acetaminophen [Tylenol Arthritis Pain] 650 mg Tablet Extended Release 650 mg PO Q8H PRN (Reason: Pain) nitroglycerin [Nitrostat] 0.4 mg Tablet, Sublingual 0.4 mg sublingual DIRECTED PRN (Reason: Chest Pain) polyethylene glycol 3350 [Miralax] 17 gram/dose Powder 17 g PO DAILY PRN (Reason: Constipation) albuterol sulfate 90 mcg/actuation HFA aerosol inhaler 2 puff INHALATION QID PRN (Reason: Shortness Of Breath Or Wheezing) clobetasol 0.05 % Solution 1 applic TOPICAL BID PRN (Reason: NEEDED) vitamin E 268 mg (400 unit) Capsule 268 mg PO DAILY loratadine [Claritin] 10 mg Tablet 10 mg PO DAILY PRN (Reason: Congestion) diclofenac sodium 1 % Gel 2 g TOPICAL QID PRN (Reason: Pain) Eliquis 2.5 mg Tablet 2.5 mg PO BID Centrum MultiGummies Women 80 mcg Tablet,Chewable 1 tab PO DAILY Discharge Orders: Discharge Order (Routine); Ordered 12/13/24 Ordered By: Grisel Nicole Admission Data Admit Date/Time: 12/12/24 18:26 Attending Provider: Ankit Rothman Admit Provider: Grisel Nicole Primary Care Provider: Heather Haile Other Providers: Mile Pyle Other Interventions: Discharge Summary Assessment (RN) Last Done: 12/13/24 16:17 Supervising Physician Co-Signing Physician Notes Attending attestation Pt seen and examined in concert with Dr. Nicole. In agreement with the documented findings as noted in the resident documentation with any exceptions or additions as noted here. Resting comfortably in bed with resolution of presenting chest pain without recurrence. AAOx4 with good short and needle bar molder recall on evaluation. Does have increased urinary frequency and urgency on evaluation. VS as noted. On examination, S1/S2 nl RRR no MCG. CTAB. Abd NT/ND BS+ve Chest pain s/p cardiac catheterization - cardiology consult - resume previous care Delirium with mild cognitive impairment - doing well, possible mild UTI with abn UA and some frequency - complete 3 day course of ciprofloxacin w/ precautions. CT head negative. Else see resident documentation as noted. Total attending physician time spent with this patient's care on the day of discharge: 35 minutes. Resident Activity Tracking Resident Involvement: Resident Care Provided Care Provided: Adult Hospital Medicine
== END 2024-12-13 16:26 | disposition home or self-care (01) ==
LOC: EDINP 12:40 → ED 12:40 → SUATTDRO 18:26 → 4W 23:03